=== PATIENT | male | born 1930 ===

== ENCOUNTER 2017-05-18 11:22 | Inpatient (IN) | payer MEDICARE ==
[2017-05-18 11:22] VITALS: PULSE 73
[2017-05-18 11:52] LABS: VENOUS BLOOD GAS BASE EXCESS -10.9 mmol/L (0.0-2.0); VENOUS BLOOD GAS PCO2 31 mmHg (40-60); VENOUS BLOOD PH 7.28 (7.32-7.43)
[2017-05-18 12:00] VITALS: BMI 22.2
[2017-05-18] MEDS ORDERED: Sodium Chloride 0.9% 500 ML IV ONE ×3 (12:05→12:48)
[2017-05-18 12:08] LABS: EOS % 0.5 % (0.0-4.0); LYMPH # 0.8 K/uL (1.0-4.3); NRBC % 0.2 % (0.0-2.0)
[2017-05-18 12:11] LABS: POTASSIUM 4.3 mmol/L (3.6-5.2)
--- NOTE | 2017-05-18 12:11 | C.PDOC ---
History Of Present Illness Patient is a 87 y/o male, whose PMHx includes CHF, that is brought to the ED by EMS for evaluation of shortness of breath. Patient was found to be hypotensive, hypoglycemic, tachypneic, with JVD, and in rapid Afib by EMS. EMS reports giving glucose, IV fluids, and was started on BIPAP. As per , patient felt hot 2 days ago, was not able to sleep, and was noted to be coughing, and short of breath. states patient has been agitated, lethargic, had decreased PO intake, and noticed less activity. denies any fever. Poor mentation noted on arrival. PMD: Alexander Abaid Time Seen by Provider: 05/18/17 11:40 Chief Complaint (Nursing): Shortness Of Breath History Per: EMS, Family History/Exam Limitations: no limitations Onset/Duration Of Symptoms: Days (2) Recent travel outside of the [place]: No Additional History Per: EMS Past Medical History Reviewed: Historical Data, Nursing Documentation, Vital Signs Vital Signs: Last Vital Signs Temp 98.1 F 05/18/17 11:45 Pulse 105 H 05/18/17 12:54 Resp 22 05/18/17 12:54 BP 120/89 05/18/17 12:54 Pulse Ox 28 L 05/18/17 13:26 - Medical History PMH: Atrial Fibrillation, Back Problems, Bronchitis, CHF, HTN, Hypercholesterolemia, Pneumonia, Chronic Kidney Disease Surgical History: Cholecystectomy Family History: States: Unknown Family Hx - Social History Hx Tobacco Use: No Hx Alcohol Use: No Hx Substance Use: No - Immunization History Hx Tetanus Toxoid Vaccination: No Hx Influenza Vaccination: Yes Hx Pneumococcal Vaccination: No Review Of Systems Review Of Systems: ROS cannot be obtained secondary to pt's inabilty to answer questions. Physical Exam - Physical Exam Appears: Confused, Chronically Ill Skin: Normal Color, Warm, Dry Head: Atraumatic, Normacephalic Eye(s): bilateral: Normal Inspection Throat: Normal Neck: Supple, Other (+ JVD) Chest: Symmetrical Cardiovascular: Rhythm Irregular, No Murmur Respiratory: Decreased Breath Sounds (decreased air flow BL) Gastrointestinal/Abdominal: Soft, No Tenderness, Other (surgical scars to abdomen) Extremity: Pedal Edema (+2 pitting edema BL), No Deformity Neurological/Psych: Slow To Respond With Command ED Course And Treatment - Laboratory Results Result Diagrams: 05/18/17 11:54 05/18/17 11:54 ECG: Interpreted By Me, Viewed By Me ECG Rhythm: Atrial Fibrillation ECG Interpretation: No Acute Changes Interpretation Of ECG: Q waves in septal leads. Rate From EC (bpm) O2 Sat by Pulse Oximetry: 28 Medical Decision Making Medical Decision Making: Blood work, urinalysis, EKG, CXR ordered and reviewed. Patient was given IV fluids, and respiratory treatment. Blood work shows elevated lactate. Most likely not due to infection, no white count, or fever. No obvious signs of infection. Case discussed with ICU. Patient was evaluated by ICU, and was downgraded. Started on Vapotherm. Endorsed to hospitalist. Dr. Elsa Norman requesting Head CT Disposition Discussed With Dr.: Gregory Norman Counseled Patient/Family Regarding: Studies Performed - Disposition Disposition: HOSPITALIZED Disposition Time: 13:32 Condition: GUARDED - Clinical Impression Clinical Impression: Afib, CHF (congestive heart failure), Dyspnea, Altered mental status - Scribe Statement The provider has reviewed the documentation as recorded by the Scribe Fausto Norman All medical record entries made by the Scribe were at my direction and personally dictated by me. I have reviewed the chart and agree that the record accurately reflects my personal performance of the history, physical exam, medical decision making, and the department course for this patient. I have also personally directed, reviewed, and agree with the discharge instructions and disposition. Decision To Admit - Pt Status Changed To: Hospital Disposition Of: Inpatient - Admit Certification Admit to Inpatient:: After my assessment, the patient will require hospitalization for at least two midnights. This is because of the severity of symptoms shown, intensity of services needed, and/or the medical risk in this patient being treated as an outpatient. - InPatient: Physician Admission Certification: I certify that this patient requires 2 or more midnights of care for the following reason:: multiple co morbidities. SOB, AMS - . Bed Request Type: Telemetry Admitting Physician: Gregory Norman Patient Diagnosis: Afib, CHF (congestive heart failure), Dyspnea, Altered mental status
[2017-05-18 12:13] LABS: BILIRUBIN,TOTAL 4.7 mg/dL (0.2-1.3); TOTAL PROTEIN 7.4 g/dL (6.3-8.3)
[2017-05-18 12:14] LABS: CALCIUM 9.2 mg/dl (8.6-10.4); MAGNESIUM 2.2 mg/dL (1.6-2.3); PHOSPHOROUS 5.3 mg/dL (2.5-4.5)
[2017-05-18 12:21] LABS: INR 1.9
[2017-05-18 12:23] LABS: ABG ALLEN TEST A; ARTERIAL BLOOD GAS MODE BiPAP; DRAW SITE RRA
[2017-05-18 12:25] LABS: TROPONIN I 0.044 ng/mL (0.00-0.120)
[2017-05-18 12:37] LABS: BASO % 0.7 % (0.0-2.0); HEMATOCRIT 44.6 % (35.0-51.0); LYMPH % 11.4 % (20.0-40.0); MEAN CELL VOLUME 85.1 fL (80.0-94.0); MEAN CORPUSCULAR HEMOGLOBIN 25.9 pg (27.0-31.0); MEAN CORPUSCULAR HGB CONC 30.4 g/dL (33.0-37.0); MEAN PLATELET VOLUME 12.3 fL (7.2-11.7); MONO % 14.7 % (0.0-10.0); RED CELL DISTRIBUTION WIDTH 19.5 % (11.5-14.5); WHITE BLOOD COUNT 6.7 K/uL (4.8-10.8)
[2017-05-18 13:07] LABS: RBC URINE 2 /hpf (0-3); URINE BACTERIA RARE (<OCC); URINE BILIRUBIN NEGATIVE (NEGATIVE); URINE BLOOD 1+ (NEGATIVE); URINE COLOR Amber (YELLOW); URINE GLUCOSE (UA) 1+ mg/dL (Normal); URINE KETONE NEGATIVE (NEGATIVE); URINE LEUKOCYTE ESTERASE NEG Leu/uL (Negative); URINE PROTEIN 2+ mg/dL (NEGATIVE); WBC URINE 7 /hpf (0-5)
--- NOTE | 2017-05-18 13:12 | RAD ---
HISTORY: Sepsis Patient COMPARISON: Comparison is made to 05/04/2015 FINDINGS: LUNGS: No active pulmonary disease. PLEURA: No significant pleural effusion identified, no pneumothorax apparent. CARDIOVASCULAR: Cardiomegaly is again noted. OSSEOUS STRUCTURES: Degenerative changes seen at the shoulders VISUALIZED UPPER ABDOMEN: Normal. OTHER FINDINGS: None. IMPRESSION: Cardiomegaly. No evidence of acute pulmonary disease.
[2017-05-18] MEDS ORDERED: Vancomycin 1 gm/NS 200 ml 1 GM/200 ML BAG IVPB STA (13:51)
[2017-05-18] MEDS ORDERED: Aztreonam 2 GM in Sodium Chloride 0.9% 100 ML IVPB STA (13:51)
--- NOTE | 2017-05-18 14:18 | CP.PCM.HP ---
<Trudi Su - Last Filed: 05/18/17 18:23> History of Present Illness - History of Present Illness History of Present Illness: This patient was seen by the rewriter at approximately 14:00pm on 05/18 in the ED Patient's code status is yet to be determined. Health proxy is patient's Lily Florentino. CC: shortness of breath with altered mental status HPI: 87 year old male with PMHx significant for CHF, HTN, atrial fibrillation, ischemic cardiomyopathy, severe chronic systolic dysfunction and severe mitral regurgitation presents after complaints of shortness of breath and lethargy as explained by son-in-law. Son-in law stated that upon EMS arriving, patient was much more altered however he became more responsive in the ED. At the time of the evaluation, patient was quite somnolent and minimally responsive to questions asked and thus a full review of symptoms was not obtained. Patient is a poor historian and not able to provide most of the history. Sme history was provided by son-in law and ; however a great portion was supplemented by the medical records. PMHx- as noted above PSHx- denies Fam Hx- Dad, brothers and sister all have DM Meds- ASA 81 mg, Carvedilol 12.5 mg PO BID, Benadryl 25 mg PO q4 prn Social- denies tobacco use, alcohol intake or drug use Allergies- tylenol, plavix, oxycodone ( rash) PMD: Dr. Munoz Food Production Worker: Dr. Terry ( [place]) In the ED, vitals were obtained and initially temperature read 98.1 degrees Fahrenheit. Minutes later, vitals were reassessed and temperature dropped to 95.8. Initial Vitals: T 98.1, HR 105, BP 120/99, R 22, O2 100 on Bipap Following Vitals:T 95.8, HR 111, BP 129/91, R 22, O2 98 on Bipap ICU test fixture designer initially deemed the patient appropriate for telemetry monitoring; however following the decrease in temperature, patient upgraded to the ICU. Present on Admission - Present on Admission Any Indicators Present on Admission: No Review of Systems - Review of Systems Systems not reviewed;Unavailable: Respiratory Distress, Altered Mental Status, Language Barrier - Constitutional Constitutional: absent: Fever, Headache - EENT Eyes: absent: Change in Vision - Cardiovascular Cardiovascular: Dyspnea. absent: Chest Pain, Chest Pain at Rest - Respiratory Respiratory: Dyspnea - Gastrointestinal Gastrointestinal: absent: Diarrhea, Nausea, Vomiting Past Patient History - Past Medical History & Family History Past Medical History?: Yes - Past Social History Smoking Status: Never Smoked - CARDIAC Hx Atrial Fibrillation: Yes Hx Congestive Heart Failure: Yes Hx Hypercholesterolemia: Yes Hx Hypertension: Yes - PULMONARY Hx Bronchitis: Yes Hx Pneumonia: Yes - NEUROLOGICAL Hx Neurological Disorder: No - HEENT Other/Comment: blurring ofVISION AND HARD OF HEARING [place] [facility] [place] Hx Chronic Kidney Disease: Yes - ENDOCRINE/METABOLIC Hx Endocrine Disorders: No - HEMATOLOGICAL/ONCOLOGICAL Hx Blood Disorders: No - INTEGUMENTARY Hx Dermatological Problems: No - MUSCULOSKELETAL/RHEUMATOLOGICAL Hx Falls: No - GASTROINTESTINAL Hx Gastrointestinal Disorders: No - GENITOURINARY/GYNECOLOGICAL Hx Genitourinary Disorders: No - PSYCHIATRIC Hx Substance Use: No - SURGICAL HISTORY Hx Cholecystectomy: Yes - ANESTHESIA Hx Anesthesia: Yes Hx Anesthesia Reactions: No Hx Malignant Hyperthermia: No Meds Allergies/Adverse Reactions: Allergies Allergy/AdvReac Type Severity Reaction Status Date / Time acetaminophen [From Percocet] Allergy RASH Verified 05/18/17 11:26 clopidogrel bisulfate Allergy RASH Verified 05/18/17 11:26 [From Plavix] oxycodone HCl [From Percocet] Allergy RASH Verified 05/18/17 11:26 fruit Allergy RASH Uncoded 12/20/15 16:00 Physical Exam - Constitutional Appears: Non-toxic - Head Exam Head Exam: ATRAUMATIC, NORMAL INSPECTION, NORMOCEPHALIC - Eye Exam Eye Exam: EOMI, Normal appearance, PERRL Pupil Exam: NORMAL ACCOMODATION - ENT Exam ENT Exam: Mucous Membranes Moist - Neck Exam Neck exam: Positive for: Full Rom - Respiratory Exam Respiratory Exam: NORMAL BREATHING PATTERN - Cardiovascular Exam Cardiovascular Exam: JVD, +S1, +S2 Additional comments: heart sounds difficult to auscultate - GI/Abdominal Exam GI & Abdominal Exam: Distended, Soft, Tenderness (RUQ) - Extremities Exam Extremities exam: Positive for: full ROM, normal capillary refill, pedal edema ( @+), tenderness, pedal pulses present - Back Exam Back exam: FULL ROM - Neurological Exam Neurological exam: Altered - Psychiatric Exam Psychiatric exam: Flat Affect - Skin Skin Exam: Dry, Intact, Warm Results - Vital Signs Recent Vital Signs: Last Vital Signs Temp 95.8 F L 05/18/17 13:49 Pulse 105 H 05/18/17 12:54 Resp 22 05/18/17 12:54 BP 120/89 05/18/17 12:54 Pulse Ox 28 L 05/18/17 13:33 - Labs Result Diagrams: 05/18/17 11:54 05/18/17 11:54 Assessment & Plan (1) Dyspnea Assessment and Plan: Shortness of breath CXR- no signs of active disease BiPAP settings 10/08, on vapotherm D-Dimer elevated Will check VQ scan at this time in light of elevated creatinine. F/U results F/U serial troponins. Troponin 1 negative Status: Acute (2) SIRS (systemic inflammatory response syndrome) Assessment and Plan: Patient admitted to ICU for continued monitoring Initial Vitals: T 98.1, HR 105, BP 120/99, R 22, O2 100 on Bipap Following Vitals:T 95.8, HR 111, BP 129/91, R 22, O2 98 on Bipap Bear hugger in place Unclear source- Son-in law stated patient had increased urinary frequency without dysuria UA no signs of leukocyte esterase or nitrites. F/U UC CXR- no signs of active disease On Vanc and Zosyn- Renally dosed F/U random vanc level in AM F/U with ID recommendations ( Dr. Hutton) Status: Acute (3) Metabolic acidosis Assessment and Plan: Increased anion gap noted with appropriate respiratory compensation Will treat the SIRS and look for a source May be secondarily due to underlying UTI Status: Acute (4) CHF (congestive heart failure) Assessment and Plan: Last Echo in November 2016 with EF of ~ 10%. At the time, the family was against AICD placement. Will repeat echo. Will reassess F/U with Cardiology recommendations ( Dr. Saha) ProBNP relatively unchanged from level noted back in November Status: Chronic (5) Chronic atrial fibrillation Assessment and Plan: Patient is currently rate controlled however not anticoagulated due to high bleeding risk as per Dr. Saha. [id number] score 4/9 ( CHF, Age, HTN) F/U with cardiology recommendations Status: Chronic (6) Altered mental status Assessment and Plan: Head CT to rule out CVA or bleed- Results- no signs of acute active bleeding. Moderate atrophy and moderate white matter changes likely due to microvascular ischemic disease F/U AM labs Ativan PRN for agitation Status: Acute (7) HTN (hypertension) Assessment and Plan: Coreg 12.5 mg PO BID home med held until it can be determined that patient can safely swallow meds. Patient's BP is borderline low normotensive Status: Chronic (8) Hyperlipidemia Assessment and Plan: Unclear History Will check Lipid Panel in the AM Status: Chronic (9) CKD (chronic kidney disease) stage 3, GFR 30-59 ml/min Assessment and Plan: Monitor ins and outs F/U with Nephrology ( Dr. Ortiz) recommendations Status: Acute (10) Lower extremity edema Assessment and Plan: D-dimer elevated. 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 Possiblity if hepatocellular carcinoma is not totally excluded. Patient may benefit from MRI of abdomen in the future once current clinical presentation resolves. Cont to monitor. Status: Acute (12) Prophylactic measure Assessment and Plan: SCDs contraindicated at this time until Venous dopplers come back Heparin SC held as patient is a high bleeding risk as stated above PPI 40 IV daily Ativan 0.5 mg Q4 PRN for agitation Status: Acute <Gregory Norman - Last Filed: 05/18/17 22:01> Results - Vital Signs Recent Vital Signs: Last Vital Signs Temp 97.4 F L 05/18/17 20:00 Pulse 126 H 05/18/17 19:48 Resp 30 H 05/18/17 19:40 BP 121/85 05/18/17 20:00 Pulse Ox 96 05/18/17 19:48 - Labs Result Diagrams: 05/18/17 11:54 05/18/17 11:54 Labs: Laboratory Results - last 24 hr 05/18/17 05/18/17 05/18/17 14:30 17:47 17:47 pO2 25 L VBG pH 7.25 L VBG pCO2 39 L VBG HCO3 15.8 VBG Total CO2 18.3 L VBG O2 Sat (Calc) 41.5 VBG Base Excess -9.5 L VBG Potassium 3.5 L Sodium 142.0 Chloride 112.0 H Glucose 102 Lactate 3.8 H Lactic Acid 4.8 H* Total Creatine Kinase CK-MB (Mass) Troponin I, Quant Procalcitonin 0.59 H Venous Blood Potassium 3.5 L 05/18/17 17:47 pO2 VBG pH VBG pCO2 VBG HCO3 VBG Total CO2 VBG O2 Sat (Calc) VBG Base Excess VBG Potassium Sodium Chloride Glucose Lactate Lactic Acid Total Creatine Kinase 55 CK-MB (Mass) 2.63 Troponin I, Quant 0.0530 Procalcitonin Venous Blood Potassium Attending/Attestation - Attestation I have personally seen and examined this patient.: Yes I have fully participated in the care of the patient.: Yes I have reviewed all pertinent clinical information: Yes Notes (Text): 05/18/17 22:01 Patient was seen and examined when he was brought to the ICUD Bed #10. History, Physical, Assessment and Plan, orders were thoroughly gone over with the resident. Gregory Norman D.O.
[2017-05-18 14:36] LABS: VENOUS BLOOD GAS BASE EXCESS -9.5 mmol/L (0.0-2.0); VENOUS BLOOD GAS PCO2 39 mmHg (40-60); VENOUS BLOOD PH 7.25 (7.32-7.43)
--- NOTE | 2017-05-18 16:38 | CP.PCM.CON ---
History of Present Illness - History of Present Illness History of Present Illness: 87yo M. PMHx CHF,HTN, atrial fibrillation, ischemic cardiomyopathy, severe chronic systolic dysfunction, severe mitral regurgitation. Presented with change in mental status, and dyspnea. Review of Systems - Review of Systems Systems not reviewed;Unavailable: Altered Mental Status All systems: reviewed and no additional remarkable complaints except - Respiratory Respiratory: Dyspnea Past Patient History - Past Medical History & Family History Past Medical History?: Yes - Past Social History Smoking Status: Never Smoked - CARDIAC Hx Atrial Fibrillation: Yes Hx Congestive Heart Failure: Yes Hx Hypercholesterolemia: Yes Hx Hypertension: Yes - PULMONARY Hx Bronchitis: Yes Hx Pneumonia: Yes - NEUROLOGICAL Hx Neurological Disorder: No - HEENT Other/Comment: blurring ofVISION AND HARD OF HEARING AFTER taking heart medicine from [facility] [place] - RENAL Hx Chronic Kidney Disease: Yes - ENDOCRINE/METABOLIC Hx Endocrine Disorders: No - HEMATOLOGICAL/ONCOLOGICAL Hx Blood Disorders: No - INTEGUMENTARY Hx Dermatological Problems: No - MUSCULOSKELETAL/RHEUMATOLOGICAL Hx Falls: No - GASTROINTESTINAL Hx Gastrointestinal Disorders: No - GENITOURINARY/GYNECOLOGICAL Hx Genitourinary Disorders: No - PSYCHIATRIC Hx Substance Use: No - SURGICAL HISTORY Hx Cholecystectomy: Yes - ANESTHESIA Hx Anesthesia: Yes Hx Anesthesia Reactions: No Hx Malignant Hyperthermia: No Meds Allergies/Adverse Reactions: Allergies Allergy/AdvReac Type Severity Reaction Status Date / Time acetaminophen [From Percocet] Allergy RASH Verified 05/18/17 11:26 clopidogrel bisulfate Allergy RASH Verified 05/18/17 11:26 [From Plavix] oxycodone HCl [From Percocet] Allergy RASH Verified 05/18/17 11:26 fruit Allergy RASH Uncoded 12/20/15 16:00 - Medications Medications: Current Medications Aspirin (Aspirin Chewable) 81 mg PO DAILY [facility] Heparin Sodium (Porcine) (Heparin) 5,000 units SC Q8 [facility] Vancomycin/Sodium Chloride (Vancocin) 1 gm in 200 mls @ 166.6 mls/hr IVPB Q24H [place] Stop: 05/24/17 12:01 Piperacillin Sod/Tazobactam Sod (Zosyn 2.25 Gm Iv Premix) 2.25 gm in 50 mls @ 100 mls/hr IVPB Q6H [facility] Lorazepam (Ativan) 0.5 mg IVP Q4H PRN PRN Reason: Agitation Last Admin: 05/18/17 15:30 Dose: 0.5 mg Pantoprazole Sodium (Protonix Inj) 40 mg IVP DAILY [facility] Physical Exam - Head Exam Head Exam: ATRAUMATIC, NORMAL INSPECTION, NORMOCEPHALIC - Eye Exam Eye Exam: EOMI, Normal appearance, PERRL - ENT Exam ENT Exam: Mucous Membranes Dry - Respiratory Exam Respiratory Exam: Clear to Auscultation Bilateral, NORMAL BREATHING PATTERN - Cardiovascular Exam Cardiovascular Exam: Irregular Rhythm - GI/Abdominal Exam GI & Abdominal Exam: Normal Bowel Sounds, Soft. absent: Tenderness - Neurological Exam Neurological exam: Alert, Altered - Psychiatric Exam Psychiatric exam: Flat Affect Results - Vital Signs Recent Vital Signs: Last Vital Signs Temp 95 F L 05/18/17 16:00 Pulse 124 H 05/18/17 16:20 Resp 18 05/18/17 16:20 BP 102/80 05/18/17 16:16 Pulse Ox 95 05/18/17 16:20 - Labs Result Diagrams: 05/18/17 11:54 05/18/17 11:54 Labs: Laboratory Results - last 24 hr 05/18/17 14:30 pO2 25 L VBG pH 7.25 L VBG pCO2 39 L VBG HCO3 15.8 VBG Total CO2 18.3 L VBG O2 Sat (Calc) 41.5 VBG Base Excess -9.5 L VBG Potassium 3.5 L Sodium 142.0 Chloride 112.0 H Glucose 102 Lactate 3.8 H Venous Blood Potassium 3.5 L Assessment & Plan - Assessment and Plan (Free Text) Assessment: 87yo M. PMHx CHF,HTN, atrial fibrillation, ischemic cardiomyopathy, severe chronic systolic dysfunction, severe mitral regurgitation. Presented with change in mental status, and dyspnea. Neuro: Altered mental status secondary to metabolic encephalopathy. Pulm: Initial hypoxia resolving, patient on high flow oxygen, will titrate nasal cannula oxygen. CV: Blood pressure labile, ranging from normotensive to hypotensive. Hem: No acute issues Renal: Chronic kidney disease, Will monitor urine output. NS@50 Endo: No acute issues GI: Nothing by mouth ID: Possible sepsis from UTI, follow-up urinalysis. Empiric therapy with Zosyn. DVT proph - heparin subcutaneous GI proph - not currently indicated [place] for strict I/O's during acute illness Code status - full code Critical Care Time spent 35 minutes Multi-disciplinary rounds were performed with house staff, nursing, speech therapy, respiratory therapy, pharmacy and nutrition with integrated input from the primary team/attending and other consulting services. The documented time is cumulative and includes review of patient data/exams/labs/chart review and examination of the patient on rounds and throughout the day; time is exclusive of any procedures or teaching time.
--- NOTE | 2017-05-18 16:43 | CT ---
PROCEDURE: CT HEAD WITHOUT CONTRAST. HISTORY: Change in Mental Status COMPARISON: None available. TECHNIQUE: Axial computed tomography images were obtained through the head/brain without intravenous contrast. Radiation dose: Total exam DLP = 1029.73 mGy-cm. This CT exam was performed using one or more of the following dose reduction techniques: Automated exposure control, adjustment of the mA and/or kV according to patient size, and/or use of iterative reconstruction technique. FINDINGS: HEMORRHAGE: No intracranial hemorrhage. BRAIN: No mass effect or edema. Moderate atrophy and moderate white matter changes likely represent chronic microvascular ischemic disease VENTRICLES: Unremarkable. No hydrocephalus. CALVARIUM: Unremarkable. PARANASAL SINUSES: Unremarkable as visualized. No significant inflammatory changes. MASTOID AIR CELLS: Unremarkable as visualized. No inflammatory changes. OTHER FINDINGS: None. IMPRESSION: No evidence of acute intracranial hemorrhage territorial infarct mass effect or midline shift. Moderate atrophy and moderate white matter changes likely due to microvascular ischemic disease.
[2017-05-18] MEDS: Piperacill/Tazo 2.25gm in Dex 2.25 GM/50 ML BAG IVPB SCH ×2 (16:46→21:34)
--- NOTE | 2017-05-18 17:19 | US ---
HISTORY: RUQ Pain on Palpation, Elevated LFTs COMPARISON: None. TECHNIQUE: Sonographic evaluation of the abdomen. FINDINGS: LIVER: Measures 17.4 cm. Mild increased echogenicity of the liver parenchyma. There is hypoechoic a cyst at the right liver lobe measures 3.9 x 2.4 x 3.5 centimeter. . No intrahepatic bile duct dilatation. GALLBLADDER: Status post cholecystectomy. COMMON BILE DUCT: Measures 9.5 mm. No stones. No dilatation. PANCREAS: Unremarkable as visualized. No mass. No ductal dilatation. RIGHT KIDNEY: Measures 9.6 x 3.5 x 4.1cm. Mild increased echogenicity of the right kidney. No evidence of hydronephrosis. Small echogenic lesion seen at the mid to lower pole right kidney measures 1 x 0.8 x 1.2 centimeter. There is a cyst at the right kidney measures 3.8 x 3.4 x 3.3 centimeter. LEFT KIDNEY: Measures 8.4 x 4 x 3.9cm. Normal echogenicity. No calculus, mass, or hydronephrosis. SPLEEN: Normal in size and contour. No mass. AORTA: No aneurysmal dilatation. IVC: Unremarkable. OTHER FINDINGS: None. IMPRESSION: Status post cholecystectomy. Mildly dilated CBD up to 9.5 millimeter which could be due to prior cholecystectomy. 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 The possibility of hepatocellular carcinoma is not totally excluded. No evidence of hydronephrosis.
[2017-05-18] MEDS: Sodium Chloride 0.9% 1,000 ML IV SCH (19:30)
--- NOTE | 2017-05-18 22:38 | CP.PCM.CON ---
History of Present Illness - History of Present Illness History of Present Illness: History taken from house staff/records as patient has AMS, no family at bedside; 87 yo M w/ pmh of htn, CHF w/ severe systolic dysfunction secondary to ischemic cardiomyopathy and severe mitral regurg, Afib not on AC and CKD IIIB, brought to ED today with shortness of breath and increased lethargy; nephrology service being consulted for advanced CKD; Per ED note, noted patient to have cough and increased sob over previous 2 days; he had become agitated, and was having decreased PO intake and decreased activity lately; EMS found patient to be hypotensive, hypoglycemic, tachypneic, having elevated JVD and in rapid Afib; Patient was given glucose, IVF and started on BIPAP; In ED, patient was found to be hypothermic and with elevated lactate level; hence he was admitted to ICU; Review of Systems - Review of Systems Systems not reviewed;Unavailable: Altered Mental Status - Cardiovascular Cardiovascular: As Per HPI - Respiratory Respiratory: As Per HPI Past Patient History - Past Medical History & Family History Past Medical History?: Yes Pertinent Family History: Father and siblings - DM - Past Social History Smoking Status: Never Smoked - CARDIAC Hx Atrial Fibrillation: Yes Hx Congestive Heart Failure: Yes Hx Hypercholesterolemia: Yes Hx Hypertension: Yes - PULMONARY Hx Bronchitis: Yes Hx Pneumonia: Yes - NEUROLOGICAL Hx Neurological Disorder: No - HEENT Other/Comment: blurring ofVISION AND HARD OF HEARING [place] [facility] [place] Hx Chronic Kidney Disease: Yes - ENDOCRINE/METABOLIC Hx Endocrine Disorders: No - HEMATOLOGICAL/ONCOLOGICAL Hx Blood Disorders: No - INTEGUMENTARY Hx Dermatological Problems: No - MUSCULOSKELETAL/RHEUMATOLOGICAL Hx Falls: No - GASTROINTESTINAL Hx Gastrointestinal Disorders: No - GENITOURINARY/GYNECOLOGICAL Hx Genitourinary Disorders: No - PSYCHIATRIC Hx Substance Use: No - SURGICAL HISTORY Hx Cholecystectomy: Yes - ANESTHESIA Hx Anesthesia: Yes Hx Anesthesia Reactions: No Hx Malignant Hyperthermia: No Meds Allergies/Adverse Reactions: Allergies Allergy/AdvReac Type Severity Reaction Status Date / Time clopidogrel bisulfate Allergy RASH Verified 05/18/17 11:26 [From Plavix] oxycodone HCl [From Percocet] Allergy RASH Verified 05/18/17 11:26 - Medications Medications: Current Medications Aspirin (Aspirin Chewable) 81 mg PO DAILY [facility] Vancomycin/Sodium Chloride (Vancocin) 1 gm in 200 mls @ 166.6 mls/hr IVPB Q24H [facility] Stop: 05/24/17 12:01 Piperacillin Sod/Tazobactam Sod (Zosyn 2.25 Gm Iv Premix) 2.25 gm in 50 mls @ 100 mls/hr IVPB Q6H [facility] Last Admin: 05/18/17 21:34 Dose: 100 mls/hr Sodium Chloride (Sodium Chloride 0.9%) 1,000 mls @ 50 mls/hr IV .Q20H [facility] Last Admin: 05/18/17 19:30 Dose: 50 mls/hr Lorazepam (Ativan) 0.5 mg IVP Q4H PRN PRN Reason: Agitation Last Admin: 05/18/17 20:59 Dose: 0.5 mg Pantoprazole Sodium (Protonix Inj) 40 mg IVP DAILY [facility] Physical Exam - Constitutional Appears: In Acute Distress, Agitated - Head Exam Head Exam: ATRAUMATIC, NORMAL INSPECTION, NORMOCEPHALIC - Eye Exam Eye Exam: Normal appearance. absent: Scleral icterus Pupil Exam: PERRL - ENT Exam ENT Exam: Mucous Membranes Moist - Neck Exam Neck exam: Positive for: Normal Inspection. Negative for: Lymphadenopathy, Thyromegaly - Respiratory Exam Respiratory Exam: Clear to Auscultation Bilateral Additional comments: Tachypneic; - Cardiovascular Exam Cardiovascular Exam: REGULAR RHYTHM, +S1, +S2 - GI/Abdominal Exam GI & Abdominal Exam: Distended, Soft Additional comments: Generalized tenderness; - Exam Exam: absent: Bladder Distension - Extremities Exam Extremities exam: Positive for: normal capillary refill Additional comments: Mild/moderate b/l lower leg edema; - Neurological Exam Neurological exam: Altered - Psychiatric Exam Psychiatric exam: Agitated - Skin Skin Exam: Normal Color, Warm Results - Vital Signs Recent Vital Signs: Last Vital Signs Temp 97.4 F L 05/18/17 20:00 Pulse 126 H 05/18/17 19:48 Resp 30 H 05/18/17 19:40 BP 121/85 05/18/17 20:00 Pulse Ox 96 05/18/17 19:48 - Labs Result Diagrams: 05/19/17 06:11 05/19/17 06:11 Labs: Laboratory Results - last 24 hr 05/18/17 05/18/17 05/18/17 14:30 17:47 17:47 pO2 25 L VBG pH 7.25 L VBG pCO2 39 L VBG HCO3 15.8 VBG Total CO2 18.3 L VBG O2 Sat (Calc) 41.5 VBG Base Excess -9.5 L VBG Potassium 3.5 L Sodium 142.0 Chloride 112.0 H Glucose 102 Lactate 3.8 H Lactic Acid 4.8 H* Total Creatine Kinase CK-MB (Mass) Troponin I, Quant Procalcitonin 0.59 H Venous Blood Potassium 3.5 L Ur Random Creatinine U Random Total Protein Urine Microalbumin 05/18/17 05/18/17 05/18/17 17:47 22:00 22:00 pO2 VBG pH VBG pCO2 VBG HCO3 VBG Total CO2 VBG O2 Sat (Calc) VBG Base Excess VBG Potassium Sodium Chloride Glucose Lactate Lactic Acid Total Creatine Kinase 55 CK-MB (Mass) 2.63 Troponin I, Quant 0.0530 Procalcitonin Venous Blood Potassium Ur Random Creatinine 127.6 U Random Total Protein Urine Microalbumin 467.6 H 05/18/17 22:06 pO2 VBG pH VBG pCO2 VBG HCO3 VBG Total CO2 VBG O2 Sat (Calc) VBG Base Excess VBG Potassium Sodium Chloride Glucose Lactate Lactic Acid Total Creatine Kinase CK-MB (Mass) Troponin I, Quant Procalcitonin Venous Blood Potassium Ur Random Creatinine U Random Total Protein 85.0 H Urine Microalbumin - Imaging and Cardiology US - abdomen Status: Image reviewed by me Additional comment: R kidney mildly echogenic; L with normal echogenicity; R kidney echogenic focus; Assessment & Plan (1) CKD (chronic kidney disease) stage 3, GFR 30-59 ml/min Assessment and Plan: Likely due to cardiorenal etiology as patient had no proteinuria by dipstick despite having advanced renal insufficiency in 12/2015; increased dipstick proteinuria currently; otherwise, renal function appears at baseline; R kidney somewhat echogenic and with echogenic focus on US, will benefit from further imaging (non-contrast CT); will continue to monitor; -will check urine sampel for total protein, microalbumin and creatinine for quantified proteinuria estimate; Status: Acute (2) Hypertensive CKD (chronic kidney disease) Assessment and Plan: On coreg at home; currently normotensive but has signs of sepsis; would hold coreg to avoid hypotension, can give metoprolol instead for B-raquel effect; Status: Acute (3) Altered mental status Assessment and Plan: Likely due to SIRS/sepsis, on empiric abx, continue; Status: Acute (4) SIRS (systemic inflammatory response syndrome) Assessment and Plan: Elevated lactate and hypothermia consistent with SIRS/Sepsis; etiology not apparent although patient having abd pain/distention; abd US showing biliary dilatation; further imaging is advisable (discussed with night chemical compounder); Status: Acute (5) CHF (congestive heart failure) Assessment and Plan: With severe systolic dysfunction and mitral regurg; doesn't appear to be in failure currently as CXR appears clear; would avoid diuresis in setting of SIRS/ Sepsis for now; Status: Chronic
[2017-05-18] MEDS ORDERED: Iohexol 240 (50 ml) PO ONE (23:45)
[2017-05-19] MEDS ORDERED: Metoprolol 1 mg/ml Inj IVP ONE (00:01)
[2017-05-19] MEDS ORDERED: Iohexol 240 (50 ml) PO ONE (01:00)
[2017-05-19] MEDS: Piperacill/Tazo 2.25gm in Dex 2.25 GM/50 ML BAG IVPB SCH ×4 (03:38→21:58)
--- NOTE | 2017-05-19 05:56 | CT ---
EXAM: CT Abdomen and Pelvis With Intravenous Contrast CLINICAL HISTORY: 87 years old, male; Signs and symptoms; Abdominal tenderness TECHNIQUE: Axial computed tomography images of the abdomen and pelvis with intravenous contrast. This CT exam was performed using one or more of the following dose reduction techniques: automated exposure control, adjustment of the mA and/or kV according to patient size, and/or use of iterative reconstruction technique. Coronal and sagittal reformatted images were created and reviewed. CONTRAST: 10 mL of omni 240 administered intravenously. EXAM DATE/TIME: 05/18/2017 11:15 PM COMPARISON: CR - ABDOMEN (FLAT PLATE) 1VIEW 05/18/2017 9:24:00 PM FINDINGS: Massive cardiomegaly. Pleural effusion measuring 1.8 cm in maximal width. Small bilateral pleural effusions. Feeding tube with tip in the duodenum. Cholecystectomy clips. Small amount of perihepatic and perisplenic fluid. Right hepatic cyst measuring 2.5 x 3.8 cm. The spleen and pancreas appear grossly normal on this non-contrast study. Exophytic right renal cyst measuring 3.8 cm. There is a non obstructing left renal calculi. There is a Villa catheter.The wall of the urinary bladder appears thickened and indistinct possibly representing cystitis. The prostate is enlarged. Possible hydroceles and varicoceles suboptimally evaluated on this study. Dense contrast in the colon produces artifact. Colonic diverticulosis. Prominent vessels are present along the left pelvic side wall. Combination of patient motion, artifact from bowel, and lack of intravenous contrast is limiting. Degenerative changes in the osseous structures. IMPRESSION: Massive cardiomegaly. Small pericardial effusion and small bilateral pleural effusions. Possible cystitis.Recommend correlation with urinalysis. Enlarged prostate.Recommend correlation with PSA level. Dense colonic contrast produces artifact.
[2017-05-19 06:26] LABS: INR 2.4
[2017-05-19 06:34] LABS: BILIRUBIN,TOTAL 6.2 mg/dL (0.2-1.3); CALCIUM 9.3 mg/dl (8.6-10.4); MAGNESIUM 2.3 mg/dL (1.6-2.3); PHOSPHOROUS 6.6 mg/dL (2.5-4.5); POTASSIUM 4.8 mmol/L (3.6-5.2); TOTAL PROTEIN 7.3 g/dL (6.3-8.3)
[2017-05-19 07:01] LABS: THYROID STIMULATING HORMONE 2.09 mIU/L (0.46-4.68)
--- NOTE | 2017-05-19 07:22 | CP.CCUPN ---
CCU Subjective - Physician Review Subjective (Free Text): 05/19/17 11:44 Patient was seen and examined at bedside. Patient is currently sedated and not able to respond. Per patient's and son in law the patient has altered mental status that started Friday morning. Per patient's family the patient is normally alert and oriented x3. 05/19/17 11:46 CCU Objective - Vital Signs / Intake & Output Vital Signs (Last 4 hours): Vital Signs Temp Pulse Resp BP Pulse Ox 05/19/17 06:07 26 H 05/19/17 06:00 133 H 27 H 99 05/19/17 05:55 130 H 26 H 90/63 L 99 05/19/17 05:35 132 H 27 H 83/57 L 99 05/19/17 05:30 125 H 27 H 98 05/19/17 05:28 123 H 27 H 87/52 L 100 05/19/17 05:00 132 H 29 H 99 05/19/17 04:30 146 H 27 H 98 05/19/17 04:06 129 H 29 H 105/78 99 05/19/17 04:00 97.8 F 145 H 28 H 99 05/19/17 03:30 137 H 20 99 Intake and Output (Last 8hrs): Intake & Output 05/18/17 05/19/17 05/19/17 22:59 06:59 14:59 Intake Total 450 2000 Output Total 105 875 Balance 345 1125 Intake: Intake, IV Amount 450 400 Left Forearm 0 Right Forearm 450 400 Other 1600 Output: Urine 105 75 Urethral (Whitehead) 105 75 Oral Regurgitation 800 Other: # Bowel Movements 1 - Physical Exam Physical Exam Limitations: Positive for: Altered Mental Status Respiratory/Chest: Positive for: Other (patient on high flow oxygen) Abdomen: Positive for: Normal Bowel Sounds. Negative for: Distention Upper Extremity: Positive for: Edema Lower Extremity: Positive for: Edema Psychiatric: Negative for: Alert, Oriented x 3 - Medications Active Medications: Active Medications Generic Name Dose Route Start Last Admin Trade Name Freq PRN Reason Stop Dose Admin Aspirin 81 mg 05/19/17 10:00 Aspirin Chewable PO DAILY [facility] Vancomycin/Sodium Chloride 1 gm in 200 mls @ 166.6 mls/hr 05/19/17 12:00 Vancocin IVPB 05/24/17 12:01 Q24H [facility] Piperacillin Sod/Tazobactam Sod 2.25 gm in 50 mls @ 100 mls/hr 05/18/17 16:00 05/19/17 03:38 Zosyn 2.25 Gm Iv Premix IVPB 100 mls/hr Q6H [facility] Administration Sodium Chloride 1,000 mls @ 50 mls/hr 05/18/17 19:18 05/18/17 19:30 Sodium Chloride 0.9% IV 50 mls/hr .Q20H [facility] Administration Lorazepam 0.5 mg 05/18/17 15:32 05/19/17 01:28 Ativan IVP 0.5 mg Q4H PRN Administration Agitation Pantoprazole Sodium 40 mg 05/19/17 10:00 Protonix Inj IVP DAILY [facility] - Patient Studies Lab Studies: Lab Studies 05/19/17 05/19/17 05/19/17 Range/Units 06:11 06:11 06:11 PT 27.7 H D (9.7-12.2) SECONDS INR 2.4 D APTT 31 D (21-34) SECONDS pO2 (30-55) mm/Hg VBG pH (7.32-7.43) VBG pCO2 (40-60) mmHg VBG HCO3 mmol/L VBG Total CO2 (22-28) mmol/L VBG O2 Sat (Calc) (40-65) % VBG Base Excess (0.0-2.0) mmol/L VBG Potassium (3.6-5.2) mmol/L Sodium (132-148) mmol/l Chloride (98-107) mmol/L Glucose (75-110) mg/dl Lactate (0.7-2.1) mmol/L Potassium (3.6-5.2) mmol/L Carbon Dioxide (22-30) mmol/L Anion Gap (10-20) BUN (9-20) mg/dL Creatinine (0.8-1.5) MG/DL Est GFR ( Amer) Est GFR (Non-Af Amer) Random Glucose (75-110) mg/dL Lactic Acid (0.7-2.1) mmol/L Calcium (8.6-10.4) mg/dl Phosphorus (2.5-4.5) mg/dL Magnesium (1.6-2.3) mg/dL Total Bilirubin (0.2-1.3) mg/dL AST (17-59) U/L ALT (21-72) U/L Alkaline Phosphatase (38-126) U/L Total Creatine Kinase (55-170) U/L CK-MB (Mass) (0.0-3.38) ng/mL Troponin I, Quant (0.00-0.120) ng/mL Total Protein (6.3-8.3) g/dL Albumin (3.5-5.0) g/dL Globulin (2.2-3.9) gm/dL Albumin/Globulin Ratio (1.0-2.1) Triglycerides (0-149) mg/dL Cholesterol (0-199) mg/dL LDL Cholesterol Direct (0-129) mg/dL HDL Cholesterol (30-70) mg/dL Procalcitonin (0.19-0.49) NG/ML Free T4 2.83 H (0.78-2.19) ng/dL TSH 3rd Generation (0.46-4.68) mIU/L Venous Blood Potassium (3.6-5.2) mmol/L Ur Random Creatinine mg/dL U Random Total Protein (0.0-12.0) mg/dL Urine Microalbumin (0.0-16.6) mg/L Random Vancomycin 12.18 ug/mL 05/19/17 05/18/17 05/18/17 Range/Units 06:11 23:56 22:06 PT (9.7-12.2) SECONDS INR APTT (21-34) SECONDS pO2 (30-55) mm/Hg VBG pH (7.32-7.43) VBG pCO2 (40-60) mmHg VBG HCO3 mmol/L VBG Total CO2 (22-28) mmol/L VBG O2 Sat (Calc) (40-65) % VBG Base Excess (0.0-2.0) mmol/L VBG Potassium (3.6-5.2) mmol/L Sodium 134 (132-148) mmol/l Chloride 97 L (98-107) mmol/L Glucose (75-110) mg/dl Lactate (0.7-2.1) mmol/L Potassium 4.8 (3.6-5.2) mmol/L Carbon Dioxide 15 L (22-30) mmol/L Anion Gap 27 H (10-20) BUN 54 H (9-20) mg/dL Creatinine 2.5 H (0.8-1.5) MG/DL Est GFR ( Amer) 30 Est GFR (Non-Af Amer) 25 Random Glucose 71 L (75-110) mg/dL Lactic Acid (0.7-2.1) mmol/L Calcium 9.3 (8.6-10.4) mg/dl Phosphorus 6.6 H (2.5-4.5) mg/dL Magnesium 2.3 (1.6-2.3) mg/dL Total Bilirubin 6.2 H (0.2-1.3) mg/dL AST 101 H D (17-59) U/L ALT 63 (21-72) U/L Alkaline Phosphatase 129 H (38-126) U/L Total Creatine Kinase 62 (55-170) U/L CK-MB (Mass) 2.88 (0.0-3.38) ng/mL Troponin I, Quant 0.0660 (0.00-0.120) ng/mL Total Protein 7.3 (6.3-8.3) g/dL Albumin 3.6 (3.5-5.0) g/dL Globulin 3.7 (2.2-3.9) gm/dL Albumin/Globulin Ratio 1.0 (1.0-2.1) Triglycerides 106 (0-149) mg/dL Cholesterol 101 (0-199) mg/dL LDL Cholesterol Direct 48 (0-129) mg/dL HDL Cholesterol 33 (30-70) mg/dL Procalcitonin (0.19-0.49) NG/ML Free T4 (0.78-2.19) ng/dL TSH 3rd Generation 2.09 (0.46-4.68) mIU/L Venous Blood Potassium (3.6-5.2) mmol/L Ur Random Creatinine mg/dL U Random Total Protein 85.0 H (0.0-12.0) mg/dL Urine Microalbumin (0.0-16.6) mg/L Random Vancomycin ug/mL 05/18/17 05/18/17 05/18/17 Range/Units 22:00 22:00 17:47 PT (9.7-12.2) SECONDS INR APTT (21-34) SECONDS pO2 (30-55) mm/Hg VBG pH (7.32-7.43) VBG pCO2 (40-60) mmHg VBG HCO3 mmol/L VBG Total CO2 (22-28) mmol/L VBG O2 Sat (Calc) (40-65) % VBG Base Excess (0.0-2.0) mmol/L VBG Potassium (3.6-5.2) mmol/L Sodium (132-148) mmol/l Chloride (98-107) mmol/L Glucose (75-110) mg/dl Lactate (0.7-2.1) mmol/L Potassium (3.6-5.2) mmol/L Carbon Dioxide (22-30) mmol/L Anion Gap (10-20) BUN (9-20) mg/dL Creatinine (0.8-1.5) MG/DL Est GFR ( Amer) Est GFR (Non-Af Amer) Random Glucose (75-110) mg/dL Lactic Acid (0.7-2.1) mmol/L Calcium (8.6-10.4) mg/dl Phosphorus (2.5-4.5) mg/dL Magnesium (1.6-2.3) mg/dL Total Bilirubin (0.2-1.3) mg/dL AST (17-59) U/L ALT (21-72) U/L Alkaline Phosphatase (38-126) U/L Total Creatine Kinase 55 (55-170) U/L CK-MB (Mass) 2.63 (0.0-3.38) ng/mL Troponin I, Quant 0.0530 (0.00-0.120) ng/mL Total Protein (6.3-8.3) g/dL Albumin (3.5-5.0) g/dL Globulin (2.2-3.9) gm/dL Albumin/Globulin Ratio (1.0-2.1) Triglycerides (0-149) mg/dL Cholesterol (0-199) mg/dL LDL Cholesterol Direct (0-129) mg/dL HDL Cholesterol (30-70) mg/dL Procalcitonin (0.19-0.49) NG/ML Free T4 (0.78-2.19) ng/dL TSH 3rd Generation (0.46-4.68) mIU/L Venous Blood Potassium (3.6-5.2) mmol/L Ur Random Creatinine 127.6 mg/dL U Random Total Protein (0.0-12.0) mg/dL Urine Microalbumin 467.6 H (0.0-16.6) mg/L Random Vancomycin ug/mL 05/18/17 05/18/17 05/18/17 Range/Units 17:47 17:47 14:30 PT (9.7-12.2) SECONDS INR APTT (21-34) SECONDS pO2 25 L (30-55) mm/Hg VBG pH 7.25 L (7.32-7.43) VBG pCO2 39 L (40-60) mmHg VBG HCO3 15.8 mmol/L VBG Total CO2 18.3 L (22-28) mmol/L VBG O2 Sat (Calc) 41.5 (40-65) % VBG Base Excess -9.5 L (0.0-2.0) mmol/L VBG Potassium 3.5 L (3.6-5.2) mmol/L Sodium 142.0 (132-148) mmol/l Chloride 112.0 H (98-107) mmol/L Glucose 102 (75-110) mg/dl Lactate 3.8 H (0.7-2.1) mmol/L Potassium (3.6-5.2) mmol/L Carbon Dioxide (22-30) mmol/L Anion Gap (10-20) BUN (9-20) mg/dL Creatinine (0.8-1.5) MG/DL Est GFR ( Amer) Est GFR (Non-Af Amer) Random Glucose (75-110) mg/dL Lactic Acid 4.8 H* (0.7-2.1) mmol/L Calcium (8.6-10.4) mg/dl Phosphorus (2.5-4.5) mg/dL Magnesium (1.6-2.3) mg/dL Total Bilirubin (0.2-1.3) mg/dL AST (17-59) U/L ALT (21-72) U/L Alkaline Phosphatase (38-126) U/L Total Creatine Kinase (55-170) U/L CK-MB (Mass) (0.0-3.38) ng/mL Troponin I, Quant (0.00-0.120) ng/mL Total Protein (6.3-8.3) g/dL Albumin (3.5-5.0) g/dL Globulin (2.2-3.9) gm/dL Albumin/Globulin Ratio (1.0-2.1) Triglycerides (0-149) mg/dL Cholesterol (0-199) mg/dL LDL Cholesterol Direct (0-129) mg/dL HDL Cholesterol (30-70) mg/dL Procalcitonin 0.59 H (0.19-0.49) NG/ML Free T4 (0.78-2.19) ng/dL TSH 3rd Generation (0.46-4.68) mIU/L Venous Blood Potassium 3.5 L (3.6-5.2) mmol/L Ur Random Creatinine mg/dL U Random Total Protein (0.0-12.0) mg/dL Urine Microalbumin (0.0-16.6) mg/L Random Vancomycin ug/mL Laboratory Results - last 24 hr 05/18/17 05/18/17 05/18/17 14:30 17:47 17:47 PT INR APTT pO2 25 L VBG pH 7.25 L VBG pCO2 39 L VBG HCO3 15.8 VBG Total CO2 18.3 L VBG O2 Sat (Calc) 41.5 VBG Base Excess -9.5 L VBG Potassium 3.5 L Sodium 142.0 Chloride 112.0 H Glucose 102 Lactate 3.8 H Potassium Carbon Dioxide Anion Gap BUN Creatinine Est GFR ( Amer) Est GFR (Non-Af Amer) Random Glucose Lactic Acid 4.8 H* Calcium Phosphorus Magnesium Total Bilirubin AST ALT Alkaline Phosphatase Total Creatine Kinase CK-MB (Mass) Troponin I, Quant Total Protein Albumin Globulin Albumin/Globulin Ratio Triglycerides Cholesterol LDL Cholesterol Direct HDL Cholesterol Procalcitonin 0.59 H Free T4 TSH 3rd Generation Venous Blood Potassium 3.5 L Ur Random Creatinine U Random Total Protein Urine Microalbumin Random Vancomycin 05/18/17 05/18/17 05/18/17 17:47 22:00 22:00 PT INR APTT pO2 VBG pH VBG pCO2 VBG HCO3 VBG Total CO2 VBG O2 Sat (Calc) VBG Base Excess VBG Potassium Sodium Chloride Glucose Lactate Potassium Carbon Dioxide Anion Gap BUN Creatinine Est GFR ( Amer) Est GFR (Non-Af Amer) Random Glucose Lactic Acid Calcium Phosphorus Magnesium Total Bilirubin AST ALT Alkaline Phosphatase Total Creatine Kinase 55 CK-MB (Mass) 2.63 Troponin I, Quant 0.0530 Total Protein Albumin Globulin Albumin/Globulin Ratio Triglycerides Cholesterol LDL Cholesterol Direct HDL Cholesterol Procalcitonin Free T4 TSH 3rd Generation Venous Blood Potassium Ur Random Creatinine 127.6 U Random Total Protein Urine Microalbumin 467.6 H Random Vancomycin 05/18/17 05/18/17 05/19/17 22:06 23:56 06:11 PT INR APTT pO2 VBG pH VBG pCO2 VBG HCO3 VBG Total CO2 VBG O2 Sat (Calc) VBG Base Excess VBG Potassium Sodium 134 Chloride 97 L Glucose Lactate Potassium 4.8 Carbon Dioxide 15 L Anion Gap 27 H BUN 54 H Creatinine 2.5 H Est GFR ( Amer) 30 Est GFR (Non-Af Amer) 25 Random Glucose 71 L Lactic Acid Calcium 9.3 Phosphorus 6.6 H Magnesium 2.3 Total Bilirubin 6.2 H AST 101 H D ALT 63 Alkaline Phosphatase 129 H Total Creatine Kinase 62 CK-MB (Mass) 2.88 Troponin I, Quant 0.0660 Total Protein 7.3 Albumin 3.6 Globulin 3.7 Albumin/Globulin Ratio 1.0 Triglycerides 106 Cholesterol 101 LDL Cholesterol Direct 48 HDL Cholesterol 33 Procalcitonin Free T4 TSH 3rd Generation 2.09 Venous Blood Potassium Ur Random Creatinine U Random Total Protein 85.0 H Urine Microalbumin Random Vancomycin 05/19/17 05/19/17 05/19/17 06:11 06:11 06:11 PT 27.7 H D INR 2.4 D APTT 31 D pO2 VBG pH VBG pCO2 VBG HCO3 VBG Total CO2 VBG O2 Sat (Calc) VBG Base Excess VBG Potassium Sodium Chloride Glucose Lactate Potassium Carbon Dioxide Anion Gap BUN Creatinine Est GFR ( Amer) Est GFR (Non-Af Amer) Random Glucose Lactic Acid Calcium Phosphorus Magnesium Total Bilirubin AST ALT Alkaline Phosphatase Total Creatine Kinase CK-MB (Mass) Troponin I, Quant Total Protein Albumin Globulin Albumin/Globulin Ratio Triglycerides Cholesterol LDL Cholesterol Direct HDL Cholesterol Procalcitonin Free T4 2.83 H TSH 3rd Generation Venous Blood Potassium Ur Random Creatinine U Random Total Protein Urine Microalbumin Random Vancomycin 12.18 Review of Systems - Review of Systems Systems not reviewed;Unavailable: Altered Mental Status Critical Care Progress Note - Nutrition Nutrition: Nutrition Category Date Time Status NPO Diet [DIET] Diets 05/18/17 Lunch Active Assessment/Plan - Assessment and Plan (Free Text) Assessment: 87yo M. PMHx CHF,HTN, atrial fibrillation, ischemic cardiomyopathy, severe chronic systolic dysfunction, severe mitral regurgitation. Presented with change in mental status, and dyspnea. Plan: Neuro: Altered mental status secondary to metabolic encephalopathy. Pulm: Initial hypoxia resolving, patient on high flow oxygen - f/u lung VQ scan CV: Blood pressure labile, ranging from normotensive to hypotensive. - Atrial fibrillation - Amiodarone - Cardiology Consult: Dr. Saha --> help appreciated - CT of abdmomen & Pelvis (05/18): Massive cardiomegaly, small pericardial effusion and small bilateral pleural effusions. Hem: No acute issues Renal: Chronic kidney disease, Will monitor urine output. - Nephrology Consult: Dr. Ortiz --> help appreciated Endo: No acute issues GI: Nothing by mouth ID: Possible sepsis from UTI, follow-up urinalysis. - Zosyn - Vancomycin DVT proph - Contraindication due to decreased platelet count GI proph - 40mg Protonix daily whitehead for strict I/O's during acute illness Code status - full code Case discussed with Dr. Kelly Graves PGY-1
[2017-05-19 07:29] LABS: BASO % 0.3 % (0.0-2.0); HEMATOCRIT 44.4 % (35.0-51.0); LYMPH # 0.4 K/uL (1.0-4.3); LYMPH % 3.7 % (20.0-40.0); MEAN CELL VOLUME 85.9 fL (80.0-94.0); MEAN CORPUSCULAR HGB CONC 30.2 g/dL (33.0-37.0); MEAN PLATELET VOLUME 11.4 fL (7.2-11.7); MONO # 1.4 K/uL (0.0-0.8); MONO % 12.1 % (0.0-10.0); NRBC % 0.3 % (0.0-2.0); PLATELET COUNT 97 K/uL (130-400); RED CELL DISTRIBUTION WIDTH 19.2 % (11.5-14.5)
--- NOTE | 2017-05-19 07:37 | CP.PCM.CON ---
History of Present Illness - History of Present Illness History of Present Illness: I was asked to see the patient by Hospitalist. Patient is a 87 year old female with a PMH ischemic cardiomyopathy, s/p AICD, HTN, hypercholesterolemia who presents with dyspnea. He has known severe dilated cardiomyopathy and atrial fibrillation. The patient and family have refused AICD in the past. He is not anticoagulated due to refusal by patient and family to take medication and associated risk of bleeding. By the report, the patient developed progressive weakness and was difficult to ambulate. The patient developed dyspnea and was admitted to ICU. The patient is currently intubated Review of Systems - Review of Systems Systems not reviewed;Unavailable: Intubated Past Patient History - Past Medical History & Family History Past Medical History?: Yes - Past Social History Smoking Status: Never Smoked - CARDIAC Hx Atrial Fibrillation: Yes Hx Congestive Heart Failure: Yes Hx Hypercholesterolemia: Yes Hx Hypertension: Yes - PULMONARY Hx Bronchitis: Yes Hx Pneumonia: Yes - NEUROLOGICAL Hx Neurological Disorder: No - HEENT Other/Comment: blurring ofVISION AND HARD OF HEARING AFTER taking heart medicine from [facility] [place] - RENAL Hx Chronic Kidney Disease: Yes - ENDOCRINE/METABOLIC Hx Endocrine Disorders: No - HEMATOLOGICAL/ONCOLOGICAL Hx Blood Disorders: No - INTEGUMENTARY Hx Dermatological Problems: No - MUSCULOSKELETAL/RHEUMATOLOGICAL Hx Falls: No - GASTROINTESTINAL Hx Gastrointestinal Disorders: No - GENITOURINARY/GYNECOLOGICAL Hx Genitourinary Disorders: No - PSYCHIATRIC Hx Substance Use: No - SURGICAL HISTORY Hx Cholecystectomy: Yes - ANESTHESIA Hx Anesthesia: Yes Hx Anesthesia Reactions: No Hx Malignant Hyperthermia: No Meds Allergies/Adverse Reactions: Allergies Allergy/AdvReac Type Severity Reaction Status Date / Time acetaminophen [From Percocet] Allergy RASH Verified 05/18/17 11:26 clopidogrel bisulfate Allergy RASH Verified 05/18/17 11:26 [From Plavix] oxycodone HCl [From Percocet] Allergy RASH Verified 05/18/17 11:26 fruit Allergy RASH Uncoded 12/20/15 16:00 - Medications Medications: Current Medications Aspirin (Aspirin Chewable) 81 mg PO DAILY [facility] Vancomycin/Sodium Chloride (Vancocin) 1 gm in 200 mls @ 166.6 mls/hr IVPB Q24H [facility] Stop: 05/24/17 12:01 Piperacillin Sod/Tazobactam Sod (Zosyn 2.25 Gm Iv Premix) 2.25 gm in 50 mls @ 100 mls/hr IVPB Q6H [facility] Last Admin: 05/19/17 03:38 Dose: 100 mls/hr Sodium Chloride (Sodium Chloride 0.9%) 1,000 mls @ 50 mls/hr IV .Q20H [facility] Last Admin: 05/18/17 19:30 Dose: 50 mls/hr Lorazepam (Ativan) 0.5 mg IVP Q4H PRN PRN Reason: Agitation Last Admin: 05/19/17 01:28 Dose: 0.5 mg Pantoprazole Sodium (Protonix Inj) 40 mg IVP DAILY [facility] Physical Exam - Constitutional Appears: Toxic - Head Exam Head Exam: NORMAL INSPECTION - Eye Exam Eye Exam: Normal appearance - ENT Exam ENT Exam: Mucous Membranes Moist - Neck Exam Neck exam: Positive for: Full Rom - Respiratory Exam Respiratory Exam: Decreased Breath Sounds - Cardiovascular Exam Cardiovascular Exam: Irregular Rhythm - GI/Abdominal Exam GI & Abdominal Exam: Normal Bowel Sounds - Rectal Exam Rectal Exam: Deferred - Extremities Exam Extremities exam: Positive for: pedal edema - Back Exam Back exam: NORMAL INSPECTION - Skin Skin Exam: Normal Color Results - Vital Signs Recent Vital Signs: Last Vital Signs Temp 97.8 F 05/19/17 04:00 Pulse 133 H 05/19/17 06:00 Resp 26 H 05/19/17 06:07 BP 90/63 L 05/19/17 05:55 Pulse Ox 99 05/19/17 06:00 - Labs Result Diagrams: 05/18/17 11:54 05/19/17 06:11 Labs: Laboratory Results - last 24 hr 05/18/17 05/18/17 05/18/17 14:30 17:47 17:47 PT INR APTT pO2 25 L VBG pH 7.25 L VBG pCO2 39 L VBG HCO3 15.8 VBG Total CO2 18.3 L VBG O2 Sat (Calc) 41.5 VBG Base Excess -9.5 L VBG Potassium 3.5 L Sodium 142.0 Chloride 112.0 H Glucose 102 Lactate 3.8 H Potassium Carbon Dioxide Anion Gap BUN Creatinine Est GFR ( Amer) Est GFR (Non-Af Amer) Random Glucose Lactic Acid 4.8 H* Calcium Phosphorus Magnesium Total Bilirubin AST ALT Alkaline Phosphatase Total Creatine Kinase CK-MB (Mass) Troponin I, Quant Total Protein Albumin Globulin Albumin/Globulin Ratio Triglycerides Cholesterol LDL Cholesterol Direct HDL Cholesterol Procalcitonin 0.59 H Free T4 TSH 3rd Generation Venous Blood Potassium 3.5 L Ur Random Creatinine U Random Total Protein Urine Microalbumin Random Vancomycin 05/18/17 05/18/17 05/18/17 17:47 22:00 22:00 PT INR APTT pO2 VBG pH VBG pCO2 VBG HCO3 VBG Total CO2 VBG O2 Sat (Calc) VBG Base Excess VBG Potassium Sodium Chloride Glucose Lactate Potassium Carbon Dioxide Anion Gap BUN Creatinine Est GFR ( Amer) Est GFR (Non-Af Amer) Random Glucose Lactic Acid Calcium Phosphorus Magnesium Total Bilirubin AST ALT Alkaline Phosphatase Total Creatine Kinase 55 CK-MB (Mass) 2.63 Troponin I, Quant 0.0530 Total Protein Albumin Globulin Albumin/Globulin Ratio Triglycerides Cholesterol LDL Cholesterol Direct HDL Cholesterol Procalcitonin Free T4 TSH 3rd Generation Venous Blood Potassium Ur Random Creatinine 127.6 U Random Total Protein Urine Microalbumin 467.6 H Random Vancomycin 05/18/17 05/18/17 05/19/17 22:06 23:56 06:11 PT INR APTT pO2 VBG pH VBG pCO2 VBG HCO3 VBG Total CO2 VBG O2 Sat (Calc) VBG Base Excess VBG Potassium Sodium 134 Chloride 97 L Glucose Lactate Potassium 4.8 Carbon Dioxide 15 L Anion Gap 27 H BUN 54 H Creatinine 2.5 H Est GFR ( Amer) 30 Est GFR (Non-Af Amer) 25 Random Glucose 71 L Lactic Acid Calcium 9.3 Phosphorus 6.6 H Magnesium 2.3 Total Bilirubin 6.2 H AST 101 H D ALT 63 Alkaline Phosphatase 129 H Total Creatine Kinase 62 CK-MB (Mass) 2.88 Troponin I, Quant 0.0660 Total Protein 7.3 Albumin 3.6 Globulin 3.7 Albumin/Globulin Ratio 1.0 Triglycerides 106 Cholesterol 101 LDL Cholesterol Direct 48 HDL Cholesterol 33 Procalcitonin Free T4 TSH 3rd Generation 2.09 Venous Blood Potassium Ur Random Creatinine U Random Total Protein 85.0 H Urine Microalbumin Random Vancomycin 05/19/17 05/19/17 05/19/17 06:11 06:11 06:11 PT 27.7 H D INR 2.4 D APTT 31 D pO2 VBG pH VBG pCO2 VBG HCO3 VBG Total CO2 VBG O2 Sat (Calc) VBG Base Excess VBG Potassium Sodium Chloride Glucose Lactate Potassium Carbon Dioxide Anion Gap BUN Creatinine Est GFR ( Amer) Est GFR (Non-Af Amer) Random Glucose Lactic Acid Calcium Phosphorus Magnesium Total Bilirubin AST ALT Alkaline Phosphatase Total Creatine Kinase CK-MB (Mass) Troponin I, Quant Total Protein Albumin Globulin Albumin/Globulin Ratio Triglycerides Cholesterol LDL Cholesterol Direct HDL Cholesterol Procalcitonin Free T4 2.83 H TSH 3rd Generation Venous Blood Potassium Ur Random Creatinine U Random Total Protein Urine Microalbumin Random Vancomycin 12.18 - EKG Data EKG Interpreted by: Myself Assessment & Plan (1) Dilated cardiomyopathy Assessment and Plan: known systolic dysfunction. patient and family have refused AICD. Status: Acute (2) Chronic atrial fibrillation Assessment and Plan: will attempt to rate control Status: Chronic
[2017-05-19 07:56] LABS: WHITE BLOOD COUNT 11.2 K/uL (4.8-10.8)
[2017-05-19 09:16] LABS: BASOPHIL 1 % (0-2); NEUTROPHIL 80 % (50-75); TOTAL CELLS COUNTED 100
[2017-05-19] MEDS ORDERED: Vancomycin 1 gm/NS 200 ml 1 GM/200 ML BAG IVPB SCH (12:00)
[2017-05-19 12:01] LABS: CREATININE, RANDOM URINE 123.7 mg/dL
--- NOTE | 2017-05-19 12:50 | CARD ---
APPROVED REPORT EKG Measurement Heart [id number] <Conclusion> Atrial fibrillation with rapid ventricular response Right superior axis deviation Septal infarct, age undetermined Abnormal ECG
--- NOTE | 2017-05-19 14:09 | NM ---
VQ scan Technique: 6 mCi technetium 99-m Xe-133 Gas. 5 mCI technetium 99-m MAA administered intravenously. Correlation is made to chest x-ray performed 05/18/17. Findings: Perfusion images do not show a segmental defect. Linear defects on the perfusion study in the distribution of the left major fissure. Activity extends expected margin of the lung periphery. Ventilation images do not show any significant areas of ventilation defects. Mild tracheal activity related to the DTPA incidentally noted. Impression: Low probability for pulmonary embolus. Preliminary impression was provided by virtual radiologic.
--- NOTE | 2017-05-19 14:50 | CP.PCM.PN ---
Subjective - Date & Time of Evaluation Date of Evaluation: 05/19/17 Time of Evaluation: 13:50 - Subjective Subjective: Patient placed on high flow O2; UO dropping per nursing staff; Objective - Vital Signs/Intake and Output Vital Signs (last 24 hours): Temp Pulse Resp BP Pulse Ox 98.1 F 100 H 26 H 103/76 98 05/19/17 12:00 05/19/17 13:46 05/19/17 14:18 05/19/17 13:46 05/19/17 13:46 Intake and Output: 05/19/17 05/19/17 06:59 18:59 Intake Total 2150 733.3 Output Total 910 70 Balance 1240 663.3 - Medications Medications: Current Medications Amiodarone HCl (Cordarone) 200 mg NG DAILY [facility] Last Admin: 05/19/17 14:23 Dose: 200 mg Aspirin (Aspirin Chewable) 81 mg PO DAILY [facility] Last Admin: 05/19/17 11:05 Dose: 81 mg Furosemide (Lasix) 20 mg IVP Q12H [facility] Last Admin: 05/19/17 09:45 Dose: Not Given Vancomycin/Sodium Chloride (Vancocin) 1 gm in 200 mls @ 166.6 mls/hr IVPB Q24H [facility] Stop: 05/24/17 12:01 Last Admin: 05/19/17 11:42 Dose: 166.6 mls/hr Piperacillin Sod/Tazobactam Sod (Zosyn 2.25 Gm Iv Premix) 2.25 gm in 50 mls @ 100 mls/hr IVPB Q6H [facility] Last Admin: 05/19/17 11:05 Dose: 100 mls/hr Sodium Chloride (Sodium Chloride 0.9%) 1,000 mls @ 50 mls/hr IV .Q20H [facility] Last Admin: 05/18/17 19:30 Dose: 50 mls/hr Lorazepam (Ativan) 0.5 mg IVP Q4H PRN PRN Reason: Agitation Last Admin: 05/19/17 01:28 Dose: 0.5 mg Pantoprazole Sodium (Protonix Inj) 40 mg IVP DAILY [facility] Last Admin: 05/19/17 11:05 Dose: 40 mg - Labs Labs: 05/19/17 06:11 05/19/17 06:11 PT 27.7 SECONDS (9.7-12.2) H D 05/19/17 06:11 INR 2.4 D 05/19/17 06:11 APTT 31 SECONDS (21-34) D 05/19/17 06:11 - Constitutional Appears: In Acute Distress, Agitated - Head Exam Head Exam: NORMOCEPHALIC - Eye Exam Eye Exam: Scleral icterus - ENT Exam ENT Exam: Mucous Membranes Moist - Respiratory Exam Respiratory Exam: Clear to Ausculation Bilateral. absent: Rales, Rhonchi, Wheezes - Cardiovascular Exam Cardiovascular Exam: Tachycardia Additional comments: muffled heart sounds - GI/Abdominal Exam GI & Abdominal Exam: Distended, Tenderness - Exam Additional comments: whitehead in place - Extremities Exam Extremities Exam: absent: Normal Capillary Refill Additional comments: Mild b/l lower leg edema; - Neurological Exam Neurological Exam: Altered - Skin Skin Exam: Normal Color. 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 sepsis) or cardiorenal etiology with volume overload and inadequate renal perfusion; clear lungs argue against the latter (although with chronic mitral regurg lymphatic drainage is increased); may benefit from right heart cath to better ascertain volume status; -for now I would increase IVF (NS at 75 cc/hr) -Need to look for source of possible sepsis -avoid nephrotoxic insults Status: Acute (2) CKD (chronic kidney disease) stage 3, GFR 30-59 ml/min Assessment & Plan: CKD IIIB; mostly non-proteinuric kidney disease likely from cardiorenal etiology ; mild increase in proteinuria can be seen with LULA and tubular injury; once clinically stable, should check bladder US with post-void residual volume measurement to look for evidence of reflux nephropathy; Status: Acute (3) Hypertensive CKD (chronic kidney disease) Assessment & Plan: Episodes of hypotension; continue to hold coreg; Status: Chronic (4) Altered mental status Assessment & Plan: In the setting of acute illness; no severe electrolyte abnormalities that can be contributory; continue to monitor; Status: Acute (5) SIRS (systemic inflammatory response syndrome) Assessment & Plan: With persistently elevated high anion gap metabolic acidosis likely from lactic acidosis; on zosyn 2.25 g q6h, may need to re-dose at q8h for renal failure; on vanco 1g q24h, check trough level tomorrow before giving 3rd dose; Status: Acute (6) CHF (congestive heart failure) Assessment & Plan: With severe systolic dysfunction; clear lungs argue against acute exacerbation, however, may be chronically volume overloaded (see above); f/u with cardiology, may benefit from right heart cath; Status: Chronic (7) Hyperbilirubinemia Assessment & Plan: Obstuctive pattern possibly from congestive hepatopathy in the setting of severe chronic CHF; recommend GI consult for further workup; Status: Acute
--- NOTE | 2017-05-19 14:59 | RAD ---
HISTORY: abdominal pain COMPARISON: No prior. FINDINGS: BOWEL: Nonspecific bowel gas pattern. Air is seen within small and large bowel. No suspicious coarse calcifications evident. BONES: Extensive degenerative changes of the spine and pelvis. Osseous demineralization. OTHER FINDINGS: None. IMPRESSION: Nonspecific bowel gas pattern. Preliminary impression was provided by virtual radiologic.
[2017-05-19] MEDS: Sodium Chloride 0.9% 1,000 ML IV SCH (15:00)
--- NOTE | 2017-05-19 15:42 | RAD ---
HISTORY: CHF COMPARISON: 05/18/2017 FINDINGS: LUNGS: No active pulmonary disease. PLEURA: No significant pleural effusion identified, no pneumothorax apparent. CARDIOVASCULAR: Cardiomegaly. Nasogastric tube extends to upper abdomen. OSSEOUS STRUCTURES: No significant abnormalities. VISUALIZED UPPER ABDOMEN: Normal. OTHER FINDINGS: None. IMPRESSION: No infiltrate. Cardiomegaly. Nasogastric tube in appropriate position.
[2017-05-19] MEDS ORDERED: Dextrose 5%/0.9% NS 1,000 ML IV SCH (16:15)
[2017-05-20] MEDS: Piperacill/Tazo 2.25gm in Dex 2.25 GM/50 ML BAG IVPB SCH ×3 (04:00→17:50)
[2017-05-20 06:05] LABS: DRAW SITE L BRACH
[2017-05-20 06:47] LABS: BASO # 0.1 K/uL (0.0-0.2); EOS % 0.3 % (0.0-4.0); HEMATOCRIT 42.3 % (35.0-51.0); LYMPH # 0.7 K/uL (1.0-4.3); LYMPH % 7.4 % (20.0-40.0); MEAN CELL VOLUME 84.3 fL (80.0-94.0); MEAN CORPUSCULAR HEMOGLOBIN 26.4 pg (27.0-31.0); MEAN CORPUSCULAR HGB CONC 31.3 g/dL (33.0-37.0); MEAN PLATELET VOLUME 10.6 fL (7.2-11.7); MONO # 1.2 K/uL (0.0-0.8); MONO % 12.4 % (0.0-10.0); NRBC % 0.3 % (0.0-2.0); PLATELET COUNT 104 K/uL (130-400); RED CELL DISTRIBUTION WIDTH 18.9 % (11.5-14.5); WHITE BLOOD COUNT 9.7 K/uL (4.8-10.8)
[2017-05-20 06:59] LABS: POTASSIUM 4.4 mmol/L (3.6-5.2)
[2017-05-20 07:01] LABS: ALB/GLOB RATIO 0.9 (1.0-2.1); BILIRUBIN,TOTAL 5.2 mg/dL (0.2-1.3); TOTAL PROTEIN 6.4 g/dL (6.3-8.3)
[2017-05-20 07:02] LABS: CALCIUM 8.8 mg/dl (8.6-10.4); MAGNESIUM 2.4 mg/dL (1.6-2.3); PHOSPHOROUS 5.8 mg/dL (2.5-4.5)
[2017-05-20 08:13] LABS: EOSINOPHIL 1 % (0-4); TOTAL CELLS COUNTED 100
[2017-05-20 08:14] LABS: NEUTROPHIL 84 % (50-75)
[2017-05-20 08:15] LABS: LARGE PLATELETS PRESENT
[2017-05-20 09:06] LABS: RBC URINE 22 /hpf (0-3); URINE BACTERIA RARE (<OCC); URINE BILIRUBIN NEGATIVE (NEGATIVE); URINE BLOOD 3+ (NEGATIVE); URINE COLOR Yellow (YELLOW); URINE GLUCOSE (UA) NORMAL (Normal); URINE KETONE NEGATIVE (NEGATIVE); URINE LEUKOCYTE ESTERASE 1+ Leu/uL (Negative); URINE PROTEIN NEGATIVE (NEGATIVE); URINE UROBILINOGEN NORMAL mg/dL (0.2-1.0); WBC URINE 9 /hpf (0-5)
[2017-05-20] MEDS ORDERED: Dextrose 5%/0.9% NS 1,000 ML IV SCH (09:28)
[2017-05-20 10:15] LABS: CREATININE, RANDOM URINE 81.5 mg/dL
--- NOTE | 2017-05-20 10:31 | CP.CCUPN ---
<Mary Graves - Last Filed: 05/20/17 14:55> CCU Subjective - Physician Review Subjective (Free Text): Patient was seen and examined at bedside in the AM. Patient is not alert or oriented. Per nurse the patient was a bit agitated overnight. 05/20/17 14:29 CCU Objective - Vital Signs / Intake & Output Vital Signs (Last 4 hours): Vital Signs Temp Pulse Resp BP Pulse Ox 05/20/17 08:00 97.4 F L 05/20/17 07:54 85 22 107/67 96 05/20/17 06:54 96 H 23 119/84 Intake and Output (Last 8hrs): Intake & Output 05/19/17 05/20/17 05/20/17 22:59 06:59 14:59 Intake Total 425 400 150 Output Total 85 155 Balance 340 245 150 Intake: Intake, IV Amount 425 400 150 Right Forearm 425 400 150 Output: Urine 85 155 Urethral (White[place]) 85 155 Other: # Bowel Movements 1 - Physical Exam Respiratory/Chest: Positive for: Other (patient on high flow oxygen) Abdomen: Positive for: Normal Bowel Sounds. Negative for: Distention Upper Extremity: Positive for: Edema Lower Extremity: Positive for: Edema Psychiatric: Negative for: Alert, Oriented x 3 - Medications Active Medications: Active Medications Generic Name Dose Route Start Last Admin Trade Name Freq PRN Reason Stop Dose Admin Amiodarone HCl 200 mg 05/19/17 14:00 05/20/17 10:09 Cordarone NG 200 mg DAILY HILL Administration Aspirin 81 mg 05/19/17 10:00 05/19/17 11:05 Aspirin Chewable PO 81 mg DAILY HILL Administration Furosemide 20 mg 05/19/17 09:45 05/19/17 09:45 Lasix IVP Not Given Q12H HILL Vancomycin/Sodium Chloride 1 gm in 200 mls @ 166.6 mls/hr 05/19/17 12:00 11:42 Vancocin IVPB 05/24/17 12:01 166.6 mls/hr Q24H HILL Administration Piperacillin Sod/Tazobactam Sod 2.25 gm in 50 mls @ 100 mls/hr 05/18/17 16:00 05/20/17 10:09 Zosyn 2.25 Gm Iv Premix IVPB 100 mls/hr Q6H HILL Administration Dextrose/Sodium Chloride 1,000 mls @ 75 mls/hr 05/20/17 09:28 Dextrose 5%/0.9% Ns 1000 Ml IV [id number] HILL Lorazepam 0.5 mg 05/18/17 15:32 05/19/17 01:28 Ativan IVP 0.5 mg Q4H PRN Administration Agitation Pantoprazole Sodium 40 mg 05/19/17 10:00 05/20/17 10:09 Protonix Inj IVP 40 mg DAILY HILL Administration - Patient Studies Lab Studies: Microbiology Studies 05/18/17 20:00 MRSA Culture (Admit) - Final Naris MRSA NOT DETECTED Lab Studies 05/20/17 05/20/17 05/20/17 Range/Units 08:49 08:49 06:35 WBC (4.8-10.8) K/uL RBC (4.40-5.90) Mil/uL Hgb (12.0-18.0) g/dL Hct (35.0-51.0) % MCV (80.0-94.0) fL MCH (27.0-31.0) pg MCHC (33.0-37.0) g/dL RDW (11.5-14.5) % Plt Count (130-400) K/uL MPV (7.2-11.7) fL Neut % (Auto) (50.0-75.0) % Lymph % (Auto) (20.0-40.0) % [place] % (Auto) (0.0-10.0) % Eos % (Auto) (0.0-4.0) % Baso % (Auto) (0.0-2.0) % Neut # (1.8-7.0) K/uL Lymph # (1.0-4.3) K/uL [place] # (0.0-0.8) K/uL Eos # (0.0-0.7) K/uL Baso # (0.0-0.2) K/uL Neutrophils % (Manual) (50-75) % Lymphocytes % (Manual) (20-40) % Monocytes % (Manual) (0-10) % Eosinophils % (Manual) (0-4) % Platelet Estimate (NORMAL) Large Platelets Hypochromasia (manual) Poikilocytosis (manual Anisocytosis (manual) Macrocytosis (manual) Tear Drop Cells Ovalocytes Puncture Site pCO2 (35-45) mm/Hg pO2 (80-100) mm/Hg HCO3 (21-28) mmol/L ABG pH (7.35-7.45) ABG Total CO2 (22-28) mmol/L ABG O2 Saturation (95-98) % ABG Base Excess (-2.0-3.0) mmol/L Lucho Test ABG Potassium (3.6-5.2) mmol/L A-a O2 Difference mm/Hg Respiratory Index Sodium (132-148) mmol/l Chloride (98-107) mmol/L Glucose (75-110) mg/dl Lactate (0.7-2.1) mmol/L Liter Flow FiO2 % Potassium (3.6-5.2) mmol/L Carbon Dioxide (22-30) mmol/L Anion Gap (10-20) BUN (9-20) mg/dL Creatinine (0.8-1.5) MG/DL Est GFR ( Amer) Est GFR (Non-Af Amer) Random Glucose (75-110) mg/dL Calcium (8.6-10.4) mg/dl Phosphorus (2.5-4.5) mg/dL Magnesium (1.6-2.3) mg/dL Total Bilirubin (0.2-1.3) mg/dL AST (17-59) U/L ALT (21-72) U/L Alkaline Phosphatase (38-126) U/L Total Protein (6.3-8.3) g/dL Albumin (3.5-5.0) g/dL Globulin (2.2-3.9) gm/dL Albumin/Globulin Ratio (1.0-2.1) Arterial Blood Potassium (3.6-5.2) mmol/L Urine Color Yellow (YELLOW) Urine Clarity Clear (Clear) Urine pH 5.0 (5.0-8.0) Ur Specific Soper 1.019 (1.003-1.030) Urine Protein Negative (NEGATIVE) mg/dL Urine Glucose (UA) Normal (Normal) mg/dL Urine Ketones Negative (NEGATIVE) mg/dL Urine Blood 3+ H (NEGATIVE) Urine Nitrate Negative (NEGATIVE) Urine Bilirubin Negative (NEGATIVE) Urine Urobilinogen Normal (0.2-1.0) mg/dL Ur Leukocyte Esterase 1+ H (Negative) [place]/uL Urine WBC (Auto) 9 H (0-5) /hpf Urine RBC (Auto) 22 H (0-3) /hpf Ur Squamous Epith Cells < 1 (0-5) /hpf Urine Bacteria Rare (<OCC) Ur Random Creatinine 81.5 mg/dL Ur Random Sodium 17 mmol/L Ur Random Urea Nitrogn Random Vancomycin 21.75 ug/mL 05/20/17 05/20/17 05/20/17 Range/Units 06:35 06:35 05:19 WBC 9.7 (4.8-10.8) K/uL RBC 5.02 (4.40-5.90) Mil/uL Hgb 13.2 (12.0-18.0) g/dL Hct 42.3 (35.0-51.0) % MCV 84.3 (80.0-94.0) fL MCH 26.4 L (27.0-31.0) pg MCHC 31.3 L (33.0-37.0) g/dL RDW 18.9 H (11.5-14.5) % Plt Count 104 L (130-400) K/uL MPV 10.6 (7.2-11.7) fL Neut % (Auto) 78.9 H (50.0-75.0) % Lymph % (Auto) 7.4 L (20.0-40.0) % [place] % (Auto) 12.4 H (0.0-10.0) % Eos % (Auto) 0.3 (0.0-4.0) % Baso % (Auto) 1.0 (0.0-2.0) % Neut # 7.7 H (1.8-7.0) K/uL Lymph # 0.7 L (1.0-4.3) K/uL [place] # 1.2 H (0.0-0.8) K/uL Eos # 0.0 (0.0-0.7) K/uL Baso # 0.1 (0.0-0.2) K/uL Neutrophils % (Manual) 84 H (50-75) % Lymphocytes % (Manual) 5 L (20-40) % Monocytes % (Manual) 10 (0-10) % Eosinophils % (Manual) 1 (0-4) % Platelet Estimate Normal (NORMAL) Large Platelets Present Hypochromasia (manual) Slight Poikilocytosis (manual Slight Anisocytosis (manual) Slight Macrocytosis (manual) Slight Tear Drop Cells Slight Ovalocytes Slight Puncture Site L brach pCO2 31 L (35-45) mm/Hg pO2 82 (80-100) mm/Hg HCO3 19.2 L (21-28) mmol/L ABG pH 7.35 (7.35-7.45) ABG Total CO2 18.1 L (22-28) mmol/L ABG O2 Saturation 97.7 (95-98) % ABG Base Excess -7.3 L (-2.0-3.0) mmol/L Lucho Test Na ABG Potassium 4.3 (3.6-5.2) mmol/L A-a O2 Difference 29.0 mm/Hg Respiratory Index 0.4 Sodium 132 132.0 (132-148) mmol/l Chloride 99 102.0 (98-107) mmol/L Glucose 165 H (75-110) mg/dl Lactate 2.4 H (0.7-2.1) mmol/L Liter Flow 0 FiO2 21.0 % Potassium 4.4 (3.6-5.2) mmol/L Carbon Dioxide 16 L (22-30) mmol/L Anion Gap 21 H (10-20) BUN 72 H (9-20) mg/dL Creatinine 2.9 H (0.8-1.5) MG/DL Est GFR ( Amer) 25 Est GFR (Non-Af Amer) 21 Random Glucose 152 H (75-110) mg/dL Calcium 8.8 (8.6-10.4) mg/dl Phosphorus 5.8 H (2.5-4.5) mg/dL Magnesium 2.4 H (1.6-2.3) mg/dL Total Bilirubin 5.2 H (0.2-1.3) mg/dL AST 161 H D (17-59) U/L ALT 108 H D (21-72) U/L Alkaline Phosphatase 95 (38-126) U/L Total Protein 6.4 (6.3-8.3) g/dL Albumin 3.0 L (3.5-5.0) g/dL Globulin 3.4 (2.2-3.9) gm/dL Albumin/Globulin Ratio 0.9 L (1.0-2.1) Arterial Blood Potassium 4.3 (3.6-5.2) mmol/L Urine Color (YELLOW) Urine Clarity (Clear) Urine pH (5.0-8.0) Ur Specific Soper (1.003-1.030) Urine Protein (NEGATIVE) mg/dL Urine Glucose (UA) (Normal) mg/dL Urine Ketones (NEGATIVE) mg/dL Urine Blood (NEGATIVE) Urine Nitrate (NEGATIVE) Urine Bilirubin (NEGATIVE) Urine Urobilinogen (0.2-1.0) mg/dL Ur Leukocyte Esterase (Negative) [place]/uL Urine WBC (Auto) (0-5) /hpf Urine RBC (Auto) (0-3) /hpf Ur Squamous Epith Cells (0-5) /hpf Urine Bacteria (<OCC) Ur Random Creatinine mg/dL Ur Random Sodium mmol/L Ur Random Urea Nitrogn Random Vancomycin ug/mL 05/19/17 05/19/17 Range/Units 11:22 11:22 WBC (4.8-10.8) K/uL RBC (4.40-5.90) Mil/uL Hgb (12.0-18.0) g/dL Hct (35.0-51.0) % MCV (80.0-94.0) fL MCH (27.0-31.0) pg MCHC (33.0-37.0) g/dL RDW (11.5-14.5) % Plt Count (130-400) K/uL MPV (7.2-11.7) fL Neut % (Auto) (50.0-75.0) % Lymph % (Auto) (20.0-40.0) % [place] % (Auto) (0.0-10.0) % Eos % (Auto) (0.0-4.0) % Baso % (Auto) (0.0-2.0) % Neut # (1.8-7.0) K/uL Lymph # (1.0-4.3) K/uL [place] # (0.0-0.8) K/uL Eos # (0.0-0.7) K/uL Baso # (0.0-0.2) K/uL Neutrophils % (Manual) (50-75) % Lymphocytes % (Manual) (20-40) % Monocytes % (Manual) (0-10) % Eosinophils % (Manual) (0-4) % Platelet Estimate (NORMAL) Large Platelets Hypochromasia (manual) Poikilocytosis (manual Anisocytosis (manual) Macrocytosis (manual) Tear Drop Cells Ovalocytes Puncture Site pCO2 (35-45) mm/Hg pO2 (80-100) mm/Hg HCO3 (21-28) mmol/L ABG pH (7.35-7.45) ABG Total CO2 (22-28) mmol/L ABG O2 Saturation (95-98) % ABG Base Excess (-2.0-3.0) mmol/L Lucho Test ABG Potassium (3.6-5.2) mmol/L A-a O2 Difference mm/Hg Respiratory Index Sodium (132-148) mmol/l Chloride (98-107) mmol/L Glucose (75-110) mg/dl Lactate (0.7-2.1) mmol/L Liter Flow FiO2 % Potassium (3.6-5.2) mmol/L Carbon Dioxide (22-30) mmol/L Anion Gap (10-20) BUN (9-20) mg/dL Creatinine (0.8-1.5) MG/DL Est GFR ( Amer) Est GFR (Non-Af Amer) Random Glucose (75-110) mg/dL Calcium (8.6-10.4) mg/dl Phosphorus (2.5-4.5) mg/dL Magnesium (1.6-2.3) mg/dL Total Bilirubin (0.2-1.3) mg/dL AST (17-59) U/L ALT (21-72) U/L Alkaline Phosphatase (38-126) U/L Total Protein (6.3-8.3) g/dL Albumin (3.5-5.0) g/dL Globulin (2.2-3.9) gm/dL Albumin/Globulin Ratio (1.0-2.1) Arterial Blood Potassium (3.6-5.2) mmol/L Urine Color (YELLOW) Urine Clarity (Clear) Urine pH (5.0-8.0) Ur Specific Soper (1.003-1.030) Urine Protein (NEGATIVE) mg/dL Urine Glucose (UA) (Normal) mg/dL Urine Ketones (NEGATIVE) mg/dL Urine Blood (NEGATIVE) Urine Nitrate (NEGATIVE) Urine Bilirubin (NEGATIVE) Urine Urobilinogen (0.2-1.0) mg/dL Ur Leukocyte Esterase (Negative) [place]/uL Urine WBC (Auto) (0-5) /hpf Urine RBC (Auto) (0-3) /hpf Ur Squamous Epith Cells (0-5) /hpf Urine Bacteria (<OCC) Ur Random Creatinine 123.7 mg/dL Ur Random Sodium 15 mmol/L Ur Random Urea Nitrogn 356 Cancelled Random Vancomycin ug/mL Laboratory Results - last 24 hr 05/19/17 05/19/17 05/20/17 11:22 11:22 05:19 WBC RBC Hgb Hct MCV MCH MCHC RDW Plt Count MPV Neut % (Auto) Lymph % (Auto) [place] % (Auto) Eos % (Auto) Baso % (Auto) Neut # Lymph # [place] # Eos # Baso # Neutrophils % (Manual) Lymphocytes % (Manual) Monocytes % (Manual) Eosinophils % (Manual) Platelet Estimate Large Platelets Hypochromasia (manual) Poikilocytosis (manual Anisocytosis (manual) Macrocytosis (manual) Tear Drop Cells Ovalocytes Puncture Site L brach pCO2 31 L pO2 82 HCO3 19.2 L ABG pH 7.35 ABG Total CO2 18.1 L ABG O2 Saturation 97.7 ABG Base Excess -7.3 L Lucho Test Na ABG Potassium 4.3 A-a O2 Difference 29.0 Respiratory Index 0.4 Sodium 132.0 Chloride 102.0 Glucose 165 H Lactate 2.4 H Liter Flow 0 FiO2 21.0 Potassium Carbon Dioxide Anion Gap BUN Creatinine Est GFR ( Amer) Est GFR (Non-Af Amer) Random Glucose Calcium Phosphorus Magnesium Total Bilirubin AST ALT Alkaline Phosphatase Total Protein Albumin Globulin Albumin/Globulin Ratio Arterial Blood Potassium 4.3 Urine Color Urine Clarity Urine pH Ur Specific Soper Urine Protein Urine Glucose (UA) Urine Ketones Urine Blood Urine Nitrate Urine Bilirubin Urine Urobilinogen Ur Leukocyte Esterase Urine WBC (Auto) Urine RBC (Auto) Ur Squamous Epith Cells Urine Bacteria Ur Random Creatinine 123.7 Ur Random Sodium 15 Ur Random Urea Nitrogn Cancelled 356 Random Vancomycin 05/20/17 05/20/17 05/20/17 06:35 06:35 06:35 WBC 9.7 RBC 5.02 Hgb 13.2 Hct 42.3 MCV 84.3 MCH 26.4 L MCHC 31.3 L RDW 18.9 H Plt Count 104 L MPV 10.6 Neut % (Auto) 78.9 H Lymph % (Auto) 7.4 L [place] % (Auto) 12.4 H Eos % (Auto) 0.3 Baso % (Auto) 1.0 Neut # 7.7 H Lymph # 0.7 L [place] # 1.2 H Eos # 0.0 Baso # 0.1 Neutrophils % (Manual) 84 H Lymphocytes % (Manual) 5 L Monocytes % (Manual) 10 Eosinophils % (Manual) 1 Platelet Estimate Normal Large Platelets Present Hypochromasia (manual) Slight Poikilocytosis (manual Slight Anisocytosis (manual) Slight Macrocytosis (manual) Slight Tear Drop Cells Slight Ovalocytes Slight Puncture Site pCO2 pO2 HCO3 ABG pH ABG Total CO2 ABG O2 Saturation ABG Base Excess Lucho Test ABG Potassium A-a O2 Difference Respiratory Index Sodium 132 Chloride 99 Glucose Lactate Liter Flow FiO2 Potassium 4.4 Carbon Dioxide 16 L Anion Gap 21 H BUN 72 H Creatinine 2.9 H Est GFR ( Amer) 25 Est GFR (Non-Af Amer) 21 Random Glucose 152 H Calcium 8.8 Phosphorus 5.8 H Magnesium 2.4 H Total Bilirubin 5.2 H AST 161 H D ALT 108 H D Alkaline Phosphatase 95 Total Protein 6.4 Albumin 3.0 L Globulin 3.4 Albumin/Globulin Ratio 0.9 L Arterial Blood Potassium Urine Color Urine Clarity Urine pH Ur Specific Soper Urine Protein Urine Glucose (UA) Urine Ketones Urine Blood Urine Nitrate Urine Bilirubin Urine Urobilinogen Ur Leukocyte Esterase Urine WBC (Auto) Urine RBC (Auto) Ur Squamous Epith Cells Urine Bacteria Ur Random Creatinine Ur Random Sodium Ur Random Urea Nitrogn Random Vancomycin 21.75 05/20/17 05/20/17 08:49 08:49 WBC RBC Hgb Hct MCV MCH MCHC RDW Plt Count MPV Neut % (Auto) Lymph % (Auto) [place] % (Auto) Eos % (Auto) Baso % (Auto) Neut # Lymph # [place] # Eos # Baso # Neutrophils % (Manual) Lymphocytes % (Manual) Monocytes % (Manual) Eosinophils % (Manual) Platelet Estimate Large Platelets Hypochromasia (manual) Poikilocytosis (manual Anisocytosis (manual) Macrocytosis (manual) Tear Drop Cells Ovalocytes Puncture Site pCO2 pO2 HCO3 ABG pH ABG Total CO2 ABG O2 Saturation ABG Base Excess Lucho Test ABG Potassium A-a O2 Difference Respiratory Index Sodium Chloride Glucose Lactate Liter Flow FiO2 Potassium Carbon Dioxide Anion Gap BUN Creatinine Est GFR ( Amer) Est GFR (Non-Af Amer) Random Glucose Calcium Phosphorus Magnesium Total Bilirubin AST ALT Alkaline Phosphatase Total Protein Albumin Globulin Albumin/Globulin Ratio Arterial Blood Potassium Urine Color Yellow Urine Clarity Clear Urine pH 5.0 Ur Specific Soper 1.019 Urine Protein Negative Urine Glucose (UA) Normal Urine Ketones Negative Urine Blood 3+ H Urine Nitrate Negative Urine Bilirubin Negative Urine Urobilinogen Normal Ur Leukocyte Esterase 1+ H Urine WBC (Auto) 9 H Urine RBC (Auto) 22 H Ur Squamous Epith Cells < 1 Urine Bacteria Rare Ur Random Creatinine 81.5 Ur Random Sodium 17 Ur Random Urea Nitrogn Random Vancomycin Critical Care Progress Note - Nutrition Nutrition: Nutrition Category Date Time Status NPO Diet [DIET] Diets 05/18/17 Lunch Active Assessment/Plan - Assessment and Plan (Free Text) Assessment: 87yo M. PMHx CHF,HTN, atrial fibrillation, ischemic cardiomyopathy, severe chronic systolic dysfunction, severe mitral regurgitation. Presented with change in mental status, and dyspnea. Plan: Neuro: Altered mental status secondary to metabolic encephalopathy. - Head CT (05/18): No evidence of acute intracranial hemorrhage territorial infarct mass effect or midline shift. Moderate atrophy and moderate white matter changes likely due to microvascular ischemic disease. Pulm: Initial hypoxia resolving, patient on high flow oxygen - Lung VQ scan: low probability of PE - Chest X-ray (05/19): No infiltrate. Cardiomegaly. Nasogastric tube in appropriate. CV: Blood pressure labile, ranging from normotensive to hypotensive. - Atrial fibrillation - Amiodarone - Cardiology Consult: Dr. Saha --> help appreciated - CT of abdmomen & Pelvis (05/18): Massive cardiomegaly, small pericardial effusion and small bilateral pleural effusions. Hem: No acute issues Renal: Chronic kidney disease, Will monitor urine output. - Nephrology Consult: Dr. Ortiz --> help appreciated - Continue D5NS at 75cc/hr Endo: No acute issues GI: - NG Tube - Tube feeding ID: Possible sepsis from UTI: - Zosyn started on 05/18 - Vancomycin - on hold - Troph 21.75 - f/u blood culture, f/u urine culture DVT proph - Contraindication due to decreased platelet count GI proph - 40mg Protonix daily whitehead for strict I/O's during acute illness Code status - DNR/DNI Case discussed with Dr. Mekhi Graves PGY-1 <Moe Gaming - Last Filed: 05/20/17 17:44> CCU Objective - Vital Signs / Intake & Output Vital Signs (Last 4 hours): Vital Signs Temp Pulse Resp BP Pulse Ox 05/20/17 16:00 97.7 F 05/20/17 15:55 111 H 30 H 111/82 97 05/20/17 15:35 24 05/20/17 14:54 101 H 19 104/65 97 05/20/17 13:55 106 H 26 H 108/70 99 Intake and Output (Last 8hrs): Intake & Output 05/20/17 05/20/17 05/20/17 06:59 14:59 22:59 Intake Total 400 677.5 252.5 Output Total 155 370 80 Balance 245 307.5 172.5 Intake: Intake, IV Amount 400 587.5 212.5 Right Forearm 400 587.5 212.5 Tube Feeding 40 40 Other 50 Output: Urine 155 370 80 Urethral ([place]) 155 370 80 Other: # Bowel Movements 1 - Medications Active Medications: Active Medications Generic Name Dose Route Start Last Admin Trade Name Freq PRN Reason Stop Dose Admin Amiodarone HCl 200 mg 05/19/17 14:00 05/20/17 10:09 Cordarone NG 200 mg DAILY HILL Administration Aspirin 81 mg 05/19/17 10:00 05/19/17 11:05 Aspirin Chewable PO 81 mg DAILY HILL Administration Furosemide 20 mg 05/19/17 09:45 05/19/17 09:45 Lasix IVP Not Given Q12H HILL Dextrose/Sodium Chloride 1,000 mls @ 75 mls/hr 05/20/17 09:28 05/20/17 16:03 Dextrose 5%/0.9% Ns 1000 Ml IV 75 mls/hr .[id number] HILL Administration Aztreonam 1 gm/ Sodium 100 mls @ 200 mls/hr 05/20/17 16:00 05/20/17 16:01 Chloride IVPB 200 mls/hr Q12H HILL Administration Piperacillin Sod/Tazobactam Sod 2.25 gm in 50 mls @ 100 mls/hr 05/20/17 18:00 Zosyn 2.25 Gm Iv Premix IVPB Q8H HILL Lorazepam 0.5 mg 05/18/17 15:32 05/19/17 01:28 Ativan IVP 0.5 mg Q4H PRN Administration Agitation Pantoprazole Sodium 40 mg 05/19/17 10:00 05/20/17 10:09 Protonix Inj IVP 40 mg DAILY HILL Administration - Patient Studies Lab Studies: Microbiology Studies 05/18/17 20:00 MRSA Culture (Admit) - Final Naris MRSA NOT DETECTED Lab Studies 05/20/17 05/20/17 05/20/17 Range/Units 08:49 08:49 08:49 WBC (4.8-10.8) K/uL RBC (4.40-5.90) Mil/uL Hgb (12.0-18.0) g/dL Hct (35.0-51.0) % MCV (80.0-94.0) fL MCH (27.0-31.0) pg MCHC (33.0-37.0) g/dL RDW (11.5-14.5) % Plt Count (130-400) K/uL MPV (7.2-11.7) fL Neut % (Auto) (50.0-75.0) % Lymph % (Auto) (20.0-40.0) % [place] % (Auto) (0.0-10.0) % Eos % (Auto) (0.0-4.0) % Baso % (Auto) (0.0-2.0) % Neut # (1.8-7.0) K/uL Lymph # (1.0-4.3) K/uL [place] # (0.0-0.8) K/uL Eos # (0.0-0.7) K/uL Baso # (0.0-0.2) K/uL Neutrophils % (Manual) (50-75) % Lymphocytes % (Manual) (20-40) % Monocytes % (Manual) (0-10) % Eosinophils % (Manual) (0-4) % Platelet Estimate (NORMAL) Large Platelets Hypochromasia (manual) Poikilocytosis (manual Anisocytosis (manual) Macrocytosis (manual) Tear Drop Cells Ovalocytes Puncture Site pCO2 (35-45) mm/Hg pO2 (80-100) mm/Hg HCO3 (21-28) mmol/L ABG pH (7.35-7.45) ABG Total CO2 (22-28) mmol/L ABG O2 Saturation (95-98) % ABG Base Excess (-2.0-3.0) mmol/L Lucho Test ABG Potassium (3.6-5.2) mmol/L A-a O2 Difference mm/Hg Respiratory Index Sodium (132-148) mmol/l Chloride (98-107) mmol/L Glucose (75-110) mg/dl Lactate (0.7-2.1) mmol/L Liter Flow FiO2 % Potassium (3.6-5.2) mmol/L Carbon Dioxide (22-30) mmol/L Anion Gap (10-20) BUN (9-20) mg/dL Creatinine (0.8-1.5) MG/DL Est GFR ( Amer) Est GFR (Non-Af Amer) Random Glucose (75-110) mg/dL Calcium (8.6-10.4) mg/dl Phosphorus (2.5-4.5) mg/dL Magnesium (1.6-2.3) mg/dL Total Bilirubin (0.2-1.3) mg/dL AST (17-59) U/L ALT (21-72) U/L Alkaline Phosphatase (38-126) U/L Total Protein (6.3-8.3) g/dL Albumin (3.5-5.0) g/dL Globulin (2.2-3.9) gm/dL Albumin/Globulin Ratio (1.0-2.1) Arterial Blood Potassium (3.6-5.2) mmol/L Urine Color Yellow (YELLOW) Urine Clarity Clear (Clear) Urine pH 5.0 (5.0-8.0) Ur Specific Soper 1.019 (1.003-1.030) Urine Protein Negative (NEGATIVE) mg/dL Urine Glucose (UA) Normal (Normal) mg/dL Urine Ketones Negative (NEGATIVE) mg/dL Urine Blood 3+ H (NEGATIVE) Urine Nitrate Negative (NEGATIVE) Urine Bilirubin Negative (NEGATIVE) Urine Urobilinogen Normal (0.2-1.0) mg/dL Ur Leukocyte Esterase 1+ H (Negative) [place]/uL Urine WBC (Auto) 9 H (0-5) /hpf Urine RBC (Auto) 22 H (0-3) /hpf Ur Squamous Epith Cells < 1 (0-5) /hpf Urine Bacteria Rare (<OCC) Ur Random Creatinine 81.5 mg/dL Ur Random Sodium 17 mmol/L Ur Random Urea Nitrogn 861 Cancelled Random Vancomycin ug/mL 05/20/17 05/20/17 05/20/17 Range/Units 06:35 06:35 06:35 WBC 9.7 (4.8-10.8) K/uL RBC 5.02 (4.40-5.90) Mil/uL Hgb 13.2 (12.0-18.0) g/dL Hct 42.3 (35.0-51.0) % MCV 84.3 (80.0-94.0) fL MCH 26.4 L (27.0-31.0) pg MCHC 31.3 L (33.0-37.0) g/dL RDW 18.9 H (11.5-14.5) % Plt Count 104 L (130-400) K/uL MPV 10.6 (7.2-11.7) fL Neut % (Auto) 78.9 H (50.0-75.0) % Lymph % (Auto) 7.4 L (20.0-40.0) % [place] % (Auto) 12.4 H (0.0-10.0) % Eos % (Auto) 0.3 (0.0-4.0) % Baso % (Auto) 1.0 (0.0-2.0) % Neut # 7.7 H (1.8-7.0) K/uL Lymph # 0.7 L (1.0-4.3) K/uL [place] # 1.2 H (0.0-0.8) K/uL Eos # 0.0 (0.0-0.7) K/uL Baso # 0.1 (0.0-0.2) K/uL Neutrophils % (Manual) 84 H (50-75) % Lymphocytes % (Manual) 5 L (20-40) % Monocytes % (Manual) 10 (0-10) % Eosinophils % (Manual) 1 (0-4) % Platelet Estimate Normal (NORMAL) Large Platelets Present Hypochromasia (manual) Slight Poikilocytosis (manual Slight Anisocytosis (manual) Slight Macrocytosis (manual) Slight Tear Drop Cells Slight Ovalocytes Slight Puncture Site pCO2 (35-45) mm/Hg pO2 (80-100) mm/Hg HCO3 (21-28) mmol/L ABG pH (7.35-7.45) ABG Total CO2 (22-28) mmol/L ABG O2 Saturation (95-98) % ABG Base Excess (-2.0-3.0) mmol/L Lucho Test ABG Potassium (3.6-5.2) mmol/L A-a O2 Difference mm/Hg Respiratory Index Sodium 132 (132-148) mmol/l Chloride 99 (98-107) mmol/L Glucose (75-110) mg/dl Lactate (0.7-2.1) mmol/L Liter Flow FiO2 % Potassium 4.4 (3.6-5.2) mmol/L Carbon Dioxide 16 L (22-30) mmol/L Anion Gap 21 H (10-20) BUN 72 H (9-20) mg/dL Creatinine 2.9 H (0.8-1.5) MG/DL Est GFR ( Amer) 25 Est GFR (Non-Af Amer) 21 Random Glucose 152 H (75-110) mg/dL Calcium 8.8 (8.6-10.4) mg/dl Phosphorus 5.8 H (2.5-4.5) mg/dL Magnesium 2.4 H (1.6-2.3) mg/dL Total Bilirubin 5.2 H (0.2-1.3) mg/dL AST 161 H D (17-59) U/L ALT 108 H D (21-72) U/L Alkaline Phosphatase 95 (38-126) U/L Total Protein 6.4 (6.3-8.3) g/dL Albumin 3.0 L (3.5-5.0) g/dL Globulin 3.4 (2.2-3.9) gm/dL Albumin/Globulin Ratio 0.9 L (1.0-2.1) Arterial Blood Potassium (3.6-5.2) mmol/L Urine Color (YELLOW) Urine Clarity (Clear) Urine pH (5.0-8.0) Ur Specific Soper (1.003-1.030) Urine Protein (NEGATIVE) mg/dL Urine Glucose (UA) (Normal) mg/dL Urine Ketones (NEGATIVE) mg/dL Urine Blood (NEGATIVE) Urine Nitrate (NEGATIVE) Urine Bilirubin (NEGATIVE) Urine Urobilinogen (0.2-1.0) mg/dL Ur Leukocyte Esterase (Negative) [place]/uL Urine WBC (Auto) (0-5) /hpf Urine RBC (Auto) (0-3) /hpf Ur Squamous Epith Cells (0-5) /hpf Urine Bacteria (<OCC) Ur Random Creatinine mg/dL Ur Random Sodium mmol/L Ur Random Urea Nitrogn Random Vancomycin 21.75 ug/mL 05/20/17 Range/Units 05:19 WBC (4.8-10.8) K/uL RBC (4.40-5.90) Mil/uL Hgb (12.0-18.0) g/dL Hct (35.0-51.0) % MCV (80.0-94.0) fL MCH (27.0-31.0) pg MCHC (33.0-37.0) g/dL RDW (11.5-14.5) % Plt Count (130-400) K/uL MPV (7.2-11.7) fL Neut % (Auto) (50.0-75.0) % Lymph % (Auto) (20.0-40.0) % [place] % (Auto) (0.0-10.0) % Eos % (Auto) (0.0-4.0) % Baso % (Auto) (0.0-2.0) % Neut # (1.8-7.0) K/uL Lymph # (1.0-4.3) K/uL [place] # (0.0-0.8) K/uL Eos # (0.0-0.7) K/uL Baso # (0.0-0.2) K/uL Neutrophils % (Manual) (50-75) % Lymphocytes % (Manual) (20-40) % Monocytes % (Manual) (0-10) % Eosinophils % (Manual) (0-4) % Platelet Estimate (NORMAL) Large Platelets Hypochromasia (manual) Poikilocytosis (manual Anisocytosis (manual) Macrocytosis (manual) Tear Drop Cells Ovalocytes Puncture Site L brach pCO2 31 L (35-45) mm/Hg pO2 82 (80-100) mm/Hg HCO3 19.2 L (21-28) mmol/L ABG pH 7.35 (7.35-7.45) ABG Total CO2 18.1 L (22-28) mmol/L ABG O2 Saturation 97.7 (95-98) % ABG Base Excess -7.3 L (-2.0-3.0) mmol/L Lucho Test Na ABG Potassium 4.3 (3.6-5.2) mmol/L A-a O2 Difference 29.0 mm/Hg Respiratory Index 0.4 Sodium 132.0 (132-148) mmol/l Chloride 102.0 (98-107) mmol/L Glucose 165 H (75-110) mg/dl Lactate 2.4 H (0.7-2.1) mmol/L Liter Flow 0 FiO2 21.0 % Potassium (3.6-5.2) mmol/L Carbon Dioxide (22-30) mmol/L Anion Gap (10-20) BUN (9-20) mg/dL Creatinine (0.8-1.5) MG/DL Est GFR ( Amer) Est GFR (Non-Af Amer) Random Glucose (75-110) mg/dL Calcium (8.6-10.4) mg/dl Phosphorus (2.5-4.5) mg/dL Magnesium (1.6-2.3) mg/dL Total Bilirubin (0.2-1.3) mg/dL AST (17-59) U/L ALT (21-72) U/L Alkaline Phosphatase (38-126) U/L Total Protein (6.3-8.3) g/dL Albumin (3.5-5.0) g/dL Globulin (2.2-3.9) gm/dL Albumin/Globulin Ratio (1.0-2.1) Arterial Blood Potassium 4.3 (3.6-5.2) mmol/L Urine Color (YELLOW) Urine Clarity (Clear) Urine pH (5.0-8.0) Ur Specific Soper (1.003-1.030) Urine Protein (NEGATIVE) mg/dL Urine Glucose (UA) (Normal) mg/dL Urine Ketones (NEGATIVE) mg/dL Urine Blood (NEGATIVE) Urine Nitrate (NEGATIVE) Urine Bilirubin (NEGATIVE) Urine Urobilinogen (0.2-1.0) mg/dL Ur Leukocyte Esterase (Negative) [place]/uL Urine WBC (Auto) (0-5) /hpf Urine RBC (Auto) (0-3) /hpf Ur Squamous Epith Cells (0-5) /hpf Urine Bacteria (<OCC) Ur Random Creatinine mg/dL Ur Random Sodium mmol/L Ur Random Urea Nitrogn Random Vancomycin ug/mL Laboratory Results - last 24 hr 05/20/17 05/20/17 05/20/17 05:19 06:35 06:35 WBC 9.7 RBC 5.02 Hgb 13.2 Hct 42.3 MCV 84.3 MCH 26.4 L MCHC 31.3 L RDW 18.9 H Plt Count 104 L MPV 10.6 Neut % (Auto) 78.9 H Lymph % (Auto) 7.4 L [place] % (Auto) 12.4 H Eos % (Auto) 0.3 Baso % (Auto) 1.0 Neut # 7.7 H Lymph # 0.7 L [place] # 1.2 H Eos # 0.0 Baso # 0.1 Neutrophils % (Manual) 84 H Lymphocytes % (Manual) 5 L Monocytes % (Manual) 10 Eosinophils % (Manual) 1 Platelet Estimate Normal Large Platelets Present Hypochromasia (manual) Slight Poikilocytosis (manual Slight Anisocytosis (manual) Slight Macrocytosis (manual) Slight Tear Drop Cells Slight Ovalocytes Slight Puncture Site L brach pCO2 31 L pO2 82 HCO3 19.2 L ABG pH 7.35 ABG Total CO2 18.1 L ABG O2 Saturation 97.7 ABG Base Excess -7.3 L [place] Test Na ABG Potassium 4.3 A-a O2 Difference 29.0 Respiratory Index 0.4 Sodium 132.0 132 Chloride 102.0 99 Glucose 165 H Lactate 2.4 H Liter Flow 0 FiO2 21.0 Potassium 4.4 Carbon Dioxide 16 L Anion Gap 21 H BUN 72 H Creatinine 2.9 H Est GFR ( Amer) 25 Est GFR (Non-Af Amer) 21 Random Glucose 152 H Calcium 8.8 Phosphorus 5.8 H Magnesium 2.4 H Total Bilirubin 5.2 H AST 161 H D ALT 108 H D Alkaline Phosphatase 95 Total Protein 6.4 Albumin 3.0 L Globulin 3.4 Albumin/Globulin Ratio 0.9 L Arterial Blood Potassium 4.3 Urine Color Urine Clarity Urine pH Ur Specific [place] Urine Protein Urine Glucose (UA) Urine Ketones Urine Blood Urine Nitrate Urine Bilirubin Urine Urobilinogen Ur Leukocyte Esterase Urine WBC (Auto) Urine RBC (Auto) Ur Squamous Epith Cells Urine Bacteria Ur Random Creatinine Ur Random Sodium Ur Random Urea Nitrogn Random Vancomycin 05/20/17 05/20/17 05/20/17 06:35 08:49 08:49 WBC RBC Hgb Hct MCV MCH MCHC RDW Plt Count MPV Neut % (Auto) Lymph % (Auto) [place] % (Auto) Eos % (Auto) Baso % (Auto) Neut # Lymph # [place] # Eos # Baso # Neutrophils % (Manual) Lymphocytes % (Manual) Monocytes % (Manual) Eosinophils % (Manual) Platelet Estimate Large Platelets Hypochromasia (manual) Poikilocytosis (manual Anisocytosis (manual) Macrocytosis (manual) Tear Drop Cells Ovalocytes Puncture Site pCO2 pO2 HCO3 ABG pH ABG Total CO2 ABG O2 Saturation ABG Base Excess [place] Test ABG Potassium A-a O2 Difference Respiratory Index Sodium Chloride Glucose Lactate Liter Flow FiO2 Potassium Carbon Dioxide Anion Gap BUN Creatinine Est GFR ( Amer) Est GFR (Non-Af Amer) Random Glucose Calcium Phosphorus Magnesium Total Bilirubin AST ALT Alkaline Phosphatase Total Protein Albumin Globulin Albumin/Globulin Ratio Arterial Blood Potassium Urine Color Yellow Urine Clarity Clear Urine pH 5.0 Ur Specific [place] 1.019 Urine Protein Negative Urine Glucose (UA) Normal Urine Ketones Negative Urine Blood 3+ H Urine Nitrate Negative Urine Bilirubin Negative Urine Urobilinogen Normal Ur Leukocyte Esterase 1+ H Urine WBC (Auto) 9 H Urine RBC (Auto) 22 H Ur Squamous Epith Cells < 1 Urine Bacteria Rare Ur Random Creatinine 81.5 Ur Random Sodium 17 Ur Random Urea Nitrogn Cancelled Random Vancomycin 21.75 05/20/17 08:49 WBC RBC Hgb Hct MCV MCH MCHC RDW Plt Count MPV Neut % (Auto) Lymph % (Auto) [place] % (Auto) Eos % (Auto) Baso % (Auto) Neut # Lymph # [place] # Eos # Baso # Neutrophils % (Manual) Lymphocytes % (Manual) Monocytes % (Manual) Eosinophils % (Manual) Platelet Estimate Large Platelets Hypochromasia (manual) Poikilocytosis (manual Anisocytosis (manual) Macrocytosis (manual) Tear Drop Cells Ovalocytes Puncture Site pCO2 pO2 HCO3 ABG pH ABG Total CO2 ABG O2 Saturation ABG Base Excess [place] Test ABG Potassium A-a O2 Difference Respiratory Index Sodium Chloride Glucose Lactate Liter Flow FiO2 Potassium Carbon Dioxide Anion Gap BUN Creatinine Est GFR ( Amer) Est GFR (Non-Af Amer) Random Glucose Calcium Phosphorus Magnesium Total Bilirubin AST ALT Alkaline Phosphatase Total Protein Albumin Globulin Albumin/Globulin Ratio Arterial Blood Potassium Urine Color Urine Clarity Urine pH Ur Specific [place] Urine Protein Urine Glucose (UA) Urine Ketones Urine Blood Urine Nitrate Urine Bilirubin Urine Urobilinogen Ur Leukocyte Esterase Urine WBC (Auto) Urine RBC (Auto) Ur Squamous Epith Cells Urine Bacteria Ur Random Creatinine Ur Random Sodium Ur Random Urea Nitrogn 861 Random Vancomycin Attending/Attestation - Attestation I have personally seen and examined this patient.: Yes I have fully participated in the care of the patient.: Yes I have reviewed all pertinent clinical information: Yes Notes (Text): 05/20/17 17:40 Patient seen and examined in the intensive care unit. Case discussed with house staff in the morning rounds. IV fluids increased to 75 mL an hour for prerenal azotemia which could be secondary to dehydration versus low ejection fraction of 10% Patient and family refused AICD in the past Monitor intake and output Consider Dobutrex Patient DNR/DNI
--- NOTE | 2017-05-20 12:35 | CARD ---
APPROVED REPORT EXAM: Two-dimensional and M-mode echocardiogram with Doppler and color Doppler. Other Information Quality : GoodRhythm : NSR INDICATION Dyspnea Peripheral Edema Atrial Fibrillation Chest Pain Congestive Heart Failure DIALATED CARDIOMYOPATHY RISK FACTORS Hypertension 2D DIMENSIONS LVOT Diameter2.0 (1.8-2.4cm) M-Mode DIMENSIONS RVDd3.59 (2.1-3.2cm)Left Atrium (MM)4.61 (2.5-4.0cm) IVSd0.66 (0.7-1.1cm)Aortic Root3.20 (2.2-3.7cm) LVDd6.33 (4.0-5.6cm)Aortic Cusp Exc.1.09 (1.5-2.0cm) PWd0.74 (0.7-1.1cm)FS (%) 9 % LVDs5.74 (2.0-3.8cm)LVEF (%)20 (>50%) Aortic Valve AoV Peak Ixvripjx835.6cm/Henri Peak GR.6mmHg Mitral Valve MV E Ruumrerl488.6cm/sE/A ratio0.0 TDI E/Lateral E'0.0E/Medial E'0.0 Tricuspid Valve TR Peak [id number]/sTR Peak [id number] LEFT VENTRICLE The Left Ventricle is mildly dilated. There is normal left ventricular wall thickness. The systolic function is severely impaired. The Ejection Fraction is 20% There is global hypokinesis of the left ventricle. Tissue Doppler imaging reveals severe left ventricular diastolic dysfunction. No left ventricle thrombus noted on this study. There is no ventricular septal defect visualized. There is no left ventricular aneurysm. There is no mass noted in the left ventricle. RIGHT VENTRICLE The right ventricle is normal size. There is normal right ventricular wall thickness. ATRIA The left atrium is moderately dilated. The right atrium is moderately dilated. The interatrial septum is intact with no evidence for an atrial septal defect. AORTIC VALVE The aortic valve is mildly to moderately calcified. WITH REDUCED OPENING. aortic stenosis present. No aortic regurgitation is present. There is no aortic valvular vegetation. MITRAL VALVE The mitral valve is normal in structure. There is no mitral valve stenosis. Mitral regurgitation is moderate. TRICUSPID VALVE The tricuspid valve is normal in structure. There is moderate tricuspid regurgitation. PULMONIC VALVE The pulmonary valve is normal in structure. There is mild pulmonic valvular regurgitation. GREAT VESSELS The aortic root is normal in size. The ascending aorta is normal in size. The pulmonary artery is normal. The IVC is normal in size and collapses >50% with inspiration. PERICARDIAL EFFUSION There is no pericardial effusion. <Conclusion> The Left Ventricle is mildly dilated. The systolic function is severely impaired. The Ejection Fraction is 20% There is global hypokinesis of the left ventricle. Tissue Doppler imaging reveals severe left ventricular diastolic dysfunction. The left atrium is moderately dilated. The right atrium is moderately dilated. The aortic valve is mildly to moderately calcified. WITH REDUCED OPENING. aortic stenosis present. Mitral regurgitation is moderate. There is moderate tricuspid regurgitation. There is mild pulmonic valvular regurgitation. abnormal septal motion present. DILATED CARDIOMYOPATHY/ R/O ISCHEMIC CARDIOMYOPATHY.
--- NOTE | 2017-05-20 13:38 | VASCLAB ---
PROCEDURE: Lower Extremity Venous Duplex Exam. HISTORY: LE bilateral swelling PRIORS: None. TECHNIQUE: Bilateral common femoral, femoral, popliteal and posterior tibial, peroneal and great saphenous veins were evaluated. Flow was assessed with color Doppler, compressibility, assessment of phasic flow and augmentation response. Report prepared by Gilles Boles, RENATO, RVT FINDINGS: RIGHT: 1. Common Femoral Vein: 1.1. Compressibility - Fully compressible: Thrombus - None : Flow - Phasic: Augmentation -Normal: Reflux - None. 2. Femoral Vein: 2.1. Compressibility - Fully compressible: Thrombus - None : Flow - Phasic: Augmentation -Normal: Reflux - None. 3. Popliteal Vein: 3.1. Compressibility - Fully compressible: Thrombus - None : Flow - Phasic: Augmentation -Normal: Reflux - None. 4. Posterior Tibial Vein: 4.1. Compressibility - : Thrombus - : Flow - : Augmentation -: Reflux - . 5. Peroneal Vein: 5.1. Compressibility - : Thrombus - : Flow - : Augmentation -: Reflux - . 6. Great Saphenous Vein: 6.1. Compressibility - : Thrombus - : Flow - : Augmentation - : Reflux - . LEFT: 1. Common Femoral Vein: 1.1. Compressibility - Fully compressible: Thrombus - None: Flow - Phasic: Augmentation -Normal: Reflux - None. 2. Femoral Vein: 2.1. Compressibility - Fully compressible: Thrombus - None: Flow - Phasic: Augmentation -Normal: Reflux - None. 3. Popliteal Vein: 3.1. Compressibility - Fully compressible: Thrombus - None : Flow - Phasic: Augmentation -Normal: Reflux - None. 4. Posterior Tibial Vein: 4.1. Compressibility - Fully compressible: Thrombus - None: Flow - Phasic: Augmentation -Normal: Reflux - None. 5. Peroneal Vein: 5.1. Compressibility - Fully compressible: Thrombus - None: Flow - Phasic: Augmentation -Normal: Reflux - None. 6. Great Saphenous Vein: 6.1. Compressibility - Fully compressible: Thrombus - None: Flow - Phasic: Augmentation - Normal: Reflux - None. OTHER FINDINGS: Right: Unable to image the right posterior tibial and peroneal veins. Left: None significant. IMPRESSION: Right: No evidence of deep or superficial vein thrombosis of the right lower extremity. Normal valve function noted of the right side. Left: No evidence of deep or superficial vein thrombosis of the left lower extremity. Normal valve function noted of the left side.
--- NOTE | 2017-05-20 14:05 | CP.PCM.PN ---
Subjective - Date & Time of Evaluation Date of Evaluation: 05/20/17 Time of Evaluation: 12:00 - Subjective Subjective: reporting patient complaining of hunger; Objective - Vital Signs/Intake and Output Vital Signs (last 24 hours): Temp Pulse Resp BP Pulse Ox 97.3 F L 96 H 27 H 108/76 98 05/20/17 12:00 05/20/17 12:54 05/20/17 12:54 05/20/17 12:54 05/20/17 12:54 Intake and Output: 05/20/17 05/20/17 06:59 18:59 Intake Total 600 582.5 Output Total 200 250 Balance 400 332.5 - Medications Medications: Current Medications Amiodarone HCl (Cordarone) 200 mg NG DAILY [facility] Last Admin: 05/20/17 10:09 Dose: 200 mg Aspirin (Aspirin Chewable) 81 mg PO DAILY [facility] Last Admin: 05/19/17 11:05 Dose: 81 mg Furosemide (Lasix) 20 mg IVP Q12H [facility] Last Admin: 05/19/17 09:45 Dose: Not Given Vancomycin/Sodium Chloride (Vancocin) 1 gm in 200 mls @ 166.6 mls/hr IVPB Q24H [facility] Stop: 05/24/17 12:01 Last Admin: 05/19/17 11:42 Dose: 166.6 mls/hr Piperacillin Sod/Tazobactam Sod (Zosyn 2.25 Gm Iv Premix) 2.25 gm in 50 mls @ 100 mls/hr IVPB Q6H [facility] Last Admin: 05/20/17 10:09 Dose: 100 mls/hr Dextrose/Sodium Chloride (Dextrose 5%/0.9% Ns 1000 Ml) 1,000 mls @ 75 mls/hr IV .[id number] [facility] Lorazepam (Ativan) 0.5 mg IVP Q4H PRN PRN Reason: Agitation Last Admin: 05/19/17 01:28 Dose: 0.5 mg Pantoprazole Sodium (Protonix Inj) 40 mg IVP DAILY [facility] Last Admin: 05/20/17 10:09 Dose: 40 mg - Labs Labs: 05/20/17 06:35 05/20/17 06:35 PT 27.7 SECONDS (9.7-12.2) H D 05/19/17 06:11 INR 2.4 D 05/19/17 06:11 APTT 31 SECONDS (21-34) D 05/19/17 06:11 - Constitutional Appears: Non-toxic, Agitated - Head Exam Head Exam: NORMAL INSPECTION - Eye Exam Eye Exam: Scleral icterus - ENT Exam ENT Exam: Mucous Membranes Moist - Respiratory Exam Respiratory Exam: Clear to Ausculation Bilateral, NORMAL BREATHING PATTERN. absent: Rhonchi, Wheezes, Respiratory Distress - Cardiovascular Exam Cardiovascular Exam: Irregular Rhythm Additional comments: loud systolic murmur at apex; - GI/Abdominal Exam GI & Abdominal Exam: Distended, Soft, Tenderness - Exam Additional comments: whitehead in place; - Extremities Exam Additional comments: Mild lower leg edema, more prominent edema in proximal legs; - Neurological Exam Neurological Exam: Alert Additional comments: following some commands; - Psychiatric Exam Psychiatric exam: Agitated - Skin Skin Exam: Normal Color, Warm. absent: Cyanosis Assessment and Plan (1) CHF (congestive heart failure) Assessment & Plan: With severe systolic dysfunction; as mentioned above, volume status unclear; despite clear lungs, can still be volume overloaded in setting of chronic mitral regurg; currently giving IVF due to pre-renal state; however, may benefit from right heart cath to see if patient will benefit from diuresis instead; f/u with cardiology; Status: Chronic (2) CKD (chronic kidney disease) stage 3, GFR 30-59 ml/min Assessment & Plan: Mostly non-proteinuric kidney disease likely due to cardiorenal etiology; -avoid nephrotoxic insults Status: Acute (3) Acute renal failure (ARF) Assessment & Plan: LULA on CKD IIIB; renal function worsening although UO appears to have increased today (~250 cc over 5 hours); repeat urine lytes still showing pre-renal etiology with direct visualization of urine micro not showing any indication of tubular injury; However, intravascular volume status is still unclear especially in setting of chronic mitral regurg; -continue D5NS@75 cc/hr Status: Acute (4) Hypertensive CKD (chronic kidney disease) Assessment & Plan: Currently normotensive off BP meds; continue to hold to avoid hypotension and decreased renal perfusion; Status: Chronic (5) Altered mental status Assessment & Plan: In the setting of acute illness but improved today as patient following some commands; doubt any component of uremia but this will change if renal function continues to worsen; Status: Acute (6) SIRS (systemic inflammatory response syndrome) Assessment & Plan: Sepsis parameters including lactic acidosis improving; on zosyn and vanco; vanco level elevated, repeat level tomorrow before re-dosing; Status: Acute (7) Hyperbilirubinemia Assessment & Plan: Unclear etiology but slightly improved since yesterday; monitor; would have expected worsening if this was due to congestive hepatopathy as patient getting IVF; consider GI consult if worsens/persists; Status: Acute
--- NOTE | 2017-05-20 14:58 | CP.PCM.CON ---
History of Present Illness - History of Present Illness History of Present Illness: dictated Past Patient History - Past Medical History & Family History Past Medical History?: Yes - Past Social History Smoking Status: Never Smoked - CARDIAC Hx Atrial Fibrillation: Yes Hx Congestive Heart Failure: Yes Hx Hypercholesterolemia: Yes Hx Hypertension: Yes - PULMONARY Hx Bronchitis: Yes Hx Pneumonia: Yes - NEUROLOGICAL Hx Neurological Disorder: No - HEENT Other/Comment: blurring ofVISION AND HARD OF HEARING AFTER taking heart medicine from [facility] - RENAL Hx Chronic Kidney Disease: Yes - ENDOCRINE/METABOLIC Hx Endocrine Disorders: No - HEMATOLOGICAL/ONCOLOGICAL Hx Blood Disorders: No - INTEGUMENTARY Hx Dermatological Problems: No - MUSCULOSKELETAL/RHEUMATOLOGICAL Hx Falls: No - GASTROINTESTINAL Hx Gastrointestinal Disorders: No - GENITOURINARY/GYNECOLOGICAL Hx Genitourinary Disorders: No - PSYCHIATRIC Hx Substance Use: No - SURGICAL HISTORY Hx Cholecystectomy: Yes - ANESTHESIA Hx Anesthesia: Yes Hx Anesthesia Reactions: No Hx Malignant Hyperthermia: No Meds Allergies/Adverse Reactions: Allergies Allergy/AdvReac Type Severity Reaction Status Date / Time clopidogrel bisulfate Allergy RASH Verified 05/18/17 11:26 [From Plavix] oxycodone HCl [From Percocet] Allergy RASH Verified 05/18/17 11:26 kiwi, peaches Allergy RASH Uncoded 05/19/17 14:18 - Medications Medications: Current Medications Amiodarone HCl (Cordarone) 200 mg NG DAILY [facility] Last Admin: 05/20/17 10:09 Dose: 200 mg Aspirin (Aspirin Chewable) 81 mg PO DAILY [facility] Last Admin: 05/19/17 11:05 Dose: 81 mg Furosemide (Lasix) 20 mg IVP Q12H [facility] Last Admin: 05/19/17 09:45 Dose: Not Given Vancomycin/Sodium Chloride (Vancocin) 1 gm in 200 mls @ 166.6 mls/hr IVPB Q24H [facility] Stop: 05/24/17 12:01 Last Admin: 05/19/17 11:42 Dose: 166.6 mls/hr Piperacillin Sod/Tazobactam Sod (Zosyn 2.25 Gm Iv Premix) 2.25 gm in 50 mls @ 100 mls/hr IVPB Q6H [facility] Last Admin: 05/20/17 10:09 Dose: 100 mls/hr Dextrose/Sodium Chloride (Dextrose 5%/0.9% Ns 1000 Ml) 1,000 mls @ 75 mls/hr IV .[id number] [facility] Lorazepam (Ativan) 0.5 mg IVP Q4H PRN PRN Reason: Agitation Last Admin: 05/19/17 01:28 Dose: 0.5 mg Pantoprazole Sodium (Protonix Inj) 40 mg IVP DAILY [facility] Last Admin: 05/20/17 10:09 Dose: 40 mg Results - Vital Signs Recent Vital Signs: Last Vital Signs Temp 97.3 F L 05/20/17 12:00 Pulse 106 H 05/20/17 13:55 Resp 26 H 05/20/17 13:55 BP 108/70 05/20/17 13:55 Pulse Ox 99 05/20/17 13:55 - Labs Result Diagrams: 05/20/17 06:35 05/20/17 06:35 Labs: Laboratory Results - last 24 hr 05/20/17 05/20/17 05/20/17 05:19 06:35 06:35 WBC 9.7 RBC 5.02 Hgb 13.2 Hct 42.3 MCV 84.3 MCH 26.4 L MCHC 31.3 L RDW 18.9 H Plt Count 104 L MPV 10.6 Neut % (Auto) 78.9 H Lymph % (Auto) 7.4 L [place] % (Auto) 12.4 H Eos % (Auto) 0.3 Baso % (Auto) 1.0 Neut # 7.7 H Lymph # 0.7 L [place] # 1.2 H Eos # 0.0 Baso # 0.1 Neutrophils % (Manual) 84 H Lymphocytes % (Manual) 5 L Monocytes % (Manual) 10 Eosinophils % (Manual) 1 Platelet Estimate Normal Large Platelets Present Hypochromasia (manual) Slight Poikilocytosis (manual Slight Anisocytosis (manual) Slight Macrocytosis (manual) Slight Tear Drop Cells Slight Ovalocytes Slight Puncture Site L brach pCO2 31 L pO2 82 HCO3 19.2 L ABG pH 7.35 ABG Total CO2 18.1 L ABG O2 Saturation 97.7 ABG Base Excess -7.3 L [place]uch[place] Test Na ABG Potassium 4.3 A-a O2 Difference 29.0 Respiratory Index 0.4 Sodium 132.0 132 Chloride 102.0 99 Glucose 165 H Lactate 2.4 H Liter Flow 0 FiO2 21.0 Potassium 4.4 Carbon Dioxide 16 L Anion Gap 21 H BUN 72 H Creatinine 2.9 H Est GFR ( Amer) 25 Est GFR (Non-Af Amer) 21 Random Glucose 152 H Calcium 8.8 Phosphorus 5.8 H Magnesium 2.4 H Total Bilirubin 5.2 H AST 161 H D ALT 108 H D Alkaline Phosphatase 95 Total Protein 6.4 Albumin 3.0 L Globulin 3.4 Albumin/Globulin Ratio 0.9 L Arterial Blood Potassium 4.3 Urine Color Urine Clarity Urine pH Ur Specific [place] Urine Protein Urine Glucose (UA) Urine Ketones Urine Blood Urine Nitrate Urine Bilirubin Urine Urobilinogen Ur Leukocyte Esterase Urine WBC (Auto) Urine RBC (Auto) Ur Squamous Epith Cells Urine Bacteria Ur Random Creatinine Ur Random Sodium Ur Random Urea Nitrogn Random Vancomycin 05/20/17 05/20/17 05/20/17 06:35 08:49 08:49 WBC RBC Hgb Hct MCV MCH MCHC RDW Plt Count MPV Neut % (Auto) Lymph % (Auto) [place] % (Auto) Eos % (Auto) Baso % (Auto) Neut # Lymph # [place] # Eos # Baso # Neutrophils % (Manual) Lymphocytes % (Manual) Monocytes % (Manual) Eosinophils % (Manual) Platelet Estimate Large Platelets Hypochromasia (manual) Poikilocytosis (manual Anisocytosis (manual) Macrocytosis (manual) Tear Drop Cells Ovalocytes Puncture Site pCO2 pO2 HCO3 ABG pH ABG Total CO2 ABG O2 Saturation ABG Base Excess [place] Test ABG Potassium A-a O2 Difference Respiratory Index Sodium Chloride Glucose Lactate Liter Flow FiO2 Potassium Carbon Dioxide Anion Gap BUN Creatinine Est GFR ( Amer) Est GFR (Non-Af Amer) Random Glucose Calcium Phosphorus Magnesium Total Bilirubin AST ALT Alkaline Phosphatase Total Protein Albumin Globulin Albumin/Globulin Ratio Arterial Blood Potassium Urine Color Yellow Urine Clarity Clear Urine pH 5.0 Ur Specific [place] 1.019 Urine Protein Negative Urine Glucose (UA) Normal Urine Ketones Negative Urine Blood 3+ H Urine Nitrate Negative Urine Bilirubin Negative Urine Urobilinogen Normal Ur Leukocyte Esterase 1+ H Urine WBC (Auto) 9 H Urine RBC (Auto) 22 H Ur Squamous Epith Cells < 1 Urine Bacteria Rare Ur Random Creatinine 81.5 Ur Random Sodium 17 Ur Random Urea Nitrogn Cancelled Random Vancomycin 21.75 05/20/17 08:49 WBC RBC Hgb Hct MCV MCH MCHC RDW Plt Count MPV Neut % (Auto) Lymph % (Auto) [place] % (Auto) Eos % (Auto) Baso % (Auto) Neut # Lymph # [place] # Eos # Baso # Neutrophils % (Manual) Lymphocytes % (Manual) Monocytes % (Manual) Eosinophils % (Manual) Platelet Estimate Large Platelets Hypochromasia (manual) Poikilocytosis (manual Anisocytosis (manual) Macrocytosis (manual) Tear Drop Cells Ovalocytes Puncture Site pCO2 pO2 HCO3 ABG pH ABG Total CO2 ABG O2 Saturation ABG Base Excess [place] Test ABG Potassium A-a O2 Difference Respiratory Index Sodium Chloride Glucose Lactate Liter Flow FiO2 Potassium Carbon Dioxide Anion Gap BUN Creatinine Est GFR ( Amer) Est GFR (Non-Af Amer) Random Glucose Calcium Phosphorus Magnesium Total Bilirubin AST ALT Alkaline Phosphatase Total Protein Albumin Globulin Albumin/Globulin Ratio Arterial Blood Potassium Urine Color Urine Clarity Urine pH Ur Specific [place] Urine Protein Urine Glucose (UA) Urine Ketones Urine Blood Urine Nitrate Urine Bilirubin Urine Urobilinogen Ur Leukocyte Esterase Urine WBC (Auto) Urine RBC (Auto) Ur Squamous Epith Cells Urine Bacteria Ur Random Creatinine Ur Random Sodium Ur Random Urea Nitrogn 861 Random Vancomycin
[2017-05-20] MEDS: Aztreonam 1 GM in Sodium Chloride 0.9% 100 ML IVPB SCH (16:01)
--- NOTE | 2017-05-20 16:21 | CP.PCM.PN ---
Subjective - Date & Time of Evaluation Date of Evaluation: 05/20/17 Time of Evaluation: 13:00 - Subjective Subjective: Patient was seen and examined at bedside in ICU Patient is nonverbal. Objective - Vital Signs/Intake and Output Vital Signs (last 24 hours): Temp Pulse Resp BP Pulse Ox 97.7 F 111 H 30 H 111/82 97 05/20/17 16:00 05/20/17 15:55 05/20/17 15:55 05/20/17 15:55 05/20/17 15:55 Intake and Output: 05/20/17 05/20/17 06:59 18:59 Intake Total 600 677.5 Output Total 200 250 Balance 400 427.5 - Medications Medications: Current Medications Amiodarone HCl (Cordarone) 200 mg NG DAILY [facility] Last Admin: 05/20/17 10:09 Dose: 200 mg Aspirin (Aspirin Chewable) 81 mg PO DAILY [facility] Last Admin: 05/19/17 11:05 Dose: 81 mg Furosemide (Lasix) 20 mg IVP Q12H [facility] Last Admin: 05/19/17 09:45 Dose: Not Given Dextrose/Sodium Chloride (Dextrose 5%/0.9% Ns 1000 Ml) 1,000 mls @ 75 mls/hr IV .[id number] [facility] Last Admin: 05/20/17 16:03 Dose: 75 mls/hr Aztreonam 1 gm/ Sodium (Chloride) 100 mls @ 200 mls/hr IVPB Q12H [facility] Last Admin: 05/20/17 16:01 Dose: 200 mls/hr Piperacillin Sod/Tazobactam Sod (Zosyn 2.25 Gm Iv Premix) 2.25 gm in 50 mls @ 100 mls/hr IVPB Q8H [facility] Lorazepam (Ativan) 0.5 mg IVP Q4H PRN PRN Reason: Agitation Last Admin: 05/19/17 01:28 Dose: 0.5 mg Pantoprazole Sodium (Protonix Inj) 40 mg IVP DAILY [facility] Last Admin: 05/20/17 10:09 Dose: 40 mg - Labs Labs: 05/20/17 06:35 05/20/17 06:35 PT 27.7 SECONDS (9.7-12.2) H D 05/19/17 06:11 INR 2.4 D 05/19/17 06:11 APTT 31 SECONDS (21-34) D 05/19/17 06:11 - Head Exam Head Exam: ATRAUMATIC, NORMOCEPHALIC - Eye Exam Eye Exam: PERRL - ENT Exam ENT Exam: Mucous Membranes Moist - Respiratory Exam Respiratory Exam: Wheezes - GI/Abdominal Exam GI & Abdominal Exam: Soft. absent: Tenderness - Extremities Exam Extremities Exam: Pedal Edema Assessment and Plan (1) Sepsis Assessment & Plan: Patient is on antibiotics as per recommendations of ID. Status: Acute (2) Acute renal failure (ARF) Assessment & Plan: Patient has chronic kidney disease. Patient has developed acute kidney injury. Management as per nephrology. Continue IV fluids. Status: Acute (3) Dilated cardiomyopathy Assessment & Plan: Management as per cardiology. Status: Acute (4) CHF (congestive heart failure) Assessment & Plan: Patient has low ejection fraction. Continue management as per cardiology. Status: Chronic
[2017-05-21] MEDS: Piperacill/Tazo 2.25gm in Dex 2.25 GM/50 ML BAG IVPB SCH ×3 (02:00→17:06)
[2017-05-21] MEDS: Dextrose 5%/0.9% NS 1,000 ML IV SCH ×2 (02:00→22:00)
[2017-05-21] MEDS ORDERED: Albuterol 0.083% Inhal Sol (2.5 mg/3 mL) UD INH STA (02:07)
[2017-05-21] MEDS: Aztreonam 1 GM in Sodium Chloride 0.9% 100 ML IVPB SCH (03:38)
[2017-05-21 06:49] LABS: BASO # 0.1 K/uL (0.0-0.2); BASO % 1.3 % (0.0-2.0); EOS # 0.1 K/uL (0.0-0.7); EOS % 1.1 % (0.0-4.0); HEMATOCRIT 43.2 % (35.0-51.0); LYMPH # 0.6 K/uL (1.0-4.3); LYMPH % 7.7 % (20.0-40.0); MEAN CELL VOLUME 84.8 fL (80.0-94.0); MEAN CORPUSCULAR HEMOGLOBIN 25.3 pg (27.0-31.0); MEAN CORPUSCULAR HGB CONC 29.9 g/dL (33.0-37.0); MEAN PLATELET VOLUME 10.6 fL (7.2-11.7); MONO # 1.2 K/uL (0.0-0.8); MONO % 14.6 % (0.0-10.0); NRBC % 1.6 % (0.0-2.0); PLATELET COUNT 101 K/uL (130-400); RED CELL DISTRIBUTION WIDTH 19.6 % (11.5-14.5); WHITE BLOOD COUNT 8.2 K/uL (4.8-10.8)
[2017-05-21 07:01] LABS: ALB/GLOB RATIO 0.9 (1.0-2.1); BILIRUBIN,TOTAL 3.7 mg/dL (0.2-1.3); CALCIUM 8.8 mg/dl (8.6-10.4); MAGNESIUM 2.5 mg/dL (1.6-2.3); PHOSPHOROUS 3.3 mg/dL (2.5-4.5); POTASSIUM 3.3 mmol/L (3.6-5.2); TOTAL PROTEIN 6.5 g/dL (6.3-8.3)
[2017-05-21 07:29] LABS: PROSTATE SPECIFIC ANTIGEN 2.03 ng/mL (0.00-4.0)
--- NOTE | 2017-05-21 07:29 | CP.CCUPN ---
<Mary Graves - Last Filed: 05/21/17 10:55> CCU Subjective - Physician Review Subjective (Free Text): Patient was seen and examined at bedside in the AM. Patient is alert but he is not oriented. Patient just continues to grunt and does not respond to commands. 05/21/17 10:55 CCU Objective - Vital Signs / Intake & Output Vital Signs (Last 4 hours): Vital Signs Temp Pulse Resp BP Pulse Ox 05/21/17 07:00 94 H 22 97 05/21/17 06:54 128/90 05/21/17 06:00 108 H 32 H 98 05/21/17 05:55 119/96 H 05/21/17 05:00 93 H 34 H 96 05/21/17 04:56 111/38 L 05/21/17 04:00 98.1 F 91 H 27 H 97 05/21/17 03:55 122/77 Intake and Output (Last 8hrs): Intake & Output 05/20/17 05/21/17 05/21/17 22:59 06:59 14:59 Intake Total 985.0 815 80 Output Total 310 355 40 Balance 675.0 460 40 Intake: Intake, IV Amount 675.0 575 50 Right Forearm 675.0 575 50 Tube Feeding 210 240 30 Other 100 Output: Urine 310 355 40 Urethral ([place]) 310 355 40 Other: # Bowel Movements 1 1 - Physical Exam Physical Exam Limitations: Positive for: Altered Mental Status Head: Positive for: Atraumatic, Normocephalic Mouth: Positive for: Moist Mucous Membranes Nose (Internal): Positive for: Other (NG tube in place) Respiratory/Chest: Positive for: Wheezes, Other (patient on high flow oxygen) Abdomen: Positive for: Normal Bowel Sounds. Negative for: Distention Upper Extremity: Negative for: Edema Lower Extremity: Negative for: Edema Neurological: Negative for: GCS=15, Speech Normal Psychiatric: Positive for: Alert. Negative for: Oriented x 3 - Medications Active Medications: Active Medications Generic Name Dose Route Start Last Admin Trade Name Freq PRN Reason Stop Dose Admin Amiodarone HCl 200 mg 05/19/17 14:00 05/20/17 10:09 Cordarone NG 200 mg DAILY [facility] Administration Aspirin 81 mg 05/19/17 10:00 05/19/17 11:05 Aspirin Chewable PO 81 mg DAILY [facility] Administration Furosemide 20 mg 05/19/17 09:45 05/19/17 09:45 Lasix IVP Not Given Q12H [facility] Aztreonam 1 gm/ Sodium 100 mls @ 200 mls/hr 05/20/17 16:00 05/21/17 03:38 Chloride IVPB 200 mls/hr Q12H [facility] Administration Piperacillin Sod/Tazobactam Sod 2.25 gm in 50 mls @ 100 mls/hr 05/20/17 18:00 05/21/17 02:00 Zosyn 2.25 Gm Iv Premix IVPB 100 mls/hr Q8H [facility] Administration Dextrose/Sodium Chloride 1,000 mls @ 50 mls/hr 05/21/17 02:07 05/21/17 02:00 Dextrose 5%/0.9% Ns 1000 Ml IV 50 mls/hr .Q20H [facility] Administration Lorazepam 0.5 mg 05/18/17 15:32 05/19/17 01:28 Ativan IVP 0.5 mg Q4H PRN Administration Agitation Pantoprazole Sodium 40 mg 05/19/17 10:00 05/20/17 10:09 Protonix Inj IVP 40 mg DAILY [facility] Administration - Patient Studies Lab Studies: Lab Studies 05/21/17 05/21/17 05/20/17 Range/Units 06:39 06:39 08:49 WBC 8.2 (4.8-10.8) K/uL RBC 5.10 (4.40-5.90) Mil/uL Hgb 12.9 (12.0-18.0) g/dL Hct 43.2 (35.0-51.0) % MCV 84.8 (80.0-94.0) fL MCH 25.3 L (27.0-31.0) pg MCHC 29.9 L (33.0-37.0) g/dL RDW 19.6 H (11.5-14.5) % Plt Count 101 L (130-400) K/uL MPV 10.6 (7.2-11.7) fL Neut % (Auto) 75.3 H (50.0-75.0) % Lymph % (Auto) 7.7 L (20.0-40.0) % [place] % (Auto) 14.6 H (0.0-10.0) % Eos % (Auto) 1.1 (0.0-4.0) % Baso % (Auto) 1.3 (0.0-2.0) % Neut # 6.2 (1.8-7.0) K/uL Lymph # 0.6 L (1.0-4.3) K/uL [place] # 1.2 H (0.0-0.8) K/uL Eos # 0.1 (0.0-0.7) K/uL Baso # 0.1 (0.0-0.2) K/uL Neutrophils % (Manual) (50-75) % Lymphocytes % (Manual) (20-40) % Monocytes % (Manual) (0-10) % Eosinophils % (Manual) (0-4) % Platelet Estimate (NORMAL) Large Platelets Hypochromasia (manual) Poikilocytosis (manual Anisocytosis (manual) Macrocytosis (manual) Tear Drop Cells Ovalocytes Sodium 136 (132-148) mmol/L Potassium 3.3 L (3.6-5.2) mmol/L Chloride 103 (98-107) mmol/L Carbon Dioxide 18 L (22-30) mmol/L Anion Gap 18 (10-20) BUN 65 H (9-20) mg/dL Creatinine 2.3 H (0.8-1.5) MG/DL Est GFR ( Amer) 33 Est GFR (Non-Af Amer) 27 Random Glucose 204 H (75-110) mg/dL Calcium 8.8 (8.6-10.4) mg/dl Phosphorus 3.3 (2.5-4.5) mg/dL Magnesium 2.5 H (1.6-2.3) mg/dL Total Bilirubin 3.7 H (0.2-1.3) mg/dL AST 205 H D (17-59) U/L ALT 150 H D (21-72) U/L Alkaline Phosphatase 150 H D (38-126) U/L Total Protein 6.5 (6.3-8.3) g/dL Albumin 3.0 L (3.5-5.0) g/dL Globulin 3.4 (2.2-3.9) gm/dL Albumin/Globulin Ratio 0.9 L (1.0-2.1) Prostate Specific Ag 2.03 (0.00-4.0) ng/mL Urine Color (YELLOW) Urine Clarity (Clear) Urine pH (5.0-8.0) Ur Specific [place] (1.003-1.030) Urine Protein (NEGATIVE) mg/dL Urine Glucose (UA) (Normal) mg/dL Urine Ketones (NEGATIVE) mg/dL Urine Blood (NEGATIVE) Urine Nitrate (NEGATIVE) Urine Bilirubin (NEGATIVE) Urine Urobilinogen (0.2-1.0) mg/dL Ur Leukocyte Esterase (Negative) [place]/uL Urine WBC (Auto) (0-5) /hpf Urine RBC (Auto) (0-3) /hpf Ur Squamous Epith Cells (0-5) /hpf Urine Bacteria (<OCC) Ur Random Creatinine mg/dL Ur Random Sodium mmol/L Ur Random Urea Nitrogn 861 05/20/17 05/20/17 05/20/17 Range/Units 08:49 08:49 06:35 WBC (4.8-10.8) K/uL RBC (4.40-5.90) Mil/uL Hgb (12.0-18.0) g/dL Hct (35.0-51.0) % MCV (80.0-94.0) fL MCH (27.0-31.0) pg MCHC (33.0-37.0) g/dL RDW (11.5-14.5) % Plt Count (130-400) K/uL MPV (7.2-11.7) fL Neut % (Auto) (50.0-75.0) % Lymph % (Auto) (20.0-40.0) % [place] % (Auto) (0.0-10.0) % Eos % (Auto) (0.0-4.0) % Baso % (Auto) (0.0-2.0) % Neut # (1.8-7.0) K/uL Lymph # (1.0-4.3) K/uL [place] # (0.0-0.8) K/uL Eos # (0.0-0.7) K/uL Baso # (0.0-0.2) K/uL Neutrophils % (Manual) 84 H (50-75) % Lymphocytes % (Manual) 5 L (20-40) % Monocytes % (Manual) 10 (0-10) % Eosinophils % (Manual) 1 (0-4) % Platelet Estimate Normal (NORMAL) Large Platelets Present Hypochromasia (manual) Slight Poikilocytosis (manual Slight Anisocytosis (manual) Slight Macrocytosis (manual) Slight Tear Drop Cells Slight Ovalocytes Slight Sodium (132-148) mmol/L Potassium (3.6-5.2) mmol/L Chloride (98-107) mmol/L Carbon Dioxide (22-30) mmol/L Anion Gap (10-20) BUN (9-20) mg/dL Creatinine (0.8-1.5) MG/DL Est GFR ( Amer) Est GFR (Non-Af Amer) Random Glucose (75-110) mg/dL Calcium (8.6-10.4) mg/dl Phosphorus (2.5-4.5) mg/dL Magnesium (1.6-2.3) mg/dL Total Bilirubin (0.2-1.3) mg/dL AST (17-59) U/L ALT (21-72) U/L Alkaline Phosphatase (38-126) U/L Total Protein (6.3-8.3) g/dL Albumin (3.5-5.0) g/dL Globulin (2.2-3.9) gm/dL Albumin/Globulin Ratio (1.0-2.1) Prostate Specific Ag (0.00-4.0) ng/mL Urine Color Yellow (YELLOW) Urine Clarity Clear (Clear) Urine pH 5.0 (5.0-8.0) Ur Specific [place] 1.019 (1.003-1.030) Urine Protein Negative (NEGATIVE) mg/dL Urine Glucose (UA) Normal (Normal) mg/dL Urine Ketones Negative (NEGATIVE) mg/dL Urine Blood 3+ H (NEGATIVE) Urine Nitrate Negative (NEGATIVE) Urine Bilirubin Negative (NEGATIVE) Urine Urobilinogen Normal (0.2-1.0) mg/dL Ur Leukocyte Esterase 1+ H (Negative) [place]/uL Urine WBC (Auto) 9 H (0-5) /hpf Urine RBC (Auto) 22 H (0-3) /hpf Ur Squamous Epith Cells < 1 (0-5) /hpf Urine Bacteria Rare (<OCC) Ur Random Creatinine 81.5 mg/dL Ur Random Sodium 17 mmol/L Ur Random Urea Nitrogn Cancelled Laboratory Results - last 24 hr 05/20/17 05/20/17 05/20/17 06:35 08:49 08:49 WBC RBC Hgb Hct MCV MCH MCHC RDW Plt Count MPV Neut % (Auto) Lymph % (Auto) [place] % (Auto) Eos % (Auto) Baso % (Auto) Neut # Lymph # [place] # Eos # Baso # Neutrophils % (Manual) 84 H Lymphocytes % (Manual) 5 L Monocytes % (Manual) 10 Eosinophils % (Manual) 1 Platelet Estimate Normal Large Platelets Present Hypochromasia (manual) Slight Poikilocytosis (manual Slight Anisocytosis (manual) Slight Macrocytosis (manual) Slight Tear Drop Cells Slight Ovalocytes Slight Sodium Potassium Chloride Carbon Dioxide Anion Gap BUN Creatinine Est GFR ( Amer) Est GFR (Non-Af Amer) Random Glucose Calcium Phosphorus Magnesium Total Bilirubin AST ALT Alkaline Phosphatase Total Protein Albumin Globulin Albumin/Globulin Ratio Prostate Specific Ag Urine Color Yellow Urine Clarity Clear Urine pH 5.0 Ur Specific [place] 1.019 Urine Protein Negative Urine Glucose (UA) Normal Urine Ketones Negative Urine Blood 3+ H Urine Nitrate Negative Urine Bilirubin Negative Urine Urobilinogen Normal Ur Leukocyte Esterase 1+ H Urine WBC (Auto) 9 H Urine RBC (Auto) 22 H Ur Squamous Epith Cells < 1 Urine Bacteria Rare Ur Random Creatinine 81.5 Ur Random Sodium 17 Ur Random Urea Nitrogn Cancelled 05/20/17 05/21/17 05/21/17 08:49 06:39 06:39 WBC 8.2 RBC 5.10 Hgb 12.9 Hct 43.2 MCV 84.8 MCH 25.3 L MCHC 29.9 L RDW 19.6 H Plt Count 101 L MPV 10.6 Neut % (Auto) 75.3 H Lymph % (Auto) 7.7 L [place] % (Auto) 14.6 H Eos % (Auto) 1.1 Baso % (Auto) 1.3 Neut # 6.2 Lymph # 0.6 L [place] # 1.2 H Eos # 0.1 Baso # 0.1 Neutrophils % (Manual) Lymphocytes % (Manual) Monocytes % (Manual) Eosinophils % (Manual) Platelet Estimate Large Platelets Hypochromasia (manual) Poikilocytosis (manual Anisocytosis (manual) Macrocytosis (manual) Tear Drop Cells Ovalocytes Sodium 136 Potassium 3.3 L Chloride 103 Carbon Dioxide 18 L Anion Gap 18 BUN 65 H Creatinine 2.3 H Est GFR ( Amer) 33 Est GFR (Non-Af Amer) 27 Random Glucose 204 H Calcium 8.8 Phosphorus 3.3 Magnesium 2.5 H Total Bilirubin 3.7 H AST 205 H D ALT 150 H D Alkaline Phosphatase 150 H D Total Protein 6.5 Albumin 3.0 L Globulin 3.4 Albumin/Globulin Ratio 0.9 L Prostate Specific Ag 2.03 Urine Color Urine Clarity Urine pH Ur Specific [place] Urine Protein Urine Glucose (UA) Urine Ketones Urine Blood Urine Nitrate Urine Bilirubin Urine Urobilinogen Ur Leukocyte Esterase Urine WBC (Auto) Urine RBC (Auto) Ur Squamous Epith Cells Urine Bacteria Ur Random Creatinine Ur Random Sodium Ur Random Urea Nitrogn 861 Review of Systems - Review of Systems Systems not reviewed;Unavailable: Altered Mental Status Assessment/Plan - Assessment and Plan (Free Text) Assessment: 87yo M. PMHx CHF,HTN, atrial fibrillation, ischemic cardiomyopathy, severe chronic systolic dysfunction, severe mitral regurgitation. Presented with change in mental status, and dyspnea. Plan: Neuro: Altered mental status secondary to metabolic encephalopathy. - Head CT (05/18): No evidence of acute intracranial hemorrhage territorial infarct mass effect or midline shift. Moderate atrophy and moderate white matter changes likely due to microvascular ischemic disease. Pulm: Initial hypoxia resolving, patient on high flow oxygen - Lung VQ scan: low probability of PE - Chest X-ray (05/19): No infiltrate. Cardiomegaly. Nasogastric tube in appropriate. - Chest X-ray (05/21): No significant interval change - Wheezing - Solu-Medrol given once - Albuterol RQ6 PRN CV: Blood pressure labile, ranging from normotensive to hypotensive. - Atrial fibrillation - Amiodarone - Cardiology Consult: Dr. Saha --> help appreciated - CT of abdmomen & Pelvis (05/18): Massive cardiomegaly, small pericardial effusion and small bilateral pleural effusions. Hem: No acute issues Renal: Chronic kidney disease, Will monitor urine output. - Nephrology Consult: Dr. Ortiz --> help appreciated - Continue D5NS at 50cc/hr Endo: No acute issues GI: - NG Tube - Tube feeding - AST/ALT (05/21): 205/150 - Monitor ID: Possible sepsis from UTI: - Zosyn started on 05/18 - Vancomycin - on hold - Troph 21.75 - f/u blood culture, f/u urine culture DVT proph - Contraindication due to decreased platelet count GI proph - 40mg Protonix daily [place] for strict I/O's during acute illness Code status - DNR/DNI Case discussed with Dr. Mekhi Graves PGY-1 <Moe Gaming - Last Filed: 05/21/17 17:46> CCU Objective - Vital Signs / Intake & Output Intake and Output (Last 8hrs): Intake & Output 05/21/17 05/21/17 05/21/17 06:59 14:59 22:59 Intake Total 815 990 290 Output Total 355 425 115 Balance 460 565 175 Intake: Intake, IV Amount 575 550 150 Right Forearm 575 550 150 Tube Feeding 240 240 90 Other 200 50 Output: Urine 355 425 115 Urethral ([place]) 355 425 115 Stool 0 Other: # Bowel Movements 1 1 1 - Medications Active Medications: Active Medications Generic Name Dose Route Start Last Admin Trade Name Freq PRN Reason Stop Dose Admin Albuterol Sulfate 2.5 mg 05/21/17 07:51 05/21/17 13:14 Albuterol 0.083% Inhal [place] (2.5 Mg/3 Ml) Ud INH 2.5 mg RQ6 PRN Administration Wheezing Amiodarone HCl 200 mg 05/19/17 14:00 05/21/17 09:54 Cordarone NG 200 mg DAILY [facility] Administration Aspirin 81 mg 05/19/17 10:00 05/19/17 11:05 Aspirin Chewable PO 81 mg DAILY [facility] Administration Furosemide 20 mg 05/19/17 09:45 05/19/17 09:45 Lasix IVP Not Given Q12H [facility] Piperacillin Sod/Tazobactam Sod 2.25 gm in 50 mls @ 100 mls/hr 05/20/17 18:00 05/21/17 17:06 Zosyn 2.25 Gm Iv Premix IVPB 100 mls/hr Q8H [facility] Administration Dextrose/Sodium Chloride 1,000 mls @ 50 mls/hr 05/21/17 02:07 05/21/17 02:00 Dextrose 5%/0.9% Ns 1000 Ml IV 50 mls/hr .Q20H [facility] Administration Lorazepam 0.5 mg 05/18/17 15:32 05/19/17 01:28 Ativan IVP 0.5 mg Q4H PRN Administration Agitation Pantoprazole Sodium 40 mg 05/19/17 10:00 05/21/17 09:54 Protonix Inj IVP 40 mg DAILY [facility] Administration - Patient Studies Lab Studies: Lab Studies 05/21/17 05/21/17 05/21/17 Range/Units 08:58 06:39 06:39 WBC 8.2 (4.8-10.8) K/uL RBC 5.10 (4.40-5.90) Mil/uL Hgb 12.9 (12.0-18.0) g/dL Hct 43.2 (35.0-51.0) % MCV 84.8 (80.0-94.0) fL MCH 25.3 L (27.0-31.0) pg MCHC 29.9 L (33.0-37.0) g/dL RDW 19.6 H (11.5-14.5) % Plt Count 101 L (130-400) K/uL MPV 10.6 (7.2-11.7) fL Neut % (Auto) 75.3 H (50.0-75.0) % Lymph % (Auto) 7.7 L (20.0-40.0) % [place] % (Auto) 14.6 H (0.0-10.0) % Eos % (Auto) 1.1 (0.0-4.0) % Baso % (Auto) 1.3 (0.0-2.0) % Neut # 6.2 (1.8-7.0) K/uL Lymph # 0.6 L (1.0-4.3) K/uL [place] # 1.2 H (0.0-0.8) K/uL Eos # 0.1 (0.0-0.7) K/uL Baso # 0.1 (0.0-0.2) K/uL Neutrophils % (Manual) 75 (50-75) % Lymphocytes % (Manual) 6 L (20-40) % Monocytes % (Manual) 19 H (0-10) % Platelet Estimate Slightly decreased L (NORMAL) Large Platelets Present Anisocytosis (manual) Moderate Ovalocytes Slight Puncture Site Rra pCO2 35 (35-45) mm/Hg pO2 97 (80-100) mm/Hg HCO3 19.3 L (21-28) mmol/L ABG pH 7.32 L (7.35-7.45) ABG Total CO2 19.1 L (22-28) mmol/L ABG O2 Saturation 98.4 H (95-98) % ABG Base Excess -7.2 L (-2.0-3.0) mmol/L ABG Hemoglobin 14.2 (11.7-17.4) g/dL ABG Carboxyhemoglobin 1.6 H (0.5-1.5) % POC ABG HHb (Measured) 1.6 (0.0-5.0) % ABG Methemoglobin 0.8 (0.0-3.0) % [place]ucho Test Po A-a O2 Difference 59.0 mm/Hg Respiratory Index 0.6 Hgb O2 Saturation 95.9 (95.0-98.0) % Liter Flow 2.0 FiO2 28.0 % Sodium 136 (132-148) mmol/L Potassium 3.3 L (3.6-5.2) mmol/L Chloride 103 (98-107) mmol/L Carbon Dioxide 18 L (22-30) mmol/L Anion Gap 18 (10-20) BUN 65 H (9-20) mg/dL Creatinine 2.3 H (0.8-1.5) MG/DL Est GFR ( Amer) 33 Est GFR (Non-Af Amer) 27 Random Glucose 204 H (75-110) mg/dL Calcium 8.8 (8.6-10.4) mg/dl Phosphorus 3.3 (2.5-4.5) mg/dL Magnesium 2.5 H (1.6-2.3) mg/dL Total Bilirubin 3.7 H (0.2-1.3) mg/dL AST 205 H D (17-59) U/L ALT 150 H D (21-72) U/L Alkaline Phosphatase 150 H D (38-126) U/L Total Protein 6.5 (6.3-8.3) g/dL Albumin 3.0 L (3.5-5.0) g/dL Globulin 3.4 (2.2-3.9) gm/dL Albumin/Globulin Ratio 0.9 L (1.0-2.1) Prostate Specific Ag 2.03 (0.00-4.0) ng/mL Laboratory Results - last 24 hr 05/21/17 05/21/17 05/21/17 06:39 06:39 08:58 WBC 8.2 RBC 5.10 Hgb 12.9 Hct 43.2 MCV 84.8 MCH 25.3 L MCHC 29.9 L RDW 19.6 H Plt Count 101 L MPV 10.6 Neut % (Auto) 75.3 H Lymph % (Auto) 7.7 L [place] % (Auto) 14.6 H Eos % (Auto) 1.1 Baso % (Auto) 1.3 Neut # 6.2 Lymph # 0.6 L [place] # 1.2 H Eos # 0.1 Baso # 0.1 Neutrophils % (Manual) 75 Lymphocytes % (Manual) 6 L Monocytes % (Manual) 19 H Platelet Estimate Slightly decreased L Large Platelets Present Anisocytosis (manual) Moderate Ovalocytes Slight Puncture Site Rra pCO2 35 pO2 97 HCO3 19.3 L ABG pH 7.32 L ABG Total CO2 19.1 L ABG O2 Saturation 98.4 H ABG Base Excess -7.2 L ABG Hemoglobin 14.2 ABG Carboxyhemoglobin 1.6 H POC ABG HHb (Measured) 1.6 ABG Methemoglobin 0.8 [place] Test Po A-a O2 Difference 59.0 Respiratory Index 0.6 Hgb O2 Saturation 95.9 Liter Flow 2.0 FiO2 28.0 Sodium 136 Potassium 3.3 L Chloride 103 Carbon Dioxide 18 L Anion Gap 18 BUN 65 H Creatinine 2.3 H Est GFR ( Amer) 33 Est GFR (Non-Af Amer) 27 Random Glucose 204 H Calcium 8.8 Phosphorus 3.3 Magnesium 2.5 H Total Bilirubin 3.7 H AST 205 H D ALT 150 H D Alkaline Phosphatase 150 H D Total Protein 6.5 Albumin 3.0 L Globulin 3.4 Albumin/Globulin Ratio 0.9 L Prostate Specific Ag 2.03 Attending/Attestation - Attestation I have personally seen and examined this patient.: Yes I have fully participated in the care of the patient.: Yes I have reviewed all pertinent clinical information: Yes Notes (Text): 05/21/17 17:43 patient seen and examined. Improving renal function noted Started on nebulizer treatment for wheezing Continue antibiotics Monitor LFTs Cardiology follow-up
[2017-05-21 08:26] LABS: NEUTROPHIL 75 % (50-75); TOTAL CELLS COUNTED 100
[2017-05-21 08:31] LABS: LARGE PLATELETS PRESENT
--- NOTE | 2017-05-21 08:32 | RAD ---
Chest x-ray single frontal view History: Congestive heart failure. Comparison: 05/19/2017 Findings: NG tube extending into the stomach. Moderate venous congestion. Biapical pleural thickening with upper lobe granulomatous changes. Cardiomegaly. Degenerative changes in the spine and shoulders. Surgical clips in the right upper abdomen. Question trace left pleural effusion. Impression: No significant interval change.
[2017-05-21] MEDS: Albuterol 0.083% Inhal Sol (2.5 mg/3 mL) UD INH PRN ×3 (08:39→19:32)
[2017-05-21 09:01] LABS: ABG ALLEN TEST PO; ARTERIAL BLOOD HGB O2 SAT 95.9 % (95.0-98.0); CARBOXYHEMOGLOBIN 1.6 % (0.5-1.5); DRAW SITE RRA; HHB 1.6 % (0.0-5.0); METHEMOGLOBIN 0.8 % (0.0-3.0)
--- NOTE | 2017-05-21 12:40 | CON ---
INFECTIOUS DISEASE CONSULT REQUESTED BY: Dr. Gregory Norman. HISTORY OF PRESENT ILLNESS: This patient is an 87-year-old male who was admitted over the weekend with history of CHF, hypertension, atrial fibrillation, and ischemic cardiomyopathy. He has chronic systolic dysfunction who was brought in with altered mental status and shortness of breath and he was with altered mental status. He was brought here right now. The nurse tells me he is sedated and today is 05/20/2017, and he came in a day before and his is at the bedside, says that he does get ankle edema in the past and leg swelling and was short of breath when he was brought here. He is also told that his sugars are low; however, he is not diabetic and he is on D5W at this time and he has an NG tube. He is lethargic and does not open his eyes. He has been on antibiotic and I am asked to evaluate him. He came in with a temperature of 98.1, heart rate of 105, blood pressure 120/99, and respirations were 22. He was placed on BiPAP initially. He is not on any respirator. He has NG tube at this time and he is breathing on his own. PAST MEDICAL HISTORY: Significant for CHF, hypertension, atrial fibrillation, ischemic cardiomyopathy. and chronic systolic dysfunction. He follows with the network control operator in [place]. SOCIAL HISTORY: Negative for smoking or drinking. MEDICATIONS: He was on; 1. Aspirin. 2. Coreg. 3. Benadryl. So, It is seems that his atrial fibrillation is new and came in with respiratory distress, altered mental status, and keeps his eyes closed. No history of nausea, vomiting, or diarrhea and has history of pneumonia and bronchitis in the past, has chronic kidney problems and he is in renal failure. He does have a Villa catheter at this time and he is allergic to PERCOCET, PLAVIX, OXYCODONE, AND TO SOME FRUITS. We do not know his medications at the present time. He was on vancomycin, which I discontinued because of his renal failure and he is on Zosyn and we added Azactam for now as one of the CAT scans revealed cystitis. He is on D5 half, on Lasix, Ativan, Protonix, and Zosyn, that is the only he is getting at this time. PHYSICAL EXAMINATION: VITAL SIGNS: I find his temperature is 97.1, heart rate is 95, respiratory effort; he gets into failure, probably his heart rate was 23 when I saw him, but right now when I am dictating, they are saying is 35, he is in ICU, being monitored. HEENT: Eyes were closed, had an NG tube. NECK: Supple. JVP was flat. HEART: S1 and S2 was irregularly regular. LUNGS: Clear. No crackles or rales present. ABDOMEN: Soft and nontender. No guarding. No rigidity present. EXTREMITIES: No edema, clubbing, or cyanosis as he has been in bed few days and extremities with no edema. LABORATORY DATA: White count is 9.7 today, hemoglobin 13.2, and hematocrit 42.3. He came in with white count of 6.7, it went to 11.7, and platelets are 104. His platelets are 84 when he came in and neutrophils were 84, bands were 1. Sodium is 132, potassium 4.4, chloride is 99, BUN is 16, anion gap is 21, and creatinine is 2.9; is elevated now, and his total bilirubin is 5.2. AST is 161 and ALT is 108, so these liver enzymes are elevated and he is jaundiced. His free T4 is elevated and TSH is normal that needs to be worked up. Blood cultures are negative 24 hours. MRSA is not detected. Urine was sent again as no sample was found and had a chest x-ray done yesterday showed no pulmonary disease. He also had CAT scan of the abdomen and pelvis, which showed possible cystitis. At this time, patient is on Zosyn and Azactam. He was on vancomycin, but he has renal insufficiency or renal failure. He has, on the CAT scan, massive cardiomegaly, small pericardial effusion, possible cystitis, and has small bilateral pleural effusions and large prostate and they recommend to check PSA level, so PSA level was ordered and patient will be monitored. The patient is on Zosyn, reduced dose, and on Azactam and if creatinine remains high, we will have to decrease the Azactam to once a day also. The patient probably has severe cardiac problem, which led to shortness of breath and atrial fibrillation, cardiomyopathy, and altered mental status, may be related to his cardiac issues. We will continue antibiotics at this time and we will follow. He does have high phosphorus and bilirubin is high. He is jaundiced also along with renal failure, multiorgan failure, but he has had cholecystectomy in the past. We will check the abdominal sonogram. 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 The possibility of hepatocellular carcinoma is not totally excluded. No evidence of hydronephrosis. So, they are talking of hepatocarcinoma, mild increase echogenicity of the liver with the cyst in the liver, so he is jaundiced. He has adrenal failure. He also has respiratory issues, severe cardiomyopathy, altered mental status, rule out sepsis due to cystitis. Urine culture has been repeated, original one was never sent or never revealed. We will follow. Prognosis remains guarded. David Hutton MD
--- NOTE | 2017-05-21 18:00 | CP.PCM.PN ---
Subjective - Date & Time of Evaluation Date of Evaluation: 05/21/17 Time of Evaluation: 14:00 - Subjective Subjective: Patient was seen and examined in ICU. Slight improvement in the respiratory status noted. Objective - Vital Signs/Intake and Output Vital Signs (last 24 hours): Temp Pulse Resp BP Pulse Ox 97.5 F L 108 H 18 117/93 H 98 05/21/17 12:00 05/21/17 12:00 05/21/17 12:00 05/21/17 11:55 05/21/17 12:00 Intake and Output: 05/21/17 05/21/17 06:59 18:59 Intake Total 1235 1280 Output Total 525 540 Balance 710 740 - Medications Medications: Current Medications Albuterol Sulfate (Albuterol 0.083% Inhal Judy (2.5 Mg/3 Ml) Ud) 2.5 mg INH RQ6 PRN PRN Reason: Wheezing Last Admin: 05/21/17 13:14 Dose: 2.5 mg Amiodarone HCl (Cordarone) 200 mg NG DAILY [facility] Last Admin: 05/21/17 09:54 Dose: 200 mg Aspirin (Aspirin Chewable) 81 mg PO DAILY [facility] Last Admin: 05/19/17 11:05 Dose: 81 mg Furosemide (Lasix) 20 mg IVP Q12H [facility] Last Admin: 05/19/17 09:45 Dose: Not Given Piperacillin Sod/Tazobactam Sod (Zosyn 2.25 Gm Iv Premix) 2.25 gm in 50 mls @ 100 mls/hr IVPB Q8H [facility] Last Admin: 05/21/17 17:06 Dose: 100 mls/hr Dextrose/Sodium Chloride (Dextrose 5%/0.9% Ns 1000 Ml) 1,000 mls @ 50 mls/hr IV .Q20H [facility] Last Admin: 05/21/17 02:00 Dose: 50 mls/hr Lorazepam (Ativan) 0.5 mg IVP Q4H PRN PRN Reason: Agitation Last Admin: 05/19/17 01:28 Dose: 0.5 mg Pantoprazole Sodium (Protonix Inj) 40 mg IVP DAILY [facility] Last Admin: 05/21/17 09:54 Dose: 40 mg - Labs Labs: 05/21/17 06:39 05/21/17 06:39 PT 27.7 SECONDS (9.7-12.2) H D 05/19/17 06:11 INR 2.4 D 05/19/17 06:11 APTT 31 SECONDS (21-34) D 05/19/17 06:11 - Head Exam Head Exam: ATRAUMATIC, NORMOCEPHALIC - Eye Exam Eye Exam: PERRL - ENT Exam ENT Exam: Mucous Membranes Moist - Respiratory Exam Respiratory Exam: Wheezes - Cardiovascular Exam Cardiovascular Exam: Irregular Rhythm, +S1, +S2 - GI/Abdominal Exam GI & Abdominal Exam: Soft. 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 Patient is active and meropenem. Patient is off the high flow oxygen now. Continue management as per cardiology, nephrology, critical care.
--- NOTE | 2017-05-21 18:27 | CP.PCM.PN ---
Subjective - Date & Time of Evaluation Date of Evaluation: 05/21/17 Time of Evaluation: 18:00 - Subjective Subjective: patient is extubated Objective - Vital Signs/Intake and Output Vital Signs (last 24 hours): Temp Pulse Resp BP Pulse Ox 97.5 F L 108 H 18 117/93 H 98 05/21/17 12:00 05/21/17 12:00 05/21/17 12:00 05/21/17 11:55 05/21/17 12:00 Intake and Output: 05/21/17 05/21/17 06:59 18:59 Intake Total 1235 1280 Output Total 525 540 Balance 710 740 - Medications Medications: Current Medications Albuterol Sulfate (Albuterol 0.083% Inhal Judy (2.5 Mg/3 Ml) Ud) 2.5 mg INH RQ6 PRN PRN Reason: Wheezing Last Admin: 05/21/17 13:14 Dose: 2.5 mg Amiodarone HCl (Cordarone) 200 mg NG DAILY [facility] Last Admin: 05/21/17 09:54 Dose: 200 mg Aspirin (Aspirin Chewable) 81 mg PO DAILY [facility] Last Admin: 05/19/17 11:05 Dose: 81 mg Furosemide (Lasix) 20 mg IVP Q12H [facility] Last Admin: 05/19/17 09:45 Dose: Not Given Piperacillin Sod/Tazobactam Sod (Zosyn 2.25 Gm Iv Premix) 2.25 gm in 50 mls @ 100 mls/hr IVPB Q8H [facility] Last Admin: 05/21/17 17:06 Dose: 100 mls/hr Dextrose/Sodium Chloride (Dextrose 5%/0.9% Ns 1000 Ml) 1,000 mls @ 50 mls/hr IV .Q20H [facility] Last Admin: 05/21/17 02:00 Dose: 50 mls/hr Lorazepam (Ativan) 0.5 mg IVP Q4H PRN PRN Reason: Agitation Last Admin: 05/19/17 01:28 Dose: 0.5 mg Pantoprazole Sodium (Protonix Inj) 40 mg IVP DAILY [facility] Last Admin: 05/21/17 09:54 Dose: 40 mg - Labs Labs: 05/21/17 06:39 05/21/17 06:39 PT 27.7 SECONDS (9.7-12.2) H D 05/19/17 06:11 INR 2.4 D 05/19/17 06:11 APTT 31 SECONDS (21-34) D 05/19/17 06:11 - Constitutional Appears: Non-toxic - Head Exam Head Exam: NORMAL INSPECTION - Eye Exam Eye Exam: Normal appearance - ENT Exam ENT Exam: Mucous Membranes Moist - Neck Exam Neck Exam: Full ROM - Respiratory Exam Respiratory Exam: Decreased Breath Sounds - Cardiovascular Exam Cardiovascular Exam: Irregular Rhythm - GI/Abdominal Exam GI & Abdominal Exam: Normal Bowel Sounds - Rectal Exam Rectal Exam: Deferred - Extremities Exam Extremities Exam: absent: Pedal Edema - Back Exam Back Exam: NORMAL INSPECTION - Neurological Exam Neurological Exam: Alert - Psychiatric Exam Psychiatric exam: Normal Affect - Skin Skin Exam: Normal Color Assessment and Plan (1) Dilated cardiomyopathy Assessment & Plan: will attempt medical optimization Status: Acute (2) Chronic atrial fibrillation Assessment & Plan: will need rate control with cardzem Status: Chronic
--- NOTE | 2017-05-21 21:05 | CP.PCM.PN ---
Objective - Vital Signs/Intake and Output Vital Signs (last 24 hours): Temp Pulse Resp BP Pulse Ox 97.5 F L 108 H 18 117/93 H 98 05/21/17 12:00 05/21/17 12:00 05/21/17 12:00 05/21/17 11:55 05/21/17 12:00 Intake and Output: 05/21/17 05/22/17 18:59 06:59 Intake Total 1360 80 Output Total 575 40 Balance 785 40 - Medications Medications: Current Medications Albuterol Sulfate (Albuterol 0.083% Inhal Judy (2.5 Mg/3 Ml) Ud) 2.5 mg INH RQ6 PRN PRN Reason: Wheezing Last Admin: 05/21/17 19:32 Dose: 2.5 mg Amiodarone HCl (Cordarone) 200 mg NG DAILY [facility] Last Admin: 05/21/17 09:54 Dose: 200 mg Aspirin (Aspirin Chewable) 81 mg PO DAILY [facility] Last Admin: 05/19/17 11:05 Dose: 81 mg Furosemide (Lasix) 20 mg IVP Q12H [facility] Last Admin: 05/19/17 09:45 Dose: Not Given Piperacillin Sod/Tazobactam Sod (Zosyn 2.25 Gm Iv Premix) 2.25 gm in 50 mls @ 100 mls/hr IVPB Q8H [facility] Last Admin: 05/21/17 17:06 Dose: 100 mls/hr Dextrose/Sodium Chloride (Dextrose 5%/0.9% Ns 1000 Ml) 1,000 mls @ 50 mls/hr IV .Q20H [facility] Last Admin: 05/21/17 02:00 Dose: 50 mls/hr Lorazepam (Ativan) 0.5 mg IVP Q4H PRN PRN Reason: Agitation Last Admin: 05/19/17 01:28 Dose: 0.5 mg Pantoprazole Sodium (Protonix Inj) 40 mg IVP DAILY [facility] Last Admin: 05/21/17 09:54 Dose: 40 mg - Labs Labs: 05/21/17 06:39 05/21/17 06:39 PT 27.7 SECONDS (9.7-12.2) H D 05/19/17 06:11 INR 2.4 D 05/19/17 06:11 APTT 31 SECONDS (21-34) D 05/19/17 06:11 Assessment and Plan (1) CHF (congestive heart failure) Status: Chronic (2) CKD (chronic kidney disease) stage 3, GFR 30-59 ml/min Status: Acute (3) Acute renal failure (ARF) Status: Acute (4) Hypertensive CKD (chronic kidney disease) Status: Chronic (5) Altered mental status Status: Acute (6) SIRS (systemic inflammatory response syndrome) Status: Acute (7) Hyperbilirubinemia Status: Acute
--- NOTE | 2017-05-21 21:47 | CP.PCM.PN ---
Subjective - Date & Time of Evaluation Date of Evaluation: 05/21/17 Time of Evaluation: 06:00 - Subjective Subjective: Patient is seen with altered mental status,patient keeps his eye closed but answering to questions,he complained of pain in back to nurse,to mre he is not complaining Objective - Vital Signs/Intake and Output Vital Signs (last 24 hours): Temp Pulse Resp BP Pulse Ox 96.9 F L 103 H 23 125/96 H 97 05/21/17 20:00 05/21/17 20:54 05/21/17 20:54 05/21/17 20:54 05/21/17 20:54 Intake and Output: 05/21/17 05/22/17 18:59 06:59 Intake Total 1360 80 Output Total 575 40 Balance 785 40 - Medications Medications: Current Medications Albuterol Sulfate (Albuterol 0.083% Inhal Judy (2.5 Mg/3 Ml) Ud) 2.5 mg INH RQ6 PRN PRN Reason: Wheezing Last Admin: 05/21/17 19:32 Dose: 2.5 mg Amiodarone HCl (Cordarone) 200 mg NG DAILY [facility] Last Admin: 05/21/17 09:54 Dose: 200 mg Aspirin (Aspirin Chewable) 81 mg PO DAILY [facility] Last Admin: 05/19/17 11:05 Dose: 81 mg Furosemide (Lasix) 20 mg IVP Q12H [facility] Last Admin: 05/19/17 09:45 Dose: Not Given Piperacillin Sod/Tazobactam Sod (Zosyn 2.25 Gm Iv Premix) 2.25 gm in 50 mls @ 100 mls/hr IVPB Q8H [facility] Last Admin: 05/21/17 17:06 Dose: 100 mls/hr Dextrose/Sodium Chloride (Dextrose 5%/0.9% Ns 1000 Ml) 1,000 mls @ 50 mls/hr IV .Q20H [facility] Last Admin: 05/21/17 02:00 Dose: 50 mls/hr Lorazepam (Ativan) 0.5 mg IVP Q4H PRN PRN Reason: Agitation Last Admin: 05/19/17 01:28 Dose: 0.5 mg Pantoprazole Sodium (Protonix Inj) 40 mg IVP DAILY [facility] Last Admin: 05/21/17 09:54 Dose: 40 mg - Labs Labs: 05/21/17 06:39 05/21/17 06:39 PT 27.7 SECONDS (9.7-12.2) H D 05/19/17 06:11 INR 2.4 D 05/19/17 06:11 APTT 31 SECONDS (21-34) D 05/19/17 06:11 - Constitutional Appears: No Acute Distress - Head Exam Head Exam: ATRAUMATIC, NORMOCEPHALIC - Eye Exam Additional comments: keeps eyes closed partially - ENT Exam ENT Exam: Mucous Membranes Dry - Neck Exam Neck Exam: Normal Inspection - Respiratory Exam Respiratory Exam: Clear to Ausculation Bilateral, NORMAL BREATHING PATTERN - Cardiovascular Exam Cardiovascular Exam: Irregular Rhythm - GI/Abdominal Exam GI & Abdominal Exam: Soft, Normal Bowel Sounds - Extremities Exam Extremities Exam: Normal Inspection Assessment and Plan (1) Altered mental status Status: Acute (2) CKD (chronic kidney disease) stage 3, GFR 30-59 ml/min Status: Acute (3) Dyspnea Status: Acute (4) Elevated LFTs Status: Acute (5) Jaundice Status: Acute (6) Cystitis Assessment & Plan: awaiting urine culture ,pt on antibiotics Status: Acute
[2017-05-22] MEDS: Piperacill/Tazo 2.25gm in Dex 2.25 GM/50 ML BAG IVPB SCH ×2 (01:44→09:17)
[2017-05-22 06:40] LABS: BASO % 0.2 % (0.0-2.0); MEAN PLATELET VOLUME 10.5 fL (7.2-11.7); MONO # 0.3 K/uL (0.0-0.8)
[2017-05-22 06:59] LABS: ALB/GLOB RATIO 0.9 (1.0-2.1); BILIRUBIN,TOTAL 3.9 mg/dL (0.2-1.3); CALCIUM 9.5 mg/dl (8.6-10.4); MAGNESIUM 2.8 mg/dL (1.6-2.3); PHOSPHOROUS 3.9 mg/dL (2.5-4.5); POTASSIUM 4.4 mmol/L (3.6-5.2); TOTAL PROTEIN 7.4 g/dL (6.3-8.3)
[2017-05-22 07:14] LABS: HEMATOCRIT 48.3 % (35.0-51.0); LYMPH # 0.3 K/uL (1.0-4.3); LYMPH % 4.9 % (20.0-40.0); MEAN CORPUSCULAR HEMOGLOBIN 26.7 pg (27.0-31.0); MEAN CORPUSCULAR HGB CONC 30.7 g/dL (33.0-37.0); MONO % 4.8 % (0.0-10.0); NRBC % 5.1 % (0.0-2.0); PLATELET COUNT 131 K/uL (130-400); RED CELL DISTRIBUTION WIDTH 19.9 % (11.5-14.5); WHITE BLOOD COUNT 6.8 K/uL (4.8-10.8)
[2017-05-22 07:15] LABS: MEAN CELL VOLUME 86.8 fL (80.0-94.0)
[2017-05-22 08:22] LABS: NEUTROPHIL 86 % (50-75); NUCLEATED RED BLOOD CELL 7 % (0-0); TOTAL CELLS COUNTED 100
--- NOTE | 2017-05-22 08:55 | RAD ---
HISTORY: CHF COMPARISON: 05/21/2017 FINDINGS: LUNGS: No consolidation. PLEURA: No significant pleural effusion identified, no pneumothorax apparent. CARDIOVASCULAR: Severe cardiomegaly. Probable mild central pulmonary venous congestion -less conspicuous OSSEOUS STRUCTURES: Bilateral shoulder arthrosis VISUALIZED UPPER ABDOMEN: The NG tube tip is probably very faintly projecting to the gastric fundus/GE junction -here limited visualization OTHER FINDINGS: Right upper quadrant post cholecystectomy clips IMPRESSION: Severe cardiomegaly -unchanged. Probable mild pulmonary venous congestion -less conspicuous. No interval pleural effusions.
[2017-05-22] MEDS: Dextrose 5%/0.9% NS 1,000 ML IV SCH ×2 (09:19→15:19)
[2017-05-22] MEDS ORDERED: (Novolog) Insulin Aspart, Recombinant 100 u/ml 10 ml vial SC SCH ×2 (10:30→11:30)
[2017-05-22 10:53] LABS: ABG ALLEN TEST POS; DRAW SITE LRA
--- NOTE | 2017-05-22 12:07 | CP.PCM.PN ---
Subjective - Date & Time of Evaluation Date of Evaluation: 05/22/17 Time of Evaluation: 12:02 - Subjective Subjective: Patient reportedly less responsive today; became tachycardic and put on diltiazem drip earlier today; Objective - Vital Signs/Intake and Output Vital Signs (last 24 hours): Temp Pulse Resp BP Pulse Ox 97.4 F L 101 H 39 H 118/92 H 93 L 05/22/17 04:00 05/22/17 11:11 05/22/17 11:11 05/22/17 11:11 05/22/17 11:11 Intake and Output: 05/22/17 05/22/17 06:59 18:59 Intake Total 985 160 Output Total 415 55 Balance 570 105 - Medications Medications: Current Medications Albuterol Sulfate (Albuterol 0.083% Inhal Judy (2.5 Mg/3 Ml) Ud) 2.5 mg INH RQ6 PRN PRN Reason: Wheezing Last Admin: 05/21/17 19:32 Dose: 2.5 mg Amiodarone HCl (Cordarone) 200 mg NG DAILY [facility] Last Admin: 05/22/17 09:18 Dose: 200 mg Aspirin (Aspirin Chewable) 81 mg PO DAILY [facility] Last Admin: 05/19/17 11:05 Dose: 81 mg Furosemide (Lasix) 20 mg IVP Q12H [facility] Last Admin: 05/19/17 09:45 Dose: Not Given Piperacillin Sod/Tazobactam Sod (Zosyn 2.25 Gm Iv Premix) 2.25 gm in 50 mls @ 100 mls/hr IVPB Q8H [facility] Last Admin: 05/22/17 09:17 Dose: 100 mls/hr Dextrose/Sodium Chloride (Dextrose 5%/0.9% Ns 1000 Ml) 1,000 mls @ 50 mls/hr IV .Q20H [facility] Last Admin: 05/22/17 09:19 Dose: 50 mls/hr Diltiazem HCl 125 mg/ Sodium (Chloride) 125 mls @ 10 mls/hr IV .[id number] [facility]; 10 MG/HR PRN Reason: Protocol Last Admin: 05/22/17 10:25 Dose: 10 mg/hr, 10 mls/hr Insulin Aspart (Novolog) 0 unit SC Q6H [facility] PRN Reason: Protocol Last Admin: 05/22/17 11:22 Dose: 3 unit Lorazepam (Ativan) 0.5 mg IVP Q4H PRN PRN Reason: Agitation Last Admin: 05/22/17 03:06 Dose: 0.5 mg Pantoprazole Sodium (Protonix Inj) 40 mg IVP DAILY [facility] Last Admin: 05/22/17 09:18 Dose: 40 mg - Labs Labs: 05/22/17 06:31 05/22/17 06:31 PT 27.7 SECONDS (9.7-12.2) H D 05/19/17 06:11 INR 2.4 D 05/19/17 06:11 APTT 31 SECONDS (21-34) D 05/19/17 06:11 - Constitutional Appears: Agitated - Head Exam Head Exam: NORMOCEPHALIC - Eye Exam Eye Exam: Scleral icterus - ENT Exam ENT Exam: Mucous Membranes Moist - Respiratory Exam Respiratory Exam: Clear to Ausculation Bilateral. absent: Rhonchi, Wheezes, Respiratory Distress - Cardiovascular Exam Additional comments: sytolic murmur present; - GI/Abdominal Exam GI & Abdominal Exam: Distended, Soft, Tenderness - Exam Exam: absent: Bladder Distension Additional comments: whitehead in place; - Extremities Exam Extremities Exam: Normal Capillary Refill Additional comments: Mild lower leg edema; - Neurological Exam Additional comments: not responding to verbal stimuli, only tactile stimuli; - Skin Skin Exam: Normal Color, Warm. absent: Cyanosis Assessment and Plan (1) CHF (congestive heart failure) Assessment & Plan: With severe systolic dysfunction and mod/severe MR; CXR report mentioning possible increase vascular congestion, otherwise volume status appears relatively stable on relatively low FIO2 requirement; recommend to continue gentle IVF in the setting of pre-renal LULA; Status: Chronic (2) Acute renal failure (ARF) Assessment & Plan: LULA on CKD IIIB; pre-renal etiology, had responded to volume replenishment but renal function again worsening in the setting of clinical deterioration; UO also dropping; -increase IVF to D5NS@75 cc/hr Status: Acute (3) Hypertensive CKD (chronic kidney disease) Assessment & Plan: BP relatively stable; started on diltiazem drip due to RVR; continue per cardio recs; Status: Chronic (4) Altered mental status Assessment & Plan: Etiology unclear but after improving is again worsened with signs of clinical deterioration; critical care team getting MRI; Status: Acute (5) SIRS (systemic inflammatory response syndrome) Assessment & Plan: Negative blood and urine cultures but clinically had improved with antibiotics; lactate again increased; agree with restarting vanco, need to check random level tomorrow as renal function fluctuating; Status: Acute (6) Hyperbilirubinemia Assessment & Plan: Etiology unclear; congestive hepatopathy possible but would not have improved with IVF; agree with repeat abd US; Status: Acute
--- NOTE | 2017-05-22 13:29 | CP.CCUPN ---
<Mary Graves - Last Filed: 05/22/17 16:10> CCU Subjective - Physician Review Subjective (Free Text): Patient was seen and examined at bedside in the AM. Patient is alert but he is not oriented. Patient just continues to grunt and does not respond to commands. 05/22/17 13:26 CCU Objective - Vital Signs / Intake & Output Vital Signs (Last 4 hours): Vital Signs Temp Pulse Resp BP Pulse Ox 05/22/17 12:11 100 H 31 H 111/88 95 05/22/17 12:00 97.6 F 05/22/17 11:11 101 H 39 H 118/92 H 93 L 05/22/17 10:32 127 H 25 H 128/99 H 96 05/22/17 09:31 122 H 40 H 117/88 95 Intake and Output (Last 8hrs): Intake & Output 05/21/17 05/22/17 05/22/17 22:59 06:59 14:59 Intake Total 690 665 595 Output Total 290 275 175 Balance 400 390 420 Intake: Intake, IV Amount 400 425 385 Left Wrist 300 Right Forearm 400 425 85 Tube Feeding 240 240 210 Other 50 Output: Urine 290 275 175 Urethral (Whitehead) 290 275 175 Stool 0 Other: # Bowel Movements 0 0 0 - Physical Exam Physical Exam Limitations: Positive for: Altered Mental Status Head: Positive for: Atraumatic, Normocephalic Mouth: Positive for: Moist Mucous Membranes Nose (Internal): Negative for: No Active Bleeding (Patient is bleeding slighly from left nostril with NG tube ) Respiratory/Chest: Positive for: Other (patient on high flow oxygen). Negative for: Respiratory Distress, Accessory Muscle Use Abdomen: Positive for: Normal Bowel Sounds. Negative for: Distention Upper Extremity: Negative for: Edema Lower Extremity: Negative for: Edema Neurological: Negative for: GCS=15, Speech Normal Psychiatric: Positive for: Alert. Negative for: Oriented x 3 - Medications Active Medications: Active Medications Generic Name Dose Route Start Last Admin Trade Name Freq PRN Reason Stop Dose Admin Albuterol Sulfate 2.5 mg 05/21/17 07:51 05/21/17 19:32 Albuterol 0.083% Inhal Judy (2.5 Mg/3 Ml) Ud INH 2.5 mg RQ6 PRN Administration Wheezing Amiodarone HCl 200 mg 05/19/17 14:00 05/22/17 09:18 Cordarone NG 200 mg DAILY HILL Administration Aspirin 81 mg 05/19/17 10:00 05/19/17 11:05 Aspirin Chewable PO 81 mg DAILY HILL Administration Piperacillin Sod/Tazobactam Sod 2.25 gm in 50 mls @ 100 mls/hr 05/20/17 18:00 05/22/17 09:17 Zosyn 2.25 Gm Iv Premix IVPB 100 mls/hr Q8H HILL Administration Diltiazem HCl 125 mg/ Sodium 125 mls @ 10 mls/hr 05/22/17 10:00 05/22/17 10: 25 Chloride IV 10 mg/hr .[id number] HILL 10 mls/hr Protocol Administration 10 MG/HR Vancomycin/Sodium Chloride 1 gm in 200 mls @ 166.7 mls/hr 05/22/17 13:00 Vancocin IVPB 05/22/17 14:11 ONCE ONE Dextrose/Sodium Chloride 1,000 mls @ 75 mls/hr 05/22/17 12:24 Dextrose 5%/0.9% Ns 1000 Ml IV .[id number] HILL Insulin Aspart 0 unit 05/22/17 10:30 05/22/17 11:22 Novolog SC 3 unit Q6H HILL Administration Protocol Lorazepam 0.5 mg 05/18/17 15:32 05/22/17 03:06 Ativan IVP 0.5 mg Q4H PRN Administration Agitation Pantoprazole Sodium 40 mg 05/19/17 10:00 05/22/17 09:18 Protonix Inj IVP 40 mg DAILY HILL Administration - Patient Studies Lab Studies: Microbiology Studies 05/20/17 11:40 Urine Culture - Final Urine,Whitehead No Growth (<1,000 CFU/ML) Lab Studies 05/22/17 05/22/17 05/22/17 Range/Units 11:06 10:47 08:56 WBC (4.8-10.8) K/uL RBC (4.40-5.90) Mil/uL Hgb (12.0-18.0) g/dL Hct (35.0-51.0) % MCV (80.0-94.0) fL MCH (27.0-31.0) pg MCHC (33.0-37.0) g/dL RDW (11.5-14.5) % Plt Count (130-400) K/uL MPV (7.2-11.7) fL Neut % (Auto) (50.0-75.0) % Lymph % (Auto) (20.0-40.0) % [place] % (Auto) (0.0-10.0) % Eos % (Auto) (0.0-4.0) % Baso % (Auto) (0.0-2.0) % Neut # (1.8-7.0) K/uL Lymph # (1.0-4.3) K/uL [place] # (0.0-0.8) K/uL Eos # (0.0-0.7) K/uL Baso # (0.0-0.2) K/uL Neutrophils % (Manual) (50-75) % Lymphocytes % (Manual) (20-40) % Monocytes % (Manual) (0-10) % Nucleated RBC % (0-0) % Platelet Estimate (NORMAL) Hypochromasia (manual) Poikilocytosis (manual Anisocytosis (manual) Microcytosis (manual) Macrocytosis (manual) Tear Drop Cells Ovalocytes Rodrigue Cells Puncture Site Lra pCO2 26 L (35-45) mm/Hg pO2 127 H (80-100) mm/Hg HCO3 15.7 L (21-28) mmol/L ABG pH 7.30 L (7.35-7.45) ABG Total CO2 13.6 L (22-28) mmol/L ABG O2 Saturation 99.5 H (95-98) % ABG Base Excess -11.9 L (-2.0-3.0) mmol/L Lucho Test Pos ABG Potassium 3.6 (3.6-5.2) mmol/L A-a O2 Difference 69.0 mm/Hg Respiratory Index 0.5 Glucose 222 H (75-110) mg/dl Lactate 5.1 H* (0.7-2.1) mmol/L Liter Flow 3.0 FiO2 32.0 % Crit Value Called To Dr vásquez Crit Value Called By Jeffrey rausch assembler wet wash Crit Value Read Back Y Blood Gas Notified Time 1054 Sodium 142.0 (132-148) mmol/L Potassium (3.6-5.2) mmol/L Chloride 113.0 H (98-107) mmol/L Carbon Dioxide (22-30) mmol/L Anion Gap (10-20) BUN (9-20) mg/dL Creatinine (0.8-1.5) MG/DL Est GFR ( Amer) Est GFR (Non-Af Amer) POC Glucose (mg/dL) 253 H (65-110) mg/dL Random Glucose (75-110) mg/dL Lactic Acid 5.7 H* (0.7-2.1) mmol/L Calcium (8.6-10.4) mg/dl Phosphorus (2.5-4.5) mg/dL Magnesium (1.6-2.3) mg/dL Total Bilirubin (0.2-1.3) mg/dL AST (17-59) U/L ALT (21-72) U/L Alkaline Phosphatase (38-126) U/L Total Protein (6.3-8.3) g/dL Albumin (3.5-5.0) g/dL Globulin (2.2-3.9) gm/dL Albumin/Globulin Ratio (1.0-2.1) Arterial Blood Potassium 3.6 (3.6-5.2) mmol/L 05/22/17 05/22/17 Range/Units 06:31 06:31 WBC 6.8 (4.8-10.8) K/uL RBC 5.57 (4.40-5.90) Mil/uL Hgb 14.8 (12.0-18.0) g/dL Hct 48.3 (35.0-51.0) % MCV 86.8 D (80.0-94.0) fL MCH 26.7 L (27.0-31.0) pg MCHC 30.7 L (33.0-37.0) g/dL RDW 19.9 H (11.5-14.5) % Plt Count 131 (130-400) K/uL MPV 10.5 (7.2-11.7) fL Neut % (Auto) 90.1 H (50.0-75.0) % Lymph % (Auto) 4.9 L (20.0-40.0) % [place] % (Auto) 4.8 (0.0-10.0) % Eos % (Auto) 0.0 (0.0-4.0) % Baso % (Auto) 0.2 (0.0-2.0) % Neut # 6.2 (1.8-7.0) K/uL Lymph # 0.3 L (1.0-4.3) K/uL [place] # 0.3 (0.0-0.8) K/uL Eos # 0.0 (0.0-0.7) K/uL Baso # 0.0 (0.0-0.2) K/uL Neutrophils % (Manual) 86 H (50-75) % Lymphocytes % (Manual) 5 L (20-40) % Monocytes % (Manual) 9 (0-10) % Nucleated RBC % 7 H (0-0) % Platelet Estimate Normal (NORMAL) Hypochromasia (manual) Slight Poikilocytosis (manual Slight Anisocytosis (manual) Slight Microcytosis (manual) Slight Macrocytosis (manual) Slight Tear Drop Cells Slight Ovalocytes Slight Rodrigue Cells Slight Puncture Site pCO2 (35-45) mm/Hg pO2 (80-100) mm/Hg HCO3 (21-28) mmol/L ABG pH (7.35-7.45) ABG Total CO2 (22-28) mmol/L ABG O2 Saturation (95-98) % ABG Base Excess (-2.0-3.0) mmol/L Lucho Test ABG Potassium (3.6-5.2) mmol/L A-a O2 Difference mm/Hg Respiratory Index Glucose (75-110) mg/dl Lactate (0.7-2.1) mmol/L Liter Flow FiO2 % Crit Value Called To Crit Value Called By Crit Value Read Back Blood Gas Notified Time Sodium 140 (132-148) mmol/L Potassium 4.4 (3.6-5.2) mmol/L Chloride 107 (98-107) mmol/L Carbon Dioxide 14 L (22-30) mmol/L Anion Gap 23 H (10-20) BUN 64 H (9-20) mg/dL Creatinine 2.5 H (0.8-1.5) MG/DL Est GFR ( Amer) 30 Est GFR (Non-Af Amer) 25 POC Glucose (mg/dL) (65-110) mg/dL Random Glucose 246 H (75-110) mg/dL Lactic Acid (0.7-2.1) mmol/L Calcium 9.5 (8.6-10.4) mg/dl Phosphorus 3.9 (2.5-4.5) mg/dL Magnesium 2.8 H (1.6-2.3) mg/dL Total Bilirubin 3.9 H (0.2-1.3) mg/dL AST 250 H D (17-59) U/L ALT 206 H D (21-72) U/L Alkaline Phosphatase 190 H D (38-126) U/L Total Protein 7.4 (6.3-8.3) g/dL Albumin 3.6 (3.5-5.0) g/dL Globulin 3.8 (2.2-3.9) gm/dL Albumin/Globulin Ratio 0.9 L (1.0-2.1) Arterial Blood Potassium (3.6-5.2) mmol/L Laboratory Results - last 24 hr 05/22/17 05/22/17 05/22/17 06:31 06:31 08:56 WBC 6.8 RBC 5.57 Hgb 14.8 Hct 48.3 MCV 86.8 D MCH 26.7 L MCHC 30.7 L RDW 19.9 H Plt Count 131 MPV 10.5 Neut % (Auto) 90.1 H Lymph % (Auto) 4.9 L [place] % (Auto) 4.8 Eos % (Auto) 0.0 Baso % (Auto) 0.2 Neut # 6.2 Lymph # 0.3 L [place] # 0.3 Eos # 0.0 Baso # 0.0 Neutrophils % (Manual) 86 H Lymphocytes % (Manual) 5 L Monocytes % (Manual) 9 Nucleated RBC % 7 H Platelet Estimate Normal Hypochromasia (manual) Slight Poikilocytosis (manual Slight Anisocytosis (manual) Slight Microcytosis (manual) Slight Macrocytosis (manual) Slight Tear Drop Cells Slight Ovalocytes Slight [place] Cells Slight Puncture Site pCO2 pO2 HCO3 ABG pH ABG Total CO2 ABG O2 Saturation ABG Base Excess Lucho Test ABG Potassium A-a O2 Difference Respiratory Index Glucose Lactate Liter Flow FiO2 Crit Value Called To Crit Value Called By Crit Value Read Back Blood Gas Notified Time Sodium 140 Potassium 4.4 Chloride 107 Carbon Dioxide 14 L Anion Gap 23 H BUN 64 H Creatinine 2.5 H Est GFR ( Amer) 30 Est GFR (Non-Af Amer) 25 POC Glucose (mg/dL) Random Glucose 246 H Lactic Acid 5.7 H* Calcium 9.5 Phosphorus 3.9 Magnesium 2.8 H Total Bilirubin 3.9 H AST 250 H D ALT 206 H D Alkaline Phosphatase 190 H D Total Protein 7.4 Albumin 3.6 Globulin 3.8 Albumin/Globulin Ratio 0.9 L Arterial Blood Potassium 05/22/17 05/22/17 10:47 11:06 WBC RBC Hgb Hct MCV MCH MCHC RDW Plt Count MPV Neut % (Auto) Lymph % (Auto) [place] % (Auto) Eos % (Auto) Baso % (Auto) Neut # Lymph # [place] # Eos # Baso # Neutrophils % (Manual) Lymphocytes % (Manual) Monocytes % (Manual) Nucleated RBC % Platelet Estimate Hypochromasia (manual) Poikilocytosis (manual Anisocytosis (manual) Microcytosis (manual) Macrocytosis (manual) Tear Drop Cells Ovalocytes [place] Cells Puncture Site Lra pCO2 26 L pO2 127 H HCO3 15.7 L ABG pH 7.30 L ABG Total CO2 13.6 L ABG O2 Saturation 99.5 H ABG Base Excess -11.9 L Lucho Test Pos ABG Potassium 3.6 A-a O2 Difference 69.0 Respiratory Index 0.5 Glucose 222 H Lactate 5.1 H* Liter Flow 3.0 FiO2 32.0 Crit Value Called To Dr vásquez Crit Value Called By Jeffrey rausch assembler wet wash Crit Value Read Back Y Blood Gas Notified Time 1054 Sodium 142.0 Potassium Chloride 113.0 H Carbon Dioxide Anion Gap BUN Creatinine Est GFR ( Amer) Est GFR (Non-Af Amer) POC Glucose (mg/dL) 253 H Random Glucose Lactic Acid Calcium Phosphorus Magnesium Total Bilirubin AST ALT Alkaline Phosphatase Total Protein Albumin Globulin Albumin/Globulin Ratio Arterial Blood Potassium 3.6 Fingerstick Blood Sugar Results: 253 Review of Systems - Review of Systems Systems not reviewed;Unavailable: Altered Mental Status Assessment/Plan - Assessment and Plan (Free Text) Assessment: 87yo M. PMHx CHF,HTN, atrial fibrillation, ischemic cardiomyopathy, severe chronic systolic dysfunction, severe mitral regurgitation. Presented with change in mental status, and dyspnea. Plan: Neuro: Altered mental status secondary to metabolic encephalopathy. - Head CT (05/18): No evidence of acute intracranial hemorrhage territorial infarct mass effect or midline shift. Moderate atrophy and moderate white matter changes likely due to microvascular ischemic disease. - f/u repeat Heat CT - Neuro Consult: Dr. Jimenez --> help appreciated Pulm: Initial hypoxia resolving, patient on high flow oxygen - Lung VQ scan: low probability of PE - Chest X-ray (05/19): No infiltrate. Cardiomegaly. Nasogastric tube in appropriate. - Chest X-ray (05/21): No significant interval change - Wheezing - Solu-Medrol given once - Albuterol RQ6 PRN CV: Blood pressure labile, ranging from normotensive to hypotensive. - Atrial fibrillation - Amiodarone started 05/19 - Cardizem started 05/22 - Cardiology Consult: Dr. Saha --> help appreciated - CT of abdmomen & Pelvis (05/18): Massive cardiomegaly, small pericardial effusion and small bilateral pleural effusions. Hem: No acute issues Renal: Chronic kidney disease, Will monitor urine output. - Nephrology Consult: Dr. Ortiz --> help appreciated - Continue D5NS at 75cc/hr Endo: No acute issues GI: - NG Tube - Changed will be changed (05/22) from the left nostril to the right nostril - Tube feeding - AST/ALT (05/22): 250/206; AST/ALT (05/21): 205/150 - Monitor ID: Possible sepsis from UTI: - Zosyn started on 05/18 - Vancomycin - Active 05/22 - Troph 21.75 - Vanco Random x3 - blood culture: no growth - urine culture: no growth DVT proph - Contraindication due to decreased platelet count GI proph - 40mg Protonix daily whitehead for strict I/O's during acute illness Disposition: Transferred to Medical Floor Code status - DNR/DNI Case discussed with Dr. Erasmo Graves PGY-1 <Milan Zimmerman - Last Filed: 05/22/17 17:43> CCU Objective - Vital Signs / Intake & Output Vital Signs (Last 4 hours): Vital Signs Temp Pulse Resp BP Pulse Ox 05/22/17 17:00 78 26 H 97 05/22/17 16:50 75 27 H 106/71 97 05/22/17 16:20 115/81 05/22/17 16:00 98.2 F 73 24 96 05/22/17 15:20 82 32 H 110/69 97 05/22/17 14:20 86 20 111/80 98 Intake and Output (Last 8hrs): Intake & Output 05/22/17 05/22/17 05/22/17 06:59 14:59 22:59 Intake Total 665 680 675 Output Total 275 200 70 Balance 390 480 605 Intake: Intake, IV Amount 425 440 675 Left Wrist 350 670 Right Forearm 425 90 5 Tube Feeding 240 240 Output: Urine 275 200 70 Urethral (White[place]) 275 200 70 Other: # Bowel Movements 0 1 1 - Medications Active Medications: Active Medications Generic Name Dose Route Start Last Admin Trade Name Freq PRN Reason Stop Dose Admin Albuterol Sulfate 2.5 mg 05/21/17 07:51 05/21/17 19:32 Albuterol 0.083% Inhal Judy (2.5 Mg/3 Ml) Ud INH 2.5 mg RQ6 PRN Administration Wheezing Amiodarone HCl 200 mg 05/19/17 14:00 05/22/17 09:18 Cordarone NG 200 mg DAILY HILL Administration Aspirin 81 mg 05/19/17 10:00 05/19/17 11:05 Aspirin Chewable PO 81 mg DAILY HILL Administration Diltiazem HCl 60 mg 05/22/17 15:00 05/22/17 14:46 Cardizem PO 60 mg Q8H HILL Administration Dextrose/Sodium Chloride 1,000 mls @ 75 mls/hr 05/22/17 12:24 05/22/17 15:19 Dextrose 5%/0.9% Ns 1000 Ml IV 75 mls/hr .[id number] H[facility] Administration Aztreonam 1 gm/ Sodium 100 mls @ 200 mls/hr 05/22/17 17:00 05/22/17 17:20 Chloride IVPB 200 mls/hr Q24H HILL Administration Meropenem 500 mg/ Sodium 100 mls @ 100 mls/hr 05/22/17 18:00 05/22/17 17:24 Chloride IVPB 100 mls/hr Q12H HILL Administration Insulin Aspart 0 unit 07/20/17 18:00 Novolog SC Q6H HILL Protocol Lorazepam 0.5 mg 05/18/17 15:32 05/22/17 03:06 Ativan IVP 0.5 mg Q4H PRN Administration Agitation Pantoprazole Sodium 40 mg 05/19/17 10:00 05/22/17 09:18 Protonix Inj IVP 40 mg DAILY HILL Administration - Patient Studies Lab Studies: Microbiology Studies 05/20/17 11:40 Urine Culture - Final Urine,White[place] No Growth (<1,000 CFU/ML) Lab Studies 05/22/17 05/22/17 05/22/17 Range/Units 11:06 10:50 10:47 WBC (4.8-10.8) K/uL RBC (4.40-5.90) Mil/uL Hgb (12.0-18.0) g/dL Hct (35.0-51.0) % MCV (80.0-94.0) fL MCH (27.0-31.0) pg MCHC (33.0-37.0) g/dL RDW (11.5-14.5) % Plt Count (130-400) K/uL MPV (7.2-11.7) fL Neut % (Auto) (50.0-75.0) % Lymph % (Auto) (20.0-40.0) % [place] % (Auto) (0.0-10.0) % Eos % (Auto) (0.0-4.0) % Baso % (Auto) (0.0-2.0) % Neut # (1.8-7.0) K/uL Lymph # (1.0-4.3) K/uL [place] # (0.0-0.8) K/uL Eos # (0.0-0.7) K/uL Baso # (0.0-0.2) K/uL Neutrophils % (Manual) (50-75) % Lymphocytes % (Manual) (20-40) % Monocytes % (Manual) (0-10) % Nucleated RBC % (0-0) % Platelet Estimate (NORMAL) Hypochromasia (manual) Poikilocytosis (manual Anisocytosis (manual) Microcytosis (manual) Macrocytosis (manual) Tear Drop Cells Ovalocytes [place] Cells Puncture Site Lra pCO2 26 L (35-45) mm/Hg pO2 127 H (80-100) mm/Hg HCO3 15.7 L (21-28) mmol/L ABG pH 7.30 L (7.35-7.45) ABG Total CO2 13.6 L (22-28) mmol/L ABG O2 Saturation 99.5 H (95-98) % ABG Base Excess -11.9 L (-2.0-3.0) mmol/L Lucho Test Pos ABG Potassium 3.6 (3.6-5.2) mmol/L A-a O2 Difference 69.0 mm/Hg Respiratory Index 0.5 Glucose 222 H (75-110) mg/dl Lactate 5.1 H* (0.7-2.1) mmol/L Liter Flow 3.0 FiO2 32.0 % Crit Value Called To Dr vásquez Crit Value Called By Jeffrey rausch assembler wet wash Crit Value Read Back Y Blood Gas Notified Time 1054 Sodium 142.0 (132-148) mmol/L Potassium (3.6-5.2) mmol/L Chloride 113.0 H (98-107) mmol/L Carbon Dioxide (22-30) mmol/L Anion Gap (10-20) BUN (9-20) mg/dL Creatinine (0.8-1.5) MG/DL Est GFR ( Amer) Est GFR (Non-Af Amer) POC Glucose (mg/dL) 253 H (65-110) mg/dL Random Glucose (75-110) mg/dL Lactic Acid (0.7-2.1) mmol/L Calcium (8.6-10.4) mg/dl Phosphorus (2.5-4.5) mg/dL Magnesium (1.6-2.3) mg/dL Total Bilirubin (0.2-1.3) mg/dL AST (17-59) U/L ALT (21-72) U/L Alkaline Phosphatase (38-126) U/L Total Protein (6.3-8.3) g/dL Albumin (3.5-5.0) g/dL Globulin (2.2-3.9) gm/dL Albumin/Globulin Ratio (1.0-2.1) Procalcitonin 0.55 H (0.19-0.49) NG/ML Arterial Blood Potassium 3.6 (3.6-5.2) mmol/L 05/22/17 05/22/17 05/22/17 Range/Units 08:56 06:31 06:31 WBC 6.8 (4.8-10.8) K/uL RBC 5.57 (4.40-5.90) Mil/uL Hgb 14.8 (12.0-18.0) g/dL Hct 48.3 (35.0-51.0) % MCV 86.8 D (80.0-94.0) fL MCH 26.7 L (27.0-31.0) pg MCHC 30.7 L (33.0-37.0) g/dL RDW 19.9 H (11.5-14.5) % Plt Count 131 (130-400) K/uL MPV 10.5 (7.2-11.7) fL Neut % (Auto) 90.1 H (50.0-75.0) % Lymph % (Auto) 4.9 L (20.0-40.0) % [place] % (Auto) 4.8 (0.0-10.0) % Eos % (Auto) 0.0 (0.0-4.0) % Baso % (Auto) 0.2 (0.0-2.0) % Neut # 6.2 (1.8-7.0) K/uL Lymph # 0.3 L (1.0-4.3) K/uL [place] # 0.3 (0.0-0.8) K/uL Eos # 0.0 (0.0-0.7) K/uL Baso # 0.0 (0.0-0.2) K/uL Neutrophils % (Manual) 86 H (50-75) % Lymphocytes % (Manual) 5 L (20-40) % Monocytes % (Manual) 9 (0-10) % Nucleated RBC % 7 H (0-0) % Platelet Estimate Normal (NORMAL) Hypochromasia (manual) Slight Poikilocytosis (manual Slight Anisocytosis (manual) Slight Microcytosis (manual) Slight Macrocytosis (manual) Slight Tear Drop Cells Slight Ovalocytes Slight Rodrigue Cells Slight Puncture Site pCO2 (35-45) mm/Hg pO2 (80-100) mm/Hg HCO3 (21-28) mmol/L ABG pH (7.35-7.45) ABG Total CO2 (22-28) mmol/L ABG O2 Saturation (95-98) % ABG Base Excess (-2.0-3.0) mmol/L Lucho Test ABG Potassium (3.6-5.2) mmol/L A-a O2 Difference mm/Hg Respiratory Index Glucose (75-110) mg/dl Lactate (0.7-2.1) mmol/L Liter Flow FiO2 % Crit Value Called To Crit Value Called By Crit Value Read Back Blood Gas Notified Time Sodium 140 (132-148) mmol/L Potassium 4.4 (3.6-5.2) mmol/L Chloride 107 (98-107) mmol/L Carbon Dioxide 14 L (22-30) mmol/L Anion Gap 23 H (10-20) BUN 64 H (9-20) mg/dL Creatinine 2.5 H (0.8-1.5) MG/DL Est GFR ( Amer) 30 Est GFR (Non-Af Amer) 25 POC Glucose (mg/dL) (65-110) mg/dL Random Glucose 246 H (75-110) mg/dL Lactic Acid 5.7 H* (0.7-2.1) mmol/L Calcium 9.5 (8.6-10.4) mg/dl Phosphorus 3.9 (2.5-4.5) mg/dL Magnesium 2.8 H (1.6-2.3) mg/dL Total Bilirubin 3.9 H (0.2-1.3) mg/dL AST 250 H D (17-59) U/L ALT 206 H D (21-72) U/L Alkaline Phosphatase 190 H D (38-126) U/L Total Protein 7.4 (6.3-8.3) g/dL Albumin 3.6 (3.5-5.0) g/dL Globulin 3.8 (2.2-3.9) gm/dL Albumin/Globulin Ratio 0.9 L (1.0-2.1) Procalcitonin (0.19-0.49) NG/ML Arterial Blood Potassium (3.6-5.2) mmol/L Laboratory Results - last 24 hr 05/22/17 05/22/17 05/22/17 06:31 06:31 08:56 WBC 6.8 RBC 5.57 Hgb 14.8 Hct 48.3 MCV 86.8 D MCH 26.7 L MCHC 30.7 L RDW 19.9 H Plt Count 131 MPV 10.5 Neut % (Auto) 90.1 H Lymph % (Auto) 4.9 L [place] % (Auto) 4.8 Eos % (Auto) 0.0 Baso % (Auto) 0.2 Neut # 6.2 Lymph # 0.3 L [place] # 0.3 Eos # 0.0 Baso # 0.0 Neutrophils % (Manual) 86 H Lymphocytes % (Manual) 5 L Monocytes % (Manual) 9 Nucleated RBC % 7 H Platelet Estimate Normal Hypochromasia (manual) Slight Poikilocytosis (manual Slight Anisocytosis (manual) Slight Microcytosis (manual) Slight Macrocytosis (manual) Slight Tear Drop Cells Slight Ovalocytes Slight [place] Cells Slight Puncture Site pCO2 pO2 HCO3 ABG pH ABG Total CO2 ABG O2 Saturation ABG Base Excess Lucho Test ABG Potassium A-a O2 Difference Respiratory Index Glucose Lactate Liter Flow FiO2 Crit Value Called To Crit Value Called By Crit Value Read Back Blood Gas Notified Time Sodium 140 Potassium 4.4 Chloride 107 Carbon Dioxide 14 L Anion Gap 23 H BUN 64 H Creatinine 2.5 H Est GFR ( Amer) 30 Est GFR (Non-Af Amer) 25 POC Glucose (mg/dL) Random Glucose 246 H Lactic Acid 5.7 H* Calcium 9.5 Phosphorus 3.9 Magnesium 2.8 H Total Bilirubin 3.9 H AST 250 H D ALT 206 H D Alkaline Phosphatase 190 H D Total Protein 7.4 Albumin 3.6 Globulin 3.8 Albumin/Globulin Ratio 0.9 L Procalcitonin Arterial Blood Potassium 05/22/17 05/22/17 05/22/17 10:47 10:50 11:06 WBC RBC Hgb Hct MCV MCH MCHC RDW Plt Count MPV Neut % (Auto) Lymph % (Auto) [place] % (Auto) Eos % (Auto) Baso % (Auto) Neut # Lymph # [place] # Eos # Baso # Neutrophils % (Manual) Lymphocytes % (Manual) Monocytes % (Manual) Nucleated RBC % Platelet Estimate Hypochromasia (manual) Poikilocytosis (manual Anisocytosis (manual) Microcytosis (manual) Macrocytosis (manual) Tear Drop Cells Ovalocytes [place] Cells Puncture Site Lra pCO2 26 L pO2 127 H HCO3 15.7 L ABG pH 7.30 L ABG Total CO2 13.6 L ABG O2 Saturation 99.5 H ABG Base Excess -11.9 L Lucho Test Pos ABG Potassium 3.6 A-a O2 Difference 69.0 Respiratory Index 0.5 Glucose 222 H Lactate 5.1 H* Liter Flow 3.0 FiO2 32.0 Crit Value Called To Dr vásquez Crit Value Called By Jeffrey rausch assembler wet wash Crit Value Read Back Y Blood Gas Notified Time 1054 Sodium 142.0 Potassium Chloride 113.0 H Carbon Dioxide Anion Gap BUN Creatinine Est GFR ( Amer) Est GFR (Non-Af Amer) POC Glucose (mg/dL) 253 H Random Glucose Lactic Acid Calcium Phosphorus Magnesium Total Bilirubin AST ALT Alkaline Phosphatase Total Protein Albumin Globulin Albumin/Globulin Ratio Procalcitonin 0.55 H Arterial Blood Potassium 3.6 Attending/Attestation - Attestation I have personally seen and examined this patient.: Yes I have fully participated in the care of the patient.: Yes I have reviewed all pertinent clinical information: Yes Notes (Text): 05/22/17 17:30 I have seen and examined the patient. Medical records, lab studies, and imaging were reviewed by me and a management plan was formulated on multidisciplinary rounds with resident Dr. Graves. I agree with their above documented assessment and plan. Patient to get repeat Head CT, cannot get MRI with AICD. 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 Son does not want anymore major testing. Patient is DNR/DNI. Will downgrade to floors. Critical Care Time 35 minutes. Multi-disciplinary rounds were performed with house staff, nursing, speech therapy, respiratory therapy, pharmacy and nutrition with integrated input from the primary team/attending and other consulting services. The documented time is cumulative and includes review of patient data/exams/labs/chart review and examination of the patient on rounds and throughout the day; time is exclusive of any procedures or teaching time.
[2017-05-22] MEDS ORDERED: diltiaZEM 180 mg/24 Hours CD Cap PO SCH (14:45)
--- NOTE | 2017-05-22 15:07 | CP.PCM.PN ---
Subjective - Date & Time of Evaluation Date of Evaluation: 05/22/17 Time of Evaluation: 10:00 - Subjective Subjective: patient has no current chest pain. Objective - Vital Signs/Intake and Output Vital Signs (last 24 hours): Temp Pulse Resp BP Pulse Ox 97.6 F 100 H 31 H 111/88 95 05/22/17 12:00 05/22/17 12:11 05/22/17 12:11 05/22/17 12:11 05/22/17 12:11 Intake and Output: 05/22/17 05/22/17 06:59 18:59 Intake Total 985 595 Output Total 415 175 Balance 570 420 - Medications Medications: Current Medications Albuterol Sulfate (Albuterol 0.083% Inhal Judy (2.5 Mg/3 Ml) Ud) 2.5 mg INH RQ6 PRN PRN Reason: Wheezing Last Admin: 05/21/17 19:32 Dose: 2.5 mg Amiodarone HCl (Cordarone) 200 mg NG DAILY [facility] Last Admin: 05/22/17 09:18 Dose: 200 mg Aspirin (Aspirin Chewable) 81 mg PO DAILY [facility] Last Admin: 05/19/17 11:05 Dose: 81 mg Diltiazem HCl (Cardizem) 60 mg PO Q8H [facility] Last Admin: 05/22/17 14:46 Dose: 60 mg Piperacillin Sod/Tazobactam Sod (Zosyn 2.25 Gm Iv Premix) 2.25 gm in 50 mls @ 100 mls/hr IVPB Q8H [facility] Last Admin: 05/22/17 09:17 Dose: 100 mls/hr Diltiazem HCl 125 mg/ Sodium (Chloride) 125 mls @ 10 mls/hr IV .[id number] [facility]; 10 MG/HR PRN Reason: Protocol Last Admin: 05/22/17 10:25 Dose: 10 mg/hr, 10 mls/hr Dextrose/Sodium Chloride (Dextrose 5%/0.9% Ns 1000 Ml) 1,000 mls @ 75 mls/hr IV .[id number] [facility] Insulin Aspart (Novolog) 0 unit SC Q6H [facility] PRN Reason: Protocol Lorazepam (Ativan) 0.5 mg IVP Q4H PRN PRN Reason: Agitation Last Admin: 05/22/17 03:06 Dose: 0.5 mg Pantoprazole Sodium (Protonix Inj) 40 mg IVP DAILY [facility] Last Admin: 05/22/17 09:18 Dose: 40 mg - Labs Labs: 05/22/17 06:31 05/22/17 06:31 PT 27.7 SECONDS (9.7-12.2) H D 05/19/17 06:11 INR 2.4 D 05/19/17 06:11 APTT 31 SECONDS (21-34) D 05/19/17 06:11 - Constitutional Appears: Chronically Ill - Head Exam Head Exam: NORMAL INSPECTION - ENT Exam ENT Exam: Mucous Membranes Moist - Neck Exam Neck Exam: Full ROM - Respiratory Exam Respiratory Exam: Decreased Breath Sounds - Cardiovascular Exam Cardiovascular Exam: Tachycardia, Irregular Rhythm - GI/Abdominal Exam GI & Abdominal Exam: Normal Bowel Sounds - Rectal Exam Rectal Exam: Deferred - Extremities Exam Extremities Exam: Pedal Edema - Back Exam Back Exam: NORMAL INSPECTION - Neurological Exam Neurological Exam: Alert - Psychiatric Exam Psychiatric exam: Normal Affect - Skin Skin Exam: Normal Color Assessment and Plan (1) Dilated cardiomyopathy Assessment & Plan: will continue current medical therapy. patient appears mildly hypervolemic. diuresis. Status: Acute (2) Chronic atrial fibrillation Assessment & Plan: patient is tachycardic. recommend cardizem drip. Status: Chronic
[2017-05-22] MEDS: Vancomycin 1 gm/NS 200 ml 1 GM/200 ML BAG IVPB ONE ×2 (15:24→15:40)
--- NOTE | 2017-05-22 15:27 | CP.PCM.CON ---
History of Present Illness - History of Present Illness History of Present Illness: Mr. Florentino is an 87-year-old man with a past medical history of ischemic cardiomyopathy, dialated cardiomyopathy s/p AICD, atrial fibrillation, HTN, hypercholesterolemia who presented to the ED with complaints of chest pain, abdominal pain, and shortness of breath. He gradually became confused and stopped following commands. He now does not open his eyes, but seems to move distal portions of his limbs spontaneously. His is the only one that seems to be able to communicate with him and says that he is answering her appropriately. However, this was not clear to his son or other members of the care team. According to the patient's , the reason he is not opening his eyes is because he told her they feel heavy. Review of Systems - Review of Systems Systems not reviewed;Unavailable: Altered Mental Status, Uncooperative Past Patient History - Past Medical History & Family History Past Medical History?: Yes - Past Social History Smoking Status: Never Smoked - CARDIAC Hx Congestive Heart Failure: Yes Hx Hypercholesterolemia: Yes Hx Hypertension: Yes - PULMONARY Hx Bronchitis: Yes Hx Pneumonia: Yes - NEUROLOGICAL Hx Neurological Disorder: No - HEENT Other/Comment: blurring ofVISION AND HARD OF HEARING AFTER taking heart medicine from [facility] [place] - RENAL Hx Chronic Kidney Disease: Yes - ENDOCRINE/METABOLIC Hx Endocrine Disorders: No - HEMATOLOGICAL/ONCOLOGICAL Hx Blood Disorders: No - INTEGUMENTARY Hx Dermatological Problems: No - MUSCULOSKELETAL/RHEUMATOLOGICAL Hx Falls: No - GASTROINTESTINAL Hx Gastrointestinal Disorders: No - GENITOURINARY/GYNECOLOGICAL Hx Genitourinary Disorders: No - PSYCHIATRIC Hx Substance Use: No - SURGICAL HISTORY Hx Cholecystectomy: Yes - ANESTHESIA Hx Anesthesia: Yes Hx Anesthesia Reactions: No Hx Malignant Hyperthermia: No Meds Allergies/Adverse Reactions: Allergies Allergy/AdvReac Type Severity Reaction Status Date / Time clopidogrel bisulfate Allergy RASH Verified 05/18/17 11:26 [From Plavix] nut - unspecified Allergy SHORTNESS Verified 05/21/17 14:57 OF BREATH oxycodone HCl [From Percocet] Allergy RASH Verified 05/18/17 11:26 kiwi, peaches Allergy RASH Uncoded 05/19/17 14:18 - Medications Medications: Current Medications Albuterol Sulfate (Albuterol 0.083% Inhal Judy (2.5 Mg/3 Ml) Ud) 2.5 mg INH RQ6 PRN PRN Reason: Wheezing Last Admin: 05/21/17 19:32 Dose: 2.5 mg Amiodarone HCl (Cordarone) 200 mg NG DAILY [facility] Last Admin: 05/22/17 09:18 Dose: 200 mg Aspirin (Aspirin Chewable) 81 mg PO DAILY [facility] Last Admin: 05/19/17 11:05 Dose: 81 mg Diltiazem HCl (Cardizem) 60 mg PO Q8H [facility] Last Admin: 05/22/17 14:46 Dose: 60 mg Piperacillin Sod/Tazobactam Sod (Zosyn 2.25 Gm Iv Premix) 2.25 gm in 50 mls @ 100 mls/hr IVPB Q8H [facility] Last Admin: 05/22/17 09:17 Dose: 100 mls/hr Diltiazem HCl 125 mg/ Sodium (Chloride) 125 mls @ 10 mls/hr IV .[id number] [facility]; 10 MG/HR PRN Reason: Protocol Last Admin: 05/22/17 10:25 Dose: 10 mg/hr, 10 mls/hr Dextrose/Sodium Chloride (Dextrose 5%/0.9% Ns 1000 Ml) 1,000 mls @ 75 mls/hr IV .[id number] [facility] Insulin Aspart (Novolog) 0 unit SC Q6H [facility] PRN Reason: Protocol Lorazepam (Ativan) 0.5 mg IVP Q4H PRN PRN Reason: Agitation Last Admin: 05/22/17 03:06 Dose: 0.5 mg Pantoprazole Sodium (Protonix Inj) 40 mg IVP DAILY [facility] Last Admin: 05/22/17 09:18 Dose: 40 mg Physical Exam - Constitutional Appears: Well - Head Exam Additional comments: NGT in place with evidence of epistaxis - Eye Exam Eye Exam: EOMI, Normal appearance, PERRL - ENT Exam ENT Exam: Mucous Membranes Moist, Normal Exam - Neck Exam Neck exam: Positive for: Normal Inspection - Respiratory Exam Respiratory Exam: Wheezes, Stridor - Cardiovascular Exam Cardiovascular Exam: Irregular Rhythm - GI/Abdominal Exam GI & Abdominal Exam: Distended - Rectal Exam Rectal Exam: Deferred - Extremities Exam Extremities exam: Positive for: pedal edema - Back Exam Back exam: NORMAL INSPECTION - Neurological Exam Neurological exam: Altered Additional comments: Eyelid apraxia, difficulty with moving proximal muscles of arms and legs, reflexes are preserved, plantar response is equivocal. When eyes are forced open, he has roving eye movements. - Psychiatric Exam Psychiatric exam: Agitated - Skin Skin Exam: Petechiae Results - Vital Signs Recent Vital Signs: Last Vital Signs Temp 97.6 F 05/22/17 12:00 Pulse 100 H 05/22/17 12:11 Resp 31 H 05/22/17 12:11 BP 111/88 05/22/17 12:11 Pulse Ox 95 05/22/17 12:11 - Labs Result Diagrams: 05/22/17 06:31 05/22/17 06:31 Labs: Laboratory Results - last 24 hr 05/22/17 05/22/17 05/22/17 06:31 06:31 08:56 WBC 6.8 RBC 5.57 Hgb 14.8 Hct 48.3 MCV 86.8 D MCH 26.7 L MCHC 30.7 L RDW 19.9 H Plt Count 131 MPV 10.5 Neut % (Auto) 90.1 H Lymph % (Auto) 4.9 L Huntington % (Auto) 4.8 Eos % (Auto) 0.0 Baso % (Auto) 0.2 Neut # 6.2 Lymph # 0.3 L Huntington # 0.3 Eos # 0.0 Baso # 0.0 Neutrophils % (Manual) 86 H Lymphocytes % (Manual) 5 L Monocytes % (Manual) 9 Nucleated RBC % 7 H Platelet Estimate Normal Hypochromasia (manual) Slight Poikilocytosis (manual Slight Anisocytosis (manual) Slight Microcytosis (manual) Slight Macrocytosis (manual) Slight Tear Drop Cells Slight Ovalocytes Slight Rodrigue Cells Slight Puncture Site pCO2 pO2 HCO3 ABG pH ABG Total CO2 ABG O2 Saturation ABG Base Excess Lucho Test ABG Potassium A-a O2 Difference Respiratory Index Glucose Lactate Liter Flow FiO2 Crit Value Called To Crit Value Called By Crit Value Read Back Blood Gas Notified Time Sodium 140 Potassium 4.4 Chloride 107 Carbon Dioxide 14 L Anion Gap 23 H BUN 64 H Creatinine 2.5 H Est GFR ( Amer) 30 Est GFR (Non-Af Amer) 25 POC Glucose (mg/dL) Random Glucose 246 H Lactic Acid 5.7 H* Calcium 9.5 Phosphorus 3.9 Magnesium 2.8 H Total Bilirubin 3.9 H AST 250 H D ALT 206 H D Alkaline Phosphatase 190 H D Total Protein 7.4 Albumin 3.6 Globulin 3.8 Albumin/Globulin Ratio 0.9 L Procalcitonin Arterial Blood Potassium 05/22/17 05/22/17 05/22/17 10:47 10:50 11:06 WBC RBC Hgb Hct MCV MCH MCHC RDW Plt Count MPV Neut % (Auto) Lymph % (Auto) Huntington % (Auto) Eos % (Auto) Baso % (Auto) Neut # Lymph # Huntington # Eos # Baso # Neutrophils % (Manual) Lymphocytes % (Manual) Monocytes % (Manual) Nucleated RBC % Platelet Estimate Hypochromasia (manual) Poikilocytosis (manual Anisocytosis (manual) Microcytosis (manual) Macrocytosis (manual) Tear Drop Cells Ovalocytes Rodrigue Cells Puncture Site Lra pCO2 26 L pO2 127 H HCO3 15.7 L ABG pH 7.30 L ABG Total CO2 13.6 L ABG O2 Saturation 99.5 H ABG Base Excess -11.9 L Lucho Test Pos ABG Potassium 3.6 A-a O2 Difference 69.0 Respiratory Index 0.5 Glucose 222 H Lactate 5.1 H* Liter Flow 3.0 FiO2 32.0 Crit Value Called To Dr vásquez Crit Value Called By Jeffrey rausch raw scales operator Crit Value Read Back Y Blood Gas Notified Time 1054 Sodium 142.0 Potassium Chloride 113.0 H Carbon Dioxide Anion Gap BUN Creatinine Est GFR ( Amer) Est GFR (Non-Af Amer) POC Glucose (mg/dL) 253 H Random Glucose Lactic Acid Calcium Phosphorus Magnesium Total Bilirubin AST ALT Alkaline Phosphatase Total Protein Albumin Globulin Albumin/Globulin Ratio Procalcitonin 0.55 H Arterial Blood Potassium 3.6 - Imaging and Cardiology CT scan - head Status: Image reviewed by me, Report reviewed by me (No acute findings from CT done on 05/18) Assessment & Plan (1) Encephalopathy Assessment and Plan: The presence of eyelid apraxia and proximal muscle weakness is concerning for possible infracts. The patient's history of AICD and severe CHF may make an MRI of the brain difficult. I recommend the followin. Repeat CT head today without contrast 2. Continue aspirin and discuss anticoagulation with cardiology (patient is actively bleeding from his mouth and nose) 3. Continue IVF to maintain cerebral perfusion 4. PT/OT eval 5. Treat underlying infection Thank you. Status: Acute Priority: High
--- NOTE | 2017-05-22 16:11 | CP.PCM.PN ---
Subjective - Date & Time of Evaluation Date of Evaluation: 05/22/17 Time of Evaluation: 15:00 - Subjective Subjective: Patient was seen and examined at bedside in ICU. Patient is nonverbal. Appears slightly agitated. Objective - Vital Signs/Intake and Output Vital Signs (last 24 hours): Temp Pulse Resp BP Pulse Ox 97.6 F 82 32 H 110/69 97 05/22/17 12:00 05/22/17 15:20 05/22/17 15:20 05/22/17 15:20 05/22/17 15:20 Intake and Output: 05/22/17 05/22/17 06:59 18:59 Intake Total 985 1205 Output Total 415 225 Balance 570 980 - Medications Medications: Current Medications Albuterol Sulfate (Albuterol 0.083% Inhal Judy (2.5 Mg/3 Ml) Ud) 2.5 mg INH RQ6 PRN PRN Reason: Wheezing Last Admin: 05/21/17 19:32 Dose: 2.5 mg Amiodarone HCl (Cordarone) 200 mg NG DAILY [facility] Last Admin: 05/22/17 09:18 Dose: 200 mg Aspirin (Aspirin Chewable) 81 mg PO DAILY [facility] Last Admin: 05/19/17 11:05 Dose: 81 mg Diltiazem HCl (Cardizem) 60 mg PO Q8H [facility] Last Admin: 05/22/17 14:46 Dose: 60 mg Piperacillin Sod/Tazobactam Sod (Zosyn 2.25 Gm Iv Premix) 2.25 gm in 50 mls @ 100 mls/hr IVPB Q8H [facility] Last Admin: 05/22/17 09:17 Dose: 100 mls/hr Dextrose/Sodium Chloride (Dextrose 5%/0.9% Ns 1000 Ml) 1,000 mls @ 75 mls/hr IV .[id number] [facility] Last Admin: 05/22/17 15:19 Dose: 75 mls/hr Aztreonam 1 gm/ Sodium (Chloride) 100 mls @ 200 mls/hr IVPB Q24H [facility] Meropenem 500 mg/ Sodium (Chloride) 100 mls @ 100 mls/hr IVPB Q12H [facility] Insulin Aspart (Novolog) 0 unit SC Q6H [facility] PRN Reason: Protocol Lorazepam (Ativan) 0.5 mg IVP Q4H PRN PRN Reason: Agitation Last Admin: 05/22/17 03:06 Dose: 0.5 mg Pantoprazole Sodium (Protonix Inj) 40 mg IVP DAILY [facility] Last Admin: 05/22/17 09:18 Dose: 40 mg - Labs Labs: 05/22/17 06:31 05/22/17 06:31 PT 27.7 SECONDS (9.7-12.2) H D 05/19/17 06:11 INR 2.4 D 05/19/17 06:11 APTT 31 SECONDS (21-34) D 05/19/17 06:11 - Head Exam Head Exam: ATRAUMATIC, NORMOCEPHALIC - Eye Exam Eye Exam: Normal appearance - ENT Exam ENT Exam: Mucous Membranes Moist - Respiratory Exam Respiratory Exam: Clear to Ausculation Bilateral - Cardiovascular Exam Cardiovascular Exam: REGULAR RHYTHM, +S1, +S2 - GI/Abdominal Exam GI & Abdominal Exam: Soft - Extremities Exam Extremities Exam: Pedal Edema Assessment and Plan (1) Acute renal failure (ARF) Status: Acute (2) Afib Status: Acute (3) Altered mental status Status: Acute (4) CKD (chronic kidney disease) stage 3, GFR 30-59 ml/min Status: Acute (5) Dilated cardiomyopathy Status: Acute (6) Dyspnea Status: Acute (7) Encephalopathy Status: Acute (8) Sepsis Status: Acute (9) Hyperlipidemia Status: Chronic (10) Edema Status: Acute - Assessment and Plan (Free Text) Plan: Patient is on IV antibiotics as per recommendations of ID Patient is on Azactam and meropenem Because of atrial fibrillation patient is on Cardizem drip and amiodarone. Heart rate is controlled now. Patient is on IV fluids because of acute kidney injury. Nephrology is on board. Continue management for cardiomyopathy/congestive heart failure as per cardiology Discussed with the ICU staff. Discussed with the family at bedside
[2017-05-22] MEDS: Aztreonam 1 GM in Sodium Chloride 0.9% 100 ML IVPB SCH (17:20)
[2017-05-22] MEDS: Meropenem 500 MG in Sodium Chloride 0.9% 100 ML IVPB SCH (17:24)
[2017-05-22] MEDS: (Novolog) Insulin Aspart, Recombinant 100 u/ml 10 ml vial SC SCH ×2 (17:52→18:10)
--- NOTE | 2017-05-22 19:10 | CP.PCM.PN ---
Subjective - Date & Time of Evaluation Date of Evaluation: 05/22/17 Time of Evaluation: 02:35 - Subjective Subjective: Patient remains in icu ,eyes closed,his lactate level increased,he has abdominal pain,jaundiced,renal failure with severe renal disease.being followed by multiple specialities ,he has had cholecystectomy in past has dilated cardiomyopathy Objective - Vital Signs/Intake and Output Vital Signs (last 24 hours): Temp Pulse Resp BP Pulse Ox 98.2 F 78 34 H 116/79 95 05/22/17 16:00 05/22/17 18:20 05/22/17 18:20 05/22/17 18:20 05/22/17 18:20 Intake and Output: 05/22/17 05/23/17 18:59 06:59 Intake Total 1430 Output Total 300 Balance 1130 - Medications Medications: Current Medications Albuterol Sulfate (Albuterol 0.083% Inhal Judy (2.5 Mg/3 Ml) Ud) 2.5 mg INH RQ6 PRN PRN Reason: Wheezing Last Admin: 05/21/17 19:32 Dose: 2.5 mg Amiodarone HCl (Cordarone) 200 mg NG DAILY [facility] Last Admin: 05/22/17 09:18 Dose: 200 mg Aspirin (Aspirin Chewable) 81 mg PO DAILY [facility] Last Admin: 05/19/17 11:05 Dose: 81 mg Diltiazem HCl (Cardizem) 60 mg PO Q8H [facility] Last Admin: 05/22/17 14:46 Dose: 60 mg Dextrose/Sodium Chloride (Dextrose 5%/0.9% Ns 1000 Ml) 1,000 mls @ 75 mls/hr IV .[id number] [facility] Last Admin: 05/22/17 15:19 Dose: 75 mls/hr Aztreonam 1 gm/ Sodium (Chloride) 100 mls @ 200 mls/hr IVPB Q24H [facility] Last Admin: 05/22/17 17:20 Dose: 200 mls/hr Meropenem 500 mg/ Sodium (Chloride) 100 mls @ 100 mls/hr IVPB Q12H [facility] Last Admin: 05/22/17 17:24 Dose: 100 mls/hr Insulin Aspart (Novolog) 0 unit SC Q6H [facility] PRN Reason: Protocol Last Admin: 05/22/17 18:10 Dose: 2 unit Lorazepam (Ativan) 0.5 mg IVP Q4H PRN PRN Reason: Agitation Last Admin: 05/22/17 03:06 Dose: 0.5 mg Pantoprazole Sodium (Protonix Inj) 40 mg IVP DAILY [facility] Last Admin: 05/22/17 09:18 Dose: 40 mg - Labs Labs: 05/22/17 06:31 05/22/17 06:31 PT 27.7 SECONDS (9.7-12.2) H D 05/19/17 06:11 INR 2.4 D 05/19/17 06:11 APTT 31 SECONDS (21-34) D 05/19/17 06:11 - Constitutional Appears: Toxic, Confused - Head Exam Head Exam: ATRAUMATIC, NORMOCEPHALIC - Eye Exam Additional comments: eyes closed - Respiratory Exam Respiratory Exam: Decreased Breath Sounds, Clear to Ausculation Bilateral - Cardiovascular Exam Cardiovascular Exam: Irregular Rhythm - GI/Abdominal Exam GI & Abdominal Exam: Soft, Hypoactive Bowel Sounds - Extremities Exam Extremities Exam: Pedal Edema Assessment and Plan (1) Altered mental status Assessment & Plan: pt has severe acidosis unclear etiology intially cystitis was enetertained due to ctscan suggesting it ,he has had cholecystectomy increased lft due to chf or is it hepatocellular disease or cbd stone ,unclear i have added meropenem and azactam at this time and [employer] to consider GI eval also Status: Acute (2) CKD (chronic kidney disease) stage 3, GFR 30-59 ml/min Status: Acute (3) Dyspnea Status: Acute (4) Elevated LFTs Status: Acute (5) Jaundice Status: Acute (6) Cystitis Status: Acute - Assessment and Plan (Free Text) Assessment: will repeat blood cultures today consider MRCP /wbc scan
--- NOTE | 2017-05-22 19:42 | CP.PCM.PN ---
Objective - Vital Signs/Intake and Output Vital Signs (last 24 hours): Temp Pulse Resp BP Pulse Ox 98.2 F 78 34 H 116/79 95 05/22/17 16:00 05/22/17 18:20 05/22/17 18:20 05/22/17 18:20 05/22/17 18:20 Intake and Output: 05/22/17 05/23/17 18:59 06:59 Intake Total 1430 Output Total 300 Balance 1130 - Medications Medications: Current Medications Albuterol Sulfate (Albuterol 0.083% Inhal Judy (2.5 Mg/3 Ml) Ud) 2.5 mg INH RQ6 PRN PRN Reason: Wheezing Last Admin: 05/21/17 19:32 Dose: 2.5 mg Amiodarone HCl (Cordarone) 200 mg NG DAILY [facility] Last Admin: 05/22/17 09:18 Dose: 200 mg Aspirin (Aspirin Chewable) 81 mg PO DAILY [facility] Last Admin: 05/19/17 11:05 Dose: 81 mg Diltiazem HCl (Cardizem) 60 mg PO Q8H [facility] Last Admin: 05/22/17 14:46 Dose: 60 mg Dextrose/Sodium Chloride (Dextrose 5%/0.9% Ns 1000 Ml) 1,000 mls @ 75 mls/hr IV .[id number] [facility] Last Admin: 05/22/17 15:19 Dose: 75 mls/hr Aztreonam 1 gm/ Sodium (Chloride) 100 mls @ 200 mls/hr IVPB Q24H [facility] Last Admin: 05/22/17 17:20 Dose: 200 mls/hr Meropenem 500 mg/ Sodium (Chloride) 100 mls @ 100 mls/hr IVPB Q12H [facility] Last Admin: 05/22/17 17:24 Dose: 100 mls/hr Insulin Aspart (Novolog) 0 unit SC Q6H [facility] PRN Reason: Protocol Last Admin: 05/22/17 18:10 Dose: 2 unit Lorazepam (Ativan) 0.5 mg IVP Q4H PRN PRN Reason: Agitation Last Admin: 05/22/17 03:06 Dose: 0.5 mg Pantoprazole Sodium (Protonix Inj) 40 mg IVP DAILY [facility] Last Admin: 05/22/17 09:18 Dose: 40 mg - Labs Labs: 05/22/17 06:31 07/20/17 06:31 PT 27.7 SECONDS (9.7-12.2) H D 05/19/17 06:11 INR 2.4 D 05/19/17 06:11 APTT 31 SECONDS (21-34) D 05/19/17 06:11 Assessment and Plan (1) CHF (congestive heart failure) Status: Chronic (2) Acute renal failure (ARF) Status: Acute (3) 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
[2017-05-22] MEDS: Albuterol 0.083% Inhal Sol (2.5 mg/3 mL) UD INH PRN (19:59)
--- NOTE | 2017-05-22 20:06 | US ---
EXAM: US Abdomen Complete CLINICAL HISTORY: 87 years old, male; Signs and symptoms; Other: Elevated lft s; Additional info: Elevated lfts TECHNIQUE: Real-time ultrasound of the abdomen (complete) with image documentation. EXAM DATE/TIME: Exam ordered 05/22/2017 12:07 PM COMPARISON: CT - ABD PELVIS PO CONTRAST ONLY 05/19/2017 5:14:50 AM FINDINGS: Liver: The liver measures 15.5 cm in craniocaudal span. The liver echotexture is mildly increased. There is a simple cyst noted within the liver on the right near the dome measuring 3.8 x 3.2 x 3.3 cm. Normal blood flow direction is seen in the main portal vein. Phasic flow is seen in the hepatic veins. The hepatic veins are distended. Gallbladder: The gallbladder is absent. Common bile duct: The common bile that measures 1 cm. No stones. No dilation. Pancreas: The pancreas is not well-seen due to bowel gas. Kidneys: The right kidney measures 10.1 x 4.2 x 3.9 cm. The lower pole is not well seen due to bowel gas. There is a small amount of perinephric fluid. There is a simple cyst arising from the lower pole right kidney measuring 3.2 x 3.2 x 3.5 cm. An echogenic focus is noted within the right kidney at the junction of the mid and lower portions of the kidney. measures approximately 1.2 cm. The left kidney is poorly seen. The left kidney measures approximately 9.3 x 4.5 x 4.2 cm. There is no hydronephrosis. Spleen: The spleen measures 9.9 cm in craniocaudal span. Aorta: The mid and distal abdominal aorta are not well seen due to bowel gas. Inferior vena cava: Unremarkable. Pleural space: There is a small right pleural effusion. IMPRESSION: 1. Echogenic liver suggest mild hepatic steatosis. Other infiltrative process including cirrhosis is not excluded. 2. Hepatic cyst. 3. Simple cyst in the right kidney. 4. 1.2 cm echogenic focus in the midportion of the right kidney could be artifact. Small angioma myolipoma is another consideration. There are no findings to suggest such a lesion on the CT scan of 05/19/2017 which favors this being artifact. 5. Small right pleural effusion. 6. Pancreas and aorta are not well-seen due to bowel gas. 7. Dilated hepatic veins suggests an element of right heart failure
--- NOTE | 2017-05-22 22:25 | CT ---
EXAM: CT Head Without Intravenous Contrast CLINICAL HISTORY: 87 years old, male; Signs and symptoms; Altered mental status/memory loss; Confusion or disorientation; Additional info: AMS TECHNIQUE: Axial computed tomography images of the head/brain without intravenous contrast. This CT exam was performed using one or more of the following dose reduction techniques: automated exposure control, adjustment of the mA and/or kV according to patient size, and/or use of iterative reconstruction technique. Coronal and sagittal reformatted images were created and reviewed. COMPARISON: No relevant prior studies available. FINDINGS: Brain: Moderate atrophy. No intracranial hemorrhage. No mass. Few scattered subtle foci of decreased attenuation within periventricular/subcortical white matter. 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 No definite edema. Ventricles: No hydrocephalus. Bones/joints: No acute fracture. Soft tissues: Unremarkable. Vasculature: Atherosclerotic disease of intracranial arteries. Sinuses: Scattered minimal mucosal thickening. Mastoid air cells: Minimal fluid within LEFT mastoid. Orbits: Unremarkable as visualized. IMPRESSION: 1. Nonspecific white matter changes. Acute infarction may be CT occult within first 24 hours. If a focal deficit persists, consider followup CT or MRI for further evaluation. 2. Incidental/non-acute findings are described above.
[2017-05-23] MEDS: (Novolog) Insulin Aspart, Recombinant 100 u/ml 10 ml vial SC SCH ×4 (00:30→18:45)
[2017-05-23] MEDS: Dextrose 5%/0.9% NS 1,000 ML IV SCH (02:00)
[2017-05-23] MEDS: Meropenem 500 MG in Sodium Chloride 0.9% 100 ML IVPB SCH ×2 (05:30→18:10)
[2017-05-23] MEDS: Albuterol 0.083% Inhal Sol (2.5 mg/3 mL) UD INH PRN ×2 (07:30→13:13)
[2017-05-23] MEDS: Sodium Chloride 0.9% 1,000 ML IV SCH ×2 (09:00→22:30)
--- NOTE | 2017-05-23 13:33 | CP.PCM.PN ---
Subjective - Date & Time of Evaluation Date of Evaluation: 05/23/17 Time of Evaluation: 12:00 - Subjective Subjective: Mr. Florentino was seen and examined today at bedside in the ICU. He continues to have agitation, but has not had any acute events. He obtained a CT of the head yesterday which did not show any new findings. Objective - Vital Signs/Intake and Output Vital Signs (last 24 hours): Temp Pulse Resp BP Pulse Ox 98.1 F 98 H 14 124/76 98 05/23/17 04:00 05/23/17 07:00 05/23/17 07:00 05/23/17 06:50 05/23/17 07:00 Intake and Output: 05/23/17 05/23/17 06:59 18:59 Intake Total 985 105 Output Total 515 25 Balance 470 80 - Medications Medications: Current Medications Albuterol Sulfate (Albuterol 0.083% Inhal Judy (2.5 Mg/3 Ml) Ud) 2.5 mg INH RQ6 PRN PRN Reason: Wheezing Last Admin: 05/23/17 13:13 Dose: 2.5 mg Amiodarone HCl (Cordarone) 200 mg NG DAILY [facility] Last Admin: 05/23/17 10:41 Dose: 200 mg Aspirin (Aspirin Chewable) 81 mg PO DAILY [facility] Last Admin: 05/19/17 11:05 Dose: 81 mg Diltiazem HCl (Cardizem) 60 mg PO Q8H [facility] Last Admin: 05/23/17 06:01 Dose: 60 mg Aztreonam 1 gm/ Sodium (Chloride) 100 mls @ 200 mls/hr IVPB Q24H [facility] Last Admin: 05/22/17 17:20 Dose: 200 mls/hr Meropenem 500 mg/ Sodium (Chloride) 100 mls @ 100 mls/hr IVPB Q12H [facility] Last Admin: 05/23/17 05:30 Dose: 100 mls/hr Sodium Chloride (Sodium Chloride 0.9%) 1,000 mls @ 75 mls/hr IV .[id number] [facility] Insulin Aspart (Novolog) 0 unit SC Q6H [facility] PRN Reason: Protocol Last Admin: 05/23/17 06:04 Dose: 1 unit Lorazepam (Ativan) 0.5 mg IVP Q4H PRN PRN Reason: Agitation Last Admin: 05/22/17 03:06 Dose: 0.5 mg Pantoprazole Sodium (Protonix Inj) 40 mg IVP DAILY [facility] Last Admin: 05/23/17 10:41 Dose: 40 mg - Labs Labs: 05/22/17 06:31 05/22/17 06:31 PT 27.7 SECONDS (9.7-12.2) H D 05/19/17 06:11 INR 2.4 D 05/19/17 06:11 APTT 31 SECONDS (21-34) D 05/19/17 06:11 - Neurological Exam Additional comments: Neurologically unchanged compared with previous examination. Assessment and Plan (1) Encephalopathy Assessment & Plan: Likely due to co-morbid medical conditions. Treat underlying cause. CT head and neurological exam is non-focal. Status: Acute
--- NOTE | 2017-05-23 17:44 | CP.PCM.PN ---
Subjective - Date & Time of Evaluation Date of Evaluation: 05/23/17 Time of Evaluation: 15:00 - Subjective Subjective: patient remains agitated. He is on cardizem drip Objective - Vital Signs/Intake and Output Vital Signs (last 24 hours): Temp Pulse Resp BP Pulse Ox 98.1 F 98 H 14 124/76 98 05/23/17 04:00 05/23/17 07:00 05/23/17 07:00 05/23/17 06:50 05/23/17 07:00 Intake and Output: 05/23/17 05/23/17 06:59 18:59 Intake Total 985 105 Output Total 515 25 Balance 470 80 - Medications Medications: Current Medications Albuterol Sulfate (Albuterol 0.083% Inhal Judy (2.5 Mg/3 Ml) Ud) 2.5 mg INH RQ6 PRN PRN Reason: Wheezing Last Admin: 05/23/17 13:13 Dose: 2.5 mg Amiodarone HCl (Cordarone) 200 mg NG DAILY [facility] Last Admin: 05/23/17 10:41 Dose: 200 mg Aspirin (Aspirin Chewable) 81 mg PO DAILY [facility] Last Admin: 05/19/17 11:05 Dose: 81 mg Diltiazem HCl (Cardizem) 60 mg PO Q8H [facility] Last Admin: 05/23/17 06:01 Dose: 60 mg Aztreonam 1 gm/ Sodium (Chloride) 100 mls @ 200 mls/hr IVPB Q24H [facility] Last Admin: 05/22/17 17:20 Dose: 200 mls/hr Meropenem 500 mg/ Sodium (Chloride) 100 mls @ 100 mls/hr IVPB Q12H [facility] Last Admin: 05/23/17 05:30 Dose: 100 mls/hr Sodium Chloride (Sodium Chloride 0.9%) 1,000 mls @ 75 mls/hr IV .[id number] [facility] Insulin Aspart (Novolog) 0 unit SC Q6H [facility] PRN Reason: Protocol Last Admin: 05/23/17 06:04 Dose: 1 unit Lorazepam (Ativan) 0.5 mg IVP Q4H PRN PRN Reason: Agitation Last Admin: 05/22/17 03:06 Dose: 0.5 mg Pantoprazole Sodium (Protonix Inj) 40 mg IVP DAILY [facility] Last Admin: 05/23/17 10:41 Dose: 40 mg - Labs Labs: 05/22/17 06:31 05/22/17 06:31 PT 27.7 SECONDS (9.7-12.2) H D 05/19/17 06:11 INR 2.4 D 05/19/17 06:11 APTT 31 SECONDS (21-34) D 05/19/17 06:11 - Constitutional Appears: Non-toxic - Head Exam Head Exam: NORMAL INSPECTION - Eye Exam Eye Exam: Normal appearance - ENT Exam ENT Exam: Mucous Membranes Moist - Neck Exam Neck Exam: Full ROM - Respiratory Exam Respiratory Exam: Decreased Breath Sounds - Cardiovascular Exam Cardiovascular Exam: Irregular Rhythm - GI/Abdominal Exam GI & Abdominal Exam: Normal Bowel Sounds - Rectal Exam Rectal Exam: Deferred - Extremities Exam Extremities Exam: Pedal Edema - Back Exam Back Exam: NORMAL INSPECTION - Neurological Exam Neurological Exam: Alert - Psychiatric Exam Psychiatric exam: Normal Affect - Skin Skin Exam: Normal Color Assessment and Plan (1) Dilated cardiomyopathy Assessment & Plan: currently euvolemic. patient and family have refused AICD in the past. Status: Acute (2) Chronic atrial fibrillation Assessment & Plan: cardizem for rate control Status: Chronic
--- NOTE | 2017-05-23 17:44 | CP.PCM.PN ---
Subjective - Date & Time of Evaluation Date of Evaluation: 05/23/17 Time of Evaluation: 15:00 - Subjective Subjective: Patient has reportedly been trying to vomit; mental status not improved; Objective - Vital Signs/Intake and Output Vital Signs (last 24 hours): Temp Pulse Resp BP Pulse Ox 98.1 F 98 H 14 124/76 98 05/23/17 04:00 05/23/17 07:00 05/23/17 07:00 05/23/17 06:50 05/23/17 07:00 Intake and Output: 05/23/17 05/23/17 06:59 18:59 Intake Total 985 105 Output Total 515 25 Balance 470 80 - Medications Medications: Current Medications Albuterol Sulfate (Albuterol 0.083% Inhal Judy (2.5 Mg/3 Ml) Ud) 2.5 mg INH RQ6 PRN PRN Reason: Wheezing Last Admin: 05/23/17 13:13 Dose: 2.5 mg Amiodarone HCl (Cordarone) 200 mg NG DAILY [facility] Last Admin: 05/23/17 10:41 Dose: 200 mg Aspirin (Aspirin Chewable) 81 mg PO DAILY [facility] Last Admin: 05/19/17 11:05 Dose: 81 mg Diltiazem HCl (Cardizem) 60 mg PO Q8H [facility] Last Admin: 05/23/17 06:01 Dose: 60 mg Aztreonam 1 gm/ Sodium (Chloride) 100 mls @ 200 mls/hr IVPB Q24H [facility] Last Admin: 05/22/17 17:20 Dose: 200 mls/hr Meropenem 500 mg/ Sodium (Chloride) 100 mls @ 100 mls/hr IVPB Q12H [facility] Last Admin: 05/23/17 05:30 Dose: 100 mls/hr Sodium Chloride (Sodium Chloride 0.9%) 1,000 mls @ 75 mls/hr IV .[id number] [facility] Insulin Aspart (Novolog) 0 unit SC Q6H [facility] PRN Reason: Protocol Last Admin: 05/23/17 06:04 Dose: 1 unit Lorazepam (Ativan) 0.5 mg IVP Q4H PRN PRN Reason: Agitation Last Admin: 05/22/17 03:06 Dose: 0.5 mg Pantoprazole Sodium (Protonix Inj) 40 mg IVP DAILY [facility] Last Admin: 05/23/17 10:41 Dose: 40 mg - Labs Labs: 05/22/17 06:31 05/22/17 06:31 PT 27.7 SECONDS (9.7-12.2) H D 05/19/17 06:11 INR 2.4 D 05/19/17 06:11 APTT 31 SECONDS (21-34) D 05/19/17 06:11 - Constitutional Appears: Agitated - Head Exam Head Exam: NORMOCEPHALIC - Eye Exam Eye Exam: Scleral icterus - ENT Exam ENT Exam: Mucous Membranes Moist - Respiratory Exam Respiratory Exam: Clear to Ausculation Bilateral. absent: Rales, Rhonchi, Wheezes, Respiratory Distress - Cardiovascular Exam Additional comments: systolic murmur present; - GI/Abdominal Exam GI & Abdominal Exam: Distended, Soft - Exam Additional comments: whitehead in place; - Extremities Exam Additional comments: Mild b/l leg edema; - Neurological Exam Additional comments: not following commands at all today; - Skin Skin Exam: Normal Color, Warm. absent: Cyanosis Assessment and Plan (1) CHF (congestive heart failure) Assessment & Plan: Volume status still uncertain; may be chronically intravascularly volume overloaded although no evidence of cardiogenic shock with patient normotensive and warm extremities; -continue with IVF for now as renal function had improved earlier on it Status: Chronic (2) Acute renal failure (ARF) Assessment & Plan: Pre-renal etiology but may be in the setting of severe CHF/mitral regurg with decreased renal perfusion rather than inravascular volume depletion; -continue IVF for now as above; Status: Acute (3) Hypertensive CKD (chronic kidney disease) Assessment & Plan: Normotensive; on cardizem drip; avoid hypotension; Status: Chronic (4) Altered mental status Assessment & Plan: In the setting of acute illness; Status: Acute (5) SIRS (systemic inflammatory response syndrome) Assessment & Plan: Still with lactic acidosis of unclear etiology; may need to repeat abd imaging studies; Status: Acute (6) Hyperbilirubinemia Assessment & Plan: Etiology unclear; can still be from congestive hepatopathy, agree with repeat imaging studies; Status: Acute
[2017-05-23] MEDS: Aztreonam 1 GM in Sodium Chloride 0.9% 100 ML IVPB SCH (19:51)
--- NOTE | 2017-05-23 21:51 | CP.PCM.PN ---
<Vicente Moyer - Last Filed: 05/23/17 21:48> Subjective - Date & Time of Evaluation Date of Evaluation: 05/23/17 Time of Evaluation: 14:00 - Subjective Subjective: Patient seen and examined at bedside in ICU. Patient with oral gastric tube in mouth and bipap. Patient not awake and not able to answer questions. Patient's was at bedside. Patient groans and makes grunting sounds occasionally. Difficult to collect ROS. Objective - Vital Signs/Intake and Output Vital Signs (last 24 hours): Temp Pulse Resp BP Pulse Ox 98.6 F 118 H 22 129/78 98 05/23/17 20:00 05/23/17 20:00 05/23/17 20:00 05/23/17 20:00 05/23/17 07:00 Intake and Output: 05/23/17 05/24/17 18:59 06:59 Intake Total 105 Output Total 25 Balance 80 - Medications Medications: Current Medications Albuterol Sulfate (Albuterol 0.083% Inhal Judy (2.5 Mg/3 Ml) Ud) 2.5 mg INH RQ6 PRN PRN Reason: Wheezing Last Admin: 05/23/17 13:13 Dose: 2.5 mg Amiodarone HCl (Cordarone) 200 mg NG DAILY [facility] Last Admin: 05/23/17 10:41 Dose: 200 mg Aspirin (Aspirin Chewable) 81 mg PO DAILY [facility] Last Admin: 05/19/17 11:05 Dose: 81 mg Diltiazem HCl (Cardizem) 60 mg PO Q8H [facility] Last Admin: 05/23/17 15:00 Dose: 60 mg Aztreonam 1 gm/ Sodium (Chloride) 100 mls @ 200 mls/hr IVPB Q24H [facility] Last Admin: 05/23/17 19:51 Dose: 200 mls/hr Meropenem 500 mg/ Sodium (Chloride) 100 mls @ 100 mls/hr IVPB Q12H [facility] Last Admin: 05/23/17 18:10 Dose: 100 mls/hr Sodium Chloride (Sodium Chloride 0.9%) 1,000 mls @ 75 mls/hr IV .[id number] [facility] Last Admin: 05/23/17 09:00 Dose: 75 mls/hr Insulin Aspart (Novolog) 0 unit SC Q6H [facility] PRN Reason: Protocol Last Admin: 05/23/17 18:45 Dose: 1 unit Lorazepam (Ativan) 0.5 mg IVP Q4H PRN PRN Reason: Agitation Last Admin: 05/22/17 03:06 Dose: 0.5 mg Pantoprazole Sodium (Protonix Inj) 40 mg IVP DAILY [facility] Last Admin: 05/23/17 10:41 Dose: 40 mg - Labs Labs: 05/22/17 06:31 05/22/17 06:31 PT 27.7 SECONDS (9.7-12.2) H D 05/19/17 06:11 INR 2.4 D 05/19/17 06:11 APTT 31 SECONDS (21-34) D 05/19/17 06:11 - Head Exam Head Exam: NORMAL INSPECTION - Eye Exam Eye Exam: Normal appearance. absent: EOMI Pupil Exam: Miosis - ENT Exam ENT Exam: Mucous Membranes Moist Additional comments: perimeter of lips with dry blood - Neck Exam Neck Exam: Normal Inspection - Respiratory Exam Respiratory Exam: Clear to Ausculation Bilateral, NORMAL BREATHING PATTERN - Cardiovascular Exam Cardiovascular Exam: REGULAR RHYTHM, +S1, +S2. absent: Murmur - GI/Abdominal Exam GI & Abdominal Exam: Soft, Normal Bowel Sounds - Rectal Exam Rectal Exam: Deferred - Extremities Exam Extremities Exam: Normal Capillary Refill. absent: Full ROM - Neurological Exam Neurological Exam: absent: Alert, Awake - Skin Skin Exam: Dry, Intact, Normal Color, Warm Additional comments: ecchymotic patches of arms and legs b/l Assessment and Plan - Assessment and Plan (Free Text) Assessment: Neuro: Altered mental status secondary to metabolic encephalopathy. - Head CT 05/23: Nonspecific white matter changes. Acute infarction may be CT occult within first 24 hours. If a focal deficit persists, consider followup CT or MRI for further evaluation. - Head CT (05/18): No evidence of acute intracranial hemorrhage territorial infarct mass effect or midline shift. Moderate atrophy and moderate white matter changes likely due to microvascular ischemic disease. - f/u repeat Heat CT - Neuro Consult: Dr. Jimenez --> help appreciated Pulm: Initial hypoxia resolving, patient on high flow oxygen - Lung VQ scan: low probability of PE - Chest X-ray (05/19): No infiltrate. Cardiomegaly. Nasogastric tube in appropriate. - Chest X-ray (05/21): No significant interval change - Wheezing - Solu-Medrol given once - Albuterol RQ6 PRN CV: Blood pressure labile, ranging from normotensive to hypotensive. - Atrial fibrillation - Amiodarone started 05/19 - Cardizem started 05/22 - Cardiology Consult: Dr. Saha --> help appreciated - CT of abdmomen & Pelvis (05/18): Massive cardiomegaly, small pericardial effusion and small bilateral pleural effusions. Hem: No acute issues Renal: Chronic kidney disease, Will monitor urine output. - Nephrology Consult: Dr. Ortiz --> help appreciated - Continue D5NS at 75cc/hr Endo: No acute issues GI: - NG Tube - Changed will be changed (05/22) from the left nostril to the right nostril - Tube feeding - AST/ALT (05/22): 250/206; AST/ALT (05/21): 205/150 - Monitor ID: Possible sepsis from UTI: - Zosyn started on 05/18 - Vancomycin - Active 05/22 - Troph 21.75 - Vanco Random x3 - blood culture: no growth - urine culture: no growth DVT proph - Contraindication due to decreased platelet count GI proph - 40mg Protonix daily whitehead for strict I/O's during acute illness <David Lizarraga - Last Filed: 05/24/17 16:04> Objective - Vital Signs/Intake and Output Vital Signs (last 24 hours): Temp Pulse Resp BP Pulse Ox 98 F 108 H 22 133/92 H 96 05/24/17 07:55 05/24/17 07:55 05/24/17 07:55 05/24/17 07:55 05/24/17 07:55 - Medications Medications: Current Medications Albuterol Sulfate (Albuterol 0.083% Inhal Judy (2.5 Mg/3 Ml) Ud) 2.5 mg INH RQ6 PRN PRN Reason: Wheezing Last Admin: 05/23/17 13:13 Dose: 2.5 mg Amiodarone HCl (Cordarone) 200 mg NG DAILY [facility] Last Admin: 05/24/17 10:21 Dose: 200 mg Aspirin (Aspirin Chewable) 81 mg PO DAILY [facility] Last Admin: 05/19/17 11:05 Dose: 81 mg Diltiazem HCl (Cardizem) 60 mg PO Q8H [facility] Last Admin: 05/24/17 15:58 Dose: 60 mg Aztreonam 1 gm/ Sodium (Chloride) 100 mls @ 200 mls/hr IVPB Q24H [facility] Last Admin: 05/23/17 19:51 Dose: 200 mls/hr Meropenem 500 mg/ Sodium (Chloride) 100 mls @ 100 mls/hr IVPB Q12H [facility] Last Admin: 05/24/17 06:26 Dose: 100 mls/hr Sodium Chloride (Sodium Chloride 0.9%) 1,000 mls @ 75 mls/hr IV .[id number] [facility] Last Admin: 05/24/17 10:55 Dose: Not Given Tigecycline 50 mg/ Sodium (Chloride) 100 mls @ 100 mls/hr IVPB Q12H [facility] Last Admin: 05/24/17 12:10 Dose: 100 mls/hr Insulin Aspart (Novolog) 0 unit SC Q6H [facility] PRN Reason: Protocol Last Admin: 05/24/17 12:14 Dose: Not Given Lorazepam (Ativan) 0.5 mg IVP Q4H PRN PRN Reason: Agitation Last Admin: 05/22/17 03:06 Dose: 0.5 mg Pantoprazole Sodium (Protonix Inj) 40 mg IVP DAILY [facility] Last Admin: 05/24/17 10:21 Dose: 40 mg - Labs Labs: 05/24/17 08:50 05/24/17 08:50 PT 27.7 SECONDS (9.7-12.2) H D 05/19/17 06:11 INR 2.4 D 05/19/17 06:11 APTT 31 SECONDS (21-34) D 05/19/17 06:11 Assessment and Plan (1) Acute renal failure (ARF) Status: Acute (2) Afib Status: Acute (3) Altered mental status Status: Acute (4) CKD (chronic kidney disease) stage 3, GFR 30-59 ml/min Status: Acute (5) Dilated cardiomyopathy Status: Acute (6) Dyspnea Status: Acute (7) Encephalopathy Status: Acute (8) Sepsis Status: Acute (9) Hyperlipidemia Status: Chronic (10) Edema Status: Acute - Assessment and Plan (Free Text) Plan: Patient seen and examined at bedside with the resident neck and patient continues to be lethargic Continue antibiotics for sepsis Lactic acid to be repeated today Transaminases are trending up. We will request gastroenterology evaluation for the patient Patient also has acute on chronic kidney disease. Nephrology evaluation and follow-up seen and appreciated. Discussed with nephrology. Discussed in detail with the patient's family at bedside and answered all questions I agree with the assessment and plan documented by the resident with the necessary and documented here.
--- NOTE | 2017-05-23 23:01 | CP.PCM.PN ---
Subjective - Date & Time of Evaluation Date of Evaluation: 05/23/17 Time of Evaluation: 06:00 - Subjective Subjective: Patient remains with eyes closed,unresponsive,NG tube is out as he was doing manuvre to ge it out,I see bloody drainage in suction jar probably from NG tube , says he was wheezing but at present he is not.No howard in several days, his lactate levell still high ,remeains jaundiced,renal failure,culture negative etiology unclear If remains acidotic may be spinal tap to be considered Objective - Vital Signs/Intake and Output Vital Signs (last 24 hours): Temp Pulse Resp BP Pulse Ox 98.6 F 118 H 22 129/78 98 05/23/17 20:00 05/23/17 20:00 05/23/17 20:00 05/23/17 20:00 05/23/17 07:00 Intake and Output: 05/23/17 05/24/17 18:59 06:59 Intake Total 105 Output Total 25 Balance 80 - Medications Medications: Current Medications Albuterol Sulfate (Albuterol 0.083% Inhal Judy (2.5 Mg/3 Ml) Ud) 2.5 mg INH RQ6 PRN PRN Reason: Wheezing Last Admin: 05/23/17 13:13 Dose: 2.5 mg Amiodarone HCl (Cordarone) 200 mg NG DAILY [facility] Last Admin: 05/23/17 10:41 Dose: 200 mg Aspirin (Aspirin Chewable) 81 mg PO DAILY [facility] Last Admin: 05/19/17 11:05 Dose: 81 mg Diltiazem HCl (Cardizem) 60 mg PO Q8H [facility] Last Admin: 05/23/17 15:00 Dose: 60 mg Aztreonam 1 gm/ Sodium (Chloride) 100 mls @ 200 mls/hr IVPB Q24H [facility] Last Admin: 05/23/17 19:51 Dose: 200 mls/hr Meropenem 500 mg/ Sodium (Chloride) 100 mls @ 100 mls/hr IVPB Q12H [facility] Last Admin: 05/23/17 18:10 Dose: 100 mls/hr Sodium Chloride (Sodium Chloride 0.9%) 1,000 mls @ 75 mls/hr IV .[id number] [facility] 234 [facility]S [facility] Last Admin: 05/23/17 09:00 Dose: 75 mls/hr Tigecycline 100 mg/ Dextrose 100 mls @ 100 mls/hr IVPB ONCE ONE Stop: 05/23/17 23:54 Tigecycline 50 mg/ Dextrose 100 mls @ 100 mls/hr IVPB Q12H [facility] Insulin Aspart (Novolog) 0 unit SC Q6H [facility] PRN Reason: Protocol Last Admin: 05/23/17 18:45 Dose: 1 unit Lorazepam (Ativan) 0.5 mg IVP Q4H PRN PRN Reason: Agitation Last Admin: 05/22/17 03:06 Dose: 0.5 mg Pantoprazole Sodium (Protonix Inj) 40 mg IVP DAILY [facility] Last Admin: 05/23/17 10:41 Dose: 40 mg - Labs Labs: 05/22/17 06:31 05/22/17 06:31 PT 27.7 SECONDS (9.7-12.2) H D 05/19/17 06:11 INR 2.4 D 05/19/17 06:11 APTT 31 SECONDS (21-34) D 05/19/17 06:11 - Constitutional Appears: Toxic, Chronically Ill - Head Exam Head Exam: ATRAUMATIC, NORMOCEPHALIC - Eye Exam Eye Exam: Normal appearance - ENT Exam ENT Exam: Mucous Membranes Moist - Neck Exam Neck Exam: Normal Inspection - Respiratory Exam Respiratory Exam: NORMAL BREATHING PATTERN - Cardiovascular Exam Cardiovascular Exam: REGULAR RHYTHM, RRR - GI/Abdominal Exam GI & Abdominal Exam: Soft - Extremities Exam Extremities Exam: Normal Inspection, Pedal Edema Assessment and Plan (1) Altered mental status Status: Acute (2) CKD (chronic kidney disease) stage 3, GFR 30-59 ml/min Status: Acute (3) Dyspnea Status: Acute (4) Elevated LFTs Status: Acute (5) Jaundice Status: Acute (6) Cystitis Status: Acute (7) Acidosis Status: Acute - Assessment and Plan (Free Text) Assessment: will add tygacil now and repeat lactic acid in am and also if no other etiology consider LP but he is afebrile and anticoagulated
[2017-05-23] MEDS ORDERED: Tigecycline 100 MG in Dextrose 5% In Water 100 ML IVPB ONE (23:30)
[2017-05-24] MEDS: (Novolog) Insulin Aspart, Recombinant 100 u/ml 10 ml vial SC SCH ×4 (06:23→17:56)
[2017-05-24] MEDS: Meropenem 500 MG in Sodium Chloride 0.9% 100 ML IVPB SCH ×2 (06:26→19:03)
[2017-05-24 09:16] LABS: BILIRUBIN,TOTAL 4.9 mg/dL (0.2-1.3); CALCIUM 9.9 mg/dl (8.6-10.4); PHOSPHOROUS 4.9 mg/dL (2.5-4.5); POTASSIUM 4.5 mmol/L (3.6-5.2); TOTAL PROTEIN 6.9 g/dL (6.3-8.3)
[2017-05-24 09:18] LABS: ALB/GLOB RATIO 0.9 (1.0-2.1)
[2017-05-24 09:21] LABS: HEMATOCRIT 47.7 % (35.0-51.0); LYMPH # 0.4 K/uL (1.0-4.3); LYMPH % 4.6 % (20.0-40.0); MEAN CELL VOLUME 86.3 fL (80.0-94.0); MEAN CORPUSCULAR HEMOGLOBIN 25.9 pg (27.0-31.0); MEAN PLATELET VOLUME 10.6 fL (7.2-11.7); MONO # 0.8 K/uL (0.0-0.8); MONO % 10.3 % (0.0-10.0); NRBC % 5.7 % (0.0-2.0); RED CELL DISTRIBUTION WIDTH 19.6 % (11.5-14.5); WHITE BLOOD COUNT 8.2 K/uL (4.8-10.8)
[2017-05-24 09:26] LABS: PLATELET COUNT 100 K/uL (130-400)
[2017-05-24 10:49] LABS: NEUTROPHIL 84 % (50-75); NUCLEATED RED BLOOD CELL 5 % (0-0); TOTAL CELLS COUNTED 100
[2017-05-24] MEDS: Sodium Chloride 0.9% 1,000 ML IV SCH ×2 (10:55→19:05)
--- NOTE | 2017-05-24 13:08 | CP.PCM.CON ---
History of Present Illness - History of Present Illness History of Present Illness: This is an 87 year old man with abnormal liver enzymes. Patient has a history of HTN, CHF, atrial fibrillation, ischemic cardiomyopathy , severe chronic systolic dysfunction and severe mitral regurgitation. He reperted feeling more short of breath for two days prior to admission, with cough, agitation, lethargy, decreased ora intake. He presented to the ER on . Patient was noted by paramedics to have hypotension, hypoglycemia, tachypnea, JVD and a rapid irregular pulse. Patient remains lethargic, and a full review of systems could not be obtained. Abnormal liver enzymes were first noted 12/20/2015: TBILI 1.8, AST 80, ALT 110, ALKP 131. Repeat values from 11/21/2016 showed TBILI 2.1, AST 44, ALT 41, ALKP 117. On admission, these were TBILI 4.7, AST 69, ALT 39, ALKP 151. The peak value of bilirubin was 6.2 on 05/19/2017. Todays's values are as follows: TBILI 4.9, AST 178, ALT 215, ALKP 137. Sonogram 05/18/2017 showed common duct .95 cm; repeat sonogram 05/22/2017 showed common duct 1.0 cm and dilated hepatic veins. Patient also had chronic kidney injury, with eGFR 25 going back to December,. The most recent BUN is 87, Cr 2.9, eGFR 21. Review of Systems - Review of Systems Systems not reviewed;Unavailable: Altered Mental Status Past Patient History - Past Medical History & Family History Past Medical History?: Yes - Past Social History Smoking Status: Never Smoked - CARDIAC Hx Congestive Heart Failure: Yes Hx Hypercholesterolemia: Yes Hx Hypertension: Yes - PULMONARY Hx Bronchitis: Yes Hx Pneumonia: Yes - NEUROLOGICAL Hx Neurological Disorder: No - HEENT Other/Comment: blurring ofVISION AND HARD OF HEARING AFTER taking heart medicine from [facility] [place] - RENAL Hx Chronic Kidney Disease: Yes - ENDOCRINE/METABOLIC Hx Endocrine Disorders: No - HEMATOLOGICAL/ONCOLOGICAL Hx Blood Disorders: No - INTEGUMENTARY Hx Dermatological Problems: No - MUSCULOSKELETAL/RHEUMATOLOGICAL Hx Falls: No - GASTROINTESTINAL Hx Gastrointestinal Disorders: No - GENITOURINARY/GYNECOLOGICAL Hx Genitourinary Disorders: No - PSYCHIATRIC Hx Substance Use: No - SURGICAL HISTORY Hx Cholecystectomy: Yes - ANESTHESIA Hx Anesthesia: Yes Hx Anesthesia Reactions: No Hx Malignant Hyperthermia: No Meds Allergies/Adverse Reactions: Allergies Allergy/AdvReac Type Severity Reaction Status Date / Time clopidogrel bisulfate Allergy RASH Verified 05/18/17 11:26 [From Plavix] nut - unspecified Allergy SHORTNESS Verified 05/21/17 14:57 OF BREATH oxycodone HCl [From Percocet] Allergy RASH Verified 05/18/17 11:26 kiwi, peaches Allergy RASH Uncoded 05/19/17 14:18 - Medications Medications: Current Medications Albuterol Sulfate (Albuterol 0.083% Inhal Judy (2.5 Mg/3 Ml) Ud) 2.5 mg INH RQ6 PRN PRN Reason: Wheezing Last Admin: 05/23/17 13:13 Dose: 2.5 mg Amiodarone HCl (Cordarone) 200 mg NG DAILY [facility] Last Admin: 05/24/17 10:21 Dose: 200 mg Aspirin (Aspirin Chewable) 81 mg PO DAILY [facility] Last Admin: 05/19/17 11:05 Dose: 81 mg Diltiazem HCl (Cardizem) 60 mg PO Q8H [facility] Last Admin: 05/24/17 06:26 Dose: 60 mg Aztreonam 1 gm/ Sodium (Chloride) 100 mls @ 200 mls/hr IVPB Q24H [facility] Last Admin: 05/23/17 19:51 Dose: 200 mls/hr Meropenem 500 mg/ Sodium (Chloride) 100 mls @ 100 mls/hr IVPB Q12H [facility] Last Admin: 05/24/17 06:26 Dose: 100 mls/hr Sodium Chloride (Sodium Chloride 0.9%) 1,000 mls @ 75 mls/hr IV .[id number] [facility] Last Admin: 05/24/17 10:55 Dose: Not Given Tigecycline 50 mg/ Sodium (Chloride) 100 mls @ 100 mls/hr IVPB Q12H [facility] Last Admin: 05/24/17 12:10 Dose: 100 mls/hr Insulin Aspart (Novolog) 0 unit SC Q6H [facility] PRN Reason: Protocol Last Admin: 05/24/17 12:14 Dose: Not Given Lorazepam (Ativan) 0.5 mg IVP Q4H PRN PRN Reason: Agitation Last Admin: 05/22/17 03:06 Dose: 0.5 mg Pantoprazole Sodium (Protonix Inj) 40 mg IVP DAILY [facility] Last Admin: 05/24/17 10:21 Dose: 40 mg Physical Exam - Constitutional Appears: Other Additional comments: Lethargic - Head Exam Head Exam: ATRAUMATIC, NORMOCEPHALIC - Neck Exam Neck exam: Negative for: Lymphadenopathy, Thyromegaly - Respiratory Exam Respiratory Exam: NORMAL BREATHING PATTERN. absent: Rales, Rhonchi, Wheezes - Cardiovascular Exam Cardiovascular Exam: +S1, +S2. absent: Gallop, Rubs, Systolic Murmur - GI/Abdominal Exam GI & Abdominal Exam: Distended, Normal Bowel Sounds, Soft. absent: Mass, Organomegaly, Tenderness - Rectal Exam Rectal Exam: Deferred - Extremities Exam Extremities exam: Negative for: calf tenderness, pedal edema Results - Vital Signs Recent Vital Signs: Last Vital Signs Temp 98 F 05/24/17 07:55 Pulse 108 H 05/24/17 07:55 Resp 22 05/24/17 07:55 BP 133/92 H 05/24/17 07:55 Pulse Ox 96 05/24/17 07:55 - Labs Result Diagrams: 05/24/17 08:50 05/24/17 08:50 Labs: Laboratory Results - last 24 hr 05/23/17 05/23/17 05/24/17 18:16 23:36 01:25 WBC RBC Hgb Hct MCV MCH MCHC RDW Plt Count MPV Neut % (Auto) Lymph % (Auto) [place] % (Auto) Eos % (Auto) Baso % (Auto) Neut # Lymph # [place] # Eos # Baso # Neutrophils % (Manual) Lymphocytes % (Manual) Monocytes % (Manual) Nucleated RBC % Platelet Estimate Polychromasia Poikilocytosis (manual Anisocytosis (manual) Microcytosis (manual) Macrocytosis (manual) Tear Drop Cells Ovalocytes APTT Cancelled Sodium Potassium Chloride Carbon Dioxide Anion Gap BUN Creatinine Est GFR ( Amer) Est GFR (Non-Af Amer) POC Glucose (mg/dL) 180 H 134 H Random Glucose Lactic Acid Calcium Phosphorus Magnesium Total Bilirubin AST ALT Alkaline Phosphatase Ammonia Total Protein Albumin Globulin Albumin/Globulin Ratio 05/24/17 05/24/17 05/24/17 05:53 08:50 08:50 WBC 8.2 RBC 5.53 Hgb 14.3 Hct 47.7 MCV 86.3 MCH 25.9 L MCHC 30.0 L RDW 19.6 H Plt Count 100 L D MPV 10.6 Neut % (Auto) 85.1 H Lymph % (Auto) 4.6 L [place] % (Auto) 10.3 H Eos % (Auto) 0.0 Baso % (Auto) 0.0 Neut # 7.0 Lymph # 0.4 L Dup[place] # 0.8 Eos # 0.0 Baso # 0.0 Neutrophils % (Manual) 84 H Lymphocytes % (Manual) 7 L Monocytes % (Manual) 9 Nucleated RBC % 5 H Platelet Estimate Decreased L Polychromasia Slight Poikilocytosis (manual Slight Anisocytosis (manual) Slight Microcytosis (manual) Slight Macrocytosis (manual) Slight Tear Drop Cells Slight Ovalocytes Slight APTT Sodium 146 Potassium 4.5 Chloride 112 H Carbon Dioxide 18 L Anion Gap 21 H BUN 87 H Creatinine 2.9 H Est GFR ( Amer) 25 Est GFR (Non-Af Amer) 21 POC Glucose (mg/dL) 147 H Random Glucose 140 H Lactic Acid Calcium 9.9 Phosphorus 4.9 H Magnesium 3.0 H Total Bilirubin 4.9 H AST 178 H D ALT 215 H Alkaline Phosphatase 137 H D Ammonia Total Protein 6.9 Albumin 3.3 L Globulin 3.5 Albumin/Globulin Ratio 0.9 L 05/24/17 05/24/17 08:50 08:52 WBC RBC Hgb Hct MCV MCH MCHC RDW Plt Count MPV Neut % (Auto) Lymph % (Auto) [place] % (Auto) Eos % (Auto) Baso % (Auto) Neut # Lymph # [place] # Eos # Baso # Neutrophils % (Manual) Lymphocytes % (Manual) Monocytes % (Manual) Nucleated RBC % Platelet Estimate Polychromasia Poikilocytosis (manual Anisocytosis (manual) Microcytosis (manual) Macrocytosis (manual) Tear Drop Cells Ovalocytes APTT Sodium Potassium Chloride Carbon Dioxide Anion Gap BUN Creatinine Est GFR ( Amer) Est GFR (Non-Af Amer) POC Glucose (mg/dL) Random Glucose Lactic Acid 4.0 H* Calcium Phosphorus Magnesium Total Bilirubin AST ALT Alkaline Phosphatase Ammonia 18 Total Protein Albumin Globulin Albumin/Globulin Ratio Assessment & Plan (1) Jaundice Assessment and Plan: Patient has had abnormal liver enzymes since 2016. The bilirubin is higher than before,with minor changes in the AST and ALT; the ALKP is unchanged. The sonogram showed dilated hepatic veins. These abnormalities may be due primarily to congestive heart failure with elevated right heart pressures and hepatic venous pressures. Other etiologies include CBD obstruction due to stone or tumor, sepsis, drug-induced hepatotoxicity. Recommend optimizing treatment of heart failure and withdrawing potentially hepatotoxic medications. Sonogram may be helpful in ruling out hepatic vein thrombosis, portal vein thrombosis. Status: Acute
--- NOTE | 2017-05-24 13:21 | CP.PCM.PN ---
Subjective - Date & Time of Evaluation Date of Evaluation: 05/24/17 Time of Evaluation: 13:00 - Subjective Subjective: patient is unchanged. no current dyspnea Objective - Vital Signs/Intake and Output Vital Signs (last 24 hours): Temp Pulse Resp BP Pulse Ox 98 F 108 H 22 133/92 H 96 05/24/17 07:55 05/24/17 07:55 05/24/17 07:55 05/24/17 07:55 05/24/17 07:55 - Medications Medications: Current Medications Albuterol Sulfate (Albuterol 0.083% Inhal Judy (2.5 Mg/3 Ml) Ud) 2.5 mg INH RQ6 PRN PRN Reason: Wheezing Last Admin: 05/23/17 13:13 Dose: 2.5 mg Amiodarone HCl (Cordarone) 200 mg NG DAILY [facility] Last Admin: 05/24/17 10:21 Dose: 200 mg Aspirin (Aspirin Chewable) 81 mg PO DAILY [facility] Last Admin: 05/19/17 11:05 Dose: 81 mg Diltiazem HCl (Cardizem) 60 mg PO Q8H [facility] Last Admin: 05/24/17 06:26 Dose: 60 mg Aztreonam 1 gm/ Sodium (Chloride) 100 mls @ 200 mls/hr IVPB Q24H [facility] Last Admin: 05/23/17 19:51 Dose: 200 mls/hr Meropenem 500 mg/ Sodium (Chloride) 100 mls @ 100 mls/hr IVPB Q12H [facility] Last Admin: 05/24/17 06:26 Dose: 100 mls/hr Sodium Chloride (Sodium Chloride 0.9%) 1,000 mls @ 75 mls/hr IV .[id number] [facility] Last Admin: 05/24/17 10:55 Dose: Not Given Tigecycline 50 mg/ Sodium (Chloride) 100 mls @ 100 mls/hr IVPB Q12H [facility] Last Admin: 05/24/17 12:10 Dose: 100 mls/hr Insulin Aspart (Novolog) 0 unit SC Q6H [facility] PRN Reason: Protocol Last Admin: 05/24/17 12:14 Dose: Not Given Lorazepam (Ativan) 0.5 mg IVP Q4H PRN PRN Reason: Agitation Last Admin: 05/22/17 03:06 Dose: 0.5 mg Pantoprazole Sodium (Protonix Inj) 40 mg IVP DAILY [facility] Last Admin: 05/24/17 10:21 Dose: 40 mg - Labs Labs: 05/24/17 08:50 05/24/17 08:50 PT 27.7 SECONDS (9.7-12.2) H D 05/19/17 06:11 INR 2.4 D 05/19/17 06:11 APTT 31 SECONDS (21-34) D 05/19/17 06:11 - Constitutional Appears: Chronically Ill - Eye Exam Eye Exam: Normal appearance - ENT Exam ENT Exam: Mucous Membranes Moist - Neck Exam Neck Exam: absent: Thyromegaly - Respiratory Exam Respiratory Exam: Decreased Breath Sounds - Cardiovascular Exam Cardiovascular Exam: Irregular Rhythm - GI/Abdominal Exam GI & Abdominal Exam: Normal Bowel Sounds - Rectal Exam Rectal Exam: Deferred - Extremities Exam Extremities Exam: Pedal Edema - Back Exam Back Exam: NORMAL INSPECTION - Skin Skin Exam: Normal Color Assessment and Plan (1) Dilated cardiomyopathy Assessment & Plan: euvolemic. continue present care Status: Acute (2) Chronic atrial fibrillation Assessment & Plan: rate is controlled. Status: Chronic
[2017-05-24] MEDS: Albuterol 0.083% Inhal Sol (2.5 mg/3 mL) UD INH PRN (16:05)
--- NOTE | 2017-05-24 16:35 | CP.PCM.PN ---
<Marine Doherty - Last Filed: 05/24/17 15:59> Subjective - Date & Time of Evaluation Date of Evaluation: 05/24/17 Time of Evaluation: 15:59 - Subjective Subjective: PGY2 progress note for hospitalists Pt is seen and examined at bedside. No acute events overnight. Patient is unchanged in mental status from pervious days. Patient responds to painful stimuli but does not respond ot verbal stimuli. 12 point ROS are unobtainable due to AMS. Objective - Vital Signs/Intake and Output Vital Signs (last 24 hours): Temp Pulse Resp BP Pulse Ox 98 F 108 H 22 133/92 H 96 05/24/17 07:55 05/24/17 07:55 05/24/17 07:55 05/24/17 07:55 05/24/17 07:55 - Medications Medications: Current Medications Albuterol Sulfate (Albuterol 0.083% Inhal Judy (2.5 Mg/3 Ml) Ud) 2.5 mg INH RQ6 PRN PRN Reason: Wheezing Last Admin: 05/23/17 13:13 Dose: 2.5 mg Amiodarone HCl (Cordarone) 200 mg NG DAILY [facility] Last Admin: 05/24/17 10:21 Dose: 200 mg Aspirin (Aspirin Chewable) 81 mg PO DAILY [facility] Last Admin: 05/19/17 11:05 Dose: 81 mg Diltiazem HCl (Cardizem) 60 mg PO Q8H [facility] Last Admin: 05/24/17 15:58 Dose: 60 mg Aztreonam 1 gm/ Sodium (Chloride) 100 mls @ 200 mls/hr IVPB Q24H [facility] Last Admin: 05/23/17 19:51 Dose: 200 mls/hr Meropenem 500 mg/ Sodium (Chloride) 100 mls @ 100 mls/hr IVPB Q12H [facility] Last Admin: 05/24/17 06:26 Dose: 100 mls/hr Sodium Chloride (Sodium Chloride 0.9%) 1,000 mls @ 75 mls/hr IV .[id number] [facility] Last Admin: 05/24/17 10:55 Dose: Not Given Tigecycline 50 mg/ Sodium (Chloride) 100 mls @ 100 mls/hr IVPB Q12H [facility] Last Admin: 05/24/17 12:10 Dose: 100 mls/hr Insulin Aspart (Novolog) 0 unit SC Q6H [facility] PRN Reason: Protocol Last Admin: 05/24/17 12:14 Dose: Not Given Lorazepam (Ativan) 0.5 mg IVP Q4H PRN PRN Reason: Agitation Last Admin: 05/22/17 03:06 Dose: 0.5 mg Pantoprazole Sodium (Protonix Inj) 40 mg IVP DAILY [facility] Last Admin: 05/24/17 10:21 Dose: 40 mg - Labs Labs: 05/24/17 08:50 05/24/17 08:50 PT 27.7 SECONDS (9.7-12.2) H D 05/19/17 06:11 INR 2.4 D 05/19/17 06:11 APTT 31 SECONDS (21-34) D 05/19/17 06:11 - Constitutional Appears: No Acute Distress - Head Exam Head Exam: ATRAUMATIC - ENT Exam ENT Exam: Mucous Membranes Moist - Respiratory Exam Respiratory Exam: absent: Accessory Muscle Use, Respiratory Distress - Cardiovascular Exam Cardiovascular Exam: Irregular Rhythm, +S1, +S2. absent: Bradycardia, Tachycardia - GI/Abdominal Exam GI & Abdominal Exam: Soft, Tenderness (diffusely ), Normal Bowel Sounds. absent : Rigid - Extremities Exam Extremities Exam: absent: Pedal Edema, Tenderness - Neurological Exam Neurological Exam: Alert, Awake, Oriented x3 - Psychiatric Exam Psychiatric exam: Normal Affect, Normal Mood - Skin Skin Exam: Dry, Intact, Normal Color, Warm Assessment and Plan - Assessment and Plan (Free Text) Assessment: Neuro: Altered mental status secondary to metabolic encephalopathy. - Head CT 05/22: Nonspecific white matter changes. - Head CT (05/18): No evidence of acute intracranial hemorrhage territorial infarct mass effect or midline shift. Moderate atrophy and moderate white matter changes likely due to microvascular ischemic disease. - Neuro Consult: Dr. Jimenez --> help appreciated Pulm: Initial hypoxia resolving, patient on high flow oxygen - Lung VQ scan: low probability of PE - Chest X-ray (05/19): No infiltrate. Cardiomegaly. Nasogastric tube in appropriate. - Chest X-ray (05/21): No significant interval change - Wheezing - Solu-Medrol given once - Albuterol RQ6 PRN CV: Patient has history of CHF with severely decreased Ef to 20%, HTN, Afib, ischemic cardiomyopathy, and severe chronic mitral regurgitation Blood pressure labile, ranging from normotensive to hypotensive. - Atrial fibrillation - Amiodarone started 05/19. - Cardizem started 05/22 - Continue Aspirin 81 mg po qd - Cardiology Consult: Dr. Saha --> help appreciated - CT of abdmomen & Pelvis (05/18): Massive cardiomegaly, small pericardial effusion and small bilateral pleural effusions. - Patient's family is not agreeable to having AICD placed Hem: No acute issues Thrombocytopenia likely due to severe sepsis. Will continue to monitor. Will check INR today. Will check a manual platelet count for tomorrow morning Renal: Chronic kidney disease, Will monitor urine output. - Nephrology Consult: Dr. Ortiz --> help appreciated - Continue D5NS at 75cc/hr - Cr trending back up Endo: History of DM Continue ISS GI: Transaminitis and jaundice present. Elevated LFTs likely due to poor perfusion for cardiac dysfunction. GI, Dr. Barroso is consulted. Recommendations for elevated LFTs is to optimize cardiac function for better perfusion. Sepsis may be 2/2 ischemic bowel or some other infection in abdomen. Unfortunately, due to poor kidney function, CT of abd with IV contrast is unable to be done. Abd doppler US is ordered, results are pending. CT with PO contrast 05-18 showed massive cardiomegaly; small pericardial effusion and small B/L pleural effusions, possible cystitis, enlarged prostate. Abd US from 05/22 showed echogenic liver, mild steatosis, hepatic cyst, simple right kidney cyst, small right pleural effusion, dilated hepatic vein suggests heart failure Continue Tube feeding ID: Repeat lacitc acid remains elevated at 4 today. Sepsis source 2/2 ischemic bowel vs. UTI Will continue: - Zosyn started on 05/18 - Vancomycin - Active 05/22 - Vanco Random x3 - blood culture 05/18 & 05/22: no growth - urine culture: no growth DVT proph - Contraindication due to decreased platelet count GI proph - 40mg Protonix daily [place] for strict I/O's during acute illness Pt is DNR/DNI Case discussed with attending, Dr. Lizarraga <David Lizarraga - Last Filed: 05/24/17 17:18> Objective - Vital Signs/Intake and Output Vital Signs (last 24 hours): Temp Pulse Resp BP Pulse Ox 97.9 F 99 H 20 127/98 H 97 05/24/17 16:00 05/24/17 16:00 05/24/17 16:00 05/24/17 16:00 05/24/17 16:00 Intake and Output: 05/24/17 05/24/17 06:59 18:59 Intake Total 625 Output Total 250 Balance 375 - Medications Medications: Current Medications Albuterol Sulfate (Albuterol 0.083% Inhal Judy (2.5 Mg/3 Ml) Ud) 2.5 mg INH RQ6 PRN PRN Reason: Wheezing Last Admin: 05/24/17 16:05 Dose: 2.5 mg Amiodarone HCl (Cordarone) 200 mg NG DAILY [facility] Last Admin: 05/24/17 10:21 Dose: 200 mg Aspirin (Aspirin Chewable) 81 mg PO DAILY [facility] Last Admin: 05/19/17 11:05 Dose: 81 mg Diltiazem HCl (Cardizem) 60 mg PO Q8H [facility] Last Admin: 05/24/17 15:58 Dose: 60 mg Aztreonam 1 gm/ Sodium (Chloride) 100 mls @ 200 mls/hr IVPB Q24H [facility] Last Admin: 05/23/17 19:51 Dose: 200 mls/hr Meropenem 500 mg/ Sodium (Chloride) 100 mls @ 100 mls/hr IVPB Q12H [facility] Last Admin: 05/24/17 06:26 Dose: 100 mls/hr Sodium Chloride (Sodium Chloride 0.9%) 1,000 mls @ 75 mls/hr IV .[id number] [facility] Last Admin: 05/24/17 10:55 Dose: Not Given Tigecycline 50 mg/ Sodium (Chloride) 100 mls @ 100 mls/hr IVPB Q12H [facility] Last Admin: 05/24/17 12:10 Dose: 100 mls/hr Insulin Aspart (Novolog) 0 unit SC Q6H [facility] PRN Reason: Protocol Last Admin: 05/24/17 12:14 Dose: Not Given Lorazepam (Ativan) 0.5 mg IVP Q4H PRN PRN Reason: Agitation Last Admin: 05/22/17 03:06 Dose: 0.5 mg Pantoprazole Sodium (Protonix Inj) 40 mg IVP DAILY [facility] Last Admin: 05/24/17 10:21 Dose: 40 mg - Labs Labs: 07/22/17 08:50 05/24/17 08:50 PT 27.7 SECONDS (9.7-12.2) H D 05/19/17 06:11 INR 2.4 D 05/19/17 06:11 APTT 31 SECONDS (21-34) D 05/19/17 06:11 Assessment and Plan (1) Acute renal failure (ARF) Status: Acute (2) Afib Status: Acute (3) Altered mental status Status: Acute (4) CKD (chronic kidney disease) stage 3, GFR 30-59 ml/min Status: Acute (5) Dilated cardiomyopathy Status: Acute (6) Dyspnea Status: Acute (7) Encephalopathy Status: Acute (8) Sepsis Status: Acute (9) Hyperlipidemia Status: Chronic (10) Edema Status: Acute (11) Hepatic failure Status: Acute Attending/Attestation - Attestation I have personally seen and examined this patient.: Yes I have fully participated in the care of the patient.: Yes I have reviewed all pertinent clinical information, including history, physical exam and plan: Yes Notes (Text): 05/24/17 17:17 Patient seen and examined at bedside. No improvement noted in the mental status Patient is lethargic and the we will be unable to feed the patient at this time.. Requested to swallowing evaluation for the patient We have requested supplemental nutrition for the patient. He is being started on LifeVest in We have also requested GI evaluation. Discussed with Dr. Sarah Hepatic failure likely secondary to congestive heart failure Cannot rule out the ischemic bowel. I discussed the plan of care with the bilingual medical receptionist and agree with assessment and plan documented with the exceptions noted..
--- NOTE | 2017-05-24 16:44 | US ---
HISTORY: Abdominal pain, elevated lactic acid COMPARISON: Measures approximately 15 cm in CC dimension. TECHNIQUE: Sonographic evaluation of the abdomen performed. Note that the examination is limited due to patient's inability to breath hold. FINDINGS: LIVER: Measures approximately 15 cm in CC dimension. Liver demonstrates smooth contour however increased echotexture likely due to fatty infiltration however other infiltrative hepatocellular disease process not excluded. Re- demonstrated is a cyst along the inferolateral margin right lobe liver seen to better advantage on prior CT scan. . No evidence of gross intrahepatic biliary ductal dilatation. GALLBLADDER: Again noted is cholecystectomy. No evidence of sonographic Bedolla sign. COMMON BILE DUCT: Measures approximately 4.6 mm. No stones. No dilatation. PANCREAS: Pancreas poorly seen due to body habitus and bowel gas. RIGHT KIDNEY: Measures approximately 10.0 x 3.9 x 4.9 cm. . Re- demonstrated is a cyst lower pole left kidney measuring approximately 4.0 x 3.5 x 3.9 cm also seen to better advantage on prior CT scan. LEFT KIDNEY: Measures 9.1 x 4.5 x 4.5cm. . Tiny - punctate calcifications lower pole left kidney not appreciated on this exam SPLEEN: Normal in size measuring approximately 9.6 cm. No splenic mass collection or calcification. AORTA: No aneurysmal dilatation. IVC: Unremarkable. OTHER FINDINGS: Right-sided pleural effusion. IMPRESSION: Limited study. . Probable fatty infiltration however other infiltrative hepatocellular disease process not excluded. Hepatic cyst seen to better advantage on prior CT scan. Status post cholecystectomy. Cyst lower pole right kidney. Tiny nonobstructing calculi lower pole left kidney not seen on this exam. . Right-sided pleural effusion.
[2017-05-24] MEDS: Aztreonam 1 GM in Sodium Chloride 0.9% 100 ML IVPB SCH (17:55)
[2017-05-25] MEDS: (Novolog) Insulin Aspart, Recombinant 100 u/ml 10 ml vial SC SCH ×4 (00:20→17:05)
[2017-05-25] MEDS: Sodium Chloride 0.9% 1,000 ML IV SCH ×2 (00:32→10:53)
[2017-05-25] MEDS: Meropenem 500 MG in Sodium Chloride 0.9% 100 ML IVPB SCH ×2 (05:25→17:04)
--- NOTE | 2017-05-25 10:07 | CP.PCM.PN ---
Subjective - Date & Time of Evaluation Date of Evaluation: 05/25/17 Time of Evaluation: 10:04 - Subjective Subjective: Patient remains lethargic. He does not respond to questions. Objective - Vital Signs/Intake and Output Vital Signs (last 24 hours): Temp Pulse Resp BP Pulse Ox 97.7 F 100 H 20 133/83 96 05/25/17 07:43 05/25/17 07:43 05/25/17 07:43 05/25/17 07:43 05/25/17 07:43 Intake and Output: 05/25/17 05/25/17 06:59 18:59 Intake Total 1250 Output Total 600 Balance 650 - Medications Medications: Current Medications Albuterol Sulfate (Albuterol 0.083% Inhal Judy (2.5 Mg/3 Ml) Ud) 2.5 mg INH RQ6 PRN PRN Reason: Wheezing Last Admin: 05/24/17 16:05 Dose: 2.5 mg Amiodarone HCl (Cordarone) 200 mg NG DAILY [facility] Last Admin: 05/24/17 10:21 Dose: 200 mg Aspirin (Aspirin Chewable) 81 mg PO DAILY [facility] Last Admin: 05/19/17 11:05 Dose: 81 mg Diltiazem HCl (Cardizem) 60 mg PO Q8H [facility] Last Admin: 05/25/17 06:40 Dose: 60 mg Aztreonam 1 gm/ Sodium (Chloride) 100 mls @ 200 mls/hr IVPB Q24H [facility] Last Admin: 05/24/17 17:55 Dose: 200 mls/hr Meropenem 500 mg/ Sodium (Chloride) 100 mls @ 100 mls/hr IVPB Q12H [facility] Last Admin: 05/25/17 05:25 Dose: 100 mls/hr Sodium Chloride (Sodium Chloride 0.9%) 1,000 mls @ 75 mls/hr IV .[id number] [facility] Last Admin: 05/25/17 00:32 Dose: Not Given Tigecycline 50 mg/ Sodium (Chloride) 100 mls @ 100 mls/hr IVPB Q12H [facility] Last Admin: 05/25/17 00:00 Dose: 100 mls/hr Insulin Aspart (Novolog) 0 unit SC Q6H [facility] PRN Reason: Protocol Last Admin: 05/25/17 05:49 Dose: Not Given Lorazepam (Ativan) 0.5 mg IVP Q4H PRN PRN Reason: Agitation Last Admin: 05/22/17 03:06 Dose: 0.5 mg Pantoprazole Sodium (Protonix Inj) 40 mg IVP DAILY [facility] Last Admin: 05/24/17 10:21 Dose: 40 mg - Labs Labs: 05/24/17 08:50 05/24/17 08:50 PT 27.7 SECONDS (9.7-12.2) H D 05/19/17 06:11 INR 2.4 D 05/19/17 06:11 APTT 31 SECONDS (21-34) D 05/19/17 06:11 - Constitutional Appears: No Acute Distress - Head Exam Head Exam: ATRAUMATIC, NORMOCEPHALIC - Neck Exam Neck Exam: absent: Lymphadenopathy, Thyromegaly - Respiratory Exam Respiratory Exam: NORMAL BREATHING PATTERN. absent: Rales, Rhonchi, Wheezes - Cardiovascular Exam Cardiovascular Exam: REGULAR RHYTHM, +S1, +S2. absent: Gallop, Rubs, Murmur - GI/Abdominal Exam GI & Abdominal Exam: Soft, Normal Bowel Sounds. absent: Tenderness, Mass, Organomegaly - Rectal Exam Rectal Exam: Deferred - Extremities Exam Extremities Exam: absent: Calf Tenderness, Pedal Edema Assessment and Plan (1) Jaundice Assessment & Plan: Blood work from this morning is still pending. Ultrasound from yesterday shows echogenic liver consiistent with fatty liver, right pleural effusion, and common duct 7.4 to 7.8 mm, slightly less than previous study. 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 Nevertheless, potentially hepatotoxic drugs such as amiodarone should be discontinued. The antibiotics have also been reported to cause hepatotoxicity in rare cases: tigecycline in 2-5%, others in less than 1% of cases. Status: Acute
[2017-05-25] MEDS ORDERED: Sodium Chloride 0.9% 1,000 ML IV SCH (11:11)
--- NOTE | 2017-05-25 12:43 | CP.PCM.PN ---
<Marine Doherty - Last Filed: 05/25/17 12:41> Subjective - Date & Time of Evaluation Date of Evaluation: 05/25/17 Time of Evaluation: 12:41 - Subjective Subjective: PGY2 progress note for Hospitalists Pt is seen and examined at bedside. No acute events overnight. Pt is still responsive to painful stimuli but does not respond to voice. Patient is still getting peripheral nutrition. 12 point ROS are negative except for the above mentioned. Objective - Vital Signs/Intake and Output Vital Signs (last 24 hours): Temp Pulse Resp BP Pulse Ox 97.7 F 100 H 20 133/83 96 05/25/17 07:43 05/25/17 07:43 05/25/17 07:43 05/25/17 07:43 05/25/17 07:43 Intake and Output: 05/25/17 05/25/17 06:59 18:59 Intake Total 1250 Output Total 600 Balance 650 - Medications Medications: Current Medications Albuterol Sulfate (Albuterol 0.083% Inhal Judy (2.5 Mg/3 Ml) Ud) 2.5 mg INH RQ6 PRN PRN Reason: Wheezing Last Admin: 05/24/17 16:05 Dose: 2.5 mg Amiodarone HCl (Cordarone) 200 mg NG DAILY [facility] Last Admin: 05/25/17 10:51 Dose: 200 mg Artificial Tears (Artificial Tears) 0 ml OU Q3H [facility] Aspirin (Aspirin Chewable) 81 mg PO DAILY [facility] Last Admin: 05/19/17 11:05 Dose: 81 mg Diltiazem HCl (Cardizem) 60 mg PO Q8H [facility] Last Admin: 05/25/17 06:40 Dose: 60 mg Aztreonam 1 gm/ Sodium (Chloride) 100 mls @ 200 mls/hr IVPB Q24H [facility] Last Admin: 05/24/17 17:55 Dose: 200 mls/hr Meropenem 500 mg/ Sodium (Chloride) 100 mls @ 100 mls/hr IVPB Q12H [facility] Last Admin: 05/25/17 05:25 Dose: 100 mls/hr Tigecycline 50 mg/ Sodium (Chloride) 100 mls @ 100 mls/hr IVPB Q12H [facility] Last Admin: 05/25/17 12:23 Dose: 100 mls/hr Sodium Chloride (Sodium Chloride 0.9%) 1,000 mls @ 50 mls/hr IV .Q20H [facility] Last Admin: 05/25/17 11:30 Dose: 50 mls/hr Insulin Aspart (Novolog) 0 unit SC Q6H [facility] PRN Reason: Protocol Last Admin: 05/25/17 12:24 Dose: 1 unit Lorazepam (Ativan) 0.5 mg IVP Q4H PRN PRN Reason: Agitation Last Admin: 05/22/17 03:06 Dose: 0.5 mg Pantoprazole Sodium (Protonix Inj) 40 mg IVP DAILY [facility] Last Admin: 05/25/17 10:51 Dose: 40 mg - Labs Labs: 05/24/17 08:50 05/24/17 08:50 PT 27.7 SECONDS (9.7-12.2) H D 05/19/17 06:11 INR 2.4 D 05/19/17 06:11 APTT 31 SECONDS (21-34) D 05/19/17 06:11 - Constitutional Appears: Non-toxic, No Acute Distress - Head Exam Head Exam: ATRAUMATIC - Eye Exam Eye Exam: absent: EOMI Pupil Exam: PERRL - Respiratory Exam Respiratory Exam: Clear to Ausculation Bilateral. absent: Rales, Rhonchi, Wheezes - Cardiovascular Exam Cardiovascular Exam: Irregular Rhythm, +S1, +S2. absent: Bradycardia, Tachycardia - GI/Abdominal Exam GI & Abdominal Exam: Soft, Tenderness (diffusely ), Normal Bowel Sounds. absent : Guarding, Rigid - Extremities Exam Extremities Exam: absent: Pedal Edema, Tenderness - Neurological Exam Neurological Exam: Alert, Awake, Oriented x3 - Psychiatric Exam Psychiatric exam: Normal Affect, Normal Mood - Skin Skin Exam: Dry, Intact, Normal Color, Warm Assessment and Plan - Assessment and Plan (Free Text) Assessment: Neuro: Altered mental status secondary to metabolic encephalopathy. - Head CT 05/22: Nonspecific white matter changes. - Head CT (05/18): No evidence of acute intracranial hemorrhage territorial infarct mass effect or midline shift. Moderate atrophy and moderate white matter changes likely due to microvascular ischemic disease. - Neuro Consult: Dr. Jimenez --> help appreciated Pulm: Initial hypoxia resolving, patient on nasal cannula - Lung VQ scan: low probability of PE - Chest X-ray (05/19): No infiltrate. Cardiomegaly. Nasogastric tube in appropriate. - Chest X-ray (05/21): No significant interval change - Albuterol RQ6 PRN CV: Patient has history of CHF with severely decreased Ef to 20%, HTN, Afib, ischemic cardiomyopathy, and severe chronic mitral regurgitation Blood pressure labile, ranging from normotensive to hypotensive. - Atrial fibrillation - Cardizem 60 mg po q8 [facility] - Continue Aspirin 81 mg po qd - Will consider adding metoprolol IVP if HR continues to remain elevated - Cardiology Consult: Dr. Saha --> help appreciated - CT of abdmomen & Pelvis (05/18): Massive cardiomegaly, small pericardial effusion and small bilateral pleural effusions. - Patient's family is not agreeable to having AICD placed - Patient to be transferred to tele floor today for cardiac monitoring Hem: Thrombocytopenia likely due to severe sepsis. Will continue to monitor. Will check INR and manual platelet count Renal: Chronic kidney disease, Will monitor urine output. - Nephrology Consult: Dr. Ortiz --> help appreciated - Continue D5NS at 75cc/hr - Cr trending back up Endo: History of DM Continue ISS GI: Transaminitis and jaundice present. Elevated LFTs likely due to poor perfusion for cardiac dysfunction. GI, Dr. Barroso is consulted. Recommendations for elevated LFTs is to optimize cardiac function for better perfusion. Sepsis may be 2/2 ischemic bowel or some other infection in abdomen. Unfortunately, due to poor kidney function, CT of abd with IV contrast is unable to be done. CT with PO contrast 05-18 showed massive cardiomegaly; small pericardial effusion and small B/L pleural effusions, possible cystitis, enlarged prostate. Abd US from 05/22 showed echogenic liver, mild steatosis, hepatic cyst, simple right kidney cyst, small right pleural effusion, dilated hepatic vein suggests heart failure Abd duplex US 05/24 showed fatty infiltration or other infiltrative hepatocellular process not excluded. See full report Currently on peripheral feeding with Liposen ID: Elevated lactic acid. Sepsis source 2/2 ischemic bowel vs. UTI Currently on Aztreonam, tigecycline, and meropenem - blood culture 05/18 & 05/22: no growth - urine culture: no growth DVT proph - Contraindication due to decreased platelet count GI proph - 40mg Protonix daily whitehead for strict I/O's during acute illness SCDs Pt is DNR/DNI Case discussed with attending, Dr. Lizarraga <David Lizarraga - Last Filed: 05/25/17 17:18> Objective - Vital Signs/Intake and Output Vital Signs (last 24 hours): Temp Pulse Resp BP Pulse Ox 98.3 F 117 H 30 H 157/68 H 97 05/25/17 15:30 05/25/17 15:42 05/25/17 15:30 05/25/17 17:03 05/25/17 15:30 Intake and Output: 05/25/17 05/25/17 06:59 18:59 Intake Total 1250 400 Output Total 600 400 Balance 650 0 - Medications Medications: Current Medications Albuterol Sulfate (Albuterol 0.083% Inhal Judy (2.5 Mg/3 Ml) Ud) 2.5 mg INH RQ6 PRN PRN Reason: Wheezing Last Admin: 05/24/17 16:05 Dose: 2.5 mg Amiodarone HCl (Cordarone) 200 mg NG DAILY [facility] Last Admin: 05/25/17 10:51 Dose: 200 mg Artificial Tears (Artificial Tears) 0 ml OU Q3H [facility] Last Admin: 05/25/17 13:00 Dose: Not Given Aspirin (Aspirin Chewable) 81 mg PO DAILY [facility] Last Admin: 05/19/17 11:05 Dose: 81 mg Furosemide (Lasix) 20 mg IVP BID [facility] Last Admin: 05/25/17 17:03 Dose: 20 mg Aztreonam 1 gm/ Sodium (Chloride) 100 mls @ 200 mls/hr IVPB Q24H [facility] Last Admin: 05/24/17 17:55 Dose: 200 mls/hr Meropenem 500 mg/ Sodium (Chloride) 100 mls @ 100 mls/hr IVPB Q12H [facility] Last Admin: 05/25/17 17:04 Dose: 100 mls/hr Tigecycline 50 mg/ Sodium (Chloride) 100 mls @ 100 mls/hr IVPB Q12H [facility] Last Admin: 05/25/17 12:23 Dose: 100 mls/hr Sodium Chloride (Sodium Chloride 0.9%) 1,000 mls @ 50 mls/hr IV .Q20H [facility] Last Admin: 05/25/17 11:30 Dose: 50 mls/hr Insulin Aspart (Novolog) 0 unit SC Q6H [facility] PRN Reason: Protocol Last Admin: 05/25/17 17:05 Dose: Not Given Lorazepam (Ativan) 0.5 mg IVP Q4H PRN PRN Reason: Agitation Last Admin: 05/22/17 03:06 Dose: 0.5 mg Pantoprazole Sodium (Protonix Inj) 40 mg IVP DAILY [facility] Last Admin: 05/25/17 10:51 Dose: 40 mg - Labs Labs: 05/24/17 08:50 05/24/17 08:50 PT 27.7 SECONDS (9.7-12.2) H D 05/19/17 06:11 INR 2.4 D 05/19/17 06:11 APTT 31 SECONDS (21-34) D 05/19/17 06:11 Assessment and Plan (1) Acute renal failure (ARF) Assessment & Plan: Patient is on IV fluids. However renal function is worsening. 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 Possibly secondary to CHF versus hepatorenal syndrome. We will start the patient on diuresis. May stop the fluid once nutrition is started. Status: Acute (2) Afib Assessment & Plan: Patient was in rapid A. fib. Was started on amiodarone and Cardizem oral. Currently amiodarone has been placed on hold because of hepatic failure as per recommendations of for GI. We may need to start patient on Cardizem drip if patient develops rapid atrial fibrillation. Status: Acute (3) Altered mental status Assessment & Plan: Multi-factorial metabolic encephalopathy. Patient has hepatic failure, renal failure, congestive heart failure, sepsis. Patient has been placed nothing by mouth and we will request a swallowing evaluation in the morning. No speech language pathologist is available over the weekend. Status: Acute (4) CKD (chronic kidney disease) stage 3, GFR 30-59 ml/min Assessment & Plan: Patient has baseline chronic kidney disease. Has developed acute kidney on top of that. Management as per nephrology. Status: Acute (5) Dilated cardiomyopathy Assessment & Plan: Patient has dilated cardiomyopathy with ejection fraction of around 20%. Management as per cardiology. Status: Acute (6) Dyspnea Assessment & Plan: Status post respiratory failure. Patient now extubated and on oxygen by nasal cannula. Respiratory status to be monitored closely. Status: Acute (7) Encephalopathy Assessment & Plan: As discussed above multifactorial. Status: Acute (8) Sepsis Assessment & Plan: We will continue antibiotics as per recommendations of ID. Cultures have been negative so far. Status: Acute (9) Hyperlipidemia Assessment & Plan: Not a candidate for statin therapy at this time because of hepatic failure. Status: Chronic (10) Edema Assessment & Plan: Multifactorial with hepatic/renal/congestive heart failure. Started on Lasix today. Status: Acute (11) Hepatic failure Assessment & Plan: Possibly secondary to congestive heart failure. 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 Discussed with GI. Status: Acute - Assessment and Plan (Free Text) Plan: Discussed with the family at bedside. Explained the prognosis and answered all questions. Prognosis is guarded.
[2017-05-25] MEDS: Aritificial Tears (15ml) OU SCH ×4 (13:00→22:35)
[2017-05-25] MEDS: Aztreonam 1 GM in Sodium Chloride 0.9% 100 ML IVPB SCH (17:44)
[2017-05-25 18:22] LABS: ALB/GLOB RATIO 0.8 (1.0-2.1); BILIRUBIN,TOTAL 5.9 mg/dL (0.2-1.3); POTASSIUM 5.1 mmol/L (3.6-5.2); TOTAL PROTEIN 6.5 g/dL (6.3-8.3)
[2017-05-25 18:23] LABS: CALCIUM 9.5 mg/dl (8.6-10.4); PHOSPHOROUS 5.4 mg/dL (2.5-4.5)
[2017-05-25 18:38] LABS: BASO % 0.1 % (0.0-2.0); EOS % 0.1 % (0.0-4.0); HEMATOCRIT 47.6 % (35.0-51.0); LYMPH # 0.3 K/uL (1.0-4.3); LYMPH % 3.3 % (20.0-40.0); MEAN CORPUSCULAR HEMOGLOBIN 26.3 pg (27.0-31.0); MEAN CORPUSCULAR HGB CONC 30.6 g/dL (33.0-37.0); MEAN PLATELET VOLUME 9.6 fL (7.2-11.7); MONO # 0.8 K/uL (0.0-0.8); NRBC % 9.2 % (0.0-2.0); RED CELL DISTRIBUTION WIDTH 20.2 % (11.5-14.5); WHITE BLOOD COUNT 8.7 K/uL (4.8-10.8)
[2017-05-25 18:39] LABS: PLATELET COUNT 103 K/uL (130-400)
[2017-05-25 18:54] LABS: INR 3.1
[2017-05-25] MEDS ORDERED: Sodium Chloride 0.45% 1,000 ML IV SCH (19:00)
[2017-05-25 19:09] LABS: NEUTROPHIL 93 % (50-75); NUCLEATED RED BLOOD CELL 6 % (0-0); TOTAL CELLS COUNTED 100
[2017-05-25 19:11] LABS: LARGE PLATELETS PRESENT
[2017-05-26] MEDS: (Novolog) Insulin Aspart, Recombinant 100 u/ml 10 ml vial SC SCH ×4 (00:25→18:11)
[2017-05-26] MEDS: Aritificial Tears (15ml) OU SCH ×8 (01:18→22:53)
[2017-05-26] MEDS: Meropenem 500 MG in Sodium Chloride 0.9% 100 ML IVPB SCH ×2 (05:52→18:05)
--- NOTE | 2017-05-26 08:12 | CP.PCM.PN ---
Subjective - Date & Time of Evaluation Date of Evaluation: 05/26/17 Time of Evaluation: 08:00 - Subjective Subjective: no new clinical change. Objective - Vital Signs/Intake and Output Vital Signs (last 24 hours): Temp Pulse Resp BP Pulse Ox 98.4 F 107 H 20 124/71 97 05/25/17 23:50 05/26/17 01:39 05/25/17 23:50 05/25/17 23:50 05/25/17 23:50 Intake and Output: 05/26/17 05/26/17 06:59 18:59 Intake Total 990 Output Total 1600 Balance -610 - Medications Medications: Current Medications Albuterol Sulfate (Albuterol 0.083% Inhal Judy (2.5 Mg/3 Ml) Ud) 2.5 mg INH RQ6 PRN PRN Reason: Wheezing Last Admin: 05/24/17 16:05 Dose: 2.5 mg Amiodarone HCl (Cordarone) 200 mg NG DAILY [facility] Last Admin: 05/25/17 10:51 Dose: 200 mg Artificial Tears (Artificial Tears) 0 ml OU Q3H [facility] Last Admin: 05/26/17 05:54 Dose: 1 drop Aspirin (Aspirin Chewable) 81 mg PO DAILY [facility] Last Admin: 05/19/17 11:05 Dose: 81 mg Furosemide (Lasix) 20 mg IVP BID [facility] Last Admin: 05/25/17 17:03 Dose: 20 mg Aztreonam 1 gm/ Sodium (Chloride) 100 mls @ 200 mls/hr IVPB Q24H [facility] Last Admin: 05/25/17 17:44 Dose: 200 mls/hr Meropenem 500 mg/ Sodium (Chloride) 100 mls @ 100 mls/hr IVPB Q12H [facility] Last Admin: 05/26/17 05:52 Dose: 100 mls/hr Tigecycline 50 mg/ Sodium (Chloride) 100 mls @ 100 mls/hr IVPB Q12H [facility] Last Admin: 05/25/17 22:35 Dose: 100 mls/hr Sodium Chloride (Sodium Chloride 0.45%) 1,000 mls @ 50 mls/hr IV .Q20H [facility] Last Admin: 05/25/17 19:34 Dose: 50 mls/hr Diltiazem HCl 125 mg/ Sodium (Chloride) 125 mls @ 5 mls/hr IV .Q24H [facility]; 5 MG/ HR PRN Reason: Protocol Last Admin: 05/25/17 19:42 Dose: 5 mg/hr, 5 mls/hr Insulin Aspart (Novolog) 0 unit SC Q6H [facility] PRN Reason: Protocol Last Admin: 05/26/17 06:57 Dose: Not Given Lorazepam (Ativan) 0.5 mg IVP Q4H PRN PRN Reason: Agitation Last Admin: 05/22/17 03:06 Dose: 0.5 mg Pantoprazole Sodium (Protonix Inj) 40 mg IVP DAILY [facility] Last Admin: 05/25/17 10:51 Dose: 40 mg - Labs Labs: 05/25/17 17:36 05/25/17 17:36 PT 36.2 SECONDS (9.7-12.2) H* 05/25/17 17:36 INR 3.1 05/25/17 17:36 APTT 40 SECONDS (21-34) H 05/25/17 17:36 - Constitutional Appears: Chronically Ill - Head Exam Head Exam: NORMAL INSPECTION - Eye Exam Eye Exam: Normal appearance - ENT Exam ENT Exam: Mucous Membranes Moist - Neck Exam Neck Exam: absent: Thyromegaly - Respiratory Exam Respiratory Exam: Decreased Breath Sounds - Cardiovascular Exam Cardiovascular Exam: Irregular Rhythm - GI/Abdominal Exam GI & Abdominal Exam: Normal Bowel Sounds - Rectal Exam Rectal Exam: Deferred - Extremities Exam Extremities Exam: absent: Pedal Edema - Neurological Exam Additional comments: somnolent - Skin Skin Exam: Normal Color Assessment and Plan (1) Dilated cardiomyopathy Assessment & Plan: stable volume status. continue current medication. patient and family have repeatedly refused AICD Status: Acute (2) Chronic atrial fibrillation Assessment & Plan: rate controlled. not on anticoagulation Status: Chronic
--- NOTE | 2017-05-26 10:28 | CP.PCM.PN ---
Subjective - Date & Time of Evaluation Date of Evaluation: 05/26/17 Time of Evaluation: 10:25 - Subjective Subjective: Mental status is unchanged. He remains lethargic, unable to respond to verbal stimuli. Objective - Vital Signs/Intake and Output Vital Signs (last 24 hours): Temp Pulse Resp BP Pulse Ox 98.0 F 98 H 20 132/76 98 05/26/17 07:45 05/26/17 07:45 05/25/17 23:50 05/26/17 07:45 05/26/17 07:45 Intake and Output: 05/26/17 05/26/17 06:59 18:59 Intake Total 990 Output Total 1600 Balance -610 - Medications Medications: Current Medications Albuterol Sulfate (Albuterol 0.083% Inhal Judy (2.5 Mg/3 Ml) Ud) 2.5 mg INH RQ6 PRN PRN Reason: Wheezing Last Admin: 05/24/17 16:05 Dose: 2.5 mg Amiodarone HCl (Cordarone) 200 mg NG DAILY [facility] Last Admin: 05/25/17 10:51 Dose: 200 mg Artificial Tears (Artificial Tears) 0 ml OU Q3H [facility] Last Admin: 05/26/17 08:34 Dose: 1 drop Aspirin (Aspirin Chewable) 81 mg PO DAILY [facility] Last Admin: 05/19/17 11:05 Dose: 81 mg Furosemide (Lasix) 20 mg IVP BID [facility] Last Admin: 05/25/17 17:03 Dose: 20 mg Aztreonam 1 gm/ Sodium (Chloride) 100 mls @ 200 mls/hr IVPB Q24H [facility] Last Admin: 05/25/17 17:44 Dose: 200 mls/hr Meropenem 500 mg/ Sodium (Chloride) 100 mls @ 100 mls/hr IVPB Q12H [facility] Last Admin: 05/26/17 05:52 Dose: 100 mls/hr Tigecycline 50 mg/ Sodium (Chloride) 100 mls @ 100 mls/hr IVPB Q12H [facility] Last Admin: 05/25/17 22:35 Dose: 100 mls/hr Sodium Chloride (Sodium Chloride 0.45%) 1,000 mls @ 50 mls/hr IV .Q20H [facility] Last Admin: 05/25/17 19:34 Dose: 50 mls/hr Diltiazem HCl 125 mg/ Sodium (Chloride) 125 mls @ 5 mls/hr IV .Q24H [facility]; 5 MG/ HR PRN Reason: Protocol Last Admin: 05/25/17 19:42 Dose: 5 mg/hr, 5 mls/hr Insulin Aspart (Novolog) 0 unit SC Q6H [facility] PRN Reason: Protocol Last Admin: 05/26/17 06:57 Dose: Not Given Lorazepam (Ativan) 0.5 mg IVP Q4H PRN PRN Reason: Agitation Last Admin: 05/22/17 03:06 Dose: 0.5 mg Pantoprazole Sodium (Protonix Inj) 40 mg IVP DAILY [facility] Last Admin: 05/26/17 09:42 Dose: 40 mg - Labs Labs: 05/25/17 17:36 05/25/17 17:36 PT 36.2 SECONDS (9.7-12.2) H* 05/25/17 17:36 INR 3.1 05/25/17 17:36 APTT 40 SECONDS (21-34) H 05/25/17 17:36 - Head Exam Head Exam: ATRAUMATIC, NORMOCEPHALIC - Eye Exam Eye Exam: EOMI, PERRL, Scleral icterus - Neck Exam Neck Exam: absent: Lymphadenopathy, Thyromegaly - Respiratory Exam Respiratory Exam: NORMAL BREATHING PATTERN. absent: Rales, Rhonchi, Wheezes - Cardiovascular Exam Cardiovascular Exam: +S1, +S2. absent: Gallop, Rubs, Murmur - GI/Abdominal Exam GI & Abdominal Exam: Distended, Soft, Normal Bowel Sounds. absent: Tenderness, Organomegaly - Rectal Exam Rectal Exam: Deferred - Extremities Exam Additional comments: Edema of both upper extremities, R > L Assessment and Plan (1) Jaundice Assessment & Plan: Again, the lab work from today is not yet available in the morning. From yesterday, the bilirubin has increased slightly to 5.9 from 4.9, but the transaminases and alkaline phosphatase have improved: AST now 132 (was 178); ALT 167 (215); ALKP 121 (137). The result of the direct bilirubin, requested , has not yet returned to the chart. Since the renal function has declined to BUN 104, Cr 2.9, GFR 21 (from 45/1.9 and GFR 34 on admission), it is likely that the direct bilirubin is increasing due to decreased clearance by the kidneys. Again, the plan is to optimize the treatment of heart failure. Status: Acute
[2017-05-26 11:40] LABS: RBC URINE 25 /hpf (0-3); URINE BACTERIA OCC (<OCC); URINE BILIRUBIN NEGATIVE (NEGATIVE); URINE BLOOD 3+ (NEGATIVE); URINE COLOR Yellow (YELLOW); URINE GLUCOSE (UA) NORMAL (Normal); URINE KETONE NEGATIVE (NEGATIVE); URINE LEUKOCYTE ESTERASE 3+ Leu/uL (Negative); URINE PROTEIN NEGATIVE (NEGATIVE); URINE UROBILINOGEN NORMAL mg/dL (0.2-1.0); WBC URINE 246 /hpf (0-5)
[2017-05-26 12:01] LABS: POTASSIUM 4.4 mmol/L (3.6-5.2)
[2017-05-26 12:04] LABS: PHOSPHOROUS 4.7 mg/dL (2.5-4.5); TOTAL PROTEIN 5.9 g/dL (6.3-8.3)
[2017-05-26 12:05] LABS: MAGNESIUM 2.7 mg/dL (1.6-2.3)
[2017-05-26 12:12] LABS: ALB/GLOB RATIO 0.8 (1.0-2.1)
[2017-05-26 12:14] LABS: BASO % 0.3 % (0.0-2.0); EOS % 0.6 % (0.0-4.0); HEMATOCRIT 45.6 % (35.0-51.0); LYMPH # 0.4 K/uL (1.0-4.3); LYMPH % 4.2 % (20.0-40.0); MEAN CELL VOLUME 85.6 fL (80.0-94.0); MEAN CORPUSCULAR HEMOGLOBIN 26.7 pg (27.0-31.0); MEAN CORPUSCULAR HGB CONC 31.1 g/dL (33.0-37.0); MONO # 0.9 K/uL (0.0-0.8); MONO % 9.6 % (0.0-10.0); NRBC % 5.3 % (0.0-2.0); RED CELL DISTRIBUTION WIDTH 19.9 % (11.5-14.5); WHITE BLOOD COUNT 8.9 K/uL (4.8-10.8)
[2017-05-26 12:19] LABS: CREATININE, RANDOM URINE 46.8 mg/dL
[2017-05-26 12:25] LABS: PLATELET COUNT 79 K/uL (130-400)
[2017-05-26 12:56] LABS: EOSINOPHIL 1 % (0-4); NEUTROPHIL 83 % (50-75); NUCLEATED RED BLOOD CELL 4 % (0-0); TOTAL CELLS COUNTED 100
[2017-05-26] MEDS: Aztreonam 1 GM in Sodium Chloride 0.9% 100 ML IVPB SCH (16:36)
--- NOTE | 2017-05-26 18:51 | CP.PCM.PN ---
Subjective - Date & Time of Evaluation Date of Evaluation: 05/26/17 Time of Evaluation: 11:00 - Subjective Subjective: Patient still unable to answer any questions; Objective - Vital Signs/Intake and Output Vital Signs (last 24 hours): Temp Pulse Resp BP Pulse Ox 97.4 F L 89 20 125/82 96 05/26/17 15:54 05/26/17 15:54 05/26/17 15:54 05/26/17 18:13 05/26/17 15:54 Intake and Output: 05/26/17 05/26/17 06:59 18:59 Intake Total 990 400 Output Total 1600 1200 Balance -610 -800 - Medications Medications: Current Medications Albuterol Sulfate (Albuterol 0.083% Inhal Judy (2.5 Mg/3 Ml) Ud) 2.5 mg INH RQ6 PRN PRN Reason: Wheezing Last Admin: 05/24/17 16:05 Dose: 2.5 mg Amiodarone HCl (Cordarone) 200 mg NG DAILY [facility] Last Admin: 05/25/17 10:51 Dose: 200 mg Artificial Tears (Artificial Tears) 0 ml OU Q3H [facility] Last Admin: 05/26/17 18:01 Dose: 1 drop Aspirin (Aspirin Chewable) 81 mg PO DAILY [facility] Last Admin: 05/19/17 11:05 Dose: 81 mg Furosemide (Lasix) 40 mg IVP Q8H [facility] Last Admin: 05/26/17 18:13 Dose: 40 mg Aztreonam 1 gm/ Sodium (Chloride) 100 mls @ 200 mls/hr IVPB Q24H [facility] Last Admin: 05/26/17 16:36 Dose: 200 mls/hr Meropenem 500 mg/ Sodium (Chloride) 100 mls @ 100 mls/hr IVPB Q12H [facility] Last Admin: 05/26/17 18:05 Dose: 100 mls/hr Tigecycline 50 mg/ Sodium (Chloride) 100 mls @ 100 mls/hr IVPB Q12H [facility] Last Admin: 05/26/17 10:36 Dose: 100 mls/hr Sodium Chloride (Sodium Chloride 0.45%) 1,000 mls @ 50 mls/hr IV .Q20H [facility] Last Admin: 05/25/17 19:34 Dose: 50 mls/hr Dextrose (Dextrose 5% In Water 1000 Ml) 1,000 mls @ 100 mls/hr IV .Q10H [facility] Last Admin: 05/26/17 11:07 Dose: 100 mls/hr Diltiazem HCl 125 mg/ Sodium (Chloride) 125 mls @ 5 mls/hr IV .Q24H [facility]; 5 MG/ HR PRN Reason: Protocol Last Admin: 05/26/17 18:00 Dose: 5 mg/hr, 5 mls/hr Insulin Aspart (Novolog) 0 unit SC Q6H [facility] PRN Reason: Protocol Last Admin: 05/26/17 18:11 Dose: 1 unit Lorazepam (Ativan) 0.5 mg IVP Q4H PRN PRN Reason: Agitation Last Admin: 05/22/17 03:06 Dose: 0.5 mg Pantoprazole Sodium (Protonix Inj) 40 mg IVP DAILY [facility] Last Admin: 05/26/17 09:42 Dose: 40 mg - Labs Labs: 05/26/17 11:31 05/26/17 11:31 PT 36.2 SECONDS (9.7-12.2) H* 05/25/17 17:36 INR 3.1 05/25/17 17:36 APTT 40 SECONDS (21-34) H 05/25/17 17:36 - Constitutional Appears: Non-toxic, Agitated - Head Exam Head Exam: NORMOCEPHALIC - Eye Exam Eye Exam: Scleral icterus - ENT Exam ENT Exam: Mucous Membranes Moist - Respiratory Exam Respiratory Exam: Clear to Ausculation Bilateral, NORMAL BREATHING PATTERN. absent: Rales, Rhonchi, Wheezes, Respiratory Distress - Cardiovascular Exam Additional comments: systolic murmur present; - GI/Abdominal Exam GI & Abdominal Exam: Distended, Soft - Exam Additional comments: whitehead in place; - Extremities Exam Additional comments: moderately edematous ext; - Neurological Exam Additional comments: Not following commands; - Skin Skin Exam: Normal Color, Warm. absent: Cyanosis Assessment and Plan (1) CHF (congestive heart failure) Assessment & Plan: Severe systolic failure, volume status unclear but overall has not improved with IVF and so now trying aggressive diuresis; -lasix 40 mg IV q8h Status: Chronic (2) Acute renal failure (ARF) Assessment & Plan: LULA on CKD; appears to be cardiorenal etiology; did at one point show some improvement with IVF but serum creat still increased; now trying diuresis as mentioned above to decrease venous congestion and hoping to improve renal function; Status: Acute (3) Hypertensive CKD (chronic kidney disease) Assessment & Plan: Normotensive; monitor for relative hypotension with diuresis, may need to decrease dose/frequency; Status: Chronic (4) Altered mental status Assessment & Plan: Appears secondary to acute illness; cannot take PO meds/water, NG tube out, should replace; Status: Acute (5) SIRS (systemic inflammatory response syndrome) Assessment & Plan: Possible sepsis despite lack of positive cultures;lactic acid has improved; on tygecil (no renal dose adjustment needed) and meropenem (agree with q12h dosing for renal insufficiency); Status: Acute (6) Hyperbilirubinemia Assessment & Plan: Etiology unclear; if due to congestive hepatopathy, should see some improvement with diuresis; f/u with GI; Status: Acute
--- NOTE | 2017-05-26 20:56 | CP.PCM.PN ---
Subjective - Date & Time of Evaluation Date of Evaluation: 05/26/17 Time of Evaluation: 04:00 - Subjective Subjective: Patient remains lethargic,eyes closed ,no change in mental status,son refused for LP per Dr Norman patient not having fever but not being fed needs NG tube again Objective - Vital Signs/Intake and Output Vital Signs (last 24 hours): Temp Pulse Resp BP Pulse Ox 97.4 F L 89 20 125/82 96 05/26/17 15:54 05/26/17 15:54 05/26/17 15:54 05/26/17 18:13 05/26/17 15:54 Intake and Output: 05/26/17 05/27/17 18:59 06:59 Intake Total 400 Output Total 1200 Balance -800 - Medications Medications: Current Medications Albuterol Sulfate (Albuterol 0.083% Inhal Judy (2.5 Mg/3 Ml) Ud) 2.5 mg INH RQ6 PRN PRN Reason: Wheezing Last Admin: 05/24/17 16:05 Dose: 2.5 mg Amiodarone HCl (Cordarone) 200 mg NG DAILY [facility] Last Admin: 05/25/17 10:51 Dose: 200 mg Artificial Tears (Artificial Tears) 0 ml OU Q3H [facility] Last Admin: 05/26/17 18:01 Dose: 1 drop Aspirin (Aspirin Chewable) 81 mg PO DAILY [facility] Last Admin: 05/19/17 11:05 Dose: 81 mg Furosemide (Lasix) 40 mg IVP Q8H [facility] Last Admin: 05/26/17 18:13 Dose: 40 mg Aztreonam 1 gm/ Sodium (Chloride) 100 mls @ 200 mls/hr IVPB Q24H [facility] Last Admin: 05/26/17 16:36 Dose: 200 mls/hr Meropenem 500 mg/ Sodium (Chloride) 100 mls @ 100 mls/hr IVPB Q12H [facility] Last Admin: 05/26/17 18:05 Dose: 100 mls/hr Tigecycline 50 mg/ Sodium (Chloride) 100 mls @ 100 mls/hr IVPB Q12H [facility] Last Admin: 05/26/17 10:36 Dose: 100 mls/hr Sodium Chloride (Sodium Chloride 0.45%) 1,000 mls @ 50 mls/hr IV .Q20H [facility] Last Admin: 05/25/17 19:34 Dose: 50 mls/hr Diltiazem HCl 125 mg/ Sodium (Chloride) 125 mls @ 5 mls/hr IV .Q24H [facility]; 5 MG/ HR PRN Reason: Protocol Last Admin: 05/26/17 18:00 Dose: 5 mg/hr, 5 mls/hr Dextrose (Dextrose 5% In Water 1000 Ml) 1,000 mls @ 125 mls/hr IV .Q8H [facility] Last Admin: 05/26/17 20:30 Dose: 125 mls/hr Insulin Aspart (Novolog) 0 unit SC Q6H [facility] PRN Reason: Protocol Last Admin: 05/26/17 18:11 Dose: 1 unit Lorazepam (Ativan) 0.5 mg IVP Q4H PRN PRN Reason: Agitation Last Admin: 05/22/17 03:06 Dose: 0.5 mg Pantoprazole Sodium (Protonix Inj) 40 mg IVP DAILY [facility] Last Admin: 05/26/17 09:42 Dose: 40 mg - Labs Labs: 05/26/17 11:31 05/26/17 11:31 PT 36.2 SECONDS (9.7-12.2) H* 05/25/17 17:36 INR 3.1 05/25/17 17:36 APTT 40 SECONDS (21-34) H 05/25/17 17:36 - Constitutional Appears: No Acute Distress - Head Exam Head Exam: ATRAUMATIC, NORMOCEPHALIC - Eye Exam Eye Exam: Normal appearance - ENT Exam ENT Exam: Mucous Membranes Dry - Neck Exam Neck Exam: Normal Inspection - Respiratory Exam Respiratory Exam: Decreased Breath Sounds, Clear to Ausculation Bilateral - Cardiovascular Exam Cardiovascular Exam: REGULAR RHYTHM, RRR - GI/Abdominal Exam GI & Abdominal Exam: Soft, Normal Bowel Sounds - Extremities Exam Extremities Exam: Normal Inspection - Skin Skin Exam: Dry Assessment and Plan (1) Altered mental status Status: Acute (2) CKD (chronic kidney disease) stage 3, GFR 30-59 ml/min Status: Acute (3) Dyspnea Status: Acute (4) Elevated LFTs Status: Acute (5) Jaundice Status: Acute (6) Cystitis Status: Acute (7) Acidosis Status: Acute - Assessment and Plan (Free Text) Assessment: will continue antibiotics and follow poor prognosis
--- NOTE | 2017-05-26 22:14 | CP.PCM.PN ---
<Vicente Moyer - Last Filed: 05/26/17 22:08> Subjective - Date & Time of Evaluation Date of Evaluation: 05/26/17 Time of Evaluation: 15:20 - Subjective Subjective: PGY-[address] Gregory Norman's Service: Patient was seen and examined today at bedside in [facility]. Started on Cardezim drip overnight. Patient is still responsive to painful stimuli, but does not respond to voice. Unable to complete ROS due to lethargy and unresponsiveness. Objective - Vital Signs/Intake and Output Vital Signs (last 24 hours): Temp Pulse Resp BP Pulse Ox 97.4 F L 89 20 125/82 96 05/26/17 15:54 05/26/17 15:54 05/26/17 15:54 05/26/17 18:13 05/26/17 15:54 Intake and Output: 05/26/17 05/27/17 18:59 06:59 Intake Total 400 Output Total 1200 Balance -800 - Medications Medications: Current Medications Albuterol Sulfate (Albuterol 0.083% Inhal Judy (2.5 Mg/3 Ml) Ud) 2.5 mg INH RQ6 PRN PRN Reason: Wheezing Last Admin: 05/24/17 16:05 Dose: 2.5 mg Amiodarone HCl (Cordarone) 200 mg NG DAILY [facility] Last Admin: 05/25/17 10:51 Dose: 200 mg Artificial Tears (Artificial Tears) 0 ml OU Q3H [facility] Last Admin: 05/26/17 18:01 Dose: 1 drop Aspirin (Aspirin Chewable) 81 mg PO DAILY [facility] Last Admin: 05/19/17 11:05 Dose: 81 mg Furosemide (Lasix) 40 mg IVP Q8H [facility] Last Admin: 05/26/17 18:13 Dose: 40 mg Aztreonam 1 gm/ Sodium (Chloride) 100 mls @ 200 mls/hr IVPB Q24H [facility] Last Admin: 05/26/17 16:36 Dose: 200 mls/hr Meropenem 500 mg/ Sodium (Chloride) 100 mls @ 100 mls/hr IVPB Q12H [facility] Last Admin: 05/26/17 18:05 Dose: 100 mls/hr Tigecycline 50 mg/ Sodium (Chloride) 100 mls @ 100 mls/hr IVPB Q12H [facility] Last Admin: 05/26/17 10:36 Dose: 100 mls/hr Sodium Chloride (Sodium Chloride 0.45%) 1,000 mls @ 50 mls/hr IV .Q20H [facility] Last Admin: 05/25/17 19:34 Dose: 50 mls/hr Diltiazem HCl 125 mg/ Sodium (Chloride) 125 mls @ 5 mls/hr IV .Q24H [facility]; 5 MG/ HR PRN Reason: Protocol Last Admin: 05/26/17 18:00 Dose: 5 mg/hr, 5 mls/hr Dextrose (Dextrose 5% In Water 1000 Ml) 1,000 mls @ 125 mls/hr IV .Q8H [facility] Last Admin: 05/26/17 20:30 Dose: 125 mls/hr Insulin Aspart (Novolog) 0 unit SC Q6H [facility] PRN Reason: Protocol Last Admin: 05/26/17 18:11 Dose: 1 unit Lorazepam (Ativan) 0.5 mg IVP Q4H PRN PRN Reason: Agitation Last Admin: 05/22/17 03:06 Dose: 0.5 mg Pantoprazole Sodium (Protonix Inj) 40 mg IVP DAILY [facility] Last Admin: 05/26/17 09:42 Dose: 40 mg - Labs Labs: 05/26/17 11:31 05/26/17 11:31 PT 36.2 SECONDS (9.7-12.2) H* 05/25/17 17:36 INR 3.1 05/25/17 17:36 APTT 40 SECONDS (21-34) H 05/25/17 17:36 - Constitutional Appears: Toxic - Head Exam Head Exam: NORMAL INSPECTION - Eye Exam Eye Exam: PERRL, Scleral icterus Pupil Exam: NORMAL ACCOMODATION Additional comments: Patient unable to open eyes - ENT Exam Additional comments: dried blood at perimeter of superior and inferior labium jeremy - Neck Exam Neck Exam: Normal Inspection - Respiratory Exam Respiratory Exam: Rhonchi, Wheezes, NORMAL BREATHING PATTERN - Cardiovascular Exam Cardiovascular Exam: REGULAR RHYTHM, RRR, +S1, +S2, Murmur Additional comments: 2/6 systolic murmur most prominently heard at left sternal border - Rectal Exam Rectal Exam: Deferred - Extremities Exam Extremities Exam: Pedal Edema - Neurological Exam Neurological Exam: Altered - Skin Skin Exam: Pallor, Warm Assessment and Plan - Assessment and Plan (Free Text) Assessment: Neuro: Altered mental status secondary to metabolic encephalopathy. Son stated that he does not want a lumbar puncture to be done - Head CT 05/22: Nonspecific white matter changes. - Head CT (05/18): No evidence of acute intracranial hemorrhage territorial infarct mass effect or midline shift. Moderate atrophy and moderate white matter changes likely due to microvascular ischemic disease. - Neuro Consult: Dr. Jimenez --> help appreciated Pulm: Initial hypoxia resolving, patient on nasal cannula - Lung VQ scan: low probability of PE - Chest X-ray (05/19): No infiltrate. Cardiomegaly. Nasogastric tube in appropriate. - Chest X-ray (05/21): No significant interval change - Albuterol RQ6 PRN CV: Patient has history of CHF with severely decreased Ef to 20%, HTN, Afib, ischemic cardiomyopathy, and severe chronic mitral regurgitation Blood pressure labile, ranging from normotensive to hypotensive. - Atrial fibrillation - Cardizem drip 5mg/hr iv - Continue Aspirin 81 mg po qd - Will consider adding metoprolol IVP if HR continues to remain elevated - Cardiology Consult: Dr. Saha --> help appreciated - CT of abdmomen & Pelvis (05/18): Massive cardiomegaly, small pericardial effusion and small bilateral pleural effusions. - Patient's family is not agreeable to having AICD placed - Patient to be transferred to tele floor today for cardiac monitoring Hem: Thrombocytopenia likely due to severe sepsis. Will continue to monitor. Will check INR and manual platelet count Renal: UA 05/26 shows 3+ blood, 3+ leuk esterase, 246 wbc, 25 rbc Chronic kidney disease, Will monitor urine output. - Nephrology Consult: Dr. Ortiz --> help appreciated - Continue D5NS at 75cc/hr - Cr trending back up Endo: History of DM Continue ISS GI: Likely that the direct bilirubin is increasing due to decreased clearance by the kidneys. Hep panel negative Transaminitis and jaundice present. Elevated LFTs likely due to poor perfusion for cardiac dysfunction. LFTs trending down. GI, Dr. Barroso is consulted. Recommendations for elevated LFTs is to optimize cardiac function for better perfusion. Sepsis may be 2/2 ischemic bowel or some other infection in abdomen. Unfortunately, due to poor kidney function, CT of abd with IV contrast is unable to be done. CT with PO contrast 05-18 showed massive cardiomegaly; small pericardial effusion and small B/L pleural effusions, possible cystitis, enlarged prostate. Abd US from 05/22 showed echogenic liver, mild steatosis, hepatic cyst, simple right kidney cyst, small right pleural effusion, dilated hepatic vein suggests heart failure Abd duplex US 05/24 showed fatty infiltration or other infiltrative hepatocellular process not excluded. See full report Currently on peripheral feeding with Liposen ID: Blood cultures negative after 3 days Elevated lactic acid. Sepsis source 2/2 ischemic bowel vs. UTI Currently on Aztreonam, tigecycline, and meropenem - blood culture 05/18 & 05/22: no growth - urine culture: no growth - nose culture neg for MRSA : PSA wnl 1.81 CT shows enlarged prostate DVT proph - Contraindication due to decreased platelet count GI proph - 40mg Protonix daily whitehead for strict I/O's during acute illness SCDs Speech and swallow eval Pt is DNR/DNI Case discussed with attending, Dr. Gregory Norman <Gregory Norman - Last Filed: 05/27/17 10:29> Objective - Vital Signs/Intake and Output Vital Signs (last 24 hours): Temp Pulse Resp BP Pulse Ox 97.5 F L 90 20 158/79 H 94 L 05/27/17 07:40 05/27/17 07:40 05/27/17 06:04 05/27/17 10:02 05/27/17 07:40 Intake and Output: 05/27/17 05/27/17 06:59 18:59 Intake Total 1840 Output Total 2900 Balance -1060 - Medications Medications: Current Medications Albuterol Sulfate (Albuterol 0.083% Inhal Judy (2.5 Mg/3 Ml) Ud) 2.5 mg INH RQ6 PRN PRN Reason: Wheezing Last Admin: 05/24/17 16:05 Dose: 2.5 mg Amiodarone HCl (Cordarone) 200 mg NG DAILY [facility] Last Admin: 05/25/17 10:51 Dose: 200 mg Artificial Tears (Artificial Tears) 0 ml OU Q3H [facility] Last Admin: 05/27/17 08:35 Dose: 1 drop Aspirin (Aspirin Chewable) 81 mg PO DAILY [facility] Last Admin: 05/19/17 11:05 Dose: 81 mg Furosemide (Lasix) 40 mg IVP Q8H [facility] Last Admin: 05/27/17 10:02 Dose: 40 mg Aztreonam 1 gm/ Sodium (Chloride) 100 mls @ 200 mls/hr IVPB Q24H [facility] Last Admin: 05/26/17 16:36 Dose: 200 mls/hr Meropenem 500 mg/ Sodium (Chloride) 100 mls @ 100 mls/hr IVPB Q12H [facility] Last Admin: 05/27/17 06:27 Dose: 100 mls/hr Tigecycline 50 mg/ Sodium (Chloride) 100 mls @ 100 mls/hr IVPB Q12H [facility] Last Admin: 05/26/17 22:52 Dose: 100 mls/hr Diltiazem HCl 125 mg/ Sodium (Chloride) 125 mls @ 5 mls/hr IV .Q24H [facility]; 5 MG/ HR PRN Reason: Protocol Last Admin: 05/26/17 18:00 Dose: 5 mg/hr, 5 mls/hr Dextrose (Dextrose 5% In Water 1000 Ml) 1,000 mls @ 200 mls/hr IV .Q5H [facility] Insulin Aspart (Novolog) 0 unit SC Q6H [facility] PRN Reason: Protocol Last Admin: 05/27/17 06:28 Dose: 2 unit Lorazepam (Ativan) 0.5 mg IVP Q4H PRN PRN Reason: Agitation Last Admin: 05/22/17 03:06 Dose: 0.5 mg Pantoprazole Sodium (Protonix Inj) 40 mg IVP DAILY [facility] Last Admin: 05/27/17 10:03 Dose: 40 mg - Labs Labs: 05/27/17 08:40 05/27/17 08:19 PT 36.2 SECONDS (9.7-12.2) H* 05/25/17 17:36 INR 3.1 05/25/17 17:36 APTT 40 SECONDS (21-34) H 05/25/17 17:36 Attending/Attestation - Attestation I have personally seen and examined this patient.: Yes I have fully participated in the care of the patient.: Yes I have reviewed all pertinent clinical information, including history, physical exam and plan: Yes Notes (Text): 05/27/17 10:14 Patient was seen and examined on 05/26/17 evening Exam, Assessment and Plan were thoroughly gone over with the resident Assessments: SIRS Metabolic Acidosis Change in mental sttus CHF Hypernatremia CKD Stage 3 Atrial Fibrillation Elevated LFTs HTN HLD Chronic Leg Edema: now involving the arms Elevated Blood Glucose Extensive coversation with patient's son Suhas [phone] about patient's multiple medical issues (CHF, Atrial Fibrillation, Liver Failure, Kidney Failure ) and that the prognosis was not good. Suhas explains that he and his mom are the primary decision makers for patient and there is NO living will/NO advance directive. Currently he does not want any further testing/treatment: NO lumbar tap (I discussed with ID Dr. Hutton about another possible source of infection to be possibly the CSF considering blood and urine cultures have been negative) , NO MRI, NO PEG Tube. Suhas also revealed that patient has Kaposi Sarcoma and was being treated by [facility] Operations Coordinator Oncologist in [place], whom we will reach out to on 05/27/17. I will also discuss with Suhas about Palliative Care. Gregory Norman D.O.
[2017-05-27] MEDS: Aritificial Tears (15ml) OU SCH ×9 (00:45→22:00)
[2017-05-27] MEDS: (Novolog) Insulin Aspart, Recombinant 100 u/ml 10 ml vial SC SCH ×4 (00:59→18:55)
--- NOTE | 2017-05-27 06:07 | CP.PCM.PN ---
<Yoel Childers - Last Filed: 05/27/17 06:01> Subjective - Date & Time of Evaluation Date of Evaluation: 05/27/17 Time of Evaluation: 02:00 - Subjective Subjective: House doc note: Patient seen and examined, with family at bedside. Called to see patient due to bloody sputum after deep suctioning performed by nursing. Breathing was very labored and shallow, with oxygen saturation in the 80's. Patient responded to non-rebreather mask with O2 sat at 96%. Patient has a low platelet count likely due to severe sepsis. Patient is DNR/DNI. The patients family was made aware that his prognosis is poor and without intubation, his respiratory status will likely continue to deteriorate in light of now bloody sputum, thickened secretions, and labored breathing. The family that was present could not contact the patients medical decision maker. They will re- attempt in the morning. CXR was ordered, showing venous congestion, but no overt lung consolidations. Objective - Vital Signs/Intake and Output Vital Signs (last 24 hours): Temp Pulse Resp BP Pulse Ox 98.0 F 76 22 115/80 95 05/26/17 23:33 05/27/17 00:00 05/26/17 23:33 05/27/17 02:30 05/26/17 23:33 Intake and Output: 05/26/17 05/27/17 18:59 06:59 Intake Total 400 800 Output Total 1200 1700 Balance -800 -900 - Medications Medications: Current Medications Albuterol Sulfate (Albuterol 0.083% Inhal Judy (2.5 Mg/3 Ml) Ud) 2.5 mg INH RQ6 PRN PRN Reason: Wheezing Last Admin: 05/24/17 16:05 Dose: 2.5 mg Amiodarone HCl (Cordarone) 200 mg NG DAILY [facility] Last Admin: 05/25/17 10:51 Dose: 200 mg Artificial Tears (Artificial Tears) 0 ml OU Q3H [facility] Last Admin: 05/27/17 02:33 Dose: 1 drop Aspirin (Aspirin Chewable) 81 mg PO DAILY [facility] Last Admin: 05/19/17 11:05 Dose: 81 mg Furosemide (Lasix) 40 mg IVP Q8H [facility] Last Admin: 05/27/17 02:30 Dose: 40 mg Aztreonam 1 gm/ Sodium (Chloride) 100 mls @ 200 mls/hr IVPB Q24H [facility] Last Admin: 05/26/17 16:36 Dose: 200 mls/hr Meropenem 500 mg/ Sodium (Chloride) 100 mls @ 100 mls/hr IVPB Q12H [facility] Last Admin: 05/26/17 18:05 Dose: 100 mls/hr Tigecycline 50 mg/ Sodium (Chloride) 100 mls @ 100 mls/hr IVPB Q12H [facility] Last Admin: 05/26/17 22:52 Dose: 100 mls/hr Sodium Chloride (Sodium Chloride 0.45%) 1,000 mls @ 50 mls/hr IV .Q20H [facility] Last Admin: 05/25/17 19:34 Dose: 50 mls/hr Diltiazem HCl 125 mg/ Sodium (Chloride) 125 mls @ 5 mls/hr IV .Q24H [facility]; 5 MG/ HR PRN Reason: Protocol Last Admin: 05/26/17 18:00 Dose: 5 mg/hr, 5 mls/hr Dextrose (Dextrose 5% In Water 1000 Ml) 1,000 mls @ 125 mls/hr IV .Q8H [facility] Last Admin: 05/26/17 20:30 Dose: 125 mls/hr Insulin Aspart (Novolog) 0 unit SC Q6H [facility] PRN Reason: Protocol Last Admin: 05/27/17 00:59 Dose: 1 unit Lorazepam (Ativan) 0.5 mg IVP Q4H PRN PRN Reason: Agitation Last Admin: 05/22/17 03:06 Dose: 0.5 mg Pantoprazole Sodium (Protonix Inj) 40 mg IVP DAILY [facility] Last Admin: 05/26/17 09:42 Dose: 40 mg - Labs Labs: 05/26/17 11:31 05/26/17 11:31 PT 36.2 SECONDS (9.7-12.2) H* 05/25/17 17:36 INR 3.1 05/25/17 17:36 APTT 40 SECONDS (21-34) H 05/25/17 17:36 - Additional Findings Additional findings: - Constitutional Appears: Toxic - Head Exam Head Exam: NORMAL INSPECTION - Eye Exam Eye Exam: PERRL, Scleral icterus Pupil Exam: NORMAL ACCOMODATION Additional comments: Patient does not open eyes - ENT Exam Additional comments: -fresh blood in oral mucosa - Neck Exam Neck Exam: Normal Inspection - Respiratory Exam Respiratory Exam: Rhonchi, Wheezes. absent: NORMAL BREATHING PATTERN - labored breathing - Cardiovascular Exam Cardiovascular Exam: REGULAR RHYTHM, RRR, +S1, +S2, Murmur Additional comments: 2/6 systolic murmur most prominently heard at left sternal border - Rectal Exam Rectal Exam: Deferred - Extremities Exam Extremities Exam: Pedal Edema - Neurological Exam Neurological Exam: Altered - Skin Skin Exam: Pallor, Warm <Keswani,Weston P - Last Filed: 05/30/17 06:12> Objective - Vital Signs/Intake and Output Vital Signs (last 24 hours): Temp Pulse Resp BP Pulse Ox 98.2 F 121 H 25 H 102/48 L 100 05/30/17 04:00 05/30/17 05:00 05/30/17 05:00 05/30/17 05:00 05/30/17 05:00 Intake and Output: 05/29/17 05/30/17 18:59 06:59 Intake Total 1520.0 1788.5 Output Total 1575 565 Balance -55.0 1223.5 - Medications Medications: Current Medications Albuterol Sulfate (Albuterol 0.083% Inhal Judy (2.5 Mg/3 Ml) Ud) 2.5 mg INH RQ6 PRN PRN Reason: Wheezing Last Admin: 05/24/17 16:05 Dose: 2.5 mg Amiodarone HCl (Cordarone) 200 mg NG DAILY [facility] Last Admin: 05/25/17 10:51 Dose: 200 mg Artificial Tears (Artificial Tears) 0 ml OU Q3H [facility] Last Admin: 05/30/17 05:52 Dose: 1 drop Aspirin (Aspirin Chewable) 81 mg PO DAILY [facility] Last Admin: 05/19/17 11:05 Dose: 81 mg Aztreonam 1 gm/ Sodium (Chloride) 100 mls @ 200 mls/hr IVPB Q24H [facility] Last Admin: 05/29/17 16:32 Dose: 200 mls/hr Meropenem 500 mg/ Sodium (Chloride) 100 mls @ 100 mls/hr IVPB Q12H [facility] Last Admin: 05/30/17 05:00 Dose: 100 mls/hr Tigecycline 50 mg/ Sodium (Chloride) 100 mls @ 100 mls/hr IVPB Q12H [facility] Last Admin: 05/29/17 23:55 Dose: 100 mls/hr Diltiazem HCl 125 mg/ Sodium (Chloride) 125 mls @ 5 mls/hr IV .Q24H [facility]; 5 MG/ HR PRN Reason: Protocol Last Admin: 05/27/17 16:36 Dose: 5 mg/hr, 5 mls/hr Sodium Chloride (Sodium Chloride 0.45%) 1,000 mls @ 100 mls/hr IV .Q10H [facility] Last Admin: 05/30/17 02:00 Dose: Not Given Norepinephrine Bitartrate 4 mg (/ Sodium Chloride) 254 mls @ 15.24 mls/hr IV .[id number] PRN; Protocol; 4 MCG/MIN PRN Reason: TITRATE PER MD ORDER Last Admin: 05/30/17 05:00 Dose: 4 mcg/min, 15.24 mls/hr Milrinone Lactate/Dextrose 20 (mg/ Dextrose) 100 mls @ 4.46 mls/hr IV .[id number] [facility]; 0.2 MCG/KG/MIN PRN Reason: Protocol Last Admin: 05/29/17 16:37 Dose: 0.2 mcg/kg/min, 4.46 mls/hr Insulin Aspart (Novolog) 0 unit SC Q6H [facility] PRN Reason: Protocol Last Admin: 05/30/17 05:58 Dose: Not Given Lorazepam (Ativan) 0.5 mg IVP Q4H PRN PRN Reason: Agitation Last Admin: 05/29/17 09:15 Dose: 0.5 mg Pantoprazole Sodium (Protonix Inj) 40 mg IVP DAILY [facility] Last Admin: 05/29/17 10:41 Dose: 40 mg - Labs Labs: 05/29/17 06:22 05/29/17 06:22 PT > 320.0 SECONDS (9.7-12.2) H* D 05/28/17 16:43 INR > 10.0 D 05/28/17 16:43 APTT > 400 SECONDS (21-34) H* D 05/28/17 16:43 Attending/Attestation - Attestation I have personally seen and examined this patient.: Yes I have fully participated in the care of the patient.: Yes I have reviewed all pertinent clinical information, including history, physical exam and plan: Yes
[2017-05-27] MEDS: Meropenem 500 MG in Sodium Chloride 0.9% 100 ML IVPB SCH ×2 (06:27→18:30)
[2017-05-27 08:36] LABS: IRON 94 ug/dL (49-181)
[2017-05-27 08:42] LABS: BILIRUBIN,DIRECT 4.4 mg/dL (0.0-0.4)
[2017-05-27 08:44] LABS: NRBC % 5.7 % (0.0-2.0)
--- NOTE | 2017-05-27 08:50 | RAD ---
Chest x-ray single frontal view History: Congestion. Comparison: 05/22/2017 Findings: Mild venous congestion. Small bilateral pleural effusions. Biapical pleural thickening with upper lobe granulomatous changes. Cardiomegaly. Calcification at the aortic knob. Degenerative changes in the spine and shoulders. Surgical clips in the right upper abdomen. Impression: Mild venous congestion. Small bilateral pleural effusions. Biapical pleural thickening with upper lobe granulomatous changes. Cardiomegaly.
[2017-05-27 09:01] LABS: BASO # 0.1 K/uL (0.0-0.2); BASO % 0.7 % (0.0-2.0); HEMATOCRIT 45.1 % (35.0-51.0); LYMPH # 0.7 K/uL (1.0-4.3); LYMPH % 5.3 % (20.0-40.0); MEAN CORPUSCULAR HEMOGLOBIN 26.6 pg (27.0-31.0); MEAN CORPUSCULAR HGB CONC 30.5 g/dL (33.0-37.0); MEAN PLATELET VOLUME 9.5 fL (7.2-11.7); MONO # 1.1 K/uL (0.0-0.8); MONO % 7.8 % (0.0-10.0); RED CELL DISTRIBUTION WIDTH 20.5 % (11.5-14.5)
[2017-05-27 09:03] LABS: PLATELET COUNT 82 K/uL (130-400)
[2017-05-27 09:28] LABS: ALB/GLOB RATIO 0.8 (1.0-2.1); CALCIUM 8.6 mg/dl (8.6-10.4); MAGNESIUM 2.7 mg/dL (1.6-2.3); PHOSPHOROUS 5.8 mg/dL (2.5-4.5); POTASSIUM 4.1 mmol/L (3.6-5.2); TOTAL PROTEIN 6.2 g/dL (6.3-8.3)
[2017-05-27 09:39] LABS: NEUTROPHIL 85 % (50-75); NUCLEATED RED BLOOD CELL 5 % (0-0); TOTAL CELLS COUNTED 100
--- NOTE | 2017-05-27 11:50 | CP.PCM.PN ---
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; hypoxic earlier today and put on non -rebreather; Objective - Vital Signs/Intake and Output Vital Signs (last 24 hours): Temp Pulse Resp BP Pulse Ox 97.5 F L 90 20 158/79 H 94 L 05/27/17 07:40 05/27/17 07:40 05/27/17 06:04 05/27/17 10:02 05/27/17 07:40 Intake and Output: 05/27/17 05/27/17 06:59 18:59 Intake Total 1840 Output Total 2900 Balance -1060 - Medications Medications: Current Medications Albuterol Sulfate (Albuterol 0.083% Inhal Judy (2.5 Mg/3 Ml) Ud) 2.5 mg INH RQ6 PRN PRN Reason: Wheezing Last Admin: 05/24/17 16:05 Dose: 2.5 mg Amiodarone HCl (Cordarone) 200 mg NG DAILY [facility] Last Admin: 05/25/17 10:51 Dose: 200 mg Artificial Tears (Artificial Tears) 0 ml OU Q3H [facility] Last Admin: 05/27/17 08:35 Dose: 1 drop Aspirin (Aspirin Chewable) 81 mg PO DAILY [facility] Last Admin: 05/19/17 11:05 Dose: 81 mg Furosemide (Lasix) 40 mg IVP Q8H [facility] Last Admin: 05/27/17 10:02 Dose: 40 mg Aztreonam 1 gm/ Sodium (Chloride) 100 mls @ 200 mls/hr IVPB Q24H [facility] Last Admin: 05/26/17 16:36 Dose: 200 mls/hr Meropenem 500 mg/ Sodium (Chloride) 100 mls @ 100 mls/hr IVPB Q12H [facility] Last Admin: 05/27/17 06:27 Dose: 100 mls/hr Tigecycline 50 mg/ Sodium (Chloride) 100 mls @ 100 mls/hr IVPB Q12H [facility] Last Admin: 05/27/17 10:39 Dose: 100 mls/hr Diltiazem HCl 125 mg/ Sodium (Chloride) 125 mls @ 5 mls/hr IV .Q24H [facility]; 5 MG/ HR PRN Reason: Protocol Last Admin: 05/26/17 18:00 Dose: 5 mg/hr, 5 mls/hr Dextrose (Dextrose 5% In Water 1000 Ml) 1,000 mls @ 200 mls/hr IV .Q5H [facility] Last Admin: 05/27/17 10:23 Dose: 200 mls/hr Insulin Aspart (Novolog) 0 unit SC Q6H [facility] PRN Reason: Protocol Last Admin: 05/27/17 06:28 Dose: 2 unit Lorazepam (Ativan) 0.5 mg IVP Q4H PRN PRN Reason: Agitation Last Admin: 05/22/17 03:06 Dose: 0.5 mg Pantoprazole Sodium (Protonix Inj) 40 mg IVP DAILY [facility] Last Admin: 05/27/17 10:03 Dose: 40 mg - Labs Labs: 05/27/17 08:40 05/27/17 08:19 PT 36.2 SECONDS (9.7-12.2) H* 05/25/17 17:36 INR 3.1 05/25/17 17:36 APTT 40 SECONDS (21-34) H 05/25/17 17:36 - Constitutional Appears: No Acute Distress - Head Exam Head Exam: NORMAL INSPECTION - Eye Exam Eye Exam: Scleral icterus - ENT Exam ENT Exam: Mucous Membranes Moist - Neck Exam Additional comments: distended neck veins; - Respiratory Exam Additional comments: tachypneic - Cardiovascular Exam Additional comments: systolic murmur - GI/Abdominal Exam GI & Abdominal Exam: Distended - Exam Additional comments: whitehead in place; - Extremities Exam Additional comments: moderately edematous legs; - Neurological Exam Neurological Exam: Altered Additional comments: Not alert; - Skin Skin Exam: Warm. absent: Cyanosis Assessment and Plan (1) CHF (congestive heart failure) Assessment & Plan: Severe systolic failure with MR; started on aggresive diuresis yesterday and UO responded well with stable BP; however, BP dropping today as is UO; -decrease IV lasix to 20 mg q8h Status: Chronic (2) Acute renal failure (ARF) Assessment & Plan: LULA on CKD; pre-renal etiology possibly from poor renal perfusion in the setting of severely decompensated CHF; -continue diuretics Status: Acute (3) Hypertensive CKD (chronic kidney disease) Assessment & Plan: Borderline hypotensive; on cardizem drip for afib and diuretics; continue to hold other BP meds; Status: Chronic (4) Altered mental status Assessment & Plan: Due to overall deteriorated clinical condition; consider replacing NG tube for feeds/meds; Status: Acute (5) SIRS (systemic inflammatory response syndrome) Assessment & Plan: No positive cultures to date; agree with dosing of tygecil, meropenem and aztreonam in setting of renal failure; Status: Acute (6) Hyperbilirubinemia Assessment & Plan: Persistent; no improvement with diuretics thus far (were previously thinking congestive hepatopathy); f/u with GI; Status: Acute - Assessment and Plan (Free Text) Assessment: Hypernatremia - 4-5L free water deficit; no improvement since yesterday due to use of loop diuretics; increasing D5W to 200 cc/hr;
--- NOTE | 2017-05-27 11:50 | CP.PCM.DIS ---
Provider - Provider Date of Admission: 05/18/17 13:34 Attending physician: Gregory Norman MD Primary care physician: PMD: Dr Mooney Consults: Cardiology: Dr Cesar Saha Infectious Disease: Dr David Hutton Nephrology: Dr Raj Gill Neurology: Dr Stephen Jimenez GI: Dr Shemar Barroso Palliative Care: Dixie Parra RN Time Spent in preparation of Discharge (in minutes): 45 Hospital Course - Lab Results Lab Results: Micro Results 05/22/17 21:30 Blood-Venous Blood Culture - Preliminary NO GROWTH AFTER 4 DAYS 05/22/17 21:00 Blood-Venous Blood Culture - Preliminary NO GROWTH AFTER 4 DAYS 05/24/17 07:00 Nose MRSA Culture - Final MRSA NOT DETECTED 05/20/17 11:40 Urine,Whitehead Urine Culture - Final No Growth (<1,000 CFU/ML) 05/18/17 20:00 Naris MRSA Culture (Admit) - Final MRSA NOT DETECTED Most Recent Lab Values WBC 14.0 K/uL (4.8-10.8) H D 05/27/17 08:40 RBC 5.18 Mil/uL (4.40-5.90) 05/27/17 08:40 Hgb 13.8 g/dL (12.0-18.0) 05/27/17 08:40 Hct 45.1 % (35.0-51.0) 05/27/17 08:40 MCV 87.0 fL (80.0-94.0) 05/27/17 08:40 MCH 26.6 pg (27.0-31.0) L 05/27/17 08:40 MCHC 30.5 g/dL (33.0-37.0) L 05/27/17 08:40 RDW 20.5 % (11.5-14.5) H 05/27/17 08:40 Plt Count 82 K/uL (130-400) L 05/27/17 08:40 Manual Plt Count 112 K/uL (130-400) L 05/25/17 17:36 MPV 9.5 fL (7.2-11.7) 05/27/17 08:40 Neut % (Auto) 86.2 % (50.0-75.0) H 05/27/17 08:40 Lymph % (Auto) 5.3 % (20.0-40.0) L 05/27/17 08:40 [place] % (Auto) 7.8 % (0.0-10.0) 05/27/17 08:40 Eos % (Auto) 0.0 % (0.0-4.0) 05/27/17 08:40 Baso % (Auto) 0.7 % (0.0-2.0) 05/27/17 08:40 Neut # 12.1 K/uL (1.8-7.0) H 05/27/17 08:40 Lymph # 0.7 K/uL (1.0-4.3) L 05/27/17 08:40 [place] # 1.1 K/uL (0.0-0.8) H 05/27/17 08:40 Eos # 0.0 K/uL (0.0-0.7) 05/27/17 08:40 Baso # 0.1 K/uL (0.0-0.2) 05/27/17 08:40 Neutrophils % (Manual) 85 % (50-75) H 05/27/17 08:40 Band Neutrophils % 6 % (0-2) H 05/27/17 08:40 Lymphocytes % (Manual) 3 % (20-40) L 05/27/17 08:40 Monocytes % (Manual) 6 % (0-10) 05/27/17 08:40 Eosinophils % (Manual) 1 % (0-4) 05/26/17 11:31 Basophils % (Manual) 1 % (0-2) 05/19/17 06:11 Nucleated RBC % 5 % (0-0) H 05/27/17 08:40 Differential Comment 05/18/17 11:54 Platelet Estimate Decreased (NORMAL) L 05/27/17 08:40 Large Platelets Present 05/25/17 17:36 Polychromasia Slight 05/25/17 17:36 Hypochromasia (manual) Slight 05/25/17 17:36 Poikilocytosis (manual Slight 05/27/17 08:40 Anisocytosis (manual) Moderate 05/27/17 08:40 Microcytosis (manual) Slight 05/25/17 17:36 Macrocytosis (manual) Slight 05/25/17 17:36 Tear Drop Cells Slight 05/24/17 08:50 Ovalocytes Slight 05/27/17 08:40 [place] Cells Slight 05/27/17 08:40 Schistocytes Slight 05/25/17 17:36 PT 36.2 SECONDS (9.7-12.2) H* 05/25/17 17:36 INR 3.1 05/25/17 17:36 APTT 40 SECONDS (21-34) H 05/25/17 17:36 D-Dimer, Quantitative 1097 ng/mlDDU (0-243) H 05/18/17 11:54 Puncture Site Lra 05/22/17 10:47 pCO2 26 mm/Hg (35-45) L 05/22/17 10:47 pO2 127 mm/Hg (80-100) H 05/22/17 10:47 HCO3 15.7 mmol/L (21-28) L 05/22/17 10:47 ABG pH 7.30 (7.35-7.45) L 05/22/17 10:47 ABG Total CO2 13.6 mmol/L (22-28) L 05/22/17 10:47 ABG O2 Saturation 99.5 % (95-98) H 05/22/17 10:47 ABG Base Excess -11.9 mmol/L (-2.0-3.0) L 05/22/17 10:47 ABG Hemoglobin 14.2 g/dL (11.7-17.4) 05/21/17 08:58 ABG Carboxyhemoglobin 1.6 % (0.5-1.5) H 05/21/17 08:58 POC ABG HHb (Measured) 1.6 % (0.0-5.0) 05/21/17 08:58 ABG Methemoglobin 0.8 % (0.0-3.0) 05/21/17 08:58 Lucho Test Pos 05/22/17 10:47 ABG Potassium 3.6 mmol/L (3.6-5.2) 05/22/17 10:47 VBG pH 7.25 (7.32-7.43) L 05/18/17 14:30 VBG pCO2 39 mmHg (40-60) L 05/18/17 14:30 VBG HCO3 15.8 mmol/L 05/18/17 14:30 VBG Total CO2 18.3 mmol/L (22-28) L 05/18/17 14:30 VBG O2 Sat (Calc) 41.5 % (40-65) 05/18/17 14:30 VBG Base Excess -9.5 mmol/L (0.0-2.0) L 05/18/17 14:30 VBG Potassium 3.5 mmol/L (3.6-5.2) L 05/18/17 14:30 A-a O2 Difference 69.0 mm/Hg 05/22/17 10:47 Respiratory Index 0.5 05/22/17 10:47 Hgb O2 Saturation 95.9 % (95.0-98.0) 05/21/17 08:58 Sodium 142.0 mmol/l (132-148) 05/22/17 10:47 Chloride 113.0 mmol/L (98-107) H 05/22/17 10:47 Glucose 222 mg/dl (75-110) H 05/22/17 10:47 Lactate 5.1 mmol/L (0.7-2.1) H* 05/22/17 10:47 Liter Flow 3.0 05/22/17 10:47 Vent Mode Bipap 05/18/17 12:10 FiO2 32.0 % 05/22/17 10:47 Inspiratory BiPAP 12 05/18/17 12:10 Expiratory BiPAP 6 05/18/17 12:10 Crit Value Called To Dr vásquez 05/22/17 10:47 Crit Value Called By Jeffrey rausch digital operations analyst 05/22/17 10:47 Crit Value Read Back Y 05/22/17 10:47 Blood Gas Notified Time 1054 05/22/17 10:47 Sodium 158 mmol/L (132-148) H 05/27/17 08:19 Potassium 4.1 mmol/L (3.6-5.2) 05/27/17 08:19 Chloride 115 mmol/L (98-107) H 05/27/17 08:19 Carbon Dioxide 25 mmol/L (22-30) 05/27/17 08:19 Anion Gap 22 (10-20) H 05/27/17 08:19 BUN 109 mg/dL (9-20) H* 05/27/17 08:19 Creatinine 2.9 MG/DL (0.8-1.5) H 05/27/17 08:19 Est GFR ( Amer) 05/27/17 08:19 Est GFR (Non-Af Amer) 05/27/17 08:19 POC Glucose (mg/dL) 222 mg/dL (65-110) H 05/27/17 06:16 Random Glucose 170 mg/dL (75-110) H 05/27/17 08:19 Hemoglobin A1c 7.5 % (4.2-6.5) H 05/19/17 06:11 Lactic Acid 1.5 mmol/L (0.7-2.1) 05/26/17 11:37 Calcium 8.6 mg/dl (8.6-10.4) 05/27/17 08:19 Phosphorus 5.8 mg/dL (2.5-4.5) H 05/27/17 08:19 Magnesium 2.7 mg/dL (1.6-2.3) H 05/27/17 08:19 Iron 94 ug/dL (49-181) 05/27/17 08:19 TIBC 343 ug/dL (250-450) 05/27/17 08:19 % Saturation 27 (20-55) 05/27/17 08:19 Ferritin 45.5 ng/mL 05/27/17 08:19 Total Bilirubin 6.0 mg/dL (0.2-1.3) H 05/27/17 08:19 Direct Bilirubin 4.4 mg/dL (0.0-0.4) H 05/27/17 08:19 AST 96 U/L (17-59) H 05/27/17 08:19 ALT 133 U/L (21-72) H 05/27/17 08:19 Alkaline Phosphatase 99 U/L (38-126) 05/27/17 08:19 Ammonia 18 umol/L (9-33) 05/24/17 08:50 Total Creatine Kinase 62 U/L (55-170) 05/18/17 23:56 CK-MB (Mass) 2.88 ng/mL (0.0-3.38) 05/18/17 23:56 Troponin I 0.0440 ng/mL (0.00-0.120) 05/18/17 11:54 Troponin I, Quant 0.0660 ng/mL (0.00-0.120) 05/18/17 23:56 NT-Pro-B Natriuret Pep 7710 pg/mL (0-900) H 05/18/17 11:54 Total Protein 6.2 g/dL (6.3-8.3) L 05/27/17 08:19 Albumin 2.8 g/dL (3.5-5.0) L 05/27/17 08:19 Globulin 3.4 gm/dL (2.2-3.9) 05/27/17 08:19 Albumin/Globulin Ratio 0.8 (1.0-2.1) L 05/27/17 08:19 Triglycerides 106 mg/dL (0-149) 05/19/17 06:11 Cholesterol 101 mg/dL (0-199) 05/19/17 06:11 LDL Cholesterol Direct 48 mg/dL (0-129) 05/19/17 06:11 HDL Cholesterol 33 mg/dL (30-70) 05/19/17 06:11 Prostate Specific Ag 1.81 ng/mL (0.00-4.0) 05/26/17 19:33 Procalcitonin 0.55 NG/ML (0.19-0.49) H 05/22/17 10:50 Free T4 2.83 ng/dL (0.78-2.19) H 05/19/17 06:11 TSH 3rd Generation 2.09 mIU/L (0.46-4.68) 05/19/17 06:11 Arterial Blood Potassium 3.6 mmol/L (3.6-5.2) 05/22/17 10:47 Venous Blood Potassium 3.5 mmol/L (3.6-5.2) L 05/18/17 14:30 Urine Color Yellow (YELLOW) 05/26/17 11:25 Urine Clarity Hazy (Clear) 05/26/17 11:25 Urine pH 5.0 (5.0-8.0) 05/26/17 11:25 Ur Specific [place] 1.015 (1.003-1.030) 05/26/17 11:25 Urine Protein Negative mg/dL (NEGATIVE) 05/26/17 11:25 Urine Glucose (UA) Normal mg/dL (Normal) 05/26/17 11:25 Urine Ketones Negative mg/dL (NEGATIVE) 05/26/17 11:25 Urine Blood 3+ (NEGATIVE) H 05/26/17 11:25 Urine Nitrate Negative (NEGATIVE) 05/26/17 11:25 Urine Bilirubin Negative (NEGATIVE) 05/26/17 11:25 Urine Urobilinogen Normal mg/dL (0.2-1.0) 05/26/17 11:25 Ur Leukocyte Esterase 3+ [place]/uL (Negative) H 05/26/17 11:25 Urine WBC (Auto) 246 /hpf (0-5) H 05/26/17 11:25 Urine RBC (Auto) 25 /hpf (0-3) H 05/26/17 11:25 Ur Squamous Epith Cells < 1 /hpf (0-5) 05/26/17 11:25 Urine Bacteria Occ (<OCC) H 05/26/17 11:25 Hyaline Casts 6-10 /lpf (0-2) H 05/26/17 11:25 Urine Yeast (Budding) Occ /hpf (NEGATIVE) H 05/26/17 11:25 Ur Random Creatinine 46.8 mg/dL 05/26/17 11:25 U Random Total Protein 85.0 mg/dL (0.0-12.0) H 05/18/17 22:06 Ur Random Sodium 42 mmol/L 05/26/17 11:25 Ur Random Urea Nitrogn 965 mg/dL 05/26/17 11:25 Urine Microalbumin 467.6 mg/L (0.0-16.6) H 05/18/17 22:00 Random Vancomycin 21.75 ug/mL 05/20/17 06:35 Hepatitis A IgM Ab Negative (NEGATIVE) 05/25/17 17:36 Hep Bs Antigen Negative (NEGATIVE) 05/25/17 17:36 Hep B Core IgM Ab Negative (NEGATIVE) 05/25/17 17:36 Hepatitis C Antibody Negative (NEGATIVE) 05/25/17 17:36 - Hospital Course Hospital Course: This patient was seen by the junior underwriter at approximately 14:00pm on 05/18 in the ED Patient's code status is yet to be determined. Health proxy is patient's Lily Florentino. CC: shortness of breath with altered mental status HPI: 87 year old male with PMHx significant for CHF, HTN, atrial fibrillation, ischemic cardiomyopathy, severe chronic systolic dysfunction and severe mitral regurgitation presents after complaints of shortness of breath and lethargy as explained by son-in-law. Son-in law stated that upon EMS arriving, patient was much more altered however he became more responsive in the ED. At the time of the evaluation, patient was quite somnolent and minimally responsive to questions asked and thus a full review of symptoms was not obtained. Patient is a poor historian and not able to provide most of the history. Sme history was provided by son-in law and ; however a great portion was supplemented by the medical records. PMHx- as noted above PSHx- denies Fam Hx- Dad, brothers and sister all have DM Meds- ASA 81 mg, Carvedilol 12.5 mg PO BID, Benadryl 25 mg PO q4 prn Social- denies tobacco use, alcohol intake or drug use Allergies- tylenol, plavix, oxycodone ( rash) PMD: Dr. Munoz Sharples Machine Operator: Dr. Terry ([place]) In the ED, vitals were obtained and initially temperature read 98.1 degrees Fahrenheit. Minutes later, vitals were reassessed and temperature dropped to 95.8. Initial Vitals: T 98.1, HR 105, BP 120/99, R 22, O2 100 on Bipap Following Vitals:T 95.8, HR 111, BP 129/91, R 22, O2 98 on Bipap ICU import and export clerk initially deemed the patient appropriate for telemetry monitoring; however following the decrease in temperature, patient upgraded to the ICU. Hospital Course: Upon admission patient was found to be septic and protocol with IV antib was initiated. Given history of CHF, An ECHO was ordered for this patient. The EF was severely decreased to 20%. This ECHO was compared to a previous ECHO done on 11/06/2016 which showed an EF of 10%. A CT was ordered which showed massive cardiomegaly and small pericardial effusion. His ProBNB was 7710, relatively unchanged from his ProBNP 6950 on 11/06/2016. A CT showed massive cardiomegaly and small pericardial effusion. The patient had labile blood pressure throughout his stay, ranging from normotensive to hypotensive. To treat his atrial fibrillation he was started on a cardizem drip and given amiodarone. The patient's altered mental status is most likely due to metabolic encephalopathy. Other causes were also investigated. A head CT on 05/18 showed no evidence of acute intracranial hemorrhage, territorial infarct, mass effect or midline shift. Moderate atrophy and moderate white matter changes are likely due to microvascular ischemic disease. A repeat head CT on 05/22 showed nonspecific white matter changes. An infectious etiology was also considered. The patient was started on vancomycin and zosyn, renally dosed. Blood culture, urine culture, nose culture have all been negative to date. The patient's family has refused a lumbar puncture. The patient's lactate has been persistently elevated. Vancomycin and zosyn was discontinued and Aztreonam, tigecycline, and meropenem were started. Patient initally had hypoxia. A CXR was performed on 05/19 and again on 05/21 which showed no infiltrate or significant interval change. The patient also had elevated LFTs. An abdominal ultrasound was ordered which showed showed echogenic liver, mild steatosis, hepatic cyst, simple right kidney cyst, small right pleural effusion, dilated hepatic vein suggestive of heart failure. Unfortunately, due to poor kidney function, CT of abd with IV contrast was unable to be performed. The elevated LFTs have been down trending in the past few days. It is likely that the elevated LFTs are due to poor perfusion secondary to cardiac dysfunction. And it is likely that the direct bilirubin is increasing due to decreased clearance by the kidneys. The patient has LULA on CKD which appears to be a cardiorenal etiology. His BUN has uptrended from 45 to 109. His creatinine has uptrended from 1.9 to 2.9. His GFR has downtrended from 34 to 21. His Na has uptrended from 135 to 158. Dextrose 5% in water was initially given at a rate of 100mls/hr then increased to 125mls/hr and now 200mls/hr to correct hypernatremia Na 158. Lasix 40mg q8 is being given to decrease venous congestion and hoping to improve renal function. A englarged prostate was also seen on CT. His PSA was check and was within normal limits. The patient had elevated blood glucose levels throughout his stay , he was treated with insulin sliding scale novolog. Currently the patient's son, Suhas, does not want any further testing/treatment: NO lumbar tap (another possible source of infection to be possibly the CSF considering blood and urine cultures have been negative), NO MRI, NO PEG Tube. 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 Per Palliative Care note, patient's clinical status was discussed with and she was very clear that her would never want to be on HD as he had told her in the past. Neuro: Altered mental status secondary to metabolic encephalopathy. Son stated that he does not want a lumbar puncture to be done - Head CT 05/22: Nonspecific white matter changes. - Head CT (05/18): No evidence of acute intracranial hemorrhage territorial infarct mass effect or midline shift. Moderate atrophy and moderate white matter changes likely due to microvascular ischemic disease. - Neuro Consult: Dr. Jimenez --> help appreciated Pulm: Initial hypoxia resolving, patient on nasal cannula - Lung VQ scan: low probability of PE - Chest X-ray (05/19): No infiltrate. Cardiomegaly. Nasogastric tube in appropriate. - Chest X-ray (05/21): No significant interval change - Albuterol RQ6 PRN CV: Patient has history of CHF with severely decreased Ef to 20%, HTN, Afib, ischemic cardiomyopathy, and severe chronic mitral regurgitation Blood pressure labile, ranging from normotensive to hypotensive. - Chronic Atrial fibrillation - Cardizem drip 5mg/hr iv - Continue Aspirin 81 mg po qd - Will consider adding metoprolol IVP if HR continues to remain elevated - rate controlled. not on anticoagulation -Severe systolic failure, volume status unclear but overall has not improved with IVF and so now trying aggressive diuresis; lasix 40 mg IV q8h - CT of abdmomen & Pelvis (05/18/17): Massive cardiomegaly, small pericardial effusion and small bilateral pleural effusions. - ECHO (05/18/17): Global hypokinesis of left ventricle. Left ventricle mildly dilated. Systolic function severely impaired. EF is 20%. Severe left ventricular diastolic dysfunction. Left atrium moderately dilated. Right atrium moderately dilated. Aortic valve is mildly to moderately calcified with reduced opening. Aortic stenosis is present. Mitral regurgitation is moderate. Tricuspid regurgitation is moderate. Mild pulmonic valvular regurgitation. Abnormal septal motion present. DILATED CARDIOMYOPATHY///R/O ISCHEMIC CARDIOMYOPATHY - Patient's family is not agreeable to having AICD placed - Patient to be transferred to telemetry floor today for cardiac monitoring -ProBNP 7710, relatively unchanged from level noted back in November - Duplex scan lower extremity: no evidence of deep or superficial vein thrombosis in lower extremities b/l - Cardiology Consult: Dr. Saha --> help appreciated Hem: Thrombocytopenia likely due to severe sepsis. Will continue to monitor. Will check INR and manual platelet count Renal: LULA on CKD; appears to be cardiorenal etiology; did at one point show some improvement with IVF but serum creat still increased; now trying diuresis as mentioned above to decrease venous congestion and hoping to improve renal function; UA 05/26 shows 3+ blood, 3+ leuk esterase, 246 wbc, 25 rbc Chronic kidney disease, Will monitor urine output. - Continue D5NS at 200cc/hr for hypernatremia - Cr trending back up - Nephrology Consult: Dr. Ortiz --> help appreciated Endo: History of DM Continue ISS GI: Likely that the direct bilirubin is increasing due to decreased clearance by the kidneys. Hep panel negative Transaminitis and jaundice present. Elevated LFTs likely due to poor perfusion for cardiac dysfunction. LFTs trending down. GI, Dr. Barroso is consulted. Recommendations for elevated LFTs is to optimize cardiac function for better perfusion. Sepsis may be 2/2 ischemic bowel or some other infection in abdomen. Unfortunately, due to poor kidney function, CT of abd with IV contrast is unable to be done. CT with PO contrast 05-18 showed massive cardiomegaly; small pericardial effusion and small B/L pleural effusions, possible cystitis, enlarged prostate. Abd US from 05/22 showed echogenic liver, mild steatosis, hepatic cyst, simple right kidney cyst, small right pleural effusion, dilated hepatic vein suggests heart failure Abd duplex US 05/24 showed fatty infiltration or other infiltrative hepatocellular process not excluded. See full report Currently on peripheral feeding with Liposen ID: Blood cultures negative after 4 days Elevated lactic acid. Sepsis source 2/2 ischemic bowel vs. UTI Currently on Aztreonam, tigecycline, and meropenem - blood culture 05/18 & 05/22: no growth - urine culture: no growth - nose culture neg for MRSA Increased urinary frequency on admission Patient's son has refused Lumbar puncture : PSA wnl 1.81 CT shows enlarged prostate DVT proph - Contraindication due to decreased platelet count GI proph - 40mg Protonix daily whitehead for strict I/O's during acute illness SCDs Speech and swallow eval Pt is DNR/DNI PGY-1 Note, Case discussed with attending, Dr. Gregory Norman Discharge Exam - Head Exam Head Exam: NORMOCEPHALIC - Eye Exam Eye Exam: Normal appearance, PERRL, Scleral icterus Additional comments: Patient unable to open eyes - ENT Exam ENT Exam: Mucous Membranes Dry Additional comments: dried blood at perimeter of superior and inferior labium jeremy - Neck Exam Additional comments: significant JVD on right side (+) for hepatojugular reflex - Respiratory Exam Respiratory Exam: Rhonchi, Wheezes - Cardiovascular Exam Cardiovascular Exam: Tachycardia, Irregular Rhythm, RRR, +S1, +S2, Systolic Murmur Additional comments: 2/6 systolic murmur most prominently heard at left sternal border - GI/Abdominal Exam GI & Abdominal Exam: Normal Bowel Sounds, Soft - Rectal Exam Rectal Exam: Deferred - Extremities Exam Extremities exam: pedal edema, pedal pulses present - Neurological Exam Neurological exam: Altered - Skin Skin Exam: Dry, Intact, Normal Color, Warm Discharge Plan - Follow Up Plan Condition: GUARDED Disposition: Trans to Other Acute Care Hosp
--- NOTE | 2017-05-27 12:59 | CP.PCM.CON ---
History of Present Illness - History of Present Illness History of Present Illness: Palliative consult Requested by Gregory Norman MD Reason: Goals of care discussion Patient is a 87 yo male admitted from home with SOB. The EMS found patient with low BP, rapid A Fib, low blood sugar, elevated JVD. Per family patient was feeling worm for 2 days. Upon admission patient was found to be septic and protocol with IV antib was initiated. The CT head, blood and urine cultures all negative. WBC 14.0, Hb 13.8. Patient is in severe kidney failure; BUN 109, Na 158, Powder Worker 2.9 , Harsh friend 6.0, Alb 2.8. Last night patient was in acute respiratory distress and signed DNR/DNI as she said were patient's wishes when he was able to talk. Patient has been on BiPap since the admission, O2sat low 94% NC. PMH: karposi sarkoma , CHF, CKD, [employer]. Hx: , lives at home, daughter in [facility] in [place] and one daughter in [facility] Fam Hx: denies known fam Hx, parentis for many years now Review of Systems - Review of Systems Systems not reviewed;Unavailable: Respiratory Distress, Altered Mental Status All systems: reviewed and no additional remarkable complaints except Review of Systems: ROS obtained from nursing. Patient has been in constant need for O2 supply and on BiPap for all night. Past Patient History - Past Medical History & Family History Past Medical History?: Yes - Past Social History Smoking Status: Never Smoked - CARDIAC Hx Congestive Heart Failure: Yes Hx Hypercholesterolemia: Yes Hx Hypertension: Yes - PULMONARY Hx Bronchitis: Yes Hx Pneumonia: Yes - NEUROLOGICAL Hx Neurological Disorder: No - HEENT Other/Comment: blurring ofVISION AND HARD OF HEARING AFTER [place] [facility] [place] Hx Chronic Kidney Disease: Yes - ENDOCRINE/METABOLIC Hx Endocrine Disorders: No - HEMATOLOGICAL/ONCOLOGICAL Hx Blood Disorders: No - INTEGUMENTARY Hx Dermatological Problems: No - MUSCULOSKELETAL/RHEUMATOLOGICAL Hx Falls: No - GASTROINTESTINAL Hx Gastrointestinal Disorders: No - GENITOURINARY/GYNECOLOGICAL Hx Genitourinary Disorders: No - PSYCHIATRIC Hx Substance Use: No - SURGICAL HISTORY Hx Cholecystectomy: Yes - ANESTHESIA Hx Anesthesia: Yes Hx Anesthesia Reactions: No Hx Malignant Hyperthermia: No Meds Allergies/Adverse Reactions: Allergies Allergy/AdvReac Type Severity Reaction Status Date / Time clopidogrel bisulfate Allergy RASH Verified 05/18/17 11:26 [From Plavix] nut - unspecified Allergy SHORTNESS Verified 05/21/17 14:57 OF BREATH oxycodone HCl [From Percocet] Allergy RASH Verified 05/18/17 11:26 kijusten fierro Allergy RASH Uncoded 05/19/17 14:18 - Medications Medications: Current Medications Albuterol Sulfate (Albuterol 0.083% Inhal Judy (2.5 Mg/3 Ml) Ud) 2.5 mg INH RQ6 PRN PRN Reason: Wheezing Last Admin: 05/24/17 16:05 Dose: 2.5 mg Amiodarone HCl (Cordarone) 200 mg NG DAILY [facility] Last Admin: 05/25/17 10:51 Dose: 200 mg Artificial Tears (Artificial Tears) 0 ml OU Q3H [facility] Last Admin: 05/27/17 12:05 Dose: Not Given Aspirin (Aspirin Chewable) 81 mg PO DAILY [facility] Last Admin: 05/19/17 11:05 Dose: 81 mg Furosemide (Lasix) 40 mg IVP Q8H [facility] Last Admin: 05/27/17 10:02 Dose: 40 mg Aztreonam 1 gm/ Sodium (Chloride) 100 mls @ 200 mls/hr IVPB Q24H [facility] Last Admin: 05/26/17 16:36 Dose: 200 mls/hr Meropenem 500 mg/ Sodium (Chloride) 100 mls @ 100 mls/hr IVPB Q12H [facility] Last Admin: 05/27/17 06:27 Dose: 100 mls/hr Tigecycline 50 mg/ Sodium (Chloride) 100 mls @ 100 mls/hr IVPB Q12H [facility] Last Admin: 05/27/17 10:39 Dose: 100 mls/hr Diltiazem HCl 125 mg/ Sodium (Chloride) 125 mls @ 5 mls/hr IV .Q24H [facility]; 5 MG/ HR PRN Reason: Protocol Last Admin: 05/26/17 18:00 Dose: 5 mg/hr, 5 mls/hr Dextrose (Dextrose 5% In Water 1000 Ml) 1,000 mls @ 200 mls/hr IV .Q5H [facility] Last Admin: 05/27/17 10:23 Dose: 200 mls/hr Insulin Aspart (Novolog) 0 unit SC Q6H [facility] PRN Reason: Protocol Last Admin: 05/27/17 12:01 Dose: 1 unit Lorazepam (Ativan) 0.5 mg IVP Q4H PRN PRN Reason: Agitation Last Admin: 05/22/17 03:06 Dose: 0.5 mg Pantoprazole Sodium (Protonix Inj) 40 mg IVP DAILY [facility] Last Admin: 05/27/17 10:03 Dose: 40 mg Physical Exam - Constitutional Appears: In Acute Distress - Head Exam Head Exam: ATRAUMATIC, NORMAL INSPECTION, NORMOCEPHALIC - Eye Exam Eye Exam: Periorbital swelling Pupil Exam: NORMAL ACCOMODATION, PERRL - ENT Exam ENT Exam: Mucous Membranes Dry - Neck Exam Neck exam: Positive for: Normal Inspection - Respiratory Exam Respiratory Exam: Rales, Rhonchi - Cardiovascular Exam Cardiovascular Exam: Tachycardia, Irregular Rhythm - GI/Abdominal Exam GI & Abdominal Exam: Hypoactive Bowel Sounds - Rectal Exam Rectal Exam: Deferred - Exam Exam: NORMAL INSPECTION - Extremities Exam Extremities exam: Positive for: pedal edema - Back Exam Back exam: NORMAL INSPECTION - Neurological Exam Neurological exam: Altered, Motor Sensory Deficit - Psychiatric Exam Psychiatric exam: Flat Affect - Skin Skin Exam: Mottled Results - Vital Signs Recent Vital Signs: Last Vital Signs Temp 97.7 F 05/27/17 12:28 Pulse 102 H 05/27/17 12:28 Resp 24 05/27/17 12:28 BP 105/64 05/27/17 12:28 Pulse Ox 90 L 05/27/17 12:28 - Labs Result Diagrams: 05/27/17 08:40 05/27/17 08:19 Labs: Laboratory Results - last 24 hr 05/26/17 05/26/17 05/26/17 11:31 16:17 17:55 WBC RBC Hgb Hct MCV MCH MCHC RDW Plt Count MPV Neut % (Auto) Lymph % (Auto) Posey % (Auto) Eos % (Auto) Baso % (Auto) Neut # Lymph # Posey # Eos # Baso # Neutrophils % (Manual) 83 H Band Neutrophils % 1 Lymphocytes % (Manual) 6 L Monocytes % (Manual) 9 Eosinophils % (Manual) 1 Nucleated RBC % 4 H Platelet Estimate Decreased L Poikilocytosis (manual Anisocytosis (manual) Moderate Ovalocytes Rodrigue Cells Sodium Potassium Chloride Carbon Dioxide Anion Gap BUN Creatinine Est GFR ( Amer) Est GFR (Non-Af Amer) POC Glucose (mg/dL) 200 H 165 H Random Glucose Calcium Phosphorus Magnesium Iron TIBC % Saturation Ferritin Total Bilirubin Direct Bilirubin AST ALT Alkaline Phosphatase Total Protein Albumin Globulin Albumin/Globulin Ratio Prostate Specific Ag 05/26/17 05/27/17 05/27/17 19:33 00:49 06:16 WBC RBC Hgb Hct MCV MCH MCHC RDW Plt Count MPV Neut % (Auto) Lymph % (Auto) Posey % (Auto) Eos % (Auto) Baso % (Auto) Neut # Lymph # Posey # Eos # Baso # Neutrophils % (Manual) Band Neutrophils % Lymphocytes % (Manual) Monocytes % (Manual) Eosinophils % (Manual) Nucleated RBC % Platelet Estimate Poikilocytosis (manual Anisocytosis (manual) Ovalocytes Rodrigue Cells Sodium Potassium Chloride Carbon Dioxide Anion Gap BUN Creatinine Est GFR ( Amer) Est GFR (Non-Af Amer) POC Glucose (mg/dL) 165 H 222 H Random Glucose Calcium Phosphorus Magnesium Iron TIBC % Saturation Ferritin Total Bilirubin Direct Bilirubin AST ALT Alkaline Phosphatase Total Protein Albumin Globulin Albumin/Globulin Ratio Prostate Specific Ag 1.81 05/27/17 05/27/17 05/27/17 08:19 08:19 08:40 WBC 14.0 H D RBC 5.18 Hgb 13.8 Hct 45.1 MCV 87.0 MCH 26.6 L MCHC 30.5 L RDW 20.5 H Plt Count 82 L MPV 9.5 Neut % (Auto) 86.2 H Lymph % (Auto) 5.3 L Posey % (Auto) 7.8 Eos % (Auto) 0.0 Baso % (Auto) 0.7 Neut # 12.1 H Lymph # 0.7 L Posey # 1.1 H Eos # 0.0 Baso # 0.1 Neutrophils % (Manual) 85 H Band Neutrophils % 6 H Lymphocytes % (Manual) 3 L Monocytes % (Manual) 6 Eosinophils % (Manual) Nucleated RBC % 5 H Platelet Estimate Decreased L Poikilocytosis (manual Slight Anisocytosis (manual) Moderate Ovalocytes Slight Rodrigue Cells Slight Sodium 158 H Potassium 4.1 Chloride 115 H Carbon Dioxide 25 Anion Gap 22 H BUN 109 H* Creatinine 2.9 H Est GFR ( Amer) 25 Est GFR (Non-Af Amer) 21 POC Glucose (mg/dL) Random Glucose 170 H Calcium 8.6 Phosphorus 5.8 H Magnesium 2.7 H Iron 94 TIBC 343 % Saturation 27 Ferritin 45.5 Total Bilirubin 6.0 H Direct Bilirubin 4.4 H AST 96 H ALT 133 H Alkaline Phosphatase 99 Total Protein 6.2 L Albumin 2.8 L Globulin 3.4 Albumin/Globulin Ratio 0.8 L Prostate Specific Ag 05/27/17 11:07 WBC RBC Hgb Hct MCV MCH MCHC RDW Plt Count MPV Neut % (Auto) Lymph % (Auto) Posey % (Auto) Eos % (Auto) Baso % (Auto) Neut # Lymph # Posey # Eos # Baso # Neutrophils % (Manual) Band Neutrophils % Lymphocytes % (Manual) Monocytes % (Manual) Eosinophils % (Manual) Nucleated RBC % Platelet Estimate Poikilocytosis (manual Anisocytosis (manual) Ovalocytes Rodrigue Cells Sodium Potassium Chloride Carbon Dioxide Anion Gap BUN Creatinine Est GFR ( Amer) Est GFR (Non-Af Amer) POC Glucose (mg/dL) 199 H Random Glucose Calcium Phosphorus Magnesium Iron TIBC % Saturation Ferritin Total Bilirubin Direct Bilirubin AST ALT Alkaline Phosphatase Total Protein Albumin Globulin Albumin/Globulin Ratio Prostate Specific Ag Assessment & Plan - Assessment and Plan (Free Text) Assessment: Palliative consult Code status DNR/DNI, copy on chart, PPS 0% I reviewed medical records and all diagnostic studies, examined patient in the bed,discussed patient with Doctor Emerson Hunter and with patient's son Yamilex. later in the afternoon I met with patient's , daughter and son Yamilex for the family meeting. Patient is very lethargic, with eyes closed, unresponsive to verbal nor tactile stimuli. There is a gross edema, skin is yellow and molted, urine output low. Breathing is labored, a lot of ronchi on auscultation, HR fast and irregular. Abdomen soft, flat. BP 158/79, HR 93, O2Sat 94 % NC. I was asked by Doctor Norman to meet with patient's son Suhas, who was having difficult time acepting his mother's decision to make patient DNR/DNI. I met with Suhas at bed side and elicited his knowledge regarding his father's condition. He was aware that his father's condition was very complex, but was very focused on how his father looked like a year and 1/2 ago. I offered more information regarding his father EF 10-15%, very high kidney functions values and lynn quality of life concerns. Suhas excepted the current Code status after being reassured that DNR/DNI will not change course of treatment as long as it is beneficial for the patient. As he insisted on further treatment despite very poor prognosis, I suggested that HD may be the only solution to remove the toxins, but the nephrology needs to be consulted. 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 This was shared with Doctor Jenkins and he got in touch with the treating Physician there. Later on around 12:30 pm the and sister arrived and we sat up for the family meeting. The official translation was used to assist the and daughter with Turkish/Irish. The is alert, oriented X 3 very pleasant lady, with right hand immobilized with the sling. I reviewed with her patient's clinical status and she was very clear that her would never want to be on HD as he had told her in the past. Thus was shared with Doctor Jean Baptiste. During the family meeting, I felt very strange atmosphere between the son Suhas and the mother. Also, the daughter almost tried to stay away from it and left the room, but Suhas brought her back. Suhas now insisted that the meeting was not necessary since discharge to [facility] was pending. I confirmed with the if she wanted patient transferred to [facility], and she said yes. I also discussed with the that at this point there is no much left to do for the patient , if they do not want aggressive treatment, except the comfort measures to promote peaceful . She stated understanding but still wanted the transfer. Impression * This is a very sick man who is actively dying due to multi organ failure * advocates against aggressive measures as those were patient's wishes, including HD * Patient's son Suhas is influencing mother's decisions . For some reason not clear to me, he wants to prolong patient;s life despite suffering and terminal prognosis * is asking for transfer to [facility] where patient's chain hoist operator would accept the patient Suggestion * Comfort care would be the only appropriate level of care for this dying patient. * Agree with DNR/DNI Thank you Doctor Norman for including me in case of this very interesting case.
[2017-05-27] MEDS: Aztreonam 1 GM in Sodium Chloride 0.9% 100 ML IVPB SCH (16:26)
--- NOTE | 2017-05-27 17:25 | CP.PCM.PCO ---
Physician Communication Note - Physician Communication Note Physician Communication Note: Please see above
--- NOTE | 2017-05-27 18:39 | CP.PCM.PN ---
<Vicente Moyer - Last Filed: 05/27/17 18:36> Subjective - Date & Time of Evaluation Date of Evaluation: 05/27/17 Time of Evaluation: 15:00 - Subjective Subjective: PGY-[address] Gregory Norman's Service: Patient was seen and examined at bedside with his familiy by his side. Patient is still responsive to painful stimuli, but does not respond to voice. Unable to complete ROS due to lethargy and unresponsiveness. Objective - Vital Signs/Intake and Output Vital Signs (last 24 hours): Temp Pulse Resp BP Pulse Ox 98 F 82 20 99/59 L 93 L 05/27/17 15:00 05/27/17 15:00 05/27/17 15:00 05/27/17 15:00 05/27/17 15:00 Intake and Output: 05/27/17 05/27/17 06:59 18:59 Intake Total 1840 1165 Output Total 2900 800 Balance -1060 365 - Medications Medications: Current Medications Albuterol Sulfate (Albuterol 0.083% Inhal Judy (2.5 Mg/3 Ml) Ud) 2.5 mg INH RQ6 PRN PRN Reason: Wheezing Last Admin: 05/24/17 16:05 Dose: 2.5 mg Amiodarone HCl (Cordarone) 200 mg NG DAILY [facility] Last Admin: 05/25/17 10:51 Dose: 200 mg Artificial Tears (Artificial Tears) 0 ml OU Q3H [facility] Last Admin: 05/27/17 18:31 Dose: Not Given Aspirin (Aspirin Chewable) 81 mg PO DAILY [facility] Last Admin: 05/19/17 11:05 Dose: 81 mg Furosemide (Lasix) 40 mg IVP Q8H [facility] Last Admin: 05/27/17 10:02 Dose: 40 mg Aztreonam 1 gm/ Sodium (Chloride) 100 mls @ 200 mls/hr IVPB Q24H [facility] Last Admin: 05/27/17 16:26 Dose: 200 mls/hr Meropenem 500 mg/ Sodium (Chloride) 100 mls @ 100 mls/hr IVPB Q12H [facility] Last Admin: 05/27/17 18:30 Dose: 100 mls/hr Tigecycline 50 mg/ Sodium (Chloride) 100 mls @ 100 mls/hr IVPB Q12H [facility] Last Admin: 05/27/17 10:39 Dose: 100 mls/hr Diltiazem HCl 125 mg/ Sodium (Chloride) 125 mls @ 5 mls/hr IV .Q24H [facility]; 5 MG/ HR PRN Reason: Protocol Last Admin: 05/27/17 16:36 Dose: 5 mg/hr, 5 mls/hr Dextrose (Dextrose 5% In Water 1000 Ml) 1,000 mls @ 200 mls/hr IV .Q5H [facility] Last Admin: 05/27/17 14:10 Dose: 200 mls/hr Insulin Aspart (Novolog) 0 unit SC Q6H [facility] PRN Reason: Protocol Last Admin: 05/27/17 12:01 Dose: 1 unit Lorazepam (Ativan) 0.5 mg IVP Q4H PRN PRN Reason: Agitation Last Admin: 05/22/17 03:06 Dose: 0.5 mg Pantoprazole Sodium (Protonix Inj) 40 mg IVP DAILY [facility] Last Admin: 05/27/17 10:03 Dose: 40 mg - Labs Labs: 05/27/17 08:40 05/27/17 08:19 PT 36.2 SECONDS (9.7-12.2) H* 05/25/17 17:36 INR 3.1 05/25/17 17:36 APTT 40 SECONDS (21-34) H 05/25/17 17:36 - Constitutional Appears: Toxic - Head Exam Head Exam: NORMAL INSPECTION - Eye Exam Eye Exam: PERRL, Scleral icterus - ENT Exam ENT Exam: Mucous Membranes Dry - Neck Exam Additional comments: prominent JVD on right neck, hepatojugular reflux present - Respiratory Exam Respiratory Exam: Rhonchi - Cardiovascular Exam Cardiovascular Exam: Irregular Rhythm - GI/Abdominal Exam GI & Abdominal Exam: Soft, Normal Bowel Sounds - Rectal Exam Rectal Exam: Deferred - Extremities Exam Extremities Exam: Pedal Edema - Neurological Exam Neurological Exam: Altered - Psychiatric Exam Psychiatric exam: Normal Affect, Normal Mood - Skin Skin Exam: Dry, Intact, Normal Color, Warm Additional comments: ecchymosis on legs bilaterally Assessment and Plan - Assessment and Plan (Free Text) Assessment: Neuro: Altered mental status secondary to metabolic encephalopathy. Son stated that he does not want a lumbar puncture to be done - Head CT 05/22: Nonspecific white matter changes. - Head CT (05/18): No evidence of acute intracranial hemorrhage territorial infarct mass effect or midline shift. Moderate atrophy and moderate white matter changes likely due to microvascular ischemic disease. - Neuro Consult: Dr. Jimenez --> help appreciated Pulm: Initial hypoxia resolving, patient on nasal cannula - Lung VQ scan: low probability of PE - Chest X-ray (05/19): No infiltrate. Cardiomegaly. Nasogastric tube in appropriate. - Chest X-ray (05/21): No significant interval change - Albuterol RQ6 PRN CV: Patient has history of CHF with severely decreased Ef to 20%, HTN, Afib, ischemic cardiomyopathy, and severe chronic mitral regurgitation Blood pressure labile, ranging from normotensive to hypotensive. - Atrial fibrillation - Cardizem drip 5mg/hr iv - Continue Aspirin 81 mg po qd - Will consider adding metoprolol IVP if HR continues to remain elevated - Cardiology Consult: Dr. Saha --> help appreciated - CT of abdmomen & Pelvis (05/18): Massive cardiomegaly, small pericardial effusion and small bilateral pleural effusions. - Patient's family is not agreeable to having AICD placed - Patient to be transferred to tele floor today for cardiac monitoring Hem: Thrombocytopenia likely due to severe sepsis. Will continue to monitor. Will check INR and manual platelet count Renal: Dextrose 5% increased from 100mls/hr to currently at a rate of 200mls/hr. Lasix currently at 40mg iv q8. Managing fluid overload with diuriesis and dextrose infusion to correct hypernatremia. UA 05/26 shows 3+ blood, 3+ leuk esterase, 246 wbc, 25 rbc Chronic kidney disease, Will monitor urine output. - Nephrology Consult: Dr. Ortiz --> help appreciated - Continue D5NS at 75cc/hr - Cr trending back up Endo: History of DM Continue ISS GI: Likely that the direct bilirubin is increasing due to decreased clearance by the kidneys. Hep panel negative Transaminitis and jaundice present. Elevated LFTs likely due to poor perfusion for cardiac dysfunction. LFTs trending down. GI, Dr. Barroso is consulted. Recommendations for elevated LFTs is to optimize cardiac function for better perfusion. Sepsis may be 2/2 ischemic bowel or some other infection in abdomen. Unfortunately, due to poor kidney function, CT of abd with IV contrast is unable to be done. CT with PO contrast 05-18 showed massive cardiomegaly; small pericardial effusion and small B/L pleural effusions, possible cystitis, enlarged prostate. Abd US from 05/22 showed echogenic liver, mild steatosis, hepatic cyst, simple right kidney cyst, small right pleural effusion, dilated hepatic vein suggests heart failure Abd duplex US 05/24 showed fatty infiltration or other infiltrative hepatocellular process not excluded. See full report Currently on peripheral feeding with Liposen ID: Blood cultures negative after 4 days Elevated lactic acid. Sepsis source 2/2 ischemic bowel vs. UTI Currently on Aztreonam, tigecycline, and meropenem - blood culture 05/18 & 05/22: no growth - urine culture: no growth - nose culture neg for MRSA : PSA wnl 1.81 CT shows enlarged prostate DVT proph - Contraindication due to decreased platelet count GI proph - 40mg Protonix daily whitehead for strict I/O's during acute illness SCDs Speech and swallow eval Pt is DNR/DNI <Gregory Norman - Last Filed: 05/28/17 06:25> Objective - Vital Signs/Intake and Output Vital Signs (last 24 hours): Temp Pulse Resp BP Pulse Ox 97.6 F 60 20 70/36 L 91 L 05/28/17 04:20 05/28/17 04:58 05/28/17 04:20 05/28/17 04:58 05/28/17 04:20 Intake and Output: 05/27/17 05/28/17 18:59 06:59 Intake Total 1165 1600 Output Total 800 900 Balance 365 700 - Medications Medications: Current Medications Albuterol Sulfate (Albuterol 0.083% Inhal Judy (2.5 Mg/3 Ml) Ud) 2.5 mg INH RQ6 PRN PRN Reason: Wheezing Last Admin: 05/24/17 16:05 Dose: 2.5 mg Amiodarone HCl (Cordarone) 200 mg NG DAILY [facility] Last Admin: 05/25/17 10:51 Dose: 200 mg Artificial Tears (Artificial Tears) 0 ml OU Q3H [facility] Last Admin: 05/28/17 06:19 Dose: 1 drop Aspirin (Aspirin Chewable) 81 mg PO DAILY [facility] Last Admin: 05/19/17 11:05 Dose: 81 mg Furosemide (Lasix) 20 mg IVP Q8H [facility] Last Admin: 05/28/17 00:44 Dose: Not Given Aztreonam 1 gm/ Sodium (Chloride) 100 mls @ 200 mls/hr IVPB Q24H [facility] Last Admin: 05/27/17 16:26 Dose: 200 mls/hr Meropenem 500 mg/ Sodium (Chloride) 100 mls @ 100 mls/hr IVPB Q12H [facility] Last Admin: 05/27/17 18:30 Dose: 100 mls/hr Tigecycline 50 mg/ Sodium (Chloride) 100 mls @ 100 mls/hr IVPB Q12H [facility] Last Admin: 05/27/17 22:01 Dose: 100 mls/hr Diltiazem HCl 125 mg/ Sodium (Chloride) 125 mls @ 5 mls/hr IV .Q24H [facility]; 5 MG/ HR PRN Reason: Protocol Last Admin: 05/27/17 16:36 Dose: 5 mg/hr, 5 mls/hr Dextrose (Dextrose 5% In Water 1000 Ml) 1,000 mls @ 200 mls/hr IV .Q5H [facility] Last Admin: 05/28/17 00:33 Dose: 200 mls/hr Insulin Aspart (Novolog) 0 unit SC Q6H [facility] PRN Reason: Protocol Last Admin: 05/28/17 00:32 Dose: 3 unit Lorazepam (Ativan) 0.5 mg IVP Q4H PRN PRN Reason: Agitation Last Admin: 05/22/17 03:06 Dose: 0.5 mg Pantoprazole Sodium (Protonix Inj) 40 mg IVP DAILY [facility] Last Admin: 05/27/17 10:03 Dose: 40 mg - Labs Labs: 05/27/17 08:40 05/27/17 08:19 PT 36.2 SECONDS (9.7-12.2) H* 05/25/17 17:36 INR 3.1 05/25/17 17:36 APTT 40 SECONDS (21-34) H 05/25/17 17:36 Attending/Attestation - Attestation I have personally seen and examined this patient.: Yes I have fully participated in the care of the patient.: Yes I have reviewed all pertinent clinical information, including history, physical exam and plan: Yes Notes (Text): 05/28/17 06:23 Patient was seen and examined on morning of 05/27/17. Please see my Physician Communication Notes dated 05/27/17. Exam, asssessment and plan were thoroughly gone over with the resident. Patient is for transfer to [facility] to Hospitalist Service under Dr. Cook as per my phone conversation with Nuris in the Admitting Department at [facility]. Nuris informed me that the arrangements would be made for transfer on the morning of 05/28/17. Gregory Norman D.O.
--- NOTE | 2017-05-27 20:11 | CP.PCM.PN ---
Subjective - Date & Time of Evaluation Date of Evaluation: 05/27/17 Time of Evaluation: 20:08 - Subjective Subjective: Patient's main decision maker son Suhas called from the nursing station, requesting to keep his father DNR/DNI and only at the time of the transfer to due to added risk of transfer would rescind at that time and make full code for the duration of the transfer. DNR/DNI order reinserted, patient's nurse witnessed the same please the the documentation the nursing note. Objective - Vital Signs/Intake and Output Vital Signs (last 24 hours): Temp Pulse Resp BP Pulse Ox 98 F 82 20 96/45 L 93 L 05/27/17 15:00 05/27/17 15:00 05/27/17 15:00 05/27/17 20:05 05/27/17 15:00 Intake and Output: 05/27/17 05/28/17 18:59 06:59 Intake Total 1165 Output Total 800 Balance 365 - Medications Medications: Current Medications Albuterol Sulfate (Albuterol 0.083% Inhal Judy (2.5 Mg/3 Ml) Ud) 2.5 mg INH RQ6 PRN PRN Reason: Wheezing Last Admin: 05/24/17 16:05 Dose: 2.5 mg Amiodarone HCl (Cordarone) 200 mg NG DAILY [facility] Last Admin: 05/25/17 10:51 Dose: 200 mg Artificial Tears (Artificial Tears) 0 ml OU Q3H [facility] Last Admin: 05/27/17 18:31 Dose: Not Given Aspirin (Aspirin Chewable) 81 mg PO DAILY [facility] Last Admin: 05/19/17 11:05 Dose: 81 mg Furosemide (Lasix) 40 mg IVP Q8H [facility] Last Admin: 05/27/17 10:02 Dose: 40 mg Aztreonam 1 gm/ Sodium (Chloride) 100 mls @ 200 mls/hr IVPB Q24H [facility] Last Admin: 05/27/17 16:26 Dose: 200 mls/hr Meropenem 500 mg/ Sodium (Chloride) 100 mls @ 100 mls/hr IVPB Q12H [facility] Last Admin: 05/27/17 18:30 Dose: 100 mls/hr Tigecycline 50 mg/ Sodium (Chloride) 100 mls @ 100 mls/hr IVPB Q12H [facility] Last Admin: 05/27/17 10:39 Dose: 100 mls/hr Diltiazem HCl 125 mg/ Sodium (Chloride) 125 mls @ 5 mls/hr IV .Q24H [facility]; 5 MG/ HR PRN Reason: Protocol Last Admin: 05/27/17 16:36 Dose: 5 mg/hr, 5 mls/hr Dextrose (Dextrose 5% In Water 1000 Ml) 1,000 mls @ 200 mls/hr IV .Q5H [facility] Last Admin: 05/27/17 19:44 Dose: 200 mls/hr Insulin Aspart (Novolog) 0 unit SC Q6H [facility] PRN Reason: Protocol Last Admin: 05/27/17 18:55 Dose: Not Given Lorazepam (Ativan) 0.5 mg IVP Q4H PRN PRN Reason: Agitation Last Admin: 05/22/17 03:06 Dose: 0.5 mg Pantoprazole Sodium (Protonix Inj) 40 mg IVP DAILY [facility] Last Admin: 05/27/17 10:03 Dose: 40 mg - Labs Labs: 05/27/17 08:40 05/27/17 08:19 PT 36.2 SECONDS (9.7-12.2) H* 05/25/17 17:36 INR 3.1 05/25/17 17:36 APTT 40 SECONDS (21-34) H 05/25/17 17:36
--- NOTE | 2017-05-27 21:22 | CP.PCM.PN ---
Subjective - Date & Time of Evaluation Date of Evaluation: 05/27/17 Time of Evaluation: 03:00 - Subjective Subjective: Patient remains lethargic and no change in his mental status in several days, icterus present Objective - Vital Signs/Intake and Output Vital Signs (last 24 hours): Temp Pulse Resp BP Pulse Ox 98 F 88 20 96/45 L 93 L 05/27/17 15:00 05/27/17 16:30 05/27/17 15:00 05/27/17 20:05 05/27/17 15:00 Intake and Output: 05/27/17 05/28/17 18:59 06:59 Intake Total 1165 Output Total 800 Balance 365 - Medications Medications: Current Medications Albuterol Sulfate (Albuterol 0.083% Inhal Judy (2.5 Mg/3 Ml) Ud) 2.5 mg INH RQ6 PRN PRN Reason: Wheezing Last Admin: 05/24/17 16:05 Dose: 2.5 mg Amiodarone HCl (Cordarone) 200 mg NG DAILY [facility] Last Admin: 05/25/17 10:51 Dose: 200 mg Artificial Tears (Artificial Tears) 0 ml OU Q3H [facility] Last Admin: 05/27/17 18:31 Dose: Not Given Aspirin (Aspirin Chewable) 81 mg PO DAILY [facility] Last Admin: 05/19/17 11:05 Dose: 81 mg Furosemide (Lasix) 40 mg IVP Q8H [facility] Last Admin: 05/27/17 10:02 Dose: 40 mg Aztreonam 1 gm/ Sodium (Chloride) 100 mls @ 200 mls/hr IVPB Q24H [facility] Last Admin: 05/27/17 16:26 Dose: 200 mls/hr Meropenem 500 mg/ Sodium (Chloride) 100 mls @ 100 mls/hr IVPB Q12H [facility] Last Admin: 05/27/17 18:30 Dose: 100 mls/hr Tigecycline 50 mg/ Sodium (Chloride) 100 mls @ 100 mls/hr IVPB Q12H [facility] Last Admin: 05/27/17 10:39 Dose: 100 mls/hr Diltiazem HCl 125 mg/ Sodium (Chloride) 125 mls @ 5 mls/hr IV .Q24H [facility]; 5 MG/ HR PRN Reason: Protocol Last Admin: 05/27/17 16:36 Dose: 5 mg/hr, 5 mls/hr Dextrose (Dextrose 5% In Water 1000 Ml) 1,000 mls @ 200 mls/hr IV .Q5H [facility] Last Admin: 05/27/17 19:44 Dose: 200 mls/hr Insulin Aspart (Novolog) 0 unit SC Q6H [facility] PRN Reason: Protocol Last Admin: 05/27/17 18:55 Dose: Not Given Lorazepam (Ativan) 0.5 mg IVP Q4H PRN PRN Reason: Agitation Last Admin: 05/22/17 03:06 Dose: 0.5 mg Pantoprazole Sodium (Protonix Inj) 40 mg IVP DAILY [facility] Last Admin: 05/27/17 10:03 Dose: 40 mg - Labs Labs: 05/27/17 08:40 05/27/17 08:19 PT 36.2 SECONDS (9.7-12.2) H* 05/25/17 17:36 INR 3.1 05/25/17 17:36 APTT 40 SECONDS (21-34) H 05/25/17 17:36 - Constitutional Appears: Toxic - Head Exam Head Exam: ATRAUMATIC, NORMOCEPHALIC Additional comments: lethargic,jaundiced - Neck Exam Neck Exam: Normal Inspection - Respiratory Exam Respiratory Exam: Rhonchi - Cardiovascular Exam Cardiovascular Exam: Irregular Rhythm - GI/Abdominal Exam GI & Abdominal Exam: Soft, Diminished Bowel Sounds - Extremities Exam Extremities Exam: Pedal Edema Additional comments: edema on upper extremities also Assessment and Plan (1) Altered mental status Status: Acute (2) CKD (chronic kidney disease) stage 3, GFR 30-59 ml/min Status: Acute (3) Dyspnea Status: Acute (4) Elevated LFTs Status: Acute (5) Jaundice Status: Acute (6) Cystitis Status: Acute (7) Acidosis Status: Acute (8) Afib Status: Acute (9) Dilated cardiomyopathy Status: Acute - Assessment and Plan (Free Text) Assessment: patient remains on multpile antibiotics all cultures are negative,severe acidosis and dilated cardiomyopathy with atrial fibrillation and jaundice an renal failure
--- NOTE | 2017-05-27 23:48 | CP.PCM.HP ---
Past Patient History - Past Medical History & Family History Past Medical History?: Yes - Past Social History Smoking Status: Never Smoked - CARDIAC Hx Congestive Heart Failure: Yes Hx Hypercholesterolemia: Yes Hx Hypertension: Yes - PULMONARY Hx Bronchitis: Yes Hx Pneumonia: Yes - NEUROLOGICAL Hx Neurological Disorder: No - HEENT Other/Comment: blurring ofVISION AND HARD OF HEARING AFTER taking heart medicine from [facility] [place] RENAL Hx Chronic Kidney Disease: Yes - ENDOCRINE/METABOLIC Hx Endocrine Disorders: No - HEMATOLOGICAL/ONCOLOGICAL Hx Blood Disorders: No - INTEGUMENTARY Hx Dermatological Problems: No - MUSCULOSKELETAL/RHEUMATOLOGICAL Hx Falls: No - GASTROINTESTINAL Hx Gastrointestinal Disorders: No - GENITOURINARY/GYNECOLOGICAL Hx Genitourinary Disorders: No - PSYCHIATRIC Hx Substance Use: No - SURGICAL HISTORY Hx Cholecystectomy: Yes - ANESTHESIA Hx Anesthesia: Yes Hx Anesthesia Reactions: No Hx Malignant Hyperthermia: No Meds Allergies/Adverse Reactions: Allergies Allergy/AdvReac Type Severity Reaction Status Date / Time clopidogrel bisulfate Allergy RASH Verified 05/18/17 11:26 [From Plavix] nut - unspecified Allergy SHORTNESS Verified 05/21/17 14:57 OF BREATH oxycodone HCl [From Percocet] Allergy RASH Verified 05/18/17 11:26 kiwi, peaches Allergy RASH Uncoded 05/19/17 14:18 Results - Vital Signs Recent Vital Signs: Last Vital Signs Temp 98 F 05/27/17 15:00 Pulse 64 05/27/17 21:59 Resp 20 05/27/17 15:00 BP 94/56 L 05/27/17 22:01 Pulse Ox 93 L 05/27/17 15:00 - Labs Result Diagrams: 05/27/17 08:40 05/27/17 08:19 Labs: Laboratory Results - last 24 hr 05/27/17 05/27/17 05/27/17 00:49 06:16 08:19 WBC RBC Hgb Hct MCV MCH MCHC RDW Plt Count MPV Neut % (Auto) Lymph % (Auto) Christian % (Auto) Eos % (Auto) Baso % (Auto) Neut # Lymph # Christian # Eos # Baso # Neutrophils % (Manual) Band Neutrophils % Lymphocytes % (Manual) Monocytes % (Manual) Nucleated RBC % Platelet Estimate Poikilocytosis (manual Anisocytosis (manual) Ovalocytes Rodrigue Cells Sodium 158 H Potassium 4.1 Chloride 115 H Carbon Dioxide 25 Anion Gap 22 H BUN 109 H* Creatinine 2.9 H Est GFR ( Amer) 25 Est GFR (Non-Af Amer) 21 POC Glucose (mg/dL) 165 H 222 H Random Glucose 170 H Calcium 8.6 Phosphorus 5.8 H Magnesium 2.7 H Iron TIBC % Saturation Ferritin 45.5 Total Bilirubin 6.0 H Direct Bilirubin 4.4 H AST 96 H ALT 133 H Alkaline Phosphatase 99 Total Protein 6.2 L Albumin 2.8 L Globulin 3.4 Albumin/Globulin Ratio 0.8 L 05/27/17 05/27/17 05/27/17 08:19 08:40 11:07 WBC 14.0 H D RBC 5.18 Hgb 13.8 Hct 45.1 MCV 87.0 MCH 26.6 L MCHC 30.5 L RDW 20.5 H Plt Count 82 L MPV 9.5 Neut % (Auto) 86.2 H Lymph % (Auto) 5.3 L Christian % (Auto) 7.8 Eos % (Auto) 0.0 Baso % (Auto) 0.7 Neut # 12.1 H Lymph # 0.7 L Christian # 1.1 H Eos # 0.0 Baso # 0.1 Neutrophils % (Manual) 85 H Band Neutrophils % 6 H Lymphocytes % (Manual) 3 L Monocytes % (Manual) 6 Nucleated RBC % 5 H Platelet Estimate Decreased L Poikilocytosis (manual Slight Anisocytosis (manual) Moderate Ovalocytes Slight Rodrigue Cells Slight Sodium Potassium Chloride Carbon Dioxide Anion Gap BUN Creatinine Est GFR ( Amer) Est GFR (Non-Af Amer) POC Glucose (mg/dL) 199 H Random Glucose Calcium Phosphorus Magnesium Iron 94 TIBC 343 % Saturation 27 Ferritin Total Bilirubin Direct Bilirubin AST ALT Alkaline Phosphatase Total Protein Albumin Globulin Albumin/Globulin Ratio 05/27/17 18:49 WBC RBC Hgb Hct MCV MCH MCHC RDW Plt Count MPV Neut % (Auto) Lymph % (Auto) Christian % (Auto) Eos % (Auto) Baso % (Auto) Neut # Lymph # Christian # Eos # Baso # Neutrophils % (Manual) Band Neutrophils % Lymphocytes % (Manual) Monocytes % (Manual) Nucleated RBC % Platelet Estimate Poikilocytosis (manual Anisocytosis (manual) Ovalocytes Rodrigue Cells Sodium Potassium Chloride Carbon Dioxide Anion Gap BUN Creatinine Est GFR ( Amer) Est GFR (Non-Af Amer) POC Glucose (mg/dL) 288 H Random Glucose Calcium Phosphorus Magnesium Iron TIBC % Saturation Ferritin Total Bilirubin Direct Bilirubin AST ALT Alkaline Phosphatase Total Protein Albumin Globulin Albumin/Globulin Ratio
[2017-05-28] MEDS: (Novolog) Insulin Aspart, Recombinant 100 u/ml 10 ml vial SC SCH ×5 (00:32→23:31)
[2017-05-28] MEDS: Aritificial Tears (15ml) OU SCH ×9 (00:34→23:32)
[2017-05-28] MEDS: Meropenem 500 MG in Sodium Chloride 0.9% 100 ML IVPB SCH ×2 (05:00→17:17)
[2017-05-28] MEDS ORDERED: Sodium Chloride 0.9% 1,000 ML IV ONE (07:45)
[2017-05-28] MEDS: DOPamine 400mg/250ml D5W 400 MG/250 ML BAG IV PRN ×2 (08:56→22:25)
--- NOTE | 2017-05-28 08:58 | PCM.ANES ---
Anesthesia Emergent Intubation - Diagnosis Working Diagnosis:: respiratory failure - Consult Reason for Consult:: emergent endotracheal intubation - Intubation Attempts Previous Number of Intubation Attempts:: 2 By:: Hospitalist - Pre-Intubation Vital Signs Blood Pressure: 74/35 Heart Rate: 68 Respiratory Rate: 5 O2 Sat: 92 FIO2: 100 Oxygen Delivery Method: Ambu-Bag Level Of Consciousness: Comatose/Unresponsive - Airway Management Oropharyngeal Area Suctioned: Yes (blood noted in the posterior pharynx) PreOxygenation: 100 (via ambubag) - Method of Intubation Intubation Method: Oral ETT ETT Size: 7.5 Lipline@: 22 Atramatic: Yes - Placement Confirmation Breath Sounds Present & Equal Bilaterally: Yes Gurgling Sounds Not Audible at Epigastrum: Yes Positive EtCO2: Yes Portable CXR: Yes Recommendations: Ventilator, Chest X Ray, ABG - Post-Intubation Vital Signs Blood Pressure: 89/62 Heart Rate: 71 Respiratory Rate: 12 O2 Sat: 94 FIO2: 100
[2017-05-28 09:10] LABS: ABG MECHANICAL RATE 20; ATERIAL BLOOD GAS PEEP 5; DRAW SITE L/F
[2017-05-28 09:11] LABS: BASO # 0.1 K/uL (0.0-0.2); BASO % 0.5 % (0.0-2.0); LYMPH # 0.3 K/uL (1.0-4.3); LYMPH % 2.1 % (20.0-40.0); MEAN CORPUSCULAR HEMOGLOBIN 25.7 pg (27.0-31.0); MEAN CORPUSCULAR HGB CONC 28.5 g/dL (33.0-37.0); MEAN PLATELET VOLUME 9.6 fL (7.2-11.7); MONO # 1.5 K/uL (0.0-0.8); MONO % 11.7 % (0.0-10.0); NRBC % 8.3 % (0.0-2.0); RED CELL DISTRIBUTION WIDTH 20.2 % (11.5-14.5); WHITE BLOOD COUNT 12.4 K/uL (4.8-10.8)
--- NOTE | 2017-05-28 09:22 | PCM.RRTMUL ---
Addendum entered and electronically signed by Vicente Moyer 05/28/17 12:36: Assessment/Plan: Neuro: Altered mental status secondary to metabolic encephalopathy. Son stated that he does not want a lumbar puncture to be done - Head CT 05/22: Nonspecific white matter changes. - Head CT (05/18): No evidence of acute intracranial hemorrhage territorial infarct mass effect or midline shift. Moderate atrophy and moderate white matter changes likely due to microvascular ischemic disease. - Neuro Consult: Dr. Jimenez --> help appreciated Pulm: 05/28: Pt's code status was changed this morning per his son Suhas, a code blue was called and intubation was performed. - Lung VQ scan: low probability of PE - Chest X-ray (05/19): No infiltrate. Cardiomegaly. Nasogastric tube in appropriate. - Chest X-ray (05/21): No significant interval change - Albuterol RQ6 PRN CV: Patient has history of CHF with severely decreased Ef to 20%, HTN, Afib, ischemic cardiomyopathy, and severe chronic mitral regurgitation Blood pressure labile, ranging from normotensive to hypotensive. - Atrial fibrillation - Cardizem drip 5mg/hr iv - Continue Aspirin 81 mg po qd - Will consider adding metoprolol IVP if HR continues to remain elevated - Cardiology Consult: Dr. Saha --> help appreciated - CT of abdmomen & Pelvis (05/18): Massive cardiomegaly, small pericardial effusion and small bilateral pleural effusions. - Patient's family is not agreeable to having AICD placed - Patient to be transferred to tele floor today for cardiac monitoring Hem: Thrombocytopenia likely due to severe sepsis. Will continue to monitor. Will check INR and manual platelet count Renal: Dextrose 5% increased from 100mls/hr to currently at a rate of 200mls/hr. Lasix currently at 40mg iv q8. Managing fluid overload with diuriesis and dextrose infusion to correct hypernatremia. UA 05/26 shows 3+ blood, 3+ leuk esterase, 246 wbc, 25 rbc Chronic kidney disease, Will monitor urine output. - Nephrology Consult: Dr. Ortiz --> help appreciated - Continue D5NS at 75cc/hr - Cr trending back up Endo: History of DM Continue ISS GI: Likely that the direct bilirubin is increasing due to decreased clearance by the kidneys. Hep panel negative Transaminitis and jaundice present. Elevated LFTs likely due to poor perfusion for cardiac dysfunction. LFTs trending down. GI, Dr. Barroso is consulted. Recommendations for elevated LFTs is to optimize cardiac function for better perfusion. Sepsis may be 2/2 ischemic bowel or some other infection in abdomen. Unfortunately, due to poor kidney function, CT of abd with IV contrast is unable to be done. CT with PO contrast 05-18 showed massive cardiomegaly; small pericardial effusion and small B/L pleural effusions, possible cystitis, enlarged prostate. Abd US from 05/22 showed echogenic liver, mild steatosis, hepatic cyst, simple right kidney cyst, small right pleural effusion, dilated hepatic vein suggests heart failure Abd duplex US 05/24 showed fatty infiltration or other infiltrative hepatocellular process not excluded. See full report Currently on peripheral feeding with Liposen ID: Blood cultures negative after 4 days Elevated lactic acid. Sepsis source 2/2 ischemic bowel vs. UTI Currently on Aztreonam, tigecycline, and meropenem - blood culture 05/18 & 05/22: no growth - urine culture: no growth - nose culture neg for MRSA : PSA wnl 1.81 CT shows enlarged prostate DVT proph - Contraindication due to decreased platelet count GI proph - 40mg Protonix daily whitehead for strict I/O's during acute illness SCDs Speech and swallow eval Pt is DNR/DNI Original Note: <Vicente Moyer - Last Filed: 05/28/17 09:22> [facility] [employer] Nurses Assessment - Situation [facility] [employer] Responder Arrival Time:: 07:25 Room Number:: 670B [facility] Reason for Call: Respiratory Distress - IV IV Inserted during RESISTOR COATER?: No New IV Insertion Tolerance:: Good - Respiratory Was the Patient Intubated?: Yes - Ventilator Settings Mode:: PRVC Ventilator Respiratory Rate Setting:: 20 Ventilator Tidal Volume Setting:: 500 PEEP/CPAP (cm H2O):: 5 SAO2 %:: 100 FIO2 (% Oxygen):: 100 - Diagnostic Test Ordered EKG:: No Chest X-Ray:: No CT Scan:: No CPR started during RESISTOR COATER?: No - Vital Signs Blood Pressure:: 74/35 Pulse Rate:: 68 Respiratory Rate:: 5 - Time [facility] [employer] Ended Time [facility] [employer] Ended:: 07:40 - Recommendations 5) [facility] [employer] Level of Care Recommendations: Transfer to ICU I.Reason for [facility] [employer] - A) Acute Change in Patient: Subjective: A code blue was called on this patient this morning at [address] Gregory Norman had a discussion over the phone with the patient's son who wished to change the code status of this patient from DNR/DNI to Full code and requested an immediate intubation. This conversation was witnessed by myself and the case assembler on the 6th floor. The reason for the intubation is agonal breathing secondary to clinical deterioration for the past few days resulting from severe diastolic dysfunction. Chest compressions were not necessary as the patient had a pulse. Dr Gregory Norman began the intubation process which was then completed by the critical care team and anesthesiologist. The patient's O2 sat was maintained between 89-95% during the intubation. Once intubated the patient was transferred to ICU bed 9 where critical care will continue his care. He was maintained on normal saline infusion and will be switched to half normal saline in the ICU due to his hypernatremia. - B) Neurological Status (Select all that apply): Lethargic - C) Respiratory Oxygen Delivery Method: Intubated - Constitutional Appears: Toxic, In Acute Distress - Head Head Exam: NORMAL INSPECTION - Eyes Eye Exam: Scleral icterus - Respiratory Exam Respiratory Exam: Rhonchi - Cardiovascular Exam Cardiovascular Exam: Murmur - Neurological Exam Neurological Exam: Altered Plan - B. Assessment of Findings&Treatment Plan The patient was successfully intubated and transferred to the ICU. <Gregory Norman - Last Filed: 05/28/17 19:18> Attending/Attestation - Attestation I have personally seen and examined this patient.: Yes I have fully participated in the care of the patient.: Yes I have reviewed all pertinent clinical information, including history, physical exam and plan: Yes Notes (Text): 05/28/17 19:17 Patient was seen and examined with patient as part of [facility] [employer]. Please also see my Physician Notes. Gregory Norman D.O.
[2017-05-28 09:25] LABS: POTASSIUM 4.6 mmol/L (3.6-5.2)
[2017-05-28 09:27] LABS: BILIRUBIN,TOTAL 4.5 mg/dL (0.2-1.3); PHOSPHOROUS 7.2 mg/dL (2.5-4.5); TOTAL PROTEIN 4.1 g/dL (6.3-8.3)
[2017-05-28 09:28] LABS: ALB/GLOB RATIO 0.8 (1.0-2.1); MAGNESIUM 2.2 mg/dL (1.6-2.3)
[2017-05-28 09:38] LABS: MEAN CELL VOLUME 89.9 fL (80.0-94.0); PLATELET COUNT 50 K/uL (130-400)
[2017-05-28 10:00] LABS: NEUTROPHIL 78 % (50-75); NUCLEATED RED BLOOD CELL 11 % (0-0); REACTIVE LYMPHOCYTES 2 % (0-0); TOTAL CELLS COUNTED 100
[2017-05-28] MEDS: Sodium Chloride 0.45% 1,000 ML IV SCH ×3 (10:09→23:28)
--- NOTE | 2017-05-28 10:28 | RAD ---
HISTORY: Intubation COMPARISON: 05/26/2017 FINDINGS: The endotracheal tube terminates 3.7 cm proximal to the johnny. The right IJV line terminates in the SVC. LUNGS: There is dense consolidation in the left lung and ill-defined airspace disease in the right perihilar region and lower lobe. PLEURA: No significant pleural effusion identified, no pneumothorax apparent. CARDIOVASCULAR: There is severe cardiomegaly. Atherosclerotic aortic arch calcifications are present. OSSEOUS STRUCTURES: No significant abnormalities. VISUALIZED UPPER ABDOMEN: Normal. OTHER FINDINGS: None. IMPRESSION: 1. Findings may represent interval development of pulmonary edema or pneumonia, worse in the left lung. Clinical correlation and follow-up is advised. 2. Endotracheal tube terminates 3.7 cm proximal to the johnny. The right IJV line terminates in the SVC.
--- NOTE | 2017-05-28 12:34 | CP.PCM.PCO ---
Physician Communication Note - Physician Communication Note Physician Communication Note: Please see above for details.
--- NOTE | 2017-05-28 14:41 | CP.PCM.CON ---
<Mary Graves - Last Filed: 05/28/17 18:12> History of Present Illness - History of Present Illness History of Present Illness: 87 year old Male with past medical history of CHF, HTN, atrial fibrillation, ischemic cardiomyopathy, severe chronic systolic dysfunction, severe mitral regurgitation. Patient was transferred to the ICU because the patient was experiencing agonal breathing. Patient's DNR/DNI status was rescinded by family in anticipation of his transfer to [facility] as they wanted him to be full code during the transport. Dr. Gregory Norman called patient's Son Suhas and explained to him the patient's breathing status and to determine his wishes for the patient. Son Suhas asked initiate CPR on patient and I placed Street Sweeper Operator Pat who close by on the phone with Suhas as a witness. Patient had a pulse but had agonal breathing. A code was called and the son stated for CPR to be initiated on patient. Dr. Gregory Norman placed a call to Street Sweeper Operator Pat who close by on the phone with Suhas as a witness. Per Dr. Norman' s note patient's pharynx/larynx was filled with blood and was not able to visualize the vocal cords despite suctioning and Anesthesia was called and arrived and they were able to intubate patient. Patient's family is currently having a discussion on what the management of the patient will be since the patient's previous code status was DNR/DNI. The family has discussed the code status with ICU attending Dr. Kelsey and they would like the patient to be full code. Review of Systems - Review of Systems Systems not reviewed;Unavailable: Intubated Past Patient History - Past Medical History & Family History Past Medical History?: Yes - Past Social History Smoking Status: Never Smoked - CARDIAC Hx Congestive Heart Failure: Yes Hx Hypercholesterolemia: Yes Hx Hypertension: Yes - PULMONARY Hx Bronchitis: Yes Hx Pneumonia: Yes - NEUROLOGICAL Hx Neurological Disorder: No - HEENT Other/Comment: blurring ofVISION AND HARD OF HEARING AFTER taking heart medicine from [facility] - RENAL Hx Chronic Kidney Disease: Yes - ENDOCRINE/METABOLIC Hx Endocrine Disorders: No - HEMATOLOGICAL/ONCOLOGICAL Hx Blood Disorders: No - INTEGUMENTARY Hx Dermatological Problems: No - MUSCULOSKELETAL/RHEUMATOLOGICAL Hx Falls: No - GASTROINTESTINAL Hx Gastrointestinal Disorders: No - GENITOURINARY/GYNECOLOGICAL Hx Genitourinary Disorders: No - PSYCHIATRIC Hx Substance Use: No - SURGICAL HISTORY Hx Cholecystectomy: Yes - ANESTHESIA Hx Anesthesia: Yes Hx Anesthesia Reactions: No Hx Malignant Hyperthermia: No Meds Allergies/Adverse Reactions: Allergies Allergy/AdvReac Type Severity Reaction Status Date / Time clopidogrel bisulfate Allergy RASH Verified 05/18/17 11:26 [From Plavix] nut - unspecified Allergy SHORTNESS Verified 05/21/17 14:57 OF BREATH oxycodone HCl [From Percocet] Allergy RASH Verified 05/18/17 11:26 kiwi, peaches Allergy RASH Uncoded 05/19/17 14:18 - Medications Medications: Current Medications Albuterol Sulfate (Albuterol 0.083% Inhal Judy (2.5 Mg/3 Ml) Ud) 2.5 mg INH RQ6 PRN PRN Reason: Wheezing Last Admin: 05/24/17 16:05 Dose: 2.5 mg Amiodarone HCl (Cordarone) 200 mg NG DAILY [facility] Last Admin: 05/25/17 10:51 Dose: 200 mg Artificial Tears (Artificial Tears) 0 ml OU Q3H [facility] Last Admin: 05/28/17 12:07 Dose: 1 drop Aspirin (Aspirin Chewable) 81 mg PO DAILY [facility] Last Admin: 05/19/17 11:05 Dose: 81 mg Furosemide (Lasix) 20 mg IVP Q8H [facility] Last Admin: 05/28/17 09:33 Dose: Not Given Aztreonam 1 gm/ Sodium (Chloride) 100 mls @ 200 mls/hr IVPB Q24H [facility] Last Admin: 05/27/17 16:26 Dose: 200 mls/hr Meropenem 500 mg/ Sodium (Chloride) 100 mls @ 100 mls/hr IVPB Q12H [facility] Last Admin: 05/28/17 05:00 Dose: 100 mls/hr Tigecycline 50 mg/ Sodium (Chloride) 100 mls @ 100 mls/hr IVPB Q12H [facility] Last Admin: 05/28/17 10:56 Dose: 100 mls/hr Diltiazem HCl 125 mg/ Sodium (Chloride) 125 mls @ 5 mls/hr IV .Q24H [facility]; 5 MG/ HR PRN Reason: Protocol Last Admin: 05/27/17 16:36 Dose: 5 mg/hr, 5 mls/hr Dopamine HCl/Dextrose (Dopamine 400mg/250ml D5w) 400 mg in 250 mls @ 14.628 mls /hr IV .Q17H6M PRN; Protocol; 5 MCG/KG/MIN PRN Reason: TITRATE PER MD ORDER Last Titration: 05/28/17 14:16 Dose: 7 mcg/kg/min, 20.48 mls/hr Sodium Chloride (Sodium Chloride 0.45%) 1,000 mls @ 100 mls/hr IV .Q10H [facility] Last Admin: 05/28/17 10:09 Dose: 100 mls/hr Insulin Aspart (Novolog) 0 unit SC Q6H [facility] PRN Reason: Protocol Last Admin: 05/28/17 12:10 Dose: Not Given Lorazepam (Ativan) 0.5 mg IVP Q4H PRN PRN Reason: Agitation Last Admin: 05/22/17 03:06 Dose: 0.5 mg Pantoprazole Sodium (Protonix Inj) 40 mg IVP DAILY [facility] Last Admin: 05/28/17 10:12 Dose: 40 mg Physical Exam - Head Exam Head Exam: ATRAUMATIC, NORMAL INSPECTION - Respiratory Exam Respiratory Exam: Decreased Breath Sounds Additional comments: Patient is intubated - Cardiovascular Exam Cardiovascular Exam: Tachycardia, REGULAR RHYTHM - GI/Abdominal Exam GI & Abdominal Exam: Hypoactive Bowel Sounds, Soft Results - Vital Signs Recent Vital Signs: Last Vital Signs Temp 97.6 F 05/28/17 04:20 Pulse 97 H 05/28/17 11:02 Resp 21 05/28/17 11:02 BP 95/44 L 05/28/17 11:02 Pulse Ox 100 05/28/17 11:02 - Labs Result Diagrams: 05/28/17 09:08 05/28/17 16:43 Labs: Laboratory Results - last 24 hr 05/27/17 05/27/17 05/27/17 08:19 08:19 18:49 WBC RBC Hgb Hct MCV MCH MCHC RDW Plt Count MPV Neut % (Auto) Lymph % (Auto) [place] % (Auto) Eos % (Auto) Baso % (Auto) Neut # Lymph # [place] # Eos # Baso # Neutrophils % (Manual) Band Neutrophils % Lymphocytes % (Manual) Reactive Lymphs % Monocytes % (Manual) Nucleated RBC % Platelet Estimate Hypochromasia (manual) Poikilocytosis (manual Basophilic Stippling Anisocytosis (manual) Ovalocytes Bethune Cells Schistocytes Puncture Site pCO2 pO2 HCO3 ABG pH ABG Total CO2 ABG O2 Saturation ABG Base Excess Lucho Test ABG Potassium A-a O2 Difference Respiratory Index Sodium Chloride Glucose Lactate Mechanical Rate FiO2 Tidal Volume PEEP Crit Value Called To Crit Value Called By Crit Value Read Back Blood Gas Notified Time Potassium Carbon Dioxide Anion Gap BUN Creatinine Est GFR ( Amer) Est GFR (Non-Af Amer) POC Glucose (mg/dL) 288 H Random Glucose Calcium Phosphorus Magnesium Total Bilirubin AST ALT Alkaline Phosphatase Total Protein Albumin Globulin Albumin/Globulin Ratio Arterial Blood Potassium ZECHARIAH 6 Profile Negative Anti-Mitochondrial Ab Negative Anti-Smooth Muscle Ab Negative 05/27/17 05/28/17 05/28/17 23:54 06:23 09:00 WBC RBC Hgb Hct MCV MCH MCHC RDW Plt Count MPV Neut % (Auto) Lymph % (Auto) [place] % (Auto) Eos % (Auto) Baso % (Auto) Neut # Lymph # [place] # Eos # Baso # Neutrophils % (Manual) Band Neutrophils % Lymphocytes % (Manual) Reactive Lymphs % Monocytes % (Manual) Nucleated RBC % Platelet Estimate Hypochromasia (manual) Poikilocytosis (manual Basophilic Stippling Anisocytosis (manual) Ovalocytes Rodrigue Cells Schistocytes Puncture Site L/f pCO2 85 H* pO2 170 H HCO3 17.2 L ABG pH 7.03 L* ABG Total CO2 25.1 ABG O2 Saturation 99.8 H ABG Base Excess -10.0 L Lucho Test N/a ABG Potassium 4.0 A-a O2 Difference 437.0 Respiratory Index 2.6 Sodium 148.0 Chloride 120.0 H Glucose 139 H Lactate 1.4 Mechanical Rate 20 FiO2 100.0 Tidal Volume 500 PEEP 5 Crit Value Called To Dr kelsey Crit Value Called By Joseph jones tank car mechanic Crit Value Read Back Y Blood Gas Notified Time 900 Potassium Carbon Dioxide Anion Gap BUN Creatinine Est GFR ( Amer) Est GFR (Non-Af Amer) POC Glucose (mg/dL) 257 H 286 H Random Glucose Calcium Phosphorus Magnesium Total Bilirubin AST ALT Alkaline Phosphatase Total Protein Albumin Globulin Albumin/Globulin Ratio Arterial Blood Potassium 4.0 ZECHARIAH 6 Profile Anti-Mitochondrial Ab Anti-Smooth Muscle Ab 05/28/17 05/28/17 05/28/17 09:08 09:08 11:49 WBC 12.4 H RBC 3.78 L Hgb 9.7 L D Hct 34.0 L MCV 89.9 D MCH 25.7 L MCHC 28.5 L RDW 20.2 H Plt Count 50 L D MPV 9.6 Neut % (Auto) 85.7 H Lymph % (Auto) 2.1 L [place] % (Auto) 11.7 H Eos % (Auto) 0.0 Baso % (Auto) 0.5 Neut # 10.7 H Lymph # 0.3 L [place] # 1.5 H Eos # 0.0 Baso # 0.1 Neutrophils % (Manual) 78 H Band Neutrophils % 6 H Lymphocytes % (Manual) 2 L Reactive Lymphs % 2 H Monocytes % (Manual) 12 H Nucleated RBC % 11 H Platelet Estimate Decreased L Hypochromasia (manual) Slight Poikilocytosis (manual Moderate Basophilic Stippling Slight Anisocytosis (manual) Moderate Ovalocytes Slight Rodrigue Cells Moderate Schistocytes Slight Puncture Site pCO2 pO2 HCO3 ABG pH ABG Total CO2 ABG O2 Saturation ABG Base Excess Lucho Test ABG Potassium A-a O2 Difference Respiratory Index Sodium 147 Chloride 110 H Glucose Lactate Mechanical Rate FiO2 Tidal Volume PEEP Crit Value Called To Crit Value Called By Crit Value Read Back Blood Gas Notified Time Potassium 4.6 Carbon Dioxide 25 Anion Gap 17 BUN 105 H* Creatinine 3.3 H Est GFR ( Amer) 22 Est GFR (Non-Af Amer) 18 POC Glucose (mg/dL) 149 H Random Glucose 146 H Calcium 7.0 L Phosphorus 7.2 H Magnesium 2.2 Total Bilirubin 4.5 H AST 59 D ALT 93 H D Alkaline Phosphatase 61 Total Protein 4.1 L Albumin 1.8 L D Globulin 2.4 Albumin/Globulin Ratio 0.8 L Arterial Blood Potassium ZECHARIAH 6 Profile Anti-Mitochondrial Ab Anti-Smooth Muscle Ab Assessment & Plan - Assessment and Plan (Free Text) Plan: 87yo M. PMHx CHF,HTN, atrial fibrillation, ischemic cardiomyopathy, severe chronic systolic dysfunction, severe mitral regurgitation. Presented with change in mental status, and dyspnea. Neuro: Intubated - Neuro Consult: Dr. Jimenez --> help appreciated Pulm: Intubated CV: Patient has history of CHF with severely decreased Ef to 20%, HTN, Afib, ischemic cardiomyopathy, and severe chronic mitral regurgitation Dopamine 400mg - Cardiology Consult: Dr. Saha --> help appreciated - CT of abdmomen & Pelvis (05/18): Massive cardiomegaly, small pericardial effusion and small bilateral pleural effusions. - Patient's family is not agreeable to having AICD placed Hem: Thrombocytopenia likely due to severe sepsis. Will continue to monitor. Renal: Chronic kidney disease, Will monitor urine output. - Nephrology Consult: Dr. Ortiz --> help appreciated - Continue D5NS at 75cc/hr - Cr trending back up Endo: History of DM, continue ISS GI: Likely that the direct bilirubin is increasing due to decreased clearance by the kidneys. Transaminitis and jaundice present. Elevated LFTs likely due to poor perfusion for cardiac dysfunction. LFTs trending down. GI: Dr. Barroso is consulted--> Recommendations for elevated LFTs is to optimize cardiac function for better perfusion. Sepsis may be 2/2 ischemic bowel or some other infection in abdomen. Unfortunately, due to poor kidney function, CT of abd with IV contrast is unable to be Currently on peripheral feeding with Liposen ID: Blood cultures negative after 4 days Elevated lactic acid. Sepsis source 2/2 ischemic bowel vs. UTI Currently on Aztreonam, tigecycline, and meropenem - blood culture 05/18 & 05/22: no growth - urine culture: no growth - nose culture neg for MRSA DVT proph - Contraindication due to decreased platelet count GI proph - 40mg Protonix daily whitehead for strict I/O's during acute illness Code status - Full Code Case discussed with Dr. Mekhi Graves PGY-1 <Moe Kelsey S - Last Filed: 05/28/17 18:32> Meds - Medications Medications: Current Medications Albuterol Sulfate (Albuterol 0.083% Inhal Judy (2.5 Mg/3 Ml) Ud) 2.5 mg INH RQ6 PRN PRN Reason: Wheezing Last Admin: 05/24/17 16:05 Dose: 2.5 mg Amiodarone HCl (Cordarone) 200 mg NG DAILY [facility] Last Admin: 05/25/17 10:51 Dose: 200 mg Artificial Tears (Artificial Tears) 0 ml OU Q3H [facility] Last Admin: 05/28/17 17:43 Dose: 1 drop Aspirin (Aspirin Chewable) 81 mg PO DAILY [facility] Last Admin: 05/19/17 11:05 Dose: 81 mg Furosemide (Lasix) 20 mg IVP Q8H [facility] Last Admin: 05/28/17 15:23 Dose: 20 mg Aztreonam 1 gm/ Sodium (Chloride) 100 mls @ 200 mls/hr IVPB Q24H [facility] Last Admin: 05/28/17 16:13 Dose: 200 mls/hr Meropenem 500 mg/ Sodium (Chloride) 100 mls @ 100 mls/hr IVPB Q12H [facility] Last Admin: 05/28/17 17:17 Dose: 100 mls/hr Tigecycline 50 mg/ Sodium (Chloride) 100 mls @ 100 mls/hr IVPB Q12H [facility] Last Admin: 05/28/17 10:56 Dose: 100 mls/hr Diltiazem HCl 125 mg/ Sodium (Chloride) 125 mls @ 5 mls/hr IV .Q24H [facility]; 5 MG/ HR PRN Reason: Protocol Last Admin: 05/27/17 16:36 Dose: 5 mg/hr, 5 mls/hr Dopamine HCl/Dextrose (Dopamine 400mg/250ml D5w) 400 mg in 250 mls @ 14.628 mls /hr IV .Q17H6M PRN; Protocol; 5 MCG/KG/MIN PRN Reason: TITRATE PER MD ORDER Last Titration: 05/28/17 17:13 Dose: 3 mcg/kg/min, 8.777 mls/hr Sodium Chloride (Sodium Chloride 0.45%) 1,000 mls @ 100 mls/hr IV .Q10H [facility] Last Admin: 05/28/17 10:09 Dose: 100 mls/hr Insulin Aspart (Novolog) 0 unit SC Q6H [facility] PRN Reason: Protocol Last Admin: 05/28/17 18:20 Dose: Not Given Lorazepam (Ativan) 0.5 mg IVP Q4H PRN PRN Reason: Agitation Last Admin: 05/22/17 03:06 Dose: 0.5 mg Pantoprazole Sodium (Protonix Inj) 40 mg IVP DAILY [facility] Last Admin: 05/28/17 10:12 Dose: 40 mg Results - Vital Signs Recent Vital Signs: Last Vital Signs Temp 97.4 F L 05/28/17 16:00 Pulse 110 H 05/28/17 16:12 Resp 21 05/28/17 16:12 BP 121/67 05/28/17 16:12 Pulse Ox 100 05/28/17 16:12 - Labs Result Diagrams: 05/28/17 09:08 05/28/17 16:43 Labs: Laboratory Results - last 24 hr 05/27/17 05/27/17 05/27/17 08:19 08:19 18:49 WBC RBC Hgb Hct MCV MCH MCHC RDW Plt Count MPV Neut % (Auto) Lymph % (Auto) [place] % (Auto) Eos % (Auto) Baso % (Auto) Neut # Lymph # [place] # Eos # Baso # Neutrophils % (Manual) Band Neutrophils % Lymphocytes % (Manual) Reactive Lymphs % Monocytes % (Manual) Nucleated RBC % Platelet Estimate Hypochromasia (manual) Poikilocytosis (manual Basophilic Stippling Anisocytosis (manual) Ovalocytes Bethune Cells Schistocytes PT INR APTT Puncture Site pCO2 pO2 HCO3 ABG pH ABG Total CO2 ABG O2 Saturation ABG Base Excess ABG Hemoglobin ABG Carboxyhemoglobin POC ABG HHb (Measured) ABG Methemoglobin Lucho Test ABG Potassium A-a O2 Difference Respiratory Index Hgb O2 Saturation Sodium Chloride Glucose Lactate Vent Mode Mechanical Rate FiO2 Tidal Volume PEEP Crit Value Called To Crit Value Called By Crit Value Read Back Blood Gas Notified Time Potassium Carbon Dioxide Anion Gap BUN Creatinine Est GFR ( Amer) Est GFR (Non-Af Amer) POC Glucose (mg/dL) 288 H Random Glucose Calcium Phosphorus Magnesium Total Bilirubin AST ALT Alkaline Phosphatase Total Protein Albumin Globulin Albumin/Globulin Ratio Arterial Blood Potassium ZECHARIAH 6 Profile Negative Anti-Mitochondrial Ab Negative Anti-Smooth Muscle Ab Negative 05/27/17 05/28/17 05/28/17 23:54 06:23 09:00 WBC RBC Hgb Hct MCV MCH MCHC RDW Plt Count MPV Neut % (Auto) Lymph % (Auto) [place] % (Auto) Eos % (Auto) Baso % (Auto) Neut # Lymph # [place] # Eos # Baso # Neutrophils % (Manual) Band Neutrophils % Lymphocytes % (Manual) Reactive Lymphs % Monocytes % (Manual) Nucleated RBC % Platelet Estimate Hypochromasia (manual) Poikilocytosis (manual Basophilic Stippling Anisocytosis (manual) Ovalocytes Bethune Cells Schistocytes PT INR APTT Puncture Site L/f pCO2 85 H* pO2 170 H HCO3 17.2 L ABG pH 7.03 L* ABG Total CO2 25.1 ABG O2 Saturation 99.8 H ABG Base Excess -10.0 L ABG Hemoglobin ABG Carboxyhemoglobin POC ABG HHb (Measured) ABG Methemoglobin Lucho Test N/a ABG Potassium 4.0 A-a O2 Difference 437.0 Respiratory Index 2.6 Hgb O2 Saturation Sodium 148.0 Chloride 120.0 H Glucose 139 H Lactate 1.4 Vent Mode Mechanical Rate 20 FiO2 100.0 Tidal Volume 500 PEEP 5 Crit Value Called To Dr kelsey Crit Value Called By Joseph jones tank car mechanic Crit Value Read Back Y Blood Gas Notified Time 900 Potassium Carbon Dioxide Anion Gap BUN Creatinine Est GFR ( Amer) Est GFR (Non-Af Amer) POC Glucose (mg/dL) 257 H 286 H Random Glucose Calcium Phosphorus Magnesium Total Bilirubin AST ALT Alkaline Phosphatase Total Protein Albumin Globulin Albumin/Globulin Ratio Arterial Blood Potassium 4.0 ZECHARIAH 6 Profile Anti-Mitochondrial Ab Anti-Smooth Muscle Ab 05/28/17 05/28/17 05/28/17 09:08 09:08 11:49 WBC 12.4 H RBC 3.78 L Hgb 9.7 L D Hct 34.0 L MCV 89.9 D MCH 25.7 L MCHC 28.5 L RDW 20.2 H Plt Count 50 L D MPV 9.6 Neut % (Auto) 85.7 H Lymph % (Auto) 2.1 L [place] % (Auto) 11.7 H Eos % (Auto) 0.0 Baso % (Auto) 0.5 Neut # 10.7 H Lymph # 0.3 L [place] # 1.5 H Eos # 0.0 Baso # 0.1 Neutrophils % (Manual) 78 H Band Neutrophils % 6 H Lymphocytes % (Manual) 2 L Reactive Lymphs % 2 H Monocytes % (Manual) 12 H Nucleated RBC % 11 H Platelet Estimate Decreased L Hypochromasia (manual) Slight Poikilocytosis (manual Moderate Basophilic Stippling Slight Anisocytosis (manual) Moderate Ovalocytes Slight Bethune Cells Moderate Schistocytes Slight PT INR APTT Puncture Site pCO2 pO2 HCO3 ABG pH ABG Total CO2 ABG O2 Saturation ABG Base Excess ABG Hemoglobin ABG Carboxyhemoglobin POC ABG HHb (Measured) ABG Methemoglobin Lucho Test ABG Potassium A-a O2 Difference Respiratory Index Hgb O2 Saturation Sodium 147 Chloride 110 H Glucose Lactate Vent Mode Mechanical Rate FiO2 Tidal Volume PEEP Crit Value Called To Crit Value Called By Crit Value Read Back Blood Gas Notified Time Potassium 4.6 Carbon Dioxide 25 Anion Gap 17 BUN 105 H* Creatinine 3.3 H Est GFR ( Amer) 22 Est GFR (Non-Af Amer) 18 POC Glucose (mg/dL) 149 H Random Glucose 146 H Calcium 7.0 L Phosphorus 7.2 H Magnesium 2.2 Total Bilirubin 4.5 H AST 59 D ALT 93 H D Alkaline Phosphatase 61 Total Protein 4.1 L Albumin 1.8 L D Globulin 2.4 Albumin/Globulin Ratio 0.8 L Arterial Blood Potassium ZECHARIAH 6 Profile Anti-Mitochondrial Ab Anti-Smooth Muscle Ab 05/28/17 05/28/17 05/28/17 16:40 16:43 16:43 WBC RBC Hgb Hct MCV MCH MCHC RDW Plt Count MPV Neut % (Auto) Lymph % (Auto) [place] % (Auto) Eos % (Auto) Baso % (Auto) Neut # Lymph # [place] # Eos # Baso # Neutrophils % (Manual) Band Neutrophils % Lymphocytes % (Manual) Reactive Lymphs % Monocytes % (Manual) Nucleated RBC % Platelet Estimate Hypochromasia (manual) Poikilocytosis (manual Basophilic Stippling Anisocytosis (manual) Ovalocytes Bethune Cells Schistocytes PT > 320.0 H* D INR > 10.0 D APTT > 400 H* D Puncture Site Rra pCO2 44 pO2 95 HCO3 19.9 L ABG pH 7.27 L ABG Total CO2 21.6 L ABG O2 Saturation 99.3 H ABG Base Excess -6.4 L ABG Hemoglobin 10.6 L ABG Carboxyhemoglobin 2.3 H POC ABG HHb (Measured) 0.7 ABG Methemoglobin 1.1 Lucho Test Pos ABG Potassium A-a O2 Difference 563.0 Respiratory Index 5.9 Hgb O2 Saturation 95.9 Sodium 145 Chloride 109 H Glucose Lactate Vent Mode A/c Mechanical Rate 24 FiO2 100.0 Tidal Volume 550 PEEP 5 Crit Value Called To Crit Value Called By Crit Value Read Back Blood Gas Notified Time Potassium 4.3 Carbon Dioxide 22 Anion Gap 18 BUN 109 H* Creatinine 3.4 H Est GFR ( Amer) 21 Est GFR (Non-Af Amer) 17 POC Glucose (mg/dL) Random Glucose 105 Calcium 7.6 L Phosphorus 5.9 H Magnesium 2.1 Total Bilirubin 6.7 H AST 94 H D ALT 102 H Alkaline Phosphatase 86 Total Protein 4.8 L Albumin 2.1 L Globulin 2.7 Albumin/Globulin Ratio 0.8 L Arterial Blood Potassium ZECHARIAH 6 Profile Anti-Mitochondrial Ab Anti-Smooth Muscle Ab 05/28/17 18:17 WBC RBC Hgb Hct MCV MCH MCHC RDW Plt Count MPV Neut % (Auto) Lymph % (Auto) [place] % (Auto) Eos % (Auto) Baso % (Auto) Neut # Lymph # [place] # Eos # Baso # Neutrophils % (Manual) Band Neutrophils % Lymphocytes % (Manual) Reactive Lymphs % Monocytes % (Manual) Nucleated RBC % Platelet Estimate Hypochromasia (manual) Poikilocytosis (manual Basophilic Stippling Anisocytosis (manual) Ovalocytes Bethune Cells Schistocytes PT INR APTT Puncture Site pCO2 pO2 HCO3 ABG pH ABG Total CO2 ABG O2 Saturation ABG Base Excess ABG Hemoglobin ABG Carboxyhemoglobin POC ABG HHb (Measured) ABG Methemoglobin Lucho Test ABG Potassium A-a O2 Difference Respiratory Index Hgb O2 Saturation Sodium Chloride Glucose Lactate Vent Mode Mechanical Rate FiO2 Tidal Volume PEEP Crit Value Called To Crit Value Called By Crit Value Read Back Blood Gas Notified Time Potassium Carbon Dioxide Anion Gap BUN Creatinine Est GFR ( Amer) Est GFR (Non-Af Amer) POC Glucose (mg/dL) 122 H Random Glucose Calcium Phosphorus Magnesium Total Bilirubin AST ALT Alkaline Phosphatase Total Protein Albumin Globulin Albumin/Globulin Ratio Arterial Blood Potassium ZECHARIAH 6 Profile Anti-Mitochondrial Ab Anti-Smooth Muscle Ab Attending/Attestation - Attestation I have personally seen and examined this patient.: Yes I have fully participated in the care of the patient.: Yes I have reviewed all pertinent clinical information: Yes Notes (Text): 05/28/17 18:29 Patient seen and examined in the intensive care unit. 87-year-old male transferred to ICU status post respiratory failure, intubated and transferred to ICU. Patient placed on ventilatory support Worsening renal function noted Spoke with family at length, and wants to continue present management Continue antibiotics as per infectious disease Follow-up renal function History of cardiomyopathy with ejection fraction 20%
[2017-05-28] MEDS: Aztreonam 1 GM in Sodium Chloride 0.9% 100 ML IVPB SCH (16:13)
[2017-05-28 16:49] LABS: ABG ALLEN TEST POS; ABG MECHANICAL RATE 24; ARTERIAL BLOOD GAS MODE A/C; ARTERIAL BLOOD HGB O2 SAT 95.9 % (95.0-98.0); ATERIAL BLOOD GAS PEEP 5; CARBOXYHEMOGLOBIN 2.3 % (0.5-1.5); DRAW SITE RRA; HHB 0.7 % (0.0-5.0); METHEMOGLOBIN 1.1 % (0.0-3.0)
[2017-05-28 17:05] LABS: POTASSIUM 4.3 mmol/L (3.6-5.2)
[2017-05-28 17:07] LABS: ALB/GLOB RATIO 0.8 (1.0-2.1); BILIRUBIN,TOTAL 6.7 mg/dL (0.2-1.3); TOTAL PROTEIN 4.8 g/dL (6.3-8.3)
[2017-05-28 17:08] LABS: CALCIUM 7.6 mg/dl (8.6-10.4); MAGNESIUM 2.1 mg/dL (1.6-2.3); PHOSPHOROUS 5.9 mg/dL (2.5-4.5)
[2017-05-28 17:27] LABS: INR > 10.0; PARTIAL THROMBOPLASTIN TIME > 400 SECONDS (21-34)
[2017-05-28 18:27] LABS: RED CELL DISTRIBUTION WIDTH 19.9 % (11.5-14.5)
[2017-05-28 18:39] LABS: BASO # 0.1 K/uL (0.0-0.2); BASO % 0.4 % (0.0-2.0); EOS % 0.1 % (0.0-4.0); HEMATOCRIT 36.4 % (35.0-51.0); LYMPH # 0.4 K/uL (1.0-4.3); LYMPH % 3.2 % (20.0-40.0); MEAN CORPUSCULAR HGB CONC 29.8 g/dL (33.0-37.0); MEAN PLATELET VOLUME 10.8 fL (7.2-11.7); MONO # 1.2 K/uL (0.0-0.8); MONO % 9.4 % (0.0-10.0); NRBC % 13.8 % (0.0-2.0); PLATELET COUNT 52 K/uL (130-400); WHITE BLOOD COUNT 13.1 K/uL (4.8-10.8)
[2017-05-28 18:40] LABS: MEAN CELL VOLUME 87.2 fL (80.0-94.0)
[2017-05-28 19:09] LABS: NEUTROPHIL 91 % (50-75); NUCLEATED RED BLOOD CELL 15 % (0-0); TOTAL CELLS COUNTED 100
[2017-05-28 19:10] LABS: ACANTHOCYTES SLIGHT
--- NOTE | 2017-05-28 19:22 | CP.PCM.PN ---
Subjective - Date & Time of Evaluation Date of Evaluation: 05/28/17 Time of Evaluation: 19:19 - Subjective Subjective: Please see above Objective - Vital Signs/Intake and Output Vital Signs (last 24 hours): Temp Pulse Resp BP Pulse Ox 97.4 F L 97 H 17 110/46 L 100 05/28/17 16:00 05/28/17 18:10 05/28/17 18:10 05/28/17 18:10 05/28/17 18:10 Intake and Output: 05/28/17 05/29/17 18:59 06:59 Intake Total 1268.4 Output Total 300 Balance 968.4 - Medications Medications: Current Medications Albuterol Sulfate (Albuterol 0.083% Inhal Judy (2.5 Mg/3 Ml) Ud) 2.5 mg INH RQ6 PRN PRN Reason: Wheezing Last Admin: 05/24/17 16:05 Dose: 2.5 mg Amiodarone HCl (Cordarone) 200 mg NG DAILY [facility] Last Admin: 05/25/17 10:51 Dose: 200 mg Artificial Tears (Artificial Tears) 0 ml OU Q3H [facility] Last Admin: 05/28/17 17:43 Dose: 1 drop Aspirin (Aspirin Chewable) 81 mg PO DAILY [facility] Last Admin: 05/19/17 11:05 Dose: 81 mg Furosemide (Lasix) 20 mg IVP Q8H [facility] Last Admin: 05/28/17 15:23 Dose: 20 mg Aztreonam 1 gm/ Sodium (Chloride) 100 mls @ 200 mls/hr IVPB Q24H [facility] Last Admin: 05/28/17 16:13 Dose: 200 mls/hr Meropenem 500 mg/ Sodium (Chloride) 100 mls @ 100 mls/hr IVPB Q12H [facility] Last Admin: 05/28/17 17:17 Dose: 100 mls/hr Tigecycline 50 mg/ Sodium (Chloride) 100 mls @ 100 mls/hr IVPB Q12H [facility] Last Admin: 05/28/17 10:56 Dose: 100 mls/hr Diltiazem HCl 125 mg/ Sodium (Chloride) 125 mls @ 5 mls/hr IV .Q24H [facility]; 5 MG/ HR PRN Reason: Protocol Last Admin: 05/27/17 16:36 Dose: 5 mg/hr, 5 mls/hr Dopamine HCl/Dextrose (Dopamine 400mg/250ml D5w) 400 mg in 250 mls @ 14.628 mls /hr IV .Q17H6M PRN; Protocol; 5 MCG/KG/MIN PRN Reason: TITRATE PER MD ORDER Last Titration: 05/28/17 17:13 Dose: 3 mcg/kg/min, 8.777 mls/hr Sodium Chloride (Sodium Chloride 0.45%) 1,000 mls @ 100 mls/hr IV .Q10H [facility] Last Admin: 05/28/17 10:09 Dose: 100 mls/hr Insulin Aspart (Novolog) 0 unit SC Q6H [facility] PRN Reason: Protocol Last Admin: 05/28/17 18:20 Dose: Not Given Lorazepam (Ativan) 0.5 mg IVP Q4H PRN PRN Reason: Agitation Last Admin: 05/22/17 03:06 Dose: 0.5 mg Pantoprazole Sodium (Protonix Inj) 40 mg IVP DAILY [facility] Last Admin: 05/28/17 10:12 Dose: 40 mg - Labs Labs: 05/28/17 16:43 05/28/17 16:43 PT > 320.0 SECONDS (9.7-12.2) H* D 05/28/17 16:43 INR > 10.0 D 05/28/17 16:43 APTT > 400 SECONDS (21-34) H* D 05/28/17 16:43
--- NOTE | 2017-05-28 19:40 | CP.PCM.PN ---
Subjective - Date & Time of Evaluation Date of Evaluation: 05/28/17 Time of Evaluation: 12:30 - Subjective Subjective: Patient intubated this morning after having agonal breathing; Objective - Vital Signs/Intake and Output Vital Signs (last 24 hours): Temp Pulse Resp BP Pulse Ox 97.4 F L 97 H 17 110/46 L 100 05/28/17 16:00 05/28/17 18:10 05/28/17 18:10 05/28/17 18:10 05/28/17 18:10 Intake and Output: 05/28/17 05/29/17 18:59 06:59 Intake Total 1268.4 Output Total 300 Balance 968.4 - Medications Medications: Current Medications Albuterol Sulfate (Albuterol 0.083% Inhal Judy (2.5 Mg/3 Ml) Ud) 2.5 mg INH RQ6 PRN PRN Reason: Wheezing Last Admin: 05/24/17 16:05 Dose: 2.5 mg Amiodarone HCl (Cordarone) 200 mg NG DAILY HILL Last Admin: 05/25/17 10:51 Dose: 200 mg Artificial Tears (Artificial Tears) 0 ml OU Q3H HILL Last Admin: 05/28/17 17:43 Dose: 1 drop Aspirin (Aspirin Chewable) 81 mg PO DAILY HILL Last Admin: 05/19/17 11:05 Dose: 81 mg Furosemide (Lasix) 20 mg IVP Q8H H[facility] Last Admin: 05/28/17 15:23 Dose: 20 mg Aztreonam 1 gm/ Sodium (Chloride) 100 mls @ 200 mls/hr IVPB Q24H [facility] Last Admin: 05/28/17 16:13 Dose: 200 mls/hr Meropenem 500 mg/ Sodium (Chloride) 100 mls @ 100 mls/hr IVPB Q12H [facility] Last Admin: 05/28/17 17:17 Dose: 100 mls/hr Tigecycline 50 mg/ Sodium (Chloride) 100 mls @ 100 mls/hr IVPB Q12H [facility] Last Admin: 05/28/17 10:56 Dose: 100 mls/hr Diltiazem HCl 125 mg/ Sodium (Chloride) 125 mls @ 5 mls/hr IV .Q24H HILL; 5 MG/ HR PRN Reason: Protocol Last Admin: 05/27/17 16:36 Dose: 5 mg/hr, 5 mls/hr Dopamine HCl/Dextrose (Dopamine 400mg/250ml D5w) 400 mg in 250 mls @ 14.628 mls /hr IV .Q17H6M PRN; Protocol; 5 MCG/KG/MIN PRN Reason: TITRATE PER MD ORDER Last Titration: 05/28/17 17:13 Dose: 3 mcg/kg/min, 8.777 mls/hr Sodium Chloride (Sodium Chloride 0.45%) 1,000 mls @ 100 mls/hr IV .Q10H [facility] Last Admin: 05/28/17 10:09 Dose: 100 mls/hr Insulin Aspart (Novolog) 0 unit SC Q6H HILL PRN Reason: Protocol Last Admin: 05/28/17 18:20 Dose: Not Given Lorazepam (Ativan) 0.5 mg IVP Q4H PRN PRN Reason: Agitation Last Admin: 05/22/17 03:06 Dose: 0.5 mg Pantoprazole Sodium (Protonix Inj) 40 mg IVP DAILY HILL Last Admin: 05/28/17 10:12 Dose: 40 mg - Labs Labs: 05/28/17 16:43 05/28/17 16:43 PT > 320.0 SECONDS (9.7-12.2) H* D 05/28/17 16:43 INR > 10.0 D 05/28/17 16:43 APTT > 400 SECONDS (21-34) H* D 05/28/17 16:43 - Constitutional Appears: In Acute Distress - Eye Exam Eye Exam: Scleral icterus - ENT Exam ENT Exam: Mucous Membranes Moist - Respiratory Exam Additional comments: bilateral rales present; - Cardiovascular Exam Cardiovascular Exam: Tachycardia - GI/Abdominal Exam GI & Abdominal Exam: Distended, Tenderness - Exam Additional comments: whitehead in place - Extremities Exam Additional comments: moderately edematous legs; - Neurological Exam Neurological Exam: Awake - Psychiatric Exam Psychiatric exam: Agitated - Skin Additional comments: distal ext cool; Assessment and Plan (1) CHF (congestive heart failure) Assessment & Plan: Severe acutely decompensated systolic CHF w/ severe MR; pulmonary edema on CXR; continue IV lasix 20 mg q8h, if no response and BP tolerates, should increase to 40 mg; may benefit from inotropic support; Status: Chronic (2) Acute renal failure (ARF) Assessment & Plan: LULA on CKD; initially pre-renal etiology, however, may have progressed to ATN; recommend to try inotropic support; family has previously been against hemodialysis, however, this may be only option for volume removal if diuretics fail; Status: Acute (3) Hypertensive CKD (chronic kidney disease) Assessment & Plan: Has been hypotensive lately, on dopamine; continue; Status: Chronic (4) Altered mental status Status: Acute (5) SIRS (systemic inflammatory response syndrome) Assessment & Plan: Intermittently elevated lactic acidosis of unclear etiology; on aztreonam, tygecil and meropenem, correctly dosed for CrCl 10-30 mL/min; Status: Acute (6) Hyperbilirubinemia Assessment & Plan: Worsened today, likely due to congestive hepatopathy; volume removal may help; Status: Acute
[2017-05-29] MEDS: Aritificial Tears (15ml) OU SCH ×7 (02:41→22:00)
[2017-05-29] MEDS: Meropenem 500 MG in Sodium Chloride 0.9% 100 ML IVPB SCH ×2 (05:52→18:33)
[2017-05-29] MEDS: (Novolog) Insulin Aspart, Recombinant 100 u/ml 10 ml vial SC SCH ×3 (06:00→18:37)
[2017-05-29] MEDS: Sodium Chloride 0.45% 1,000 ML IV SCH ×3 (06:15→16:29)
[2017-05-29 06:29] LABS: BASO % 0.1 % (0.0-2.0); HEMATOCRIT 32.5 % (35.0-51.0); LYMPH # 0.3 K/uL (1.0-4.3); LYMPH % 2.5 % (20.0-40.0); MEAN CELL VOLUME 83.4 fL (80.0-94.0); MEAN CORPUSCULAR HEMOGLOBIN 26.3 pg (27.0-31.0); MEAN CORPUSCULAR HGB CONC 31.5 g/dL (33.0-37.0); MEAN PLATELET VOLUME 9.4 fL (7.2-11.7); MONO # 0.8 K/uL (0.0-0.8); MONO % 6.4 % (0.0-10.0); NRBC % 2.1 % (0.0-2.0); PLATELET COUNT 37 K/uL (130-400); RED CELL DISTRIBUTION WIDTH 19.6 % (11.5-14.5); WHITE BLOOD COUNT 11.9 K/uL (4.8-10.8)
--- NOTE | 2017-05-29 06:29 | PN ---
INFECTIOUS DISEASE FOLLOWUP DATE OF SERVICE: 05/28/2017 SUBJECTIVE: Patient was intubated this morning as he was getting short of breath and he had a cold according to the physician, they noted agonal breathing and they had to intubate him and he was intubated, brought to the EICU and the code was called and intubated; however, his pharynx and larynx were filled with blood and I was not able to visualize the vocal cords despite suctioning and so they had to call CODE BLUE and so he is status post code blue. He opened his eyes, however. The son insists that he did that this morning, however, his eyes are closed at this time. He remains on a ventilator. PHYSICAL EXAMINATION VITAL SIGNS: His temperature, I do not see any recorded right now, the last one was at 4:00 97.4, heart rate remains 97, blood pressure was 113/47, respirations are on the ventilator. GENERAL: He keeps his eyes closed, otherwise, has been lethargic since admission, it is almost 10 days now. LUNGS: Clear with occasional rhonchi. HEART: S1 and S2 is regular. ABDOMEN: Soft, nontender, no guarding, no rigidity present. EXTREMITIES: He has his foot supporters. LABORATORY DATA: Labs are noted. Labs show white count is 13.1 today, hemoglobin 10.4, hematocrit 36.4, platelet count is 52 and neutrophils are 86. Chemistries show sodium is 145, potassium 4.3, chloride is 109, CO2 is 22, BUN is 109, creatinine is 3.4, is climbing up and he remains jaundiced with a bilirubin of 6.7 and AST is 94, ALT is 102. ASSESSMENT AND PLAN: Son tells me that last year, he had similar episode, but he came out of it in [facility]. All the cultures have been so far negative. He does have multiorgan failure as he is now on respirator as well as has renal insufficiency, hepatic, and he also has dilated cardiomyopathy with a poor ejection fraction in the past and his interval development of pulmonary edema, pneumonia worse in the left lung and that is the x-ray. Medications, he is on albuterol, Artificial Tears, aspirin, Theosol, Azactam he is on 1 gram daily, diltiazem, dopamine, he is on meropenem 500 every 12 hours and he remains on . So he is on these multiple medications, and now that he is intubated, we will order a sputum C&S and he will need to be followed. Even though he remains acidotic, etiology of his sepsis is unknown as his x-ray was clear when he came. I will be away. I will endorse this patient to Dr. Cheek to follow. Prognosis remains guarded as we have not found the exact source of his sepsis. David Hutton MD
[2017-05-29 06:41] LABS: ABG MECHANICAL RATE 24; ATERIAL BLOOD GAS PEEP 5; CARBOXYHEMOGLOBIN 2.1 % (0.5-1.5); DRAW SITE L B; HHB 3.6 % (0.0-5.0); METHEMOGLOBIN 1.3 % (0.0-3.0)
[2017-05-29 06:45] LABS: POTASSIUM 3.9 mmol/L (3.6-5.2)
[2017-05-29 06:47] LABS: BILIRUBIN,DIRECT 5.4 mg/dL (0.0-0.4); BILIRUBIN,TOTAL 7.5 mg/dL (0.2-1.3); TOTAL PROTEIN 4.5 g/dL (6.3-8.3)
[2017-05-29 06:48] LABS: CALCIUM 7.9 mg/dl (8.6-10.4); MAGNESIUM 2.1 mg/dL (1.6-2.3); PHOSPHOROUS 4.9 mg/dL (2.5-4.5)
[2017-05-29 06:54] LABS: ALB/GLOB RATIO 0.7 (1.0-2.1)
[2017-05-29 08:00] LABS: NEUTROPHIL 90 % (50-75); NUCLEATED RED BLOOD CELL 6 % (0-0); TOTAL CELLS COUNTED 100
--- NOTE | 2017-05-29 08:25 | RAD ---
Chest x-ray single frontal view History: Intubation. Comparison: 05/28/2017 Findings: Lines and tubes in stable position. Dense confluent consolidative opacifications throughout the left lung as well as within the right hilar region. Small left pleural effusion. Cardiomegaly. Calcification at the aortic knob. Degenerative changes in the spine and shoulders. Impression: Lines and tubes in stable position. Dense confluent consolidative opacifications throughout the left lung as well as within the right hilar region. Small left pleural effusion. Cardiomegaly. Calcification at the aortic knob.
--- NOTE | 2017-05-29 16:24 | CP.CCUPN ---
<Mary Graves - Last Filed: 05/29/17 16:21> CCU Subjective - Physician Review Subjective (Free Text): Patient was seen and examined at bedside in the AM. Patient is not alert or oriented. Patient is intubated 05/29/17 16:21 CCU Objective - Vital Signs / Intake & Output Vital Signs (Last 4 hours): Vital Signs Pulse Resp BP Pulse Ox 05/29/17 15:00 99 H 23 100 05/29/17 14:38 97 H 17 92/46 L 100 05/29/17 14:18 99 H 24 98/53 L 100 05/29/17 14:17 99 H 24 100 05/29/17 14:00 102 H 20 100 05/29/17 13:37 117 H 24 88/54 L 100 05/29/17 13:00 117 H 24 100 05/29/17 12:38 127 H 22 98/54 L 100 Intake and Output (Last 8hrs): Intake & Output 05/29/17 05/29/17 05/29/17 06:59 14:59 22:59 Intake Total 880.8 995.5 115 Output Total 655 1125 100 Balance 225.8 -129.5 15 Weight 160 lb 14.999 oz 164 lb 1.6 oz Intake: Intake, IV Amount 880.8 995.5 115 Right Medial Port 800 900 100 Internal Jugular Right Proximal Port 80.8 95.5 15 Internal Jugular Output: Urine 655 1125 100 Urethral (White[place]) 655 1125 100 Other: # Bowel Movements 0 0 0 - Physical Exam Physical Exam Limitations: Positive for: Clinical Condition Head: Positive for: Atraumatic, Normocephalic Mouth: Positive for: Dry Nose (Internal): Negative for: No Active Bleeding (Patient is bleeding slighly from left nostril with NG tube ) Respiratory/Chest: Positive for: Decreased Breath Sounds, Other (patient is intubated). Negative for: Respiratory Distress, Accessory Muscle Use Abdomen: Negative for: Distention, Normal Bowel Sounds (hypo bowel sounds) Upper Extremity: Negative for: Edema Lower Extremity: Negative for: Edema Neurological: Negative for: GCS=15, Speech Normal Psychiatric: Negative for: Alert, Oriented x 3 - Medications Active Medications: Active Medications Generic Name Dose Route Start Last Admin Trade Name Freq PRN Reason Stop Dose Admin Albuterol Sulfate 2.5 mg 05/21/17 07:51 05/24/17 16:05 Albuterol 0.083% Inhal Judy (2.5 Mg/3 Ml) Ud INH 2.5 mg RQ6 PRN Administration Wheezing Amiodarone HCl 200 mg 05/19/17 14:00 05/25/17 10:51 Cordarone NG 200 mg DAILY HILL Administration Artificial Tears 0 ml 05/25/17 12:30 05/29/17 14:53 Artificial Tears OU 1 drop Q3H HILL Administration Aspirin 81 mg 05/19/17 10:00 05/19/17 11:05 Aspirin Chewable PO 81 mg DAILY HILL Administration Aztreonam 1 gm/ Sodium 100 mls @ 200 mls/hr 05/22/17 17:00 05/28/17 16:13 Chloride IVPB 200 mls/hr Q24H HILL Administration Meropenem 500 mg/ Sodium 100 mls @ 100 mls/hr 05/22/17 18:00 05/29/17 05:52 Chloride IVPB 100 mls/hr Q12H HILL Administration Tigecycline 50 mg/ Sodium 100 mls @ 100 mls/hr 05/24/17 11:30 05/29/17 10:51 Chloride IVPB 100 mls/hr Q12H HILL Administration Diltiazem HCl 125 mg/ Sodium 125 mls @ 5 mls/hr 05/26/17 17:16 05/27/17 16:36 Chloride IV 5 mg/hr .Q24H HILL 5 mls/hr Protocol Administration 5 MG/HR Sodium Chloride 1,000 mls @ 100 mls/hr 05/28/17 10:15 05/29/17 12:42 Sodium Chloride 0.45% IV 100 mls/hr .Q10H HILL Administration Norepinephrine Bitartrate 4 mg 254 mls @ 15.24 mls/hr 05/29/17 10:13 11:19 / Sodium Chloride IV 4 mcg/min .[id number] PRN 15.24 mls/hr TITRATE PER MD ORDER Administration Protocol 4 MCG/MIN Milrinone Lactate/Dextrose 20 100 mls @ 4.46 mls/hr 05/29/17 15:45 mg/ Dextrose IV .[id number] HILL Protocol 0.2 MCG/KG/MIN Insulin Aspart 0 unit 05/22/17 18:00 05/29/17 12:38 Novolog SC 1 unit Q6H HILL Administration Protocol Lorazepam 0.5 mg 05/18/17 15:32 05/29/17 09:15 Ativan IVP 0.5 mg Q4H PRN Administration Agitation Pantoprazole Sodium 40 mg 05/19/17 10:00 05/29/17 10:41 Protonix Inj IVP 40 mg DAILY HILL Administration - Patient Studies Lab Studies: Microbiology Studies 05/28/17 08:00 MRSA Culture (Admit) - Final Naris MRSA NOT DETECTED Lab Studies 05/29/17 05/29/17 05/29/17 Range/Units 11:28 06:22 06:22 WBC 11.9 H (4.8-10.8) K/uL RBC 3.90 L (4.40-5.90) Mil/uL Hgb 10.2 L (12.0-18.0) g/dL Hct 32.5 L (35.0-51.0) % MCV 83.4 D (80.0-94.0) fL MCH 26.3 L (27.0-31.0) pg MCHC 31.5 L (33.0-37.0) g/dL RDW 19.6 H (11.5-14.5) % Plt Count 37 L (130-400) K/uL MPV 9.4 (7.2-11.7) fL Neut % (Auto) 91.0 H (50.0-75.0) % Lymph % (Auto) 2.5 L (20.0-40.0) % Gates % (Auto) 6.4 (0.0-10.0) % Eos % (Auto) 0.0 (0.0-4.0) % Baso % (Auto) 0.1 (0.0-2.0) % Neut # 10.8 H (1.8-7.0) K/uL Lymph # 0.3 L (1.0-4.3) K/uL Gates # 0.8 (0.0-0.8) K/uL Eos # 0.0 (0.0-0.7) K/uL Baso # 0.0 (0.0-0.2) K/uL Neutrophils % (Manual) 90 H (50-75) % Band Neutrophils % 5 H (0-2) % Lymphocytes % (Manual) 1 L (20-40) % Monocytes % (Manual) 4 (0-10) % Nucleated RBC % 6 H (0-0) % Platelet Estimate Decreased L (NORMAL) Polychromasia Hypochromasia (manual) Slight Poikilocytosis (manual Moderate Basophilic Stippling Slight Anisocytosis (manual) Moderate Target Cells Slight Tear Drop Cells Ovalocytes Moderate Rodrigue Cells Slight Acanthocytes (Spur) Schistocytes Slight PT (9.7-12.2) SECONDS INR APTT (21-34) SECONDS Puncture Site pCO2 (35-45) mm/Hg pO2 (80-100) mm/Hg HCO3 (21-28) mmol/L ABG pH (7.35-7.45) ABG Total CO2 (22-28) mmol/L ABG O2 Saturation (95-98) % ABG Base Excess (-2.0-3.0) mmol/L ABG Hemoglobin (11.7-17.4) g/dL ABG Carboxyhemoglobin (0.5-1.5) % POC ABG HHb (Measured) (0.0-5.0) % ABG Methemoglobin (0.0-3.0) % Lucho Test A-a O2 Difference mm/Hg Respiratory Index Hgb O2 Saturation (95.0-98.0) % Vent Mode Mechanical Rate FiO2 % Tidal Volume PEEP Sodium 145 (132-148) mmol/L Potassium 3.9 (3.6-5.2) mmol/L Chloride 108 H (98-107) mmol/L Carbon Dioxide 21 L (22-30) mmol/L Anion Gap 20 (10-20) BUN 117 H* (9-20) mg/dL Creatinine 3.3 H (0.8-1.5) MG/DL Est GFR ( Amer) 22 Est GFR (Non-Af Amer) 18 POC Glucose (mg/dL) 151 H (65-110) mg/dL Random Glucose 124 H (75-110) mg/dL Calcium 7.9 L (8.6-10.4) mg/dl Phosphorus 4.9 H (2.5-4.5) mg/dL Magnesium 2.1 (1.6-2.3) mg/dL Total Bilirubin 7.5 H (0.2-1.3) mg/dL Direct Bilirubin 5.4 H (0.0-0.4) mg/dL AST 79 H (17-59) U/L ALT 93 H (21-72) U/L Alkaline Phosphatase 80 (38-126) U/L Total Protein 4.5 L (6.3-8.3) g/dL Albumin 1.9 L (3.5-5.0) g/dL Globulin 2.6 (2.2-3.9) gm/dL Albumin/Globulin Ratio 0.7 L (1.0-2.1) 05/29/17 05/29/17 05/28/17 Range/Units 05:51 05:24 23:27 WBC (4.8-10.8) K/uL RBC (4.40-5.90) Mil/uL Hgb (12.0-18.0) g/dL Hct (35.0-51.0) % MCV (80.0-94.0) fL MCH (27.0-31.0) pg MCHC (33.0-37.0) g/dL RDW (11.5-14.5) % Plt Count (130-400) K/uL MPV (7.2-11.7) fL Neut % (Auto) (50.0-75.0) % Lymph % (Auto) (20.0-40.0) % Gates % (Auto) (0.0-10.0) % Eos % (Auto) (0.0-4.0) % Baso % (Auto) (0.0-2.0) % Neut # (1.8-7.0) K/uL Lymph # (1.0-4.3) K/uL Gates # (0.0-0.8) K/uL Eos # (0.0-0.7) K/uL Baso # (0.0-0.2) K/uL Neutrophils % (Manual) (50-75) % Band Neutrophils % (0-2) % Lymphocytes % (Manual) (20-40) % Monocytes % (Manual) (0-10) % Nucleated RBC % (0-0) % Platelet Estimate (NORMAL) Polychromasia Hypochromasia (manual) Poikilocytosis (manual Basophilic Stippling Anisocytosis (manual) Target Cells Tear Drop Cells Ovalocytes Rodrigue Cells Acanthocytes (Spur) Schistocytes PT (9.7-12.2) SECONDS INR APTT (21-34) SECONDS Puncture Site L b pCO2 27 L (35-45) mm/Hg pO2 63 L (80-100) mm/Hg HCO3 20.7 L (21-28) mmol/L ABG pH 7.43 (7.35-7.45) ABG Total CO2 18.7 L (22-28) mmol/L ABG O2 Saturation 96.3 (95-98) % ABG Base Excess -5.4 L (-2.0-3.0) mmol/L ABG Hemoglobin 9.4 L (11.7-17.4) g/dL ABG Carboxyhemoglobin 2.1 H (0.5-1.5) % POC ABG HHb (Measured) 3.6 (0.0-5.0) % ABG Methemoglobin 1.3 (0.0-3.0) % Lucho Test Na A-a O2 Difference 616.0 mm/Hg Respiratory Index 9.8 Hgb O2 Saturation 93.0 L (95.0-98.0) % Vent Mode Mechanical Rate 24 FiO2 100.0 % Tidal Volume 550 PEEP 5 Sodium (132-148) mmol/L Potassium (3.6-5.2) mmol/L Chloride (98-107) mmol/L Carbon Dioxide (22-30) mmol/L Anion Gap (10-20) BUN (9-20) mg/dL Creatinine (0.8-1.5) MG/DL Est GFR ( Amer) Est GFR (Non-Af Amer) POC Glucose (mg/dL) 138 H 103 (65-110) mg/dL Random Glucose (75-110) mg/dL Calcium (8.6-10.4) mg/dl Phosphorus (2.5-4.5) mg/dL Magnesium (1.6-2.3) mg/dL Total Bilirubin (0.2-1.3) mg/dL Direct Bilirubin (0.0-0.4) mg/dL AST (17-59) U/L ALT (21-72) U/L Alkaline Phosphatase (38-126) U/L Total Protein (6.3-8.3) g/dL Albumin (3.5-5.0) g/dL Globulin (2.2-3.9) gm/dL Albumin/Globulin Ratio (1.0-2.1) 05/28/17 05/28/17 05/28/17 Range/Units 18:17 16:43 16:43 WBC (4.8-10.8) K/uL RBC (4.40-5.90) Mil/uL Hgb (12.0-18.0) g/dL Hct (35.0-51.0) % MCV (80.0-94.0) fL MCH (27.0-31.0) pg MCHC (33.0-37.0) g/dL RDW (11.5-14.5) % Plt Count (130-400) K/uL MPV (7.2-11.7) fL Neut % (Auto) (50.0-75.0) % Lymph % (Auto) (20.0-40.0) % Gates % (Auto) (0.0-10.0) % Eos % (Auto) (0.0-4.0) % Baso % (Auto) (0.0-2.0) % Neut # (1.8-7.0) K/uL Lymph # (1.0-4.3) K/uL Gates # (0.0-0.8) K/uL Eos # (0.0-0.7) K/uL Baso # (0.0-0.2) K/uL Neutrophils % (Manual) (50-75) % Band Neutrophils % (0-2) % Lymphocytes % (Manual) (20-40) % Monocytes % (Manual) (0-10) % Nucleated RBC % (0-0) % Platelet Estimate (NORMAL) Polychromasia Hypochromasia (manual) Poikilocytosis (manual Basophilic Stippling Anisocytosis (manual) Target Cells Tear Drop Cells Ovalocytes Labelle Cells Acanthocytes (Spur) Schistocytes PT > 320.0 H* D (9.7-12.2) SECONDS INR > 10.0 D APTT > 400 H* D (21-34) SECONDS Puncture Site pCO2 (35-45) mm/Hg pO2 (80-100) mm/Hg HCO3 (21-28) mmol/L ABG pH (7.35-7.45) ABG Total CO2 (22-28) mmol/L ABG O2 Saturation (95-98) % ABG Base Excess (-2.0-3.0) mmol/L ABG Hemoglobin (11.7-17.4) g/dL ABG Carboxyhemoglobin (0.5-1.5) % POC ABG HHb (Measured) (0.0-5.0) % ABG Methemoglobin (0.0-3.0) % Lucho Test A-a O2 Difference mm/Hg Respiratory Index Hgb O2 Saturation (95.0-98.0) % Vent Mode Mechanical Rate FiO2 % Tidal Volume PEEP Sodium 145 (132-148) mmol/L Potassium 4.3 (3.6-5.2) mmol/L Chloride 109 H (98-107) mmol/L Carbon Dioxide 22 (22-30) mmol/L Anion Gap 18 (10-20) BUN 109 H* (9-20) mg/dL Creatinine 3.4 H (0.8-1.5) MG/DL Est GFR ( Amer) 21 Est GFR (Non-Af Amer) 17 POC Glucose (mg/dL) 122 H (65-110) mg/dL Random Glucose 105 (75-110) mg/dL Calcium 7.6 L (8.6-10.4) mg/dl Phosphorus 5.9 H (2.5-4.5) mg/dL Magnesium 2.1 (1.6-2.3) mg/dL Total Bilirubin 6.7 H (0.2-1.3) mg/dL Direct Bilirubin (0.0-0.4) mg/dL AST 94 H D (17-59) U/L ALT 102 H (21-72) U/L Alkaline Phosphatase 86 (38-126) U/L Total Protein 4.8 L (6.3-8.3) g/dL Albumin 2.1 L (3.5-5.0) g/dL Globulin 2.7 (2.2-3.9) gm/dL Albumin/Globulin Ratio 0.8 L (1.0-2.1) 05/28/17 05/28/17 Range/Units 16:43 16:40 WBC 13.1 H (4.8-10.8) K/uL RBC 4.18 L (4.40-5.90) Mil/uL Hgb 10.9 L (12.0-18.0) g/dL Hct 36.4 (35.0-51.0) % MCV 87.2 D (80.0-94.0) fL MCH 26.0 L (27.0-31.0) pg MCHC 29.8 L (33.0-37.0) g/dL RDW 19.9 H (11.5-14.5) % Plt Count 52 L (130-400) K/uL MPV 10.8 (7.2-11.7) fL Neut % (Auto) 86.9 H (50.0-75.0) % Lymph % (Auto) 3.2 L (20.0-40.0) % Gates % (Auto) 9.4 (0.0-10.0) % Eos % (Auto) 0.1 (0.0-4.0) % Baso % (Auto) 0.4 (0.0-2.0) % Neut # 11.4 H (1.8-7.0) K/uL Lymph # 0.4 L (1.0-4.3) K/uL Gates # 1.2 H (0.0-0.8) K/uL Eos # 0.0 (0.0-0.7) K/uL Baso # 0.1 (0.0-0.2) K/uL Neutrophils % (Manual) 91 H (50-75) % Band Neutrophils % (0-2) % Lymphocytes % (Manual) 2 L (20-40) % Monocytes % (Manual) 7 (0-10) % Nucleated RBC % 15 H (0-0) % Platelet Estimate Markedly decreased L (NORMAL) Polychromasia Slight Hypochromasia (manual) Poikilocytosis (manual Moderate Basophilic Stippling Anisocytosis (manual) Moderate Target Cells Tear Drop Cells Slight Ovalocytes Slight Rodrigue Cells Acanthocytes (Spur) Slight Schistocytes Slight PT (9.7-12.2) SECONDS INR APTT (21-34) SECONDS Puncture Site Rra pCO2 44 (35-45) mm/Hg pO2 95 (80-100) mm/Hg HCO3 19.9 L (21-28) mmol/L ABG pH 7.27 L (7.35-7.45) ABG Total CO2 21.6 L (22-28) mmol/L ABG O2 Saturation 99.3 H (95-98) % ABG Base Excess -6.4 L (-2.0-3.0) mmol/L ABG Hemoglobin 10.6 L (11.7-17.4) g/dL ABG Carboxyhemoglobin 2.3 H (0.5-1.5) % POC ABG HHb (Measured) 0.7 (0.0-5.0) % ABG Methemoglobin 1.1 (0.0-3.0) % Lucho Test Pos A-a O2 Difference 563.0 mm/Hg Respiratory Index 5.9 Hgb O2 Saturation 95.9 (95.0-98.0) % Vent Mode A/c Mechanical Rate 24 FiO2 100.0 % Tidal Volume 550 PEEP 5 Sodium (132-148) mmol/L Potassium (3.6-5.2) mmol/L Chloride (98-107) mmol/L Carbon Dioxide (22-30) mmol/L Anion Gap (10-20) BUN (9-20) mg/dL Creatinine (0.8-1.5) MG/DL Est GFR ( Amer) Est GFR (Non-Af Amer) POC Glucose (mg/dL) (65-110) mg/dL Random Glucose (75-110) mg/dL Calcium (8.6-10.4) mg/dl Phosphorus (2.5-4.5) mg/dL Magnesium (1.6-2.3) mg/dL Total Bilirubin (0.2-1.3) mg/dL Direct Bilirubin (0.0-0.4) mg/dL AST (17-59) U/L ALT (21-72) U/L Alkaline Phosphatase (38-126) U/L Total Protein (6.3-8.3) g/dL Albumin (3.5-5.0) g/dL Globulin (2.2-3.9) gm/dL Albumin/Globulin Ratio (1.0-2.1) Laboratory Results - last 24 hr 05/28/17 05/28/17 05/28/17 16:40 16:43 16:43 WBC 13.1 H RBC 4.18 L Hgb 10.9 L Hct 36.4 MCV 87.2 D MCH 26.0 L MCHC 29.8 L RDW 19.9 H Plt Count 52 L MPV 10.8 Neut % (Auto) 86.9 H Lymph % (Auto) 3.2 L Gates % (Auto) 9.4 Eos % (Auto) 0.1 Baso % (Auto) 0.4 Neut # 11.4 H Lymph # 0.4 L Gates # 1.2 H Eos # 0.0 Baso # 0.1 Neutrophils % (Manual) 91 H Band Neutrophils % Lymphocytes % (Manual) 2 L Monocytes % (Manual) 7 Nucleated RBC % 15 H Platelet Estimate Markedly decreased L Polychromasia Slight Hypochromasia (manual) Poikilocytosis (manual Moderate Basophilic Stippling Anisocytosis (manual) Moderate Target Cells Tear Drop Cells Slight Ovalocytes Slight Labelle Cells Acanthocytes (Spur) Slight Schistocytes Slight PT > 320.0 H* D INR > 10.0 D APTT > 400 H* D Puncture Site Rra pCO2 44 pO2 95 HCO3 19.9 L ABG pH 7.27 L ABG Total CO2 21.6 L ABG O2 Saturation 99.3 H ABG Base Excess -6.4 L ABG Hemoglobin 10.6 L ABG Carboxyhemoglobin 2.3 H POC ABG HHb (Measured) 0.7 ABG Methemoglobin 1.1 Lucho Test Pos A-a O2 Difference 563.0 Respiratory Index 5.9 Hgb O2 Saturation 95.9 Vent Mode A/c Mechanical Rate 24 FiO2 100.0 Tidal Volume 550 PEEP 5 Sodium Potassium Chloride Carbon Dioxide Anion Gap BUN Creatinine Est GFR ( Amer) Est GFR (Non-Af Amer) POC Glucose (mg/dL) Random Glucose Calcium Phosphorus Magnesium Total Bilirubin Direct Bilirubin AST ALT Alkaline Phosphatase Total Protein Albumin Globulin Albumin/Globulin Ratio 05/28/17 05/28/17 05/28/17 16:43 18:17 23:27 WBC RBC Hgb Hct MCV MCH MCHC RDW Plt Count MPV Neut % (Auto) Lymph % (Auto) Gates % (Auto) Eos % (Auto) Baso % (Auto) Neut # Lymph # Gates # Eos # Baso # Neutrophils % (Manual) Band Neutrophils % Lymphocytes % (Manual) Monocytes % (Manual) Nucleated RBC % Platelet Estimate Polychromasia Hypochromasia (manual) Poikilocytosis (manual Basophilic Stippling Anisocytosis (manual) Target Cells Tear Drop Cells Ovalocytes Labelle Cells Acanthocytes (Spur) Schistocytes PT INR APTT Puncture Site pCO2 pO2 HCO3 ABG pH ABG Total CO2 ABG O2 Saturation ABG Base Excess ABG Hemoglobin ABG Carboxyhemoglobin POC ABG HHb (Measured) ABG Methemoglobin Lucho Test A-a O2 Difference Respiratory Index Hgb O2 Saturation Vent Mode Mechanical Rate FiO2 Tidal Volume PEEP Sodium 145 Potassium 4.3 Chloride 109 H Carbon Dioxide 22 Anion Gap 18 BUN 109 H* Creatinine 3.4 H Est GFR ( Amer) 21 Est GFR (Non-Af Amer) 17 POC Glucose (mg/dL) 122 H 103 Random Glucose 105 Calcium 7.6 L Phosphorus 5.9 H Magnesium 2.1 Total Bilirubin 6.7 H Direct Bilirubin AST 94 H D ALT 102 H Alkaline Phosphatase 86 Total Protein 4.8 L Albumin 2.1 L Globulin 2.7 Albumin/Globulin Ratio 0.8 L 05/29/17 05/29/17 05/29/17 05:24 05:51 06:22 WBC RBC Hgb Hct MCV MCH MCHC RDW Plt Count MPV Neut % (Auto) Lymph % (Auto) Gates % (Auto) Eos % (Auto) Baso % (Auto) Neut # Lymph # Gates # Eos # Baso # Neutrophils % (Manual) Band Neutrophils % Lymphocytes % (Manual) Monocytes % (Manual) Nucleated RBC % Platelet Estimate Polychromasia Hypochromasia (manual) Poikilocytosis (manual Basophilic Stippling Anisocytosis (manual) Target Cells Tear Drop Cells Ovalocytes Rodrigue Cells Acanthocytes (Spur) Schistocytes PT INR APTT Puncture Site L b pCO2 27 L pO2 63 L HCO3 20.7 L ABG pH 7.43 ABG Total CO2 18.7 L ABG O2 Saturation 96.3 ABG Base Excess -5.4 L ABG Hemoglobin 9.4 L ABG Carboxyhemoglobin 2.1 H POC ABG HHb (Measured) 3.6 ABG Methemoglobin 1.3 Lucho Test Na A-a O2 Difference 616.0 Respiratory Index 9.8 Hgb O2 Saturation 93.0 L Vent Mode Mechanical Rate 24 FiO2 100.0 Tidal Volume 550 PEEP 5 Sodium 145 Potassium 3.9 Chloride 108 H Carbon Dioxide 21 L Anion Gap 20 BUN 117 H* Creatinine 3.3 H Est GFR ( Amer) 22 Est GFR (Non-Af Amer) 18 POC Glucose (mg/dL) 138 H Random Glucose 124 H Calcium 7.9 L Phosphorus 4.9 H Magnesium 2.1 Total Bilirubin 7.5 H Direct Bilirubin 5.4 H AST 79 H ALT 93 H Alkaline Phosphatase 80 Total Protein 4.5 L Albumin 1.9 L Globulin 2.6 Albumin/Globulin Ratio 0.7 L 05/29/17 05/29/17 06:22 11:28 WBC 11.9 H RBC 3.90 L Hgb 10.2 L Hct 32.5 L MCV 83.4 D MCH 26.3 L MCHC 31.5 L RDW 19.6 H Plt Count 37 L MPV 9.4 Neut % (Auto) 91.0 H Lymph % (Auto) 2.5 L Gates % (Auto) 6.4 Eos % (Auto) 0.0 Baso % (Auto) 0.1 Neut # 10.8 H Lymph # 0.3 L Gates # 0.8 Eos # 0.0 Baso # 0.0 Neutrophils % (Manual) 90 H Band Neutrophils % 5 H Lymphocytes % (Manual) 1 L Monocytes % (Manual) 4 Nucleated RBC % 6 H Platelet Estimate Decreased L Polychromasia Hypochromasia (manual) Slight Poikilocytosis (manual Moderate Basophilic Stippling Slight Anisocytosis (manual) Moderate Target Cells Slight Tear Drop Cells Ovalocytes Moderate Rodrigue Cells Slight Acanthocytes (Spur) Schistocytes Slight PT INR APTT Puncture Site pCO2 pO2 HCO3 ABG pH ABG Total CO2 ABG O2 Saturation ABG Base Excess ABG Hemoglobin ABG Carboxyhemoglobin POC ABG HHb (Measured) ABG Methemoglobin Lucho Test A-a O2 Difference Respiratory Index Hgb O2 Saturation Vent Mode Mechanical Rate FiO2 Tidal Volume PEEP Sodium Potassium Chloride Carbon Dioxide Anion Gap BUN Creatinine Est GFR ( Amer) Est GFR (Non-Af Amer) POC Glucose (mg/dL) 151 H Random Glucose Calcium Phosphorus Magnesium Total Bilirubin Direct Bilirubin AST ALT Alkaline Phosphatase Total Protein Albumin Globulin Albumin/Globulin Ratio Fingerstick Blood Sugar Results: 122 Assessment/Plan - Assessment and Plan (Free Text) Plan: 87yo M. PMHx CHF,HTN, atrial fibrillation, ischemic cardiomyopathy, severe chronic systolic dysfunction, severe mitral regurgitation. Presented with change in mental status, and dyspnea. Patient was transferred to the ICU because the patient was experiencing agonal breathing. At the time as per the son the patient was intubated. Today the ICU attending spoke with the family and they consented the patient be DNR. Neuro: Intubated - Neuro Consult: Dr. Jimenez --> help appreciated Pulm: Intubated CV: Patient has history of CHF with severely decreased Ef to 20%, HTN, Afib, ischemic cardiomyopathy, and severe chronic mitral regurgitation Dopamine 400mg - Cardiology Consult: Dr. Saha --> help appreciated - CT of abdmomen & Pelvis (05/18): Massive cardiomegaly, small pericardial effusion and small bilateral pleural effusions. - Patient's family is not agreeable to having AICD placed Hem: Thrombocytopenia likely due to severe sepsis. Will continue to monitor. Renal: Chronic kidney disease, Will monitor urine output. - Nephrology Consult: Dr. Ortiz --> help appreciated - Patient is not a candidate for dialysis due to hypoperfusion secondary to poor cardiac ejection fraction Endo: History of DM, continue ISS GI: Likely that the direct bilirubin is increasing due to decreased clearance by the kidneys. Transaminitis and jaundice present. Elevated LFTs likely due to poor perfusion for cardiac dysfunction. LFTs trending down. GI: Dr. Barroso is consulted--> Recommendations for elevated LFTs is to optimize cardiac function for better perfusion. Sepsis may be 2/2 ischemic bowel or some other infection in abdomen. Unfortunately, due to poor kidney function, CT of abd with IV contrast is unable to be Currently on peripheral feeding with Liposen ID: Blood cultures negative after 4 days Elevated lactic acid. Sepsis source 2/2 ischemic bowel vs. UTI Currently on Aztreonam, tigecycline, and meropenem - blood culture 05/18 & 05/22: no growth - urine culture: no growth - nose culture neg for MRSA - ID Consult: Dr. Hutton --> help appreciated DVT proph - Contraindication due to decreased platelet count GI proph - 40mg Protonix daily whitehead for strict I/O's during acute illness Code status - DNR Case discussed with Dr. Erasmo Graves PGY-1 <Milan Zimmerman - Last Filed: 05/29/17 17:00> CCU Objective - Vital Signs / Intake & Output Vital Signs (Last 4 hours): Vital Signs Pulse Resp BP Pulse Ox 05/29/17 16:37 102 H 25 H 106/47 L 100 05/29/17 15:00 99 H 23 100 05/29/17 14:38 97 H 17 92/46 L 100 05/29/17 14:18 99 H 24 98/53 L 100 05/29/17 14:17 99 H 24 100 05/29/17 14:00 102 H 20 100 05/29/17 13:37 117 H 24 88/54 L 100 05/29/17 13:00 117 H 24 100 Intake and Output (Last 8hrs): Intake & Output 05/29/17 05/29/17 05/29/17 06:59 14:59 22:59 Intake Total 880.8 995.5 250 Output Total 655 1125 200 Balance 225.8 -129.5 50 Weight 160 lb 14.999 oz 164 lb 1.6 oz Intake: Intake, IV Amount 880.8 995.5 230 Right Medial Port 800 900 200 Internal Jugular Right Proximal Port 80.8 95.5 30 Internal Jugular Tube Feeding 20 Output: Urine 655 1125 200 Urethral ([place]) 655 1125 200 Other: # Bowel Movements 0 0 1 - Medications Active Medications: Active Medications Generic Name Dose Route Start Last Admin Trade Name Freq PRN Reason Stop Dose Admin Albuterol Sulfate 2.5 mg 05/21/17 07:51 05/24/17 16:05 Albuterol 0.083% Inhal Judy (2.5 Mg/3 Ml) Ud INH 2.5 mg RQ6 PRN Administration Wheezing Amiodarone HCl 200 mg 05/19/17 14:00 05/25/17 10:51 Cordarone NG 200 mg DAILY HILL Administration Artificial Tears 0 ml 05/25/17 12:30 05/29/17 14:53 Artificial Tears OU 1 drop Q3H HILL Administration Aspirin 81 mg 05/19/17 10:00 05/19/17 11:05 Aspirin Chewable PO 81 mg DAILY HILL Administration Aztreonam 1 gm/ Sodium 100 mls @ 200 mls/hr 05/22/17 17:00 05/29/17 16:32 Chloride IVPB 200 mls/hr Q24H H[facility] Administration Meropenem 500 mg/ Sodium 100 mls @ 100 mls/hr 05/22/17 18:00 05/29/17 05:52 Chloride IVPB 100 mls/hr Q12H [facility] Administration Tigecycline 50 mg/ Sodium 100 mls @ 100 mls/hr 05/24/17 11:30 05/29/17 10:51 Chloride IVPB 100 mls/hr Q12H [facility] Administration Diltiazem HCl 125 mg/ Sodium 125 mls @ 5 mls/hr 05/26/17 17:16 05/27/17 16:36 Chloride IV 5 mg/hr .Q24H H[facility] 5 mls/hr Protocol Administration 5 MG/HR Sodium Chloride 1,000 mls @ 100 mls/hr 05/28/17 10:15 05/29/17 16:29 Sodium Chloride 0.45% IV Not Given .Q10H [facility] Norepinephrine Bitartrate 4 mg 254 mls @ 15.24 mls/hr 05/29/17 10:13 11:19 / Sodium Chloride IV 4 mcg/min .[id number] PRN 15.24 mls/hr TITRATE PER MD ORDER Administration Protocol 4 MCG/MIN Milrinone Lactate/Dextrose 20 100 mls @ 4.46 mls/hr 05/29/17 15:45 05/29/17 16:37 mg/ Dextrose IV 0.2 mcg/kg/min .[id number] H[facility] 4.46 mls/hr Protocol Administration 0.2 MCG/KG/MIN Insulin Aspart 0 unit 05/22/17 18:00 05/29/17 12:38 Novolog SC 1 unit Q6H H[facility] Administration Protocol Lorazepam 0.5 mg 05/18/17 15:32 05/29/17 09:15 Ativan IVP 0.5 mg Q4H PRN Administration Agitation Pantoprazole Sodium 40 mg 05/19/17 10:00 05/29/17 10:41 Protonix Inj IVP 40 mg DAILY HILL Administration - Patient Studies Lab Studies: Microbiology Studies 05/28/17 Unknown Gram Stain - Preliminary Trachasp 05/28/17 08:00 MRSA Culture (Admit) - Final Naris MRSA NOT DETECTED Lab Studies 05/29/17 05/29/17 05/29/17 Range/Units 11:28 06:22 06:22 WBC 11.9 H (4.8-10.8) K/uL RBC 3.90 L (4.40-5.90) Mil/uL Hgb 10.2 L (12.0-18.0) g/dL Hct 32.5 L (35.0-51.0) % MCV 83.4 D (80.0-94.0) fL MCH 26.3 L (27.0-31.0) pg MCHC 31.5 L (33.0-37.0) g/dL RDW 19.6 H (11.5-14.5) % Plt Count 37 L (130-400) K/uL MPV 9.4 (7.2-11.7) fL Neut % (Auto) 91.0 H (50.0-75.0) % Lymph % (Auto) 2.5 L (20.0-40.0) % Gates % (Auto) 6.4 (0.0-10.0) % Eos % (Auto) 0.0 (0.0-4.0) % Baso % (Auto) 0.1 (0.0-2.0) % Neut # 10.8 H (1.8-7.0) K/uL Lymph # 0.3 L (1.0-4.3) K/uL Gates # 0.8 (0.0-0.8) K/uL Eos # 0.0 (0.0-0.7) K/uL Baso # 0.0 (0.0-0.2) K/uL Neutrophils % (Manual) 90 H (50-75) % Band Neutrophils % 5 H (0-2) % Lymphocytes % (Manual) 1 L (20-40) % Monocytes % (Manual) 4 (0-10) % Nucleated RBC % 6 H (0-0) % Platelet Estimate Decreased L (NORMAL) Polychromasia Hypochromasia (manual) Slight Poikilocytosis (manual Moderate Basophilic Stippling Slight Anisocytosis (manual) Moderate Target Cells Slight Tear Drop Cells Ovalocytes Moderate Rodrigue Cells Slight Acanthocytes (Spur) Schistocytes Slight PT (9.7-12.2) SECONDS INR APTT (21-34) SECONDS Puncture Site pCO2 (35-45) mm/Hg pO2 (80-100) mm/Hg HCO3 (21-28) mmol/L ABG pH (7.35-7.45) ABG Total CO2 (22-28) mmol/L ABG O2 Saturation (95-98) % ABG Base Excess (-2.0-3.0) mmol/L ABG Hemoglobin (11.7-17.4) g/dL ABG Carboxyhemoglobin (0.5-1.5) % POC ABG HHb (Measured) (0.0-5.0) % ABG Methemoglobin (0.0-3.0) % Lucho Test A-a O2 Difference mm/Hg Respiratory Index Hgb O2 Saturation (95.0-98.0) % Mechanical Rate FiO2 % Tidal Volume PEEP Sodium 145 (132-148) mmol/L Potassium 3.9 (3.6-5.2) mmol/L Chloride 108 H (98-107) mmol/L Carbon Dioxide 21 L (22-30) mmol/L Anion Gap 20 (10-20) BUN 117 H* (9-20) mg/dL Creatinine 3.3 H (0.8-1.5) MG/DL Est GFR ( Amer) 22 Est GFR (Non-Af Amer) 18 POC Glucose (mg/dL) 151 H (65-110) mg/dL Random Glucose 124 H (75-110) mg/dL Calcium 7.9 L (8.6-10.4) mg/dl Phosphorus 4.9 H (2.5-4.5) mg/dL Magnesium 2.1 (1.6-2.3) mg/dL Total Bilirubin 7.5 H (0.2-1.3) mg/dL Direct Bilirubin 5.4 H (0.0-0.4) mg/dL AST 79 H (17-59) U/L ALT 93 H (21-72) U/L Alkaline Phosphatase 80 (38-126) U/L Total Protein 4.5 L (6.3-8.3) g/dL Albumin 1.9 L (3.5-5.0) g/dL Globulin 2.6 (2.2-3.9) gm/dL Albumin/Globulin Ratio 0.7 L (1.0-2.1) 05/29/17 05/29/17 05/28/17 Range/Units 05:51 05:24 23:27 WBC (4.8-10.8) K/uL RBC (4.40-5.90) Mil/uL Hgb (12.0-18.0) g/dL Hct (35.0-51.0) % MCV (80.0-94.0) fL MCH (27.0-31.0) pg MCHC (33.0-37.0) g/dL RDW (11.5-14.5) % Plt Count (130-400) K/uL MPV (7.2-11.7) fL Neut % (Auto) (50.0-75.0) % Lymph % (Auto) (20.0-40.0) % Gates % (Auto) (0.0-10.0) % Eos % (Auto) (0.0-4.0) % Baso % (Auto) (0.0-2.0) % Neut # (1.8-7.0) K/uL Lymph # (1.0-4.3) K/uL Gates # (0.0-0.8) K/uL Eos # (0.0-0.7) K/uL Baso # (0.0-0.2) K/uL Neutrophils % (Manual) (50-75) % Band Neutrophils % (0-2) % Lymphocytes % (Manual) (20-40) % Monocytes % (Manual) (0-10) % Nucleated RBC % (0-0) % Platelet Estimate (NORMAL) Polychromasia Hypochromasia (manual) Poikilocytosis (manual Basophilic Stippling Anisocytosis (manual) Target Cells Tear Drop Cells Ovalocytes Rodrigue Cells Acanthocytes (Spur) Schistocytes PT (9.7-12.2) SECONDS INR APTT (21-34) SECONDS Puncture Site L b pCO2 27 L (35-45) mm/Hg pO2 63 L (80-100) mm/Hg HCO3 20.7 L (21-28) mmol/L ABG pH 7.43 (7.35-7.45) ABG Total CO2 18.7 L (22-28) mmol/L ABG O2 Saturation 96.3 (95-98) % ABG Base Excess -5.4 L (-2.0-3.0) mmol/L ABG Hemoglobin 9.4 L (11.7-17.4) g/dL ABG Carboxyhemoglobin 2.1 H (0.5-1.5) % POC ABG HHb (Measured) 3.6 (0.0-5.0) % ABG Methemoglobin 1.3 (0.0-3.0) % Lucho Test Na A-a O2 Difference 616.0 mm/Hg Respiratory Index 9.8 Hgb O2 Saturation 93.0 L (95.0-98.0) % Mechanical Rate 24 FiO2 100.0 % Tidal Volume 550 PEEP 5 Sodium (132-148) mmol/L Potassium (3.6-5.2) mmol/L Chloride (98-107) mmol/L Carbon Dioxide (22-30) mmol/L Anion Gap (10-20) BUN (9-20) mg/dL Creatinine (0.8-1.5) MG/DL Est GFR ( Amer) Est GFR (Non-Af Amer) POC Glucose (mg/dL) 138 H 103 (65-110) mg/dL Random Glucose (75-110) mg/dL Calcium (8.6-10.4) mg/dl Phosphorus (2.5-4.5) mg/dL Magnesium (1.6-2.3) mg/dL Total Bilirubin (0.2-1.3) mg/dL Direct Bilirubin (0.0-0.4) mg/dL AST (17-59) U/L ALT (21-72) U/L Alkaline Phosphatase (38-126) U/L Total Protein (6.3-8.3) g/dL Albumin (3.5-5.0) g/dL Globulin (2.2-3.9) gm/dL Albumin/Globulin Ratio (1.0-2.1) 05/28/17 05/28/17 05/28/17 Range/Units 18:17 16:43 16:43 WBC (4.8-10.8) K/uL RBC (4.40-5.90) Mil/uL Hgb (12.0-18.0) g/dL Hct (35.0-51.0) % MCV (80.0-94.0) fL MCH (27.0-31.0) pg MCHC (33.0-37.0) g/dL RDW (11.5-14.5) % Plt Count (130-400) K/uL MPV (7.2-11.7) fL Neut % (Auto) (50.0-75.0) % Lymph % (Auto) (20.0-40.0) % Gates % (Auto) (0.0-10.0) % Eos % (Auto) (0.0-4.0) % Baso % (Auto) (0.0-2.0) % Neut # (1.8-7.0) K/uL Lymph # (1.0-4.3) K/uL Gates # (0.0-0.8) K/uL Eos # (0.0-0.7) K/uL Baso # (0.0-0.2) K/uL Neutrophils % (Manual) (50-75) % Band Neutrophils % (0-2) % Lymphocytes % (Manual) (20-40) % Monocytes % (Manual) (0-10) % Nucleated RBC % (0-0) % Platelet Estimate (NORMAL) Polychromasia Hypochromasia (manual) Poikilocytosis (manual Basophilic Stippling Anisocytosis (manual) Target Cells Tear Drop Cells Ovalocytes Rodrigue Cells Acanthocytes (Spur) Schistocytes PT > 320.0 H* D (9.7-12.2) SECONDS INR > 10.0 D APTT > 400 H* D (21-34) SECONDS Puncture Site pCO2 (35-45) mm/Hg pO2 (80-100) mm/Hg HCO3 (21-28) mmol/L ABG pH (7.35-7.45) ABG Total CO2 (22-28) mmol/L ABG O2 Saturation (95-98) % ABG Base Excess (-2.0-3.0) mmol/L ABG Hemoglobin (11.7-17.4) g/dL ABG Carboxyhemoglobin (0.5-1.5) % POC ABG HHb (Measured) (0.0-5.0) % ABG Methemoglobin (0.0-3.0) % Lucho Test A-a O2 Difference mm/Hg Respiratory Index Hgb O2 Saturation (95.0-98.0) % Mechanical Rate FiO2 % Tidal Volume PEEP Sodium 145 (132-148) mmol/L Potassium 4.3 (3.6-5.2) mmol/L Chloride 109 H (98-107) mmol/L Carbon Dioxide 22 (22-30) mmol/L Anion Gap 18 (10-20) BUN 109 H* (9-20) mg/dL Creatinine 3.4 H (0.8-1.5) MG/DL Est GFR ( Amer) 21 Est GFR (Non-Af Amer) 17 POC Glucose (mg/dL) 122 H (65-110) mg/dL Random Glucose 105 (75-110) mg/dL Calcium 7.6 L (8.6-10.4) mg/dl Phosphorus 5.9 H (2.5-4.5) mg/dL Magnesium 2.1 (1.6-2.3) mg/dL Total Bilirubin 6.7 H (0.2-1.3) mg/dL Direct Bilirubin (0.0-0.4) mg/dL AST 94 H D (17-59) U/L ALT 102 H (21-72) U/L Alkaline Phosphatase 86 (38-126) U/L Total Protein 4.8 L (6.3-8.3) g/dL Albumin 2.1 L (3.5-5.0) g/dL Globulin 2.7 (2.2-3.9) gm/dL Albumin/Globulin Ratio 0.8 L (1.0-2.1) 05/28/17 Range/Units 16:43 WBC 13.1 H (4.8-10.8) K/uL RBC 4.18 L (4.40-5.90) Mil/uL Hgb 10.9 L (12.0-18.0) g/dL Hct 36.4 (35.0-51.0) % MCV 87.2 D (80.0-94.0) fL MCH 26.0 L (27.0-31.0) pg MCHC 29.8 L (33.0-37.0) g/dL RDW 19.9 H (11.5-14.5) % Plt Count 52 L (130-400) K/uL MPV 10.8 (7.2-11.7) fL Neut % (Auto) 86.9 H (50.0-75.0) % Lymph % (Auto) 3.2 L (20.0-40.0) % Gates % (Auto) 9.4 (0.0-10.0) % Eos % (Auto) 0.1 (0.0-4.0) % Baso % (Auto) 0.4 (0.0-2.0) % Neut # 11.4 H (1.8-7.0) K/uL Lymph # 0.4 L (1.0-4.3) K/uL Gates # 1.2 H (0.0-0.8) K/uL Eos # 0.0 (0.0-0.7) K/uL Baso # 0.1 (0.0-0.2) K/uL Neutrophils % (Manual) 91 H (50-75) % Band Neutrophils % (0-2) % Lymphocytes % (Manual) 2 L (20-40) % Monocytes % (Manual) 7 (0-10) % Nucleated RBC % 15 H (0-0) % Platelet Estimate Markedly decreased L (NORMAL) Polychromasia Slight Hypochromasia (manual) Poikilocytosis (manual Moderate Basophilic Stippling Anisocytosis (manual) Moderate Target Cells Tear Drop Cells Slight Ovalocytes Slight Labelle Cells Acanthocytes (Spur) Slight Schistocytes Slight PT (9.7-12.2) SECONDS INR APTT (21-34) SECONDS Puncture Site pCO2 (35-45) mm/Hg pO2 (80-100) mm/Hg HCO3 (21-28) mmol/L ABG pH (7.35-7.45) ABG Total CO2 (22-28) mmol/L ABG O2 Saturation (95-98) % ABG Base Excess (-2.0-3.0) mmol/L ABG Hemoglobin (11.7-17.4) g/dL ABG Carboxyhemoglobin (0.5-1.5) % POC ABG HHb (Measured) (0.0-5.0) % ABG Methemoglobin (0.0-3.0) % Lucho Test A-a O2 Difference mm/Hg Respiratory Index Hgb O2 Saturation (95.0-98.0) % Mechanical Rate FiO2 % Tidal Volume PEEP Sodium (132-148) mmol/L Potassium (3.6-5.2) mmol/L Chloride (98-107) mmol/L Carbon Dioxide (22-30) mmol/L Anion Gap (10-20) BUN (9-20) mg/dL Creatinine (0.8-1.5) MG/DL Est GFR ( Amer) Est GFR (Non-Af Amer) POC Glucose (mg/dL) (65-110) mg/dL Random Glucose (75-110) mg/dL Calcium (8.6-10.4) mg/dl Phosphorus (2.5-4.5) mg/dL Magnesium (1.6-2.3) mg/dL Total Bilirubin (0.2-1.3) mg/dL Direct Bilirubin (0.0-0.4) mg/dL AST (17-59) U/L ALT (21-72) U/L Alkaline Phosphatase (38-126) U/L Total Protein (6.3-8.3) g/dL Albumin (3.5-5.0) g/dL Globulin (2.2-3.9) gm/dL Albumin/Globulin Ratio (1.0-2.1) Laboratory Results - last 24 hr 05/28/17 05/28/17 05/28/17 16:43 16:43 16:43 WBC 13.1 H RBC 4.18 L Hgb 10.9 L Hct 36.4 MCV 87.2 D MCH 26.0 L MCHC 29.8 L RDW 19.9 H Plt Count 52 L MPV 10.8 Neut % (Auto) 86.9 H Lymph % (Auto) 3.2 L Gates % (Auto) 9.4 Eos % (Auto) 0.1 Baso % (Auto) 0.4 Neut # 11.4 H Lymph # 0.4 L Gates # 1.2 H Eos # 0.0 Baso # 0.1 Neutrophils % (Manual) 91 H Band Neutrophils % Lymphocytes % (Manual) 2 L Monocytes % (Manual) 7 Nucleated RBC % 15 H Platelet Estimate Markedly decreased L Polychromasia Slight Hypochromasia (manual) Poikilocytosis (manual Moderate Basophilic Stippling Anisocytosis (manual) Moderate Target Cells Tear Drop Cells Slight Ovalocytes Slight Labelle Cells Acanthocytes (Spur) Slight Schistocytes Slight PT > 320.0 H* D INR > 10.0 D APTT > 400 H* D Puncture Site pCO2 pO2 HCO3 ABG pH ABG Total CO2 ABG O2 Saturation ABG Base Excess ABG Hemoglobin ABG Carboxyhemoglobin POC ABG HHb (Measured) ABG Methemoglobin Lucho Test A-a O2 Difference Respiratory Index Hgb O2 Saturation Mechanical Rate FiO2 Tidal Volume PEEP Sodium 145 Potassium 4.3 Chloride 109 H Carbon Dioxide 22 Anion Gap 18 BUN 109 H* Creatinine 3.4 H Est GFR ( Amer) 21 Est GFR (Non-Af Amer) 17 POC Glucose (mg/dL) Random Glucose 105 Calcium 7.6 L Phosphorus 5.9 H Magnesium 2.1 Total Bilirubin 6.7 H Direct Bilirubin AST 94 H D ALT 102 H Alkaline Phosphatase 86 Total Protein 4.8 L Albumin 2.1 L Globulin 2.7 Albumin/Globulin Ratio 0.8 L 05/28/17 05/28/17 05/29/17 18:17 23:27 05:24 WBC RBC Hgb Hct MCV MCH MCHC RDW Plt Count MPV Neut % (Auto) Lymph % (Auto) Gates % (Auto) Eos % (Auto) Baso % (Auto) Neut # Lymph # Gates # Eos # Baso # Neutrophils % (Manual) Band Neutrophils % Lymphocytes % (Manual) Monocytes % (Manual) Nucleated RBC % Platelet Estimate Polychromasia Hypochromasia (manual) Poikilocytosis (manual Basophilic Stippling Anisocytosis (manual) Target Cells Tear Drop Cells Ovalocytes Labelle Cells Acanthocytes (Spur) Schistocytes PT INR APTT Puncture Site L b pCO2 27 L pO2 63 L HCO3 20.7 L ABG pH 7.43 ABG Total CO2 18.7 L ABG O2 Saturation 96.3 ABG Base Excess -5.4 L ABG Hemoglobin 9.4 L ABG Carboxyhemoglobin 2.1 H POC ABG HHb (Measured) 3.6 ABG Methemoglobin 1.3 Lucho Test Na A-a O2 Difference 616.0 Respiratory Index 9.8 Hgb O2 Saturation 93.0 L Mechanical Rate 24 FiO2 100.0 Tidal Volume 550 PEEP 5 Sodium Potassium Chloride Carbon Dioxide Anion Gap BUN Creatinine Est GFR ( Amer) Est GFR (Non-Af Amer) POC Glucose (mg/dL) 122 H 103 Random Glucose Calcium Phosphorus Magnesium Total Bilirubin Direct Bilirubin AST ALT Alkaline Phosphatase Total Protein Albumin Globulin Albumin/Globulin Ratio 05/29/17 05/29/17 05/29/17 05:51 06:22 06:22 WBC 11.9 H RBC 3.90 L Hgb 10.2 L Hct 32.5 L MCV 83.4 D MCH 26.3 L MCHC 31.5 L RDW 19.6 H Plt Count 37 L MPV 9.4 Neut % (Auto) 91.0 H Lymph % (Auto) 2.5 L Gates % (Auto) 6.4 Eos % (Auto) 0.0 Baso % (Auto) 0.1 Neut # 10.8 H Lymph # 0.3 L Gates # 0.8 Eos # 0.0 Baso # 0.0 Neutrophils % (Manual) 90 H Band Neutrophils % 5 H Lymphocytes % (Manual) 1 L Monocytes % (Manual) 4 Nucleated RBC % 6 H Platelet Estimate Decreased L Polychromasia Hypochromasia (manual) Slight Poikilocytosis (manual Moderate Basophilic Stippling Slight Anisocytosis (manual) Moderate Target Cells Slight Tear Drop Cells Ovalocytes Moderate Labelle Cells Slight Acanthocytes (Spur) Schistocytes Slight PT INR APTT Puncture Site pCO2 pO2 HCO3 ABG pH ABG Total CO2 ABG O2 Saturation ABG Base Excess ABG Hemoglobin ABG Carboxyhemoglobin POC ABG HHb (Measured) ABG Methemoglobin Lucho Test A-a O2 Difference Respiratory Index Hgb O2 Saturation Mechanical Rate FiO2 Tidal Volume PEEP Sodium 145 Potassium 3.9 Chloride 108 H Carbon Dioxide 21 L Anion Gap 20 BUN 117 H* Creatinine 3.3 H Est GFR ( Amer) 22 Est GFR (Non-Af Amer) 18 POC Glucose (mg/dL) 138 H Random Glucose 124 H Calcium 7.9 L Phosphorus 4.9 H Magnesium 2.1 Total Bilirubin 7.5 H Direct Bilirubin 5.4 H AST 79 H ALT 93 H Alkaline Phosphatase 80 Total Protein 4.5 L Albumin 1.9 L Globulin 2.6 Albumin/Globulin Ratio 0.7 L 05/29/17 11:28 WBC RBC Hgb Hct MCV MCH MCHC RDW Plt Count MPV Neut % (Auto) Lymph % (Auto) Gates % (Auto) Eos % (Auto) Baso % (Auto) Neut # Lymph # Gates # Eos # Baso # Neutrophils % (Manual) Band Neutrophils % Lymphocytes % (Manual) Monocytes % (Manual) Nucleated RBC % Platelet Estimate Polychromasia Hypochromasia (manual) Poikilocytosis (manual Basophilic Stippling Anisocytosis (manual) Target Cells Tear Drop Cells Ovalocytes Labelle Cells Acanthocytes (Spur) Schistocytes PT INR APTT Puncture Site pCO2 pO2 HCO3 ABG pH ABG Total CO2 ABG O2 Saturation ABG Base Excess ABG Hemoglobin ABG Carboxyhemoglobin POC ABG HHb (Measured) ABG Methemoglobin Lucho Test A-a O2 Difference Respiratory Index Hgb O2 Saturation Mechanical Rate FiO2 Tidal Volume PEEP Sodium Potassium Chloride Carbon Dioxide Anion Gap BUN Creatinine Est GFR ( Amer) Est GFR (Non-Af Amer) POC Glucose (mg/dL) 151 H Random Glucose Calcium Phosphorus Magnesium Total Bilirubin Direct Bilirubin AST ALT Alkaline Phosphatase Total Protein Albumin Globulin Albumin/Globulin Ratio Attending/Attestation - Attestation I have personally seen and examined this patient.: Yes I have fully participated in the care of the patient.: Yes I have reviewed all pertinent clinical information: Yes Notes (Text): 05/29/17 16:52 I have seen and examined the patient. Medical records, lab studies, and imaging were reviewed by me and a management plan was formulated on multidisciplinary rounds with resident Dr. Graves. I agree with their above documented assessment and plan. Had a long conversation with the family who has agreed to DNR. We discussed the patient's poor clinical status and whether he would be a good candidate for dialysis. All physicians in his care do not feel he would be a good candidate. The patient had a recent recurrent stroke and now has multi organ dysfunction with liver failure, respiratory failure, renal failure. The family seems to understand this. Critical Care Time 35 minutes. Multi-disciplinary rounds were performed with house staff, nursing, speech therapy, respiratory therapy, pharmacy and nutrition with integrated input from the primary team/attending and other consulting services. The documented time is cumulative and includes review of patient data/exams/labs/chart review and examination of the patient on rounds and throughout the day; time is exclusive of any procedures or teaching time.
[2017-05-29] MEDS: Aztreonam 1 GM in Sodium Chloride 0.9% 100 ML IVPB SCH (16:32)
[2017-05-29] MEDS: Milrinone 20 MG in Dextrose 5% In Water 80 ML IV SCH (16:37)
--- NOTE | 2017-05-29 18:45 | CP.PCM.PN ---
Subjective - Date & Time of Evaluation Date of Evaluation: 05/29/17 Time of Evaluation: 15:00 - Subjective Subjective: Patient's family again making him DNR today; Objective - Vital Signs/Intake and Output Vital Signs (last 24 hours): Temp Pulse Resp BP Pulse Ox 98.2 F 120 H 23 115/46 L 100 05/29/17 16:00 05/29/17 18:38 05/29/17 18:38 05/29/17 18:38 05/29/17 18:38 Intake and Output: 05/29/17 05/29/17 06:59 18:59 Intake Total 1363.4 1245.5 Output Total 820 1325 Balance 543.4 -79.5 - Medications Medications: Current Medications Albuterol Sulfate (Albuterol 0.083% Inhal Judy (2.5 Mg/3 Ml) Ud) 2.5 mg INH RQ6 PRN PRN Reason: Wheezing Last Admin: 05/24/17 16:05 Dose: 2.5 mg Amiodarone HCl (Cordarone) 200 mg NG DAILY HILL Last Admin: 05/25/17 10:51 Dose: 200 mg Artificial Tears (Artificial Tears) 0 ml OU Q3H HILL Last Admin: 05/29/17 18:31 Dose: 1 drop Aspirin (Aspirin Chewable) 81 mg PO DAILY HILL Last Admin: 05/19/17 11:05 Dose: 81 mg Aztreonam 1 gm/ Sodium (Chloride) 100 mls @ 200 mls/hr IVPB Q24H HILL Last Admin: 05/29/17 16:32 Dose: 200 mls/hr Meropenem 500 mg/ Sodium (Chloride) 100 mls @ 100 mls/hr IVPB Q12H HILL Last Admin: 05/29/17 18:33 Dose: 100 mls/hr Tigecycline 50 mg/ Sodium (Chloride) 100 mls @ 100 mls/hr IVPB Q12H HILL Last Admin: 05/29/17 10:51 Dose: 100 mls/hr Diltiazem HCl 125 mg/ Sodium (Chloride) 125 mls @ 5 mls/hr IV .Q24H HILL; 5 MG/ HR PRN Reason: Protocol Last Admin: 05/27/17 16:36 Dose: 5 mg/hr, 5 mls/hr Sodium Chloride (Sodium Chloride 0.45%) 1,000 mls @ 100 mls/hr IV .Q10H HILL Last Admin: 05/29/17 16:29 Dose: Not Given Norepinephrine Bitartrate 4 mg (/ Sodium Chloride) 254 mls @ 15.24 mls/hr IV .[id number] PRN; Protocol; 4 MCG/MIN PRN Reason: TITRATE PER MD ORDER Last Admin: 05/29/17 11:19 Dose: 4 mcg/min, 15.24 mls/hr Milrinone Lactate/Dextrose 20 (mg/ Dextrose) 100 mls @ 4.46 mls/hr IV .[id number] HILL; 0.2 MCG/KG/MIN PRN Reason: Protocol Last Admin: 05/29/17 16:37 Dose: 0.2 mcg/kg/min, 4.46 mls/hr Insulin Aspart (Novolog) 0 unit SC Q6H HILL PRN Reason: Protocol Last Admin: 05/29/17 18:37 Dose: 1 unit Lorazepam (Ativan) 0.5 mg IVP Q4H PRN PRN Reason: Agitation Last Admin: 05/29/17 09:15 Dose: 0.5 mg Pantoprazole Sodium (Protonix Inj) 40 mg IVP DAILY HILL Last Admin: 05/29/17 10:41 Dose: 40 mg - Labs Labs: 05/29/17 06:22 05/29/17 06:22 PT > 320.0 SECONDS (9.7-12.2) H* D 05/28/17 16:43 INR > 10.0 D 05/28/17 16:43 APTT > 400 SECONDS (21-34) H* D 05/28/17 16:43 - Constitutional Appears: Agitated - Head Exam Head Exam: NORMAL INSPECTION - Eye Exam Eye Exam: Scleral icterus - ENT Exam ENT Exam: Mucous Membranes Moist - Respiratory Exam Additional comments: Bilateral rales; - Cardiovascular Exam Cardiovascular Exam: Irregular Rhythm Additional comments: muffled sounds; - GI/Abdominal Exam GI & Abdominal Exam: Distended, Tenderness - Exam Additional comments: whitehead in place; - Back Exam Additional comments: Moderately edematous upper and lower ext; - Neurological Exam Additional comments: Grimaces to tactile stimuli; - Skin Skin Exam: Warm. absent: Cyanosis Assessment and Plan (1) CHF (congestive heart failure) Assessment & Plan: Acute severely decompensated systolic CHF w/ MR; with pulm edema on CXR; agree with starting intropic agent; if BP allows, should resume diuresis; Status: Chronic (2) Acute renal failure (ARF) Assessment & Plan: LULA on CKD; cardiorenal etiology although may have progressed to ATN; non- oliguric; serum creat at relative plateau; agree with inotropic agent; slim chance that hemodialysis will help but will likely not tolerate the procedure as patient is already hypotensive; also high risk for bleeding with placing HD catheter; no urgent indication for HD at this point; option discussed with family, they are leaning toward declining after being explained that patient's clinical deterioration is too far advanced and is patient is prone to complications as mentioned above; Status: Acute (3) Hypertensive CKD (chronic kidney disease) Assessment & Plan: Currently hypotensive on small dose of vasopressor support, continue same; Status: Chronic (4) Altered mental status Status: Acute (5) SIRS (systemic inflammatory response syndrome) Assessment & Plan: On meropenem, tygecil and aztreonam; may need further dose reductions for worsening renal function; Status: Acute (6) Hyperbilirubinemia Assessment & Plan: Worsening; only obvious etiology is congestive hepatopathy, will see response to milrinone; Status: Acute - Assessment and Plan (Free Text) Assessment: Total critical care time spent evaluating patient and in discussions with family , primary and critical care attendings: > 45 minutes.
[2017-05-30] MEDS: Aritificial Tears (15ml) OU SCH ×6 (00:05→15:55)
[2017-05-30] MEDS: (Novolog) Insulin Aspart, Recombinant 100 u/ml 10 ml vial SC SCH ×3 (00:30→12:12)
[2017-05-30] MEDS: Sodium Chloride 0.45% 1,000 ML IV SCH ×3 (00:49→12:26)
[2017-05-30] MEDS: Meropenem 500 MG in Sodium Chloride 0.9% 100 ML IVPB SCH ×2 (05:00→17:20)
[2017-05-30 05:43] LABS: ABG MECHANICAL RATE 24; ARTERIAL BLOOD GAS MODE PRVC; ARTERIAL BLOOD HGB O2 SAT 97.6 % (95.0-98.0); ATERIAL BLOOD GAS PEEP 5; CARBOXYHEMOGLOBIN 1.8 % (0.5-1.5); DRAW SITE LB; HHB -0.4 % (0.0-5.0)
[2017-05-30 06:10] LABS: BASO % 0.3 % (0.0-2.0); HEMATOCRIT 26.7 % (35.0-51.0); LYMPH # 0.3 K/uL (1.0-4.3); LYMPH % 2.3 % (20.0-40.0); MEAN CELL VOLUME 82.4 fL (80.0-94.0); MEAN CORPUSCULAR HEMOGLOBIN 26.6 pg (27.0-31.0); MEAN CORPUSCULAR HGB CONC 32.3 g/dL (33.0-37.0); MONO % 6.8 % (0.0-10.0); NRBC % 0.7 % (0.0-2.0); PLATELET COUNT 34 K/uL (130-400); RED CELL DISTRIBUTION WIDTH 20.1 % (11.5-14.5); WHITE BLOOD COUNT 14.3 K/uL (4.8-10.8)
[2017-05-30 06:28] LABS: ALB/GLOB RATIO 0.9 (1.0-2.1); BILIRUBIN,DIRECT 5.6 mg/dL (0.0-0.4); BILIRUBIN,TOTAL 7.7 mg/dL (0.2-1.3); CALCIUM 7.9 mg/dl (8.6-10.4); MAGNESIUM 2.3 mg/dL (1.6-2.3); PHOSPHOROUS 4.4 mg/dL (2.5-4.5); POTASSIUM 3.2 mmol/L (3.6-5.2); TOTAL PROTEIN 3.7 g/dL (6.3-8.3)
[2017-05-30] MEDS ORDERED: Potassium Chloride 10 mEq ER Tab PO ONE (07:50)
[2017-05-30] MEDS: Albuterol 0.083% Inhal Sol (2.5 mg/3 mL) UD INH PRN (08:09)
[2017-05-30 08:20] LABS: NEUTROPHIL 96 % (50-75); TOTAL CELLS COUNTED 100
--- NOTE | 2017-05-30 08:50 | RAD ---
PROCEDURE: CHEST RADIOGRAPH, 1 VIEW HISTORY: vented COMPARISON: 05/29/2017 FINDINGS: LUNGS: NG tube which appears coiled in the stomach. Re- adjustment may be helpful. Endotracheal tube extending into the mid thoracic trachea. Other lines and tubes in stable position. Dense consolidative changes throughout the left lung with a small left pleural effusion. Prominent consolidative changes at the right lung base. Biapical pleural thickening with upper lobe granulomatous changes. Moderate to severe venous congestion. PLEURA: As above. CARDIOVASCULAR: Cardiomegaly. OSSEOUS STRUCTURES: Degenerative changes in the spine and shoulders. VISUALIZED UPPER ABDOMEN: Normal. OTHER FINDINGS: None. IMPRESSION: NG tube which appears coiled in the stomach. Re- adjustment may be helpful. Endotracheal tube extending into the mid thoracic trachea. Other lines and tubes in stable position. Dense consolidative changes throughout the left lung with a small left pleural effusion. Prominent consolidative changes at the right lung base. Biapical pleural thickening with upper lobe granulomatous changes. Moderate to severe venous congestion.
--- NOTE | 2017-05-30 11:59 | CP.PCM.PN ---
Subjective - Date & Time of Evaluation Date of Evaluation: 05/30/17 Time of Evaluation: 11:40 - Subjective Subjective: Hospitalist Progress Note (Patient was seen and examined at 11:40 AM 05/30/17 ICU Bed 9) 87 year old male who was admitted on 05/18/17 with multiple medical problems (as documented below) with multiple organ failure. ROS not possible as patient is intubated. Exam: HEENT: NCA, Both pupils are round but the left is larger than the right and both are reactive to light, Scleral Icterus, Oral mucosa and nasal turbinates are dry, NO lymphadenopathy, NO thyromegaly Cardio: irregularly irregular Resp: scattered espiratory wheezes GI: BSx4 are decreased, Soft Ext: 2+ pitting edema bilateral legs from feet to just inferior to the knees Neuro: not possible Assessments: SIRS:Tigecycline, Merapenam, Aztreonam Metabolic Acidosis Change in Mental Status Secondary to likely Metabolic Encephalopathy CHF Dilated Cardiomyopathy: Milrinone Hx HTN currently Hypotensive: Norepinephrine Hx HLD CKD IV Bilateral Leg Edema Elevated LFTs Chronic A-fib: Diltiazam, ASA, Amiodarone Extensive conversation with Son Suhas and Lily on 05/29/17 with the help of Vopiumd Interpretor Carolina Gilliam [id number] (with Relief Worker Nuris present). Re-expressed to family that the patient was dying (secondary to HF, Liver Failure, Renal Failure , Respiratory Failure) and that did not believe that further intervention would bring back the patient to the level that the family was expecting. Both Lily and Suhas wanted more time for consideration but wanted to continue current management. They have also expressed their wish that no health care providers provide information concerning patient status unless either Lily and/or Suhas are present. This was explained to the ICU nurses and Safety Analyst. Gregory Norman D.O. Objective - Vital Signs/Intake and Output Vital Signs (last 24 hours): Temp Pulse Resp BP Pulse Ox 98.7 F 144 H 25 H 98/47 L 100 05/30/17 08:00 05/30/17 11:00 05/30/17 11:00 05/30/17 10:51 05/30/17 11:00 Intake and Output: 05/30/17 05/30/17 06:59 18:59 Intake Total 1928.0 193.5 Output Total 595 30 Balance 1333.0 163.5 - Medications Medications: Current Medications Albuterol Sulfate (Albuterol 0.083% Inhal Judy (2.5 Mg/3 Ml) Ud) 2.5 mg INH RQ6 PRN PRN Reason: Wheezing Last Admin: 05/30/17 08:09 Dose: 2.5 mg Amiodarone HCl (Cordarone) 200 mg NG DAILY [facility] Last Admin: 05/25/17 10:51 Dose: 200 mg Artificial Tears (Artificial Tears) 0 ml OU Q3H [facility] Last Admin: 05/30/17 08:59 Dose: 1 drop Aspirin (Aspirin Chewable) 81 mg PO DAILY [facility] Last Admin: 05/19/17 11:05 Dose: 81 mg Aztreonam 1 gm/ Sodium (Chloride) 100 mls @ 200 mls/hr IVPB Q24H [facility] Last Admin: 05/29/17 16:32 Dose: 200 mls/hr Meropenem 500 mg/ Sodium (Chloride) 100 mls @ 100 mls/hr IVPB Q12H [facility] Last Admin: 05/30/17 05:00 Dose: 100 mls/hr Tigecycline 50 mg/ Sodium (Chloride) 100 mls @ 100 mls/hr IVPB Q12H [facility] Last Admin: 05/30/17 10:37 Dose: 100 mls/hr Diltiazem HCl 125 mg/ Sodium (Chloride) 125 mls @ 5 mls/hr IV .Q24H [facility]; 5 MG/ HR PRN Reason: Protocol Last Admin: 05/27/17 16:36 Dose: 5 mg/hr, 5 mls/hr Sodium Chloride (Sodium Chloride 0.45%) 1,000 mls @ 100 mls/hr IV .Q10H [facility] Last Admin: 05/30/17 02:00 Dose: Not Given Norepinephrine Bitartrate 4 mg (/ Sodium Chloride) 254 mls @ 15.24 mls/hr IV .[id number] PRN; Protocol; 4 MCG/MIN PRN Reason: TITRATE PER MD ORDER Last Titration: 05/30/17 09:47 Dose: 6 mcg/min, 22.86 mls/hr Milrinone Lactate/Dextrose 20 (mg/ Dextrose) 100 mls @ 4.46 mls/hr IV .[id number] [facility]; 0.2 MCG/KG/MIN PRN Reason: Protocol Last Admin: 05/29/17 16:37 Dose: 0.2 mcg/kg/min, 4.46 mls/hr Insulin Aspart (Novolog) 0 unit SC Q6H [facility] PRN Reason: Protocol Last Admin: 05/30/17 05:58 Dose: Not Given Lorazepam (Ativan) 0.5 mg IVP Q4H PRN PRN Reason: Agitation Last Admin: 05/29/17 09:15 Dose: 0.5 mg Pantoprazole Sodium (Protonix Inj) 40 mg IVP DAILY [facility] Last Admin: 05/30/17 09:39 Dose: 40 mg - Labs Labs: 05/30/17 05:59 05/30/17 05:59 PT > 320.0 SECONDS (9.7-12.2) H* D 05/28/17 16:43 INR > 10.0 D 05/28/17 16:43 APTT > 400 SECONDS (21-34) H* D 05/28/17 16:43
[2017-05-30] MEDS: Milrinone 20 MG in Dextrose 5% In Water 80 ML IV SCH ×2 (12:16→14:42)
--- NOTE | 2017-05-30 12:34 | CP.CCUPN ---
<Mary Graves - Last Filed: 05/30/17 13:42> CCU Subjective - Physician Review Subjective (Free Text): Patient was seen and examined at bedside in the AM. Patient is alert but not oriented. Patient is intubated. Goals of care and palliative care will be discussed today with the family. 05/30/17 13:42 05/30/17 13:45 CCU Objective - Vital Signs / Intake & Output Vital Signs (Last 4 hours): Vital Signs Pulse Resp BP Pulse Ox 05/30/17 12:16 139 H 25 H 92/60 L 100 05/30/17 11:00 144 H 25 H 100 05/30/17 10:51 136 H 25 H 98/47 L 100 05/30/17 10:34 143 H 28 H 120/59 L 100 05/30/17 10:20 132 H 22 79/46 L 100 05/30/17 10:00 136 H 28 H 100 05/30/17 09:52 136 H 25 H 100/54 L 100 05/30/17 09:39 132 H 25 H 76/45 L 99 05/30/17 09:37 128 H 25 H 74/40 L 100 05/30/17 09:00 136 H 24 100 05/30/17 08:37 137 H 26 H 98/56 L 100 Intake and Output (Last 8hrs): Intake & Output 05/29/17 05/30/17 05/30/17 22:59 06:59 14:59 Intake Total 1082.5 1370.0 644.0 Output Total 780 265 35 Balance 302.5 1105.0 609.0 Intake: IV 254 154 Intake, IV Amount 942.5 956.0 390.0 Right Distal Port 22.5 36.0 22.5 Internal Jugular Right Medial Port 800 800 300 Internal Jugular Right Proximal Port 120 120 67.5 Internal Jugular Tube Feeding 140 160 100 Output: Urine 680 265 35 Urethral (White[place]) 680 265 35 Stool 100 Other: # Bowel Movements 1 100 0 - Physical Exam Head: Positive for: Atraumatic, Normocephalic Mouth: Positive for: Dry Nose (Internal): Negative for: No Active Bleeding (blood in the suction tube ) Respiratory/Chest: Positive for: Decreased Breath Sounds, Other (patient is intubated). Negative for: Respiratory Distress, Accessory Muscle Use Abdomen: Negative for: Distention, Normal Bowel Sounds (hypo bowel sounds) Upper Extremity: Negative for: Edema Lower Extremity: Negative for: Edema Neurological: Negative for: GCS=15, Speech Normal Psychiatric: Positive for: Alert. Negative for: Oriented x 3 - Medications Active Medications: Active Medications Generic Name Dose Route Start Last Admin Trade Name Freq PRN Reason Stop Dose Admin Albuterol Sulfate 2.5 mg 05/21/17 07:51 05/30/17 08:09 Albuterol 0.083% Inhal Judy (2.5 Mg/3 Ml) Ud INH 2.5 mg RQ6 PRN Administration Wheezing Amiodarone HCl 200 mg 05/19/17 14:00 05/25/17 10:51 Cordarone NG 200 mg DAILY HILL Administration Artificial Tears 0 ml 05/25/17 12:30 05/30/17 12:23 Artificial Tears OU 1 drop Q3H HILL Administration Aspirin 81 mg 05/19/17 10:00 05/19/17 11:05 Aspirin Chewable PO 81 mg DAILY HILL Administration Aztreonam 1 gm/ Sodium 100 mls @ 200 mls/hr 05/22/17 17:00 05/29/17 16:32 Chloride IVPB 200 mls/hr Q24H HILL Administration Meropenem 500 mg/ Sodium 100 mls @ 100 mls/hr 05/22/17 18:00 05/30/17 05:00 Chloride IVPB 100 mls/hr Q12H HILL Administration Tigecycline 50 mg/ Sodium 100 mls @ 100 mls/hr 05/24/17 11:30 05/30/17 10:37 Chloride IVPB 100 mls/hr Q12H HILL Administration Diltiazem HCl 125 mg/ Sodium 125 mls @ 5 mls/hr 05/26/17 17:16 05/27/17 16:36 Chloride IV 5 mg/hr .Q24H HILL 5 mls/hr Protocol Administration 5 MG/HR Sodium Chloride 1,000 mls @ 100 mls/hr 05/28/17 10:15 05/30/17 12:26 Sodium Chloride 0.45% IV Not Given .Q10H HILL Norepinephrine Bitartrate 4 mg 254 mls @ 15.24 mls/hr 05/29/17 10:13 09:47 / Sodium Chloride IV 6 mcg/min .[id number] PRN 22.86 mls/hr TITRATE PER MD ORDER Titration Protocol 4 MCG/MIN Milrinone Lactate/Dextrose 20 100 mls @ 4.46 mls/hr 05/29/17 15:45 05/30/17 12:16 mg/ Dextrose IV 0.2 mcg/kg/min .[id number] HILL 4.46 mls/hr Protocol Administration 0.2 MCG/KG/MIN Insulin Aspart 0 unit 05/22/17 18:00 05/30/17 12:12 Novolog SC 1 unit Q6H HILL Administration Protocol Lorazepam 0.5 mg 05/18/17 15:32 05/29/17 09:15 Ativan IVP 0.5 mg Q4H PRN Administration Agitation Pantoprazole Sodium 40 mg 05/19/17 10:00 05/30/17 09:39 Protonix Inj IVP 40 mg DAILY HILL Administration - Patient Studies Lab Studies: Microbiology Studies 05/28/17 Unknown Gram Stain - Preliminary Trachasp 05/28/17 08:00 MRSA Culture (Admit) - Final Naris MRSA NOT DETECTED Lab Studies 05/30/17 05/30/17 05/30/17 Range/Units 12:06 05:59 05:59 WBC 14.3 H (4.8-10.8) K/uL RBC 3.24 L (4.40-5.90) Mil/uL Hgb 8.6 L (12.0-18.0) g/dL Hct 26.7 L (35.0-51.0) % MCV 82.4 (80.0-94.0) fL MCH 26.6 L (27.0-31.0) pg MCHC 32.3 L (33.0-37.0) g/dL RDW 20.1 H (11.5-14.5) % Plt Count 34 L (130-400) K/uL MPV 9.0 (7.2-11.7) fL Neut % (Auto) 90.6 H (50.0-75.0) % Lymph % (Auto) 2.3 L (20.0-40.0) % Pickett % (Auto) 6.8 (0.0-10.0) % Eos % (Auto) 0.0 (0.0-4.0) % Baso % (Auto) 0.3 (0.0-2.0) % Neut # 12.9 H (1.8-7.0) K/uL Lymph # 0.3 L (1.0-4.3) K/uL Pickett # 1.0 H (0.0-0.8) K/uL Eos # 0.0 (0.0-0.7) K/uL Baso # 0.0 (0.0-0.2) K/uL Neutrophils % (Manual) 96 H (50-75) % Band Neutrophils % 2 (0-2) % Lymphocytes % (Manual) 1 L (20-40) % Monocytes % (Manual) 1 (0-10) % Platelet Estimate Decreased L (NORMAL) Polychromasia Slight Hypochromasia (manual) Slight Anisocytosis (manual) Slight Target Cells Slight Tear Drop Cells Slight Ovalocytes Slight Rodeo Cells Slight Schistocytes Slight Puncture Site pCO2 (35-45) mm/Hg pO2 (80-100) mm/Hg HCO3 (21-28) mmol/L ABG pH (7.35-7.45) ABG Total CO2 (22-28) mmol/L ABG O2 Saturation (95-98) % ABG Base Excess (-2.0-3.0) mmol/L ABG Hemoglobin (11.7-17.4) g/dL ABG Carboxyhemoglobin (0.5-1.5) % POC ABG HHb (Measured) (0.0-5.0) % ABG Methemoglobin (0.0-3.0) % Lucho Test A-a O2 Difference mm/Hg Respiratory Index Hgb O2 Saturation (95.0-98.0) % Vent Mode Mechanical Rate FiO2 % Tidal Volume PEEP Sodium 146 (132-148) mmol/L Potassium 3.2 L (3.6-5.2) mmol/L Chloride 109 H (98-107) mmol/L Carbon Dioxide 21 L (22-30) mmol/L Anion Gap 19 (10-20) BUN 125 H* (9-20) mg/dL Creatinine 3.3 H (0.8-1.5) MG/DL Est GFR ( Amer) 22 Est GFR (Non-Af Amer) 18 POC Glucose (mg/dL) 164 H (65-110) mg/dL Random Glucose 136 H (75-110) mg/dL Calcium 7.9 L (8.6-10.4) mg/dl Phosphorus 4.4 (2.5-4.5) mg/dL Magnesium 2.3 (1.6-2.3) mg/dL Total Bilirubin 7.7 H (0.2-1.3) mg/dL Direct Bilirubin 5.6 H (0.0-0.4) mg/dL AST 75 H (17-59) U/L ALT 78 H (21-72) U/L Alkaline Phosphatase 89 (38-126) U/L Total Protein 3.7 L (6.3-8.3) g/dL Albumin 1.8 L (3.5-5.0) g/dL Globulin 2.0 L (2.2-3.9) gm/dL Albumin/Globulin Ratio 0.9 L (1.0-2.1) 05/30/17 05/30/17 05/30/17 Range/Units 05:25 05:21 00:09 WBC (4.8-10.8) K/uL RBC (4.40-5.90) Mil/uL Hgb (12.0-18.0) g/dL Hct (35.0-51.0) % MCV (80.0-94.0) fL MCH (27.0-31.0) pg MCHC (33.0-37.0) g/dL RDW (11.5-14.5) % Plt Count (130-400) K/uL MPV (7.2-11.7) fL Neut % (Auto) (50.0-75.0) % Lymph % (Auto) (20.0-40.0) % Pickett % (Auto) (0.0-10.0) % Eos % (Auto) (0.0-4.0) % Baso % (Auto) (0.0-2.0) % Neut # (1.8-7.0) K/uL Lymph # (1.0-4.3) K/uL Pickett # (0.0-0.8) K/uL Eos # (0.0-0.7) K/uL Baso # (0.0-0.2) K/uL Neutrophils % (Manual) (50-75) % Band Neutrophils % (0-2) % Lymphocytes % (Manual) (20-40) % Monocytes % (Manual) (0-10) % Platelet Estimate (NORMAL) Polychromasia Hypochromasia (manual) Anisocytosis (manual) Target Cells Tear Drop Cells Ovalocytes Rodeo Cells Schistocytes Puncture Site Lb pCO2 26 L (35-45) mm/Hg pO2 244 H (80-100) mm/Hg HCO3 21.4 (21-28) mmol/L ABG pH 7.46 H (7.35-7.45) ABG Total CO2 19.3 L (22-28) mmol/L ABG O2 Saturation 100.4 H (95-98) % ABG Base Excess -4.5 L (-2.0-3.0) mmol/L ABG Hemoglobin 8.5 L (11.7-17.4) g/dL ABG Carboxyhemoglobin 1.8 H (0.5-1.5) % POC ABG HHb (Measured) -0.4 L (0.0-5.0) % ABG Methemoglobin 1.0 (0.0-3.0) % Lucho Test Na A-a O2 Difference 437.0 mm/Hg Respiratory Index 1.8 Hgb O2 Saturation 97.6 (95.0-98.0) % Vent Mode Prvc Mechanical Rate 24 FiO2 100.0 % Tidal Volume 550 PEEP 5 Sodium (132-148) mmol/L Potassium (3.6-5.2) mmol/L Chloride (98-107) mmol/L Carbon Dioxide (22-30) mmol/L Anion Gap (10-20) BUN (9-20) mg/dL Creatinine (0.8-1.5) MG/DL Est GFR ( Amer) Est GFR (Non-Af Amer) POC Glucose (mg/dL) 169 H 163 H (65-110) mg/dL Random Glucose (75-110) mg/dL Calcium (8.6-10.4) mg/dl Phosphorus (2.5-4.5) mg/dL Magnesium (1.6-2.3) mg/dL Total Bilirubin (0.2-1.3) mg/dL Direct Bilirubin (0.0-0.4) mg/dL AST (17-59) U/L ALT (21-72) U/L Alkaline Phosphatase (38-126) U/L Total Protein (6.3-8.3) g/dL Albumin (3.5-5.0) g/dL Globulin (2.2-3.9) gm/dL Albumin/Globulin Ratio (1.0-2.1) 05/29/17 05/29/17 Range/Units 17:32 11:28 WBC (4.8-10.8) K/uL RBC (4.40-5.90) Mil/uL Hgb (12.0-18.0) g/dL Hct (35.0-51.0) % MCV (80.0-94.0) fL MCH (27.0-31.0) pg MCHC (33.0-37.0) g/dL RDW (11.5-14.5) % Plt Count (130-400) K/uL MPV (7.2-11.7) fL Neut % (Auto) (50.0-75.0) % Lymph % (Auto) (20.0-40.0) % Pickett % (Auto) (0.0-10.0) % Eos % (Auto) (0.0-4.0) % Baso % (Auto) (0.0-2.0) % Neut # (1.8-7.0) K/uL Lymph # (1.0-4.3) K/uL Pickett # (0.0-0.8) K/uL Eos # (0.0-0.7) K/uL Baso # (0.0-0.2) K/uL Neutrophils % (Manual) (50-75) % Band Neutrophils % (0-2) % Lymphocytes % (Manual) (20-40) % Monocytes % (Manual) (0-10) % Platelet Estimate (NORMAL) Polychromasia Hypochromasia (manual) Anisocytosis (manual) Target Cells Tear Drop Cells Ovalocytes Rodrigue Cells Schistocytes Puncture Site pCO2 (35-45) mm/Hg pO2 (80-100) mm/Hg HCO3 (21-28) mmol/L ABG pH (7.35-7.45) ABG Total CO2 (22-28) mmol/L ABG O2 Saturation (95-98) % ABG Base Excess (-2.0-3.0) mmol/L ABG Hemoglobin (11.7-17.4) g/dL ABG Carboxyhemoglobin (0.5-1.5) % POC ABG HHb (Measured) (0.0-5.0) % ABG Methemoglobin (0.0-3.0) % Lucho Test A-a O2 Difference mm/Hg Respiratory Index Hgb O2 Saturation (95.0-98.0) % Vent Mode Mechanical Rate FiO2 % Tidal Volume PEEP Sodium (132-148) mmol/L Potassium (3.6-5.2) mmol/L Chloride (98-107) mmol/L Carbon Dioxide (22-30) mmol/L Anion Gap (10-20) BUN (9-20) mg/dL Creatinine (0.8-1.5) MG/DL Est GFR ( Amer) Est GFR (Non-Af Amer) POC Glucose (mg/dL) 172 H 151 H (65-110) mg/dL Random Glucose (75-110) mg/dL Calcium (8.6-10.4) mg/dl Phosphorus (2.5-4.5) mg/dL Magnesium (1.6-2.3) mg/dL Total Bilirubin (0.2-1.3) mg/dL Direct Bilirubin (0.0-0.4) mg/dL AST (17-59) U/L ALT (21-72) U/L Alkaline Phosphatase (38-126) U/L Total Protein (6.3-8.3) g/dL Albumin (3.5-5.0) g/dL Globulin (2.2-3.9) gm/dL Albumin/Globulin Ratio (1.0-2.1) Laboratory Results - last 24 hr 05/29/17 05/29/17 05/30/17 11:28 17:32 00:09 WBC RBC Hgb Hct MCV MCH MCHC RDW Plt Count MPV Neut % (Auto) Lymph % (Auto) Pickett % (Auto) Eos % (Auto) Baso % (Auto) Neut # Lymph # Pickett # Eos # Baso # Neutrophils % (Manual) Band Neutrophils % Lymphocytes % (Manual) Monocytes % (Manual) Platelet Estimate Polychromasia Hypochromasia (manual) Anisocytosis (manual) Target Cells Tear Drop Cells Ovalocytes Rodrigue Cells Schistocytes Puncture Site pCO2 pO2 HCO3 ABG pH ABG Total CO2 ABG O2 Saturation ABG Base Excess ABG Hemoglobin ABG Carboxyhemoglobin POC ABG HHb (Measured) ABG Methemoglobin Lucho Test A-a O2 Difference Respiratory Index Hgb O2 Saturation Vent Mode Mechanical Rate FiO2 Tidal Volume PEEP Sodium Potassium Chloride Carbon Dioxide Anion Gap BUN Creatinine Est GFR ( Amer) Est GFR (Non-Af Amer) POC Glucose (mg/dL) 151 H 172 H 163 H Random Glucose Calcium Phosphorus Magnesium Total Bilirubin Direct Bilirubin AST ALT Alkaline Phosphatase Total Protein Albumin Globulin Albumin/Globulin Ratio 05/30/17 05/30/17 05/30/17 05:21 05:25 05:59 WBC RBC Hgb Hct MCV MCH MCHC RDW Plt Count MPV Neut % (Auto) Lymph % (Auto) Pickett % (Auto) Eos % (Auto) Baso % (Auto) Neut # Lymph # Pickett # Eos # Baso # Neutrophils % (Manual) Band Neutrophils % Lymphocytes % (Manual) Monocytes % (Manual) Platelet Estimate Polychromasia Hypochromasia (manual) Anisocytosis (manual) Target Cells Tear Drop Cells Ovalocytes Rodrigue Cells Schistocytes Puncture Site Lb pCO2 26 L pO2 244 H HCO3 21.4 ABG pH 7.46 H ABG Total CO2 19.3 L ABG O2 Saturation 100.4 H ABG Base Excess -4.5 L ABG Hemoglobin 8.5 L ABG Carboxyhemoglobin 1.8 H POC ABG HHb (Measured) -0.4 L ABG Methemoglobin 1.0 Lucho Test Na A-a O2 Difference 437.0 Respiratory Index 1.8 Hgb O2 Saturation 97.6 Vent Mode Prvc Mechanical Rate 24 FiO2 100.0 Tidal Volume 550 PEEP 5 Sodium 146 Potassium 3.2 L Chloride 109 H Carbon Dioxide 21 L Anion Gap 19 BUN 125 H* Creatinine 3.3 H Est GFR ( Amer) 22 Est GFR (Non-Af Amer) 18 POC Glucose (mg/dL) 169 H Random Glucose 136 H Calcium 7.9 L Phosphorus 4.4 Magnesium 2.3 Total Bilirubin 7.7 H Direct Bilirubin 5.6 H AST 75 H ALT 78 H Alkaline Phosphatase 89 Total Protein 3.7 L Albumin 1.8 L Globulin 2.0 L Albumin/Globulin Ratio 0.9 L 05/30/17 05/30/17 05:59 12:06 WBC 14.3 H RBC 3.24 L Hgb 8.6 L Hct 26.7 L MCV 82.4 MCH 26.6 L MCHC 32.3 L RDW 20.1 H Plt Count 34 L MPV 9.0 Neut % (Auto) 90.6 H Lymph % (Auto) 2.3 L Pickett % (Auto) 6.8 Eos % (Auto) 0.0 Baso % (Auto) 0.3 Neut # 12.9 H Lymph # 0.3 L Pickett # 1.0 H Eos # 0.0 Baso # 0.0 Neutrophils % (Manual) 96 H Band Neutrophils % 2 Lymphocytes % (Manual) 1 L Monocytes % (Manual) 1 Platelet Estimate Decreased L Polychromasia Slight Hypochromasia (manual) Slight Anisocytosis (manual) Slight Target Cells Slight Tear Drop Cells Slight Ovalocytes Slight Rodeo Cells Slight Schistocytes Slight Puncture Site pCO2 pO2 HCO3 ABG pH ABG Total CO2 ABG O2 Saturation ABG Base Excess ABG Hemoglobin ABG Carboxyhemoglobin POC ABG HHb (Measured) ABG Methemoglobin Lucho Test A-a O2 Difference Respiratory Index Hgb O2 Saturation Vent Mode Mechanical Rate FiO2 Tidal Volume PEEP Sodium Potassium Chloride Carbon Dioxide Anion Gap BUN Creatinine Est GFR ( Amer) Est GFR (Non-Af Amer) POC Glucose (mg/dL) 164 H Random Glucose Calcium Phosphorus Magnesium Total Bilirubin Direct Bilirubin AST ALT Alkaline Phosphatase Total Protein Albumin Globulin Albumin/Globulin Ratio Fingerstick Blood Sugar Results: 122 Review of Systems - Review of Systems Systems not reviewed;Unavailable: Intubated Assessment/Plan - Assessment and Plan (Free Text) Plan: 87yo M. PMHx CHF,HTN, atrial fibrillation, ischemic cardiomyopathy, severe chronic systolic dysfunction, severe mitral regurgitation. Presented with change in mental status, and dyspnea. Patient was transferred to the ICU because the patient was experiencing agonal breathing. At the time as per the son the patient was intubated. Today the ICU attending spoke with the family and they consented the patient be DNR. Palliative care will be discussed today with the family Neuro: Intubated - Neuro Consult: Dr. Jimenez --> help appreciated Pulm: Intubated CV: Patient has history of CHF with severely decreased Ef to 20%, HTN, Afib, ischemic cardiomyopathy, and severe chronic mitral regurgitation Dopamine 400mg - Cardiology Consult: Dr. Saha --> help appreciated - CT of abdmomen & Pelvis (05/18): Massive cardiomegaly, small pericardial effusion and small bilateral pleural effusions. - Patient's family is not agreeable to having AICD placed Hem: Thrombocytopenia likely due to severe sepsis. Will continue to monitor. Renal: Chronic kidney disease, Will monitor urine output. - Nephrology Consult: Dr. Ortiz --> help appreciated - Patient is not a candidate for dialysis due to hypoperfusion secondary to poor cardiac ejection fraction. Endo: History of DM, continue ISS GI: Likely that the direct bilirubin is increasing due to decreased clearance by the kidneys. Transaminitis and jaundice present. Elevated LFTs likely due to poor perfusion for cardiac dysfunction. LFTs trending down. GI: Dr. Barroso is consulted--> Recommendations for elevated LFTs is to optimize cardiac function for better perfusion. Sepsis may be 2/2 ischemic bowel or some other infection in abdomen. Unfortunately, due to poor kidney function, CT of abd with IV contrast is unable to be Currently on peripheral feeding with Liposen ID: Blood cultures negative after 4 days Elevated lactic acid. Sepsis source 2/2 ischemic bowel vs. UTI Currently on Aztreonam, tigecycline, and meropenem - blood culture 05/18 & 05/22: no growth - urine culture: no growth - nose culture neg for MRSA - ID Consult: Dr. Hutton --> help appreciated DVT proph - Contraindication due to decreased platelet count GI proph - 40mg Protonix daily whitehead for strict I/O's during acute illness Code status - DNR Case discussed with Dr. Erasmo Graves PGY-1 <Milan Zimmerman - Last Filed: 05/30/17 15:05> CCU Objective - Vital Signs / Intake & Output Vital Signs (Last 4 hours): Vital Signs Temp Pulse Resp BP Pulse Ox 05/30/17 14:00 151 H 26 H 100 05/30/17 13:58 144 H 27 H 95/39 L 100 05/30/17 13:50 134 H 25 H 79/50 L 100 05/30/17 13:21 146 H 27 H 89/60 L 100 05/30/17 13:00 144 H 26 H 100 05/30/17 12:51 139 H 25 H 93/51 L 99 05/30/17 12:21 151 H 26 H 98/56 L 100 05/30/17 12:16 139 H 25 H 92/60 L 100 05/30/17 12:00 98.5 F 145 H 25 H 100 05/30/17 11:51 147 H 22 92/60 L 100 05/30/17 11:21 142 H 26 H 94/48 L 100 05/30/17 11:00 144 H 25 H 100 05/30/17 10:51 136 H 25 H 98/47 L 100 Intake and Output (Last 8hrs): Intake & Output 05/29/17 05/30/17 05/30/17 22:59 06:59 14:59 Intake Total 1082.5 1370.0 1112.5 Output Total 780 265 35 Balance 302.5 1105.0 1077.5 Weight 163 lb 6.4 oz Intake: IV 254 159 Intake, IV Amount 942.5 956.0 793.5 Right Distal Port 22.5 36.0 36.0 Internal Jugular Right Medial Port 800 800 600 Internal Jugular Right Proximal Port 120 120 157.5 Internal Jugular Tube Feeding 140 160 160 Output: Urine 680 265 35 Urethral (White[place]) 680 265 35 Stool 100 Other: # Bowel Movements 1 100 1 - Medications Active Medications: Active Medications Generic Name Dose Route Start Last Admin Trade Name Freq PRN Reason Stop Dose Admin Albuterol Sulfate 2.5 mg 05/21/17 07:51 05/30/17 08:09 Albuterol 0.083% Inhal Judy (2.5 Mg/3 Ml) Ud INH 2.5 mg RQ6 PRN Administration Wheezing Amiodarone HCl 200 mg 05/19/17 14:00 05/25/17 10:51 Cordarone NG 200 mg DAILY HILL Administration Artificial Tears 0 ml 05/25/17 12:30 05/30/17 12:23 Artificial Tears OU 1 drop Q3H HILL Administration Aspirin 81 mg 05/19/17 10:00 05/19/17 11:05 Aspirin Chewable PO 81 mg DAILY HILL Administration Aztreonam 1 gm/ Sodium 100 mls @ 200 mls/hr 05/22/17 17:00 05/29/17 16:32 Chloride IVPB 200 mls/hr Q24H HILL Administration Meropenem 500 mg/ Sodium 100 mls @ 100 mls/hr 05/22/17 18:00 05/30/17 05:00 Chloride IVPB 100 mls/hr Q12H HILL Administration Tigecycline 50 mg/ Sodium 100 mls @ 100 mls/hr 05/24/17 11:30 05/30/17 10:37 Chloride IVPB 100 mls/hr Q12H HILL Administration Diltiazem HCl 125 mg/ Sodium 125 mls @ 5 mls/hr 05/26/17 17:16 05/27/17 16:36 Chloride IV 5 mg/hr .Q24H HILL 5 mls/hr Protocol Administration 5 MG/HR Sodium Chloride 1,000 mls @ 100 mls/hr 05/28/17 10:15 05/30/17 12:26 Sodium Chloride 0.45% IV Not Given .Q10H HILL Norepinephrine Bitartrate 4 mg 254 mls @ 15.24 mls/hr 05/29/17 10:13 11:30 / Sodium Chloride IV 8 mcg/min .[id number] PRN 30.48 mls/hr TITRATE PER MD ORDER Titration Protocol 4 MCG/MIN Milrinone Lactate/Dextrose 20 100 mls @ 4.46 mls/hr 05/29/17 15:45 05/30/17 14:42 mg/ Dextrose IV Not Given .[id number] HILL Protocol 0.2 MCG/KG/MIN Morphine Sulfate 250 mg/ 250 mls @ 5 mls/hr 05/30/17 14:16 05/30/17 14:43 Sodium Chloride IV 05/31/17 14:15 5 mg/hr .Q24H ONE 5 mls/hr Protocol Administration 5 MG/HR Insulin Aspart 0 unit 05/22/17 18:00 05/30/17 12:12 Novolog SC 1 unit Q6H HILL Administration Protocol Lorazepam 0.5 mg 05/18/17 15:32 05/30/17 13:18 Ativan IVP 0.5 mg Q4H PRN Administration Agitation Pantoprazole Sodium 40 mg 05/19/17 10:00 05/30/17 09:39 Protonix Inj IVP 40 mg DAILY HILL Administration - Patient Studies Lab Studies: Microbiology Studies 05/28/17 Unknown Gram Stain - Preliminary Trachasp 05/28/17 08:00 MRSA Culture (Admit) - Final Naris MRSA NOT DETECTED Lab Studies 05/30/17 05/30/17 05/30/17 Range/Units 12:06 05:59 05:59 WBC 14.3 H (4.8-10.8) K/uL RBC 3.24 L (4.40-5.90) Mil/uL Hgb 8.6 L (12.0-18.0) g/dL Hct 26.7 L (35.0-51.0) % MCV 82.4 (80.0-94.0) fL MCH 26.6 L (27.0-31.0) pg MCHC 32.3 L (33.0-37.0) g/dL RDW 20.1 H (11.5-14.5) % Plt Count 34 L (130-400) K/uL MPV 9.0 (7.2-11.7) fL Neut % (Auto) 90.6 H (50.0-75.0) % Lymph % (Auto) 2.3 L (20.0-40.0) % Pickett % (Auto) 6.8 (0.0-10.0) % Eos % (Auto) 0.0 (0.0-4.0) % Baso % (Auto) 0.3 (0.0-2.0) % Neut # 12.9 H (1.8-7.0) K/uL Lymph # 0.3 L (1.0-4.3) K/uL Pickett # 1.0 H (0.0-0.8) K/uL Eos # 0.0 (0.0-0.7) K/uL Baso # 0.0 (0.0-0.2) K/uL Neutrophils % (Manual) 96 H (50-75) % Band Neutrophils % 2 (0-2) % Lymphocytes % (Manual) 1 L (20-40) % Monocytes % (Manual) 1 (0-10) % Platelet Estimate Decreased L (NORMAL) Polychromasia Slight Hypochromasia (manual) Slight Anisocytosis (manual) Slight Target Cells Slight Tear Drop Cells Slight Ovalocytes Slight Rodeo Cells Slight Schistocytes Slight Puncture Site pCO2 (35-45) mm/Hg pO2 (80-100) mm/Hg HCO3 (21-28) mmol/L ABG pH (7.35-7.45) ABG Total CO2 (22-28) mmol/L ABG O2 Saturation (95-98) % ABG Base Excess (-2.0-3.0) mmol/L ABG Hemoglobin (11.7-17.4) g/dL ABG Carboxyhemoglobin (0.5-1.5) % POC ABG HHb (Measured) (0.0-5.0) % ABG Methemoglobin (0.0-3.0) % Lucho Test A-a O2 Difference mm/Hg Respiratory Index Hgb O2 Saturation (95.0-98.0) % Vent Mode Mechanical Rate FiO2 % Tidal Volume PEEP Sodium 146 (132-148) mmol/L Potassium 3.2 L (3.6-5.2) mmol/L Chloride 109 H (98-107) mmol/L Carbon Dioxide 21 L (22-30) mmol/L Anion Gap 19 (10-20) BUN 125 H* (9-20) mg/dL Creatinine 3.3 H (0.8-1.5) MG/DL Est GFR ( Amer) 22 Est GFR (Non-Af Amer) 18 POC Glucose (mg/dL) 164 H (65-110) mg/dL Random Glucose 136 H (75-110) mg/dL Calcium 7.9 L (8.6-10.4) mg/dl Phosphorus 4.4 (2.5-4.5) mg/dL Magnesium 2.3 (1.6-2.3) mg/dL Total Bilirubin 7.7 H (0.2-1.3) mg/dL Direct Bilirubin 5.6 H (0.0-0.4) mg/dL AST 75 H (17-59) U/L ALT 78 H (21-72) U/L Alkaline Phosphatase 89 (38-126) U/L Total Protein 3.7 L (6.3-8.3) g/dL Albumin 1.8 L (3.5-5.0) g/dL Globulin 2.0 L (2.2-3.9) gm/dL Albumin/Globulin Ratio 0.9 L (1.0-2.1) 05/30/17 05/30/17 05/30/17 Range/Units 05:25 05:21 00:09 WBC (4.8-10.8) K/uL RBC (4.40-5.90) Mil/uL Hgb (12.0-18.0) g/dL Hct (35.0-51.0) % MCV (80.0-94.0) fL MCH (27.0-31.0) pg MCHC (33.0-37.0) g/dL RDW (11.5-14.5) % Plt Count (130-400) K/uL MPV (7.2-11.7) fL Neut % (Auto) (50.0-75.0) % Lymph % (Auto) (20.0-40.0) % Pickett % (Auto) (0.0-10.0) % Eos % (Auto) (0.0-4.0) % Baso % (Auto) (0.0-2.0) % Neut # (1.8-7.0) K/uL Lymph # (1.0-4.3) K/uL Pickett # (0.0-0.8) K/uL Eos # (0.0-0.7) K/uL Baso # (0.0-0.2) K/uL Neutrophils % (Manual) (50-75) % Band Neutrophils % (0-2) % Lymphocytes % (Manual) (20-40) % Monocytes % (Manual) (0-10) % Platelet Estimate (NORMAL) Polychromasia Hypochromasia (manual) Anisocytosis (manual) Target Cells Tear Drop Cells Ovalocytes Rodrigue Cells Schistocytes Puncture Site Lb pCO2 26 L (35-45) mm/Hg pO2 244 H (80-100) mm/Hg HCO3 21.4 (21-28) mmol/L ABG pH 7.46 H (7.35-7.45) ABG Total CO2 19.3 L (22-28) mmol/L ABG O2 Saturation 100.4 H (95-98) % ABG Base Excess -4.5 L (-2.0-3.0) mmol/L ABG Hemoglobin 8.5 L (11.7-17.4) g/dL ABG Carboxyhemoglobin 1.8 H (0.5-1.5) % POC ABG HHb (Measured) -0.4 L (0.0-5.0) % ABG Methemoglobin 1.0 (0.0-3.0) % Lucho Test Na A-a O2 Difference 437.0 mm/Hg Respiratory Index 1.8 Hgb O2 Saturation 97.6 (95.0-98.0) % Vent Mode Prvc Mechanical Rate 24 FiO2 100.0 % Tidal Volume 550 PEEP 5 Sodium (132-148) mmol/L Potassium (3.6-5.2) mmol/L Chloride (98-107) mmol/L Carbon Dioxide (22-30) mmol/L Anion Gap (10-20) BUN (9-20) mg/dL Creatinine (0.8-1.5) MG/DL Est GFR ( Amer) Est GFR (Non-Af Amer) POC Glucose (mg/dL) 169 H 163 H (65-110) mg/dL Random Glucose (75-110) mg/dL Calcium (8.6-10.4) mg/dl Phosphorus (2.5-4.5) mg/dL Magnesium (1.6-2.3) mg/dL Total Bilirubin (0.2-1.3) mg/dL Direct Bilirubin (0.0-0.4) mg/dL AST (17-59) U/L ALT (21-72) U/L Alkaline Phosphatase (38-126) U/L Total Protein (6.3-8.3) g/dL Albumin (3.5-5.0) g/dL Globulin (2.2-3.9) gm/dL Albumin/Globulin Ratio (1.0-2.1) 05/29/17 Range/Units 17:32 WBC (4.8-10.8) K/uL RBC (4.40-5.90) Mil/uL Hgb (12.0-18.0) g/dL Hct (35.0-51.0) % MCV (80.0-94.0) fL MCH (27.0-31.0) pg MCHC (33.0-37.0) g/dL RDW (11.5-14.5) % Plt Count (130-400) K/uL MPV (7.2-11.7) fL Neut % (Auto) (50.0-75.0) % Lymph % (Auto) (20.0-40.0) % Pickett % (Auto) (0.0-10.0) % Eos % (Auto) (0.0-4.0) % Baso % (Auto) (0.0-2.0) % Neut # (1.8-7.0) K/uL Lymph # (1.0-4.3) K/uL Pickett # (0.0-0.8) K/uL Eos # (0.0-0.7) K/uL Baso # (0.0-0.2) K/uL Neutrophils % (Manual) (50-75) % Band Neutrophils % (0-2) % Lymphocytes % (Manual) (20-40) % Monocytes % (Manual) (0-10) % Platelet Estimate (NORMAL) Polychromasia Hypochromasia (manual) Anisocytosis (manual) Target Cells Tear Drop Cells Ovalocytes [place] Cells Schistocytes Puncture Site pCO2 (35-45) mm/Hg pO2 (80-100) mm/Hg HCO3 (21-28) mmol/L ABG pH (7.35-7.45) ABG Total CO2 (22-28) mmol/L ABG O2 Saturation (95-98) % ABG Base Excess (-2.0-3.0) mmol/L ABG Hemoglobin (11.7-17.4) g/dL ABG Carboxyhemoglobin (0.5-1.5) % POC ABG HHb (Measured) (0.0-5.0) % ABG Methemoglobin (0.0-3.0) % Lucho Test A-a O2 Difference mm/Hg Respiratory Index Hgb O2 Saturation (95.0-98.0) % Vent Mode Mechanical Rate FiO2 % Tidal Volume PEEP Sodium (132-148) mmol/L Potassium (3.6-5.2) mmol/L Chloride (98-107) mmol/L Carbon Dioxide (22-30) mmol/L Anion Gap (10-20) BUN (9-20) mg/dL Creatinine (0.8-1.5) MG/DL Est GFR ( Amer) Est GFR (Non-Af Amer) POC Glucose (mg/dL) 172 H (65-110) mg/dL Random Glucose (75-110) mg/dL Calcium (8.6-10.4) mg/dl Phosphorus (2.5-4.5) mg/dL Magnesium (1.6-2.3) mg/dL Total Bilirubin (0.2-1.3) mg/dL Direct Bilirubin (0.0-0.4) mg/dL AST (17-59) U/L ALT (21-72) U/L Alkaline Phosphatase (38-126) U/L Total Protein (6.3-8.3) g/dL Albumin (3.5-5.0) g/dL Globulin (2.2-3.9) gm/dL Albumin/Globulin Ratio (1.0-2.1) Laboratory Results - last 24 hr 05/29/17 05/30/17 05/30/17 17:32 00:09 05:21 WBC RBC Hgb Hct MCV MCH MCHC RDW Plt Count MPV Neut % (Auto) Lymph % (Auto) [place] % (Auto) Eos % (Auto) Baso % (Auto) Neut # Lymph # [place] # Eos # Baso # Neutrophils % (Manual) Band Neutrophils % Lymphocytes % (Manual) Monocytes % (Manual) Platelet Estimate Polychromasia Hypochromasia (manual) Anisocytosis (manual) Target Cells Tear Drop Cells Ovalocytes [place] Cells Schistocytes Puncture Site pCO2 pO2 HCO3 ABG pH ABG Total CO2 ABG O2 Saturation ABG Base Excess ABG Hemoglobin ABG Carboxyhemoglobin POC ABG HHb (Measured) ABG Methemoglobin [place]ucho Test A-a O2 Difference Respiratory Index Hgb O2 Saturation Vent Mode Mechanical Rate FiO2 Tidal Volume PEEP Sodium Potassium Chloride Carbon Dioxide Anion Gap BUN Creatinine Est GFR ( Amer) Est GFR (Non-Af Amer) POC Glucose (mg/dL) 172 H 163 H 169 H Random Glucose Calcium Phosphorus Magnesium Total Bilirubin Direct Bilirubin AST ALT Alkaline Phosphatase Total Protein Albumin Globulin Albumin/Globulin Ratio 05/30/17 05/30/17 05/30/17 05:25 05:59 05:59 WBC 14.3 H RBC 3.24 L Hgb 8.6 L Hct 26.7 L MCV 82.4 MCH 26.6 L MCHC 32.3 L RDW 20.1 H Plt Count 34 L MPV 9.0 Neut % (Auto) 90.6 H Lymph % (Auto) 2.3 L [place] % (Auto) 6.8 Eos % (Auto) 0.0 Baso % (Auto) 0.3 Neut # 12.9 H Lymph # 0.3 L [place] # 1.0 H Eos # 0.0 Baso # 0.0 Neutrophils % (Manual) 96 H Band Neutrophils % 2 Lymphocytes % (Manual) 1 L Monocytes % (Manual) 1 Platelet Estimate Decreased L Polychromasia Slight Hypochromasia (manual) Slight Anisocytosis (manual) Slight Target Cells Slight Tear Drop Cells Slight Ovalocytes Slight [place] Cells Slight Schistocytes Slight Puncture Site Lb pCO2 26 L pO2 244 H HCO3 21.4 ABG pH 7.46 H ABG Total CO2 19.3 L ABG O2 Saturation 100.4 H ABG Base Excess -4.5 L ABG Hemoglobin 8.5 L ABG Carboxyhemoglobin 1.8 H POC ABG HHb (Measured) -0.4 L ABG Methemoglobin 1.0 Lucho Test Na A-a O2 Difference 437.0 Respiratory Index 1.8 Hgb O2 Saturation 97.6 Vent Mode Prvc Mechanical Rate 24 FiO2 100.0 Tidal Volume 550 PEEP 5 Sodium 146 Potassium 3.2 L Chloride 109 H Carbon Dioxide 21 L Anion Gap 19 BUN 125 H* Creatinine 3.3 H Est GFR ( Amer) 22 Est GFR (Non-Af Amer) 18 POC Glucose (mg/dL) Random Glucose 136 H Calcium 7.9 L Phosphorus 4.4 Magnesium 2.3 Total Bilirubin 7.7 H Direct Bilirubin 5.6 H AST 75 H ALT 78 H Alkaline Phosphatase 89 Total Protein 3.7 L Albumin 1.8 L Globulin 2.0 L Albumin/Globulin Ratio 0.9 L 05/30/17 12:06 WBC RBC Hgb Hct MCV MCH MCHC RDW Plt Count MPV Neut % (Auto) Lymph % (Auto) [place] % (Auto) Eos % (Auto) Baso % (Auto) Neut # Lymph # [place] # Eos # Baso # Neutrophils % (Manual) Band Neutrophils % Lymphocytes % (Manual) Monocytes % (Manual) Platelet Estimate Polychromasia Hypochromasia (manual) Anisocytosis (manual) Target Cells Tear Drop Cells Ovalocytes [place] Cells Schistocytes Puncture Site pCO2 pO2 HCO3 ABG pH ABG Total CO2 ABG O2 Saturation ABG Base Excess ABG Hemoglobin ABG Carboxyhemoglobin POC ABG HHb (Measured) ABG Methemoglobin [place] Test A-a O2 Difference Respiratory Index Hgb O2 Saturation Vent Mode Mechanical Rate FiO2 Tidal Volume PEEP Sodium Potassium Chloride Carbon Dioxide Anion Gap BUN Creatinine Est GFR ( Amer) Est GFR (Non-Af Amer) POC Glucose (mg/dL) 164 H Random Glucose Calcium Phosphorus Magnesium Total Bilirubin Direct Bilirubin AST ALT Alkaline Phosphatase Total Protein Albumin Globulin Albumin/Globulin Ratio Attending/Attestation - Attestation I have personally seen and examined this patient.: Yes I have fully participated in the care of the patient.: Yes I have reviewed all pertinent clinical information: Yes Notes (Text): 05/30/17 14:45 I have seen and examined the patient. Medical records, lab studies, and imaging were reviewed by me and a management plan was formulated on multidisciplinary rounds with resident Dr. Graves. I agree with their above documented assessment and plan. After multiple conversations with the patient's with the family and patient's , patient will be terminally extubated and made comfort care. Critical Care Time 35 minutes. Multi-disciplinary rounds were performed with house staff, nursing, speech therapy, respiratory therapy, pharmacy and nutrition with integrated input from the primary team/attending and other consulting services. The documented time is cumulative and includes review of patient data/exams/labs/chart review and examination of the patient on rounds and throughout the day; time is exclusive of any procedures or teaching time.
--- NOTE | 2017-05-30 13:39 | CP.CCUPN ---
CCU Subjective - Physician Review Subjective (Free Text): Patient was seen and examined at bedside in the AM. Patient is not alert or oriented. Patient is intubated 05/29/17 16:21 CCU Objective - Vital Signs / Intake & Output Vital Signs (Last 4 hours): Vital Signs Pulse Resp BP Pulse Ox 05/30/17 13:00 144 H 26 H 100 05/30/17 12:51 139 H 25 H 93/51 L 99 05/30/17 12:21 151 H 26 H 98/56 L 100 05/30/17 12:16 139 H 25 H 92/60 L 100 05/30/17 12:00 145 H 25 H 100 05/30/17 11:51 147 H 22 92/60 L 100 05/30/17 11:21 142 H 26 H 94/48 L 100 05/30/17 11:00 144 H 25 H 100 05/30/17 10:51 136 H 25 H 98/47 L 100 05/30/17 10:34 143 H 28 H 120/59 L 100 05/30/17 10:20 132 H 22 79/46 L 100 05/30/17 10:00 136 H 28 H 100 05/30/17 09:52 136 H 25 H 100/54 L 100 05/30/17 09:39 132 H 25 H 76/45 L 99 Intake and Output (Last 8hrs): Intake & Output 05/29/17 05/30/17 05/30/17 22:59 06:59 14:59 Intake Total 1082.5 1370.0 649.0 Output Total 780 265 35 Balance 302.5 1105.0 614.0 Weight 163 lb 6.4 oz Intake: IV 254 159 Intake, IV Amount 942.5 956.0 390.0 Right Distal Port 22.5 36.0 22.5 Internal Jugular Right Medial Port 800 800 300 Internal Jugular Right Proximal Port 120 120 67.5 Internal Jugular Tube Feeding 140 160 100 Output: Urine 680 265 35 Urethral ([place]) 680 265 35 Stool 100 Other: # Bowel Movements 1 100 0 - Physical Exam Head: Positive for: Atraumatic, Normocephalic Mouth: Positive for: Dry Nose (Internal): Negative for: No Active Bleeding (Patient is bleeding slighly from left nostril with NG tube ) Respiratory/Chest: Positive for: Decreased Breath Sounds, Other (patient is intubated). Negative for: Respiratory Distress, Accessory Muscle Use Abdomen: Negative for: Distention, Normal Bowel Sounds (hypo bowel sounds) Upper Extremity: Negative for: Edema Lower Extremity: Negative for: Edema Neurological: Negative for: GCS=15, Speech Normal Psychiatric: Negative for: Alert, Oriented x 3 - Medications Active Medications: Active Medications Generic Name Dose Route Start Last Admin Trade Name Freq PRN Reason Stop Dose Admin Albuterol Sulfate 2.5 mg 05/21/17 07:51 05/30/17 08:09 Albuterol 0.083% Inhal Judy (2.5 Mg/3 Ml) Ud INH 2.5 mg RQ6 PRN Administration Wheezing Amiodarone HCl 200 mg 05/19/17 14:00 05/25/17 10:51 Cordarone NG 200 mg DAILY HILL Administration Artificial Tears 0 ml 05/25/17 12:30 05/30/17 12:23 Artificial Tears OU 1 drop Q3H HILL Administration Aspirin 81 mg 05/19/17 10:00 05/19/17 11:05 Aspirin Chewable PO 81 mg DAILY HILL Administration Aztreonam 1 gm/ Sodium 100 mls @ 200 mls/hr 05/22/17 17:00 05/29/17 16:32 Chloride IVPB 200 mls/hr Q24H H[facility] Administration Meropenem 500 mg/ Sodium 100 mls @ 100 mls/hr 05/22/17 18:00 05/30/17 05:00 Chloride IVPB 100 mls/hr Q12H H[place] Administration Tigecycline 50 mg/ Sodium 100 mls @ 100 mls/hr 05/24/17 11:30 05/30/17 10:37 Chloride IVPB 100 mls/hr Q12H [place] Administration Diltiazem HCl 125 mg/ Sodium 125 mls @ 5 mls/hr 05/26/17 17:16 05/27/17 16:36 Chloride IV 5 mg/hr .Q24H H[facility] 5 mls/hr Protocol Administration 5 MG/HR Sodium Chloride 1,000 mls @ 100 mls/hr 05/28/17 10:15 05/30/17 12:26 Sodium Chloride 0.45% IV Not Given .Q10H H[facility] Norepinephrine Bitartrate 4 mg 254 mls @ 15.24 mls/hr 05/29/17 10:13 11:30 / Sodium Chloride IV 8 mcg/min .[id number] PRN 30.48 mls/hr TITRATE PER MD ORDER Titration Protocol 4 MCG/MIN Milrinone Lactate/Dextrose 20 100 mls @ 4.46 mls/hr 05/29/17 15:45 05/30/17 12:16 mg/ Dextrose IV 0.2 mcg/kg/min .[id number] HILL 4.46 mls/hr Protocol Administration 0.2 MCG/KG/MIN Insulin Aspart 0 unit 05/22/17 18:00 05/30/17 12:12 Novolog SC 1 unit Q6H HILL Administration Protocol Lorazepam 0.5 mg 05/18/17 15:32 05/30/17 13:18 Ativan IVP 0.5 mg Q4H PRN Administration Agitation Pantoprazole Sodium 40 mg 05/19/17 10:00 05/30/17 09:39 Protonix Inj IVP 40 mg DAILY HILL Administration - Patient Studies Lab Studies: Microbiology Studies 05/28/17 Unknown Gram Stain - Preliminary Trachasp 05/28/17 08:00 MRSA Culture (Admit) - Final Naris MRSA NOT DETECTED Lab Studies 05/30/17 05/30/17 05/30/17 Range/Units 12:06 05:59 05:59 WBC 14.3 H (4.8-10.8) K/uL RBC 3.24 L (4.40-5.90) Mil/uL Hgb 8.6 L (12.0-18.0) g/dL Hct 26.7 L (35.0-51.0) % MCV 82.4 (80.0-94.0) fL MCH 26.6 L (27.0-31.0) pg MCHC 32.3 L (33.0-37.0) g/dL RDW 20.1 H (11.5-14.5) % Plt Count 34 L (130-400) K/uL MPV 9.0 (7.2-11.7) fL Neut % (Auto) 90.6 H (50.0-75.0) % Lymph % (Auto) 2.3 L (20.0-40.0) % [place] % (Auto) 6.8 (0.0-10.0) % Eos % (Auto) 0.0 (0.0-4.0) % Baso % (Auto) 0.3 (0.0-2.0) % Neut # 12.9 H (1.8-7.0) K/uL Lymph # 0.3 L (1.0-4.3) K/uL [place] # 1.0 H (0.0-0.8) K/uL Eos # 0.0 (0.0-0.7) K/uL Baso # 0.0 (0.0-0.2) K/uL Neutrophils % (Manual) 96 H (50-75) % Band Neutrophils % 2 (0-2) % Lymphocytes % (Manual) 1 L (20-40) % Monocytes % (Manual) 1 (0-10) % Platelet Estimate Decreased L (NORMAL) Polychromasia Slight Hypochromasia (manual) Slight Anisocytosis (manual) Slight Target Cells Slight Tear Drop Cells Slight Ovalocytes Slight [place] Cells Slight Schistocytes Slight Puncture Site pCO2 (35-45) mm/Hg pO2 (80-100) mm/Hg HCO3 (21-28) mmol/L ABG pH (7.35-7.45) ABG Total CO2 (22-28) mmol/L ABG O2 Saturation (95-98) % ABG Base Excess (-2.0-3.0) mmol/L ABG Hemoglobin (11.7-17.4) g/dL ABG Carboxyhemoglobin (0.5-1.5) % POC ABG HHb (Measured) (0.0-5.0) % ABG Methemoglobin (0.0-3.0) % Lucho Test A-a O2 Difference mm/Hg Respiratory Index Hgb O2 Saturation (95.0-98.0) % Vent Mode Mechanical Rate FiO2 % Tidal Volume PEEP Sodium 146 (132-148) mmol/L Potassium 3.2 L (3.6-5.2) mmol/L Chloride 109 H (98-107) mmol/L Carbon Dioxide 21 L (22-30) mmol/L Anion Gap 19 (10-20) BUN 125 H* (9-20) mg/dL Creatinine 3.3 H (0.8-1.5) MG/DL Est GFR ( Amer) 22 Est GFR (Non-Af Amer) 18 POC Glucose (mg/dL) 164 H (65-110) mg/dL Random Glucose 136 H (75-110) mg/dL Calcium 7.9 L (8.6-10.4) mg/dl Phosphorus 4.4 (2.5-4.5) mg/dL Magnesium 2.3 (1.6-2.3) mg/dL Total Bilirubin 7.7 H (0.2-1.3) mg/dL Direct Bilirubin 5.6 H (0.0-0.4) mg/dL AST 75 H (17-59) U/L ALT 78 H (21-72) U/L Alkaline Phosphatase 89 (38-126) U/L Total Protein 3.7 L (6.3-8.3) g/dL Albumin 1.8 L (3.5-5.0) g/dL Globulin 2.0 L (2.2-3.9) gm/dL Albumin/Globulin Ratio 0.9 L (1.0-2.1) 05/30/17 05/30/17 05/30/17 Range/Units 05:25 05:21 00:09 WBC (4.8-10.8) K/uL RBC (4.40-5.90) Mil/uL Hgb (12.0-18.0) g/dL Hct (35.0-51.0) % MCV (80.0-94.0) fL MCH (27.0-31.0) pg MCHC (33.0-37.0) g/dL RDW (11.5-14.5) % Plt Count (130-400) K/uL MPV (7.2-11.7) fL Neut % (Auto) (50.0-75.0) % Lymph % (Auto) (20.0-40.0) % [place] % (Auto) (0.0-10.0) % Eos % (Auto) (0.0-4.0) % Baso % (Auto) (0.0-2.0) % Neut # (1.8-7.0) K/uL Lymph # (1.0-4.3) K/uL [place] # (0.0-0.8) K/uL Eos # (0.0-0.7) K/uL Baso # (0.0-0.2) K/uL Neutrophils % (Manual) (50-75) % Band Neutrophils % (0-2) % Lymphocytes % (Manual) (20-40) % Monocytes % (Manual) (0-10) % Platelet Estimate (NORMAL) Polychromasia Hypochromasia (manual) Anisocytosis (manual) Target Cells Tear Drop Cells Ovalocytes [place] Cells Schistocytes Puncture Site Lb pCO2 26 L (35-45) mm/Hg pO2 244 H (80-100) mm/Hg HCO3 21.4 (21-28) mmol/L ABG pH 7.46 H (7.35-7.45) ABG Total CO2 19.3 L (22-28) mmol/L ABG O2 Saturation 100.4 H (95-98) % ABG Base Excess -4.5 L (-2.0-3.0) mmol/L ABG Hemoglobin 8.5 L (11.7-17.4) g/dL ABG Carboxyhemoglobin 1.8 H (0.5-1.5) % POC ABG HHb (Measured) -0.4 L (0.0-5.0) % ABG Methemoglobin 1.0 (0.0-3.0) % Lucho Test Na A-a O2 Difference 437.0 mm/Hg Respiratory Index 1.8 Hgb O2 Saturation 97.6 (95.0-98.0) % Vent Mode Prvc Mechanical Rate 24 FiO2 100.0 % Tidal Volume 550 PEEP 5 Sodium (132-148) mmol/L Potassium (3.6-5.2) mmol/L Chloride (98-107) mmol/L Carbon Dioxide (22-30) mmol/L Anion Gap (10-20) BUN (9-20) mg/dL Creatinine (0.8-1.5) MG/DL Est GFR ( Amer) Est GFR (Non-Af Amer) POC Glucose (mg/dL) 169 H 163 H (65-110) mg/dL Random Glucose (75-110) mg/dL Calcium (8.6-10.4) mg/dl Phosphorus (2.5-4.5) mg/dL Magnesium (1.6-2.3) mg/dL Total Bilirubin (0.2-1.3) mg/dL Direct Bilirubin (0.0-0.4) mg/dL AST (17-59) U/L ALT (21-72) U/L Alkaline Phosphatase (38-126) U/L Total Protein (6.3-8.3) g/dL Albumin (3.5-5.0) g/dL Globulin (2.2-3.9) gm/dL Albumin/Globulin Ratio (1.0-2.1) 05/29/17 Range/Units 17:32 WBC (4.8-10.8) K/uL RBC (4.40-5.90) Mil/uL Hgb (12.0-18.0) g/dL Hct (35.0-51.0) % MCV (80.0-94.0) fL MCH (27.0-31.0) pg MCHC (33.0-37.0) g/dL RDW (11.5-14.5) % Plt Count (130-400) K/uL MPV (7.2-11.7) fL Neut % (Auto) (50.0-75.0) % Lymph % (Auto) (20.0-40.0) % [place] % (Auto) (0.0-10.0) % Eos % (Auto) (0.0-4.0) % Baso % (Auto) (0.0-2.0) % Neut # (1.8-7.0) K/uL Lymph # (1.0-4.3) K/uL [place] # (0.0-0.8) K/uL Eos # (0.0-0.7) K/uL Baso # (0.0-0.2) K/uL Neutrophils % (Manual) (50-75) % Band Neutrophils % (0-2) % Lymphocytes % (Manual) (20-40) % Monocytes % (Manual) (0-10) % Platelet Estimate (NORMAL) Polychromasia Hypochromasia (manual) Anisocytosis (manual) Target Cells Tear Drop Cells Ovalocytes [place] Cells Schistocytes Puncture Site pCO2 (35-45) mm/Hg pO2 (80-100) mm/Hg HCO3 (21-28) mmol/L ABG pH (7.35-7.45) ABG Total CO2 (22-28) mmol/L ABG O2 Saturation (95-98) % ABG Base Excess (-2.0-3.0) mmol/L ABG Hemoglobin (11.7-17.4) g/dL ABG Carboxyhemoglobin (0.5-1.5) % POC ABG HHb (Measured) (0.0-5.0) % ABG Methemoglobin (0.0-3.0) % Lucho Test A-a O2 Difference mm/Hg Respiratory Index Hgb O2 Saturation (95.0-98.0) % Vent Mode Mechanical Rate FiO2 % Tidal Volume PEEP Sodium (132-148) mmol/L Potassium (3.6-5.2) mmol/L Chloride (98-107) mmol/L Carbon Dioxide (22-30) mmol/L Anion Gap (10-20) BUN (9-20) mg/dL Creatinine (0.8-1.5) MG/DL Est GFR ( Amer) Est GFR (Non-Af Amer) POC Glucose (mg/dL) 172 H (65-110) mg/dL Random Glucose (75-110) mg/dL Calcium (8.6-10.4) mg/dl Phosphorus (2.5-4.5) mg/dL Magnesium (1.6-2.3) mg/dL Total Bilirubin (0.2-1.3) mg/dL Direct Bilirubin (0.0-0.4) mg/dL AST (17-59) U/L ALT (21-72) U/L Alkaline Phosphatase (38-126) U/L Total Protein (6.3-8.3) g/dL Albumin (3.5-5.0) g/dL Globulin (2.2-3.9) gm/dL Albumin/Globulin Ratio (1.0-2.1) Laboratory Results - last 24 hr 05/29/17 05/30/17 05/30/17 17:32 00:09 05:21 WBC RBC Hgb Hct MCV MCH MCHC RDW Plt Count MPV Neut % (Auto) Lymph % (Auto) [place] % (Auto) Eos % (Auto) Baso % (Auto) Neut # Lymph # [place] # Eos # Baso # Neutrophils % (Manual) Band Neutrophils % Lymphocytes % (Manual) Monocytes % (Manual) Platelet Estimate Polychromasia Hypochromasia (manual) Anisocytosis (manual) Target Cells Tear Drop Cells Ovalocytes [place] Cells Schistocytes Puncture Site pCO2 pO2 HCO3 ABG pH ABG Total CO2 ABG O2 Saturation ABG Base Excess ABG Hemoglobin ABG Carboxyhemoglobin POC ABG HHb (Measured) ABG Methemoglobin Lucho Test A-a O2 Difference Respiratory Index Hgb O2 Saturation Vent Mode Mechanical Rate FiO2 Tidal Volume PEEP Sodium Potassium Chloride Carbon Dioxide Anion Gap BUN Creatinine Est GFR ( Amer) Est GFR (Non-Af Amer) POC Glucose (mg/dL) 172 H 163 H 169 H Random Glucose Calcium Phosphorus Magnesium Total Bilirubin Direct Bilirubin AST ALT Alkaline Phosphatase Total Protein Albumin Globulin Albumin/Globulin Ratio 05/30/17 05/30/17 05/30/17 05:25 05:59 05:59 WBC 14.3 H RBC 3.24 L Hgb 8.6 L Hct 26.7 L MCV 82.4 MCH 26.6 L MCHC 32.3 L RDW 20.1 H Plt Count 34 L MPV 9.0 Neut % (Auto) 90.6 H Lymph % (Auto) 2.3 L [place] % (Auto) 6.8 Eos % (Auto) 0.0 Baso % (Auto) 0.3 Neut # 12.9 H Lymph # 0.3 L [place] # 1.0 H Eos # 0.0 Baso # 0.0 Neutrophils % (Manual) 96 H Band Neutrophils % 2 Lymphocytes % (Manual) 1 L Monocytes % (Manual) 1 Platelet Estimate Decreased L Polychromasia Slight Hypochromasia (manual) Slight Anisocytosis (manual) Slight Target Cells Slight Tear Drop Cells Slight Ovalocytes Slight [place] Cells Slight Schistocytes Slight Puncture Site Lb pCO2 26 L pO2 244 H HCO3 21.4 ABG pH 7.46 H ABG Total CO2 19.3 L ABG O2 Saturation 100.4 H ABG Base Excess -4.5 L ABG Hemoglobin 8.5 L ABG Carboxyhemoglobin 1.8 H POC ABG HHb (Measured) -0.4 L ABG Methemoglobin 1.0 Lucho Test Na A-a O2 Difference 437.0 Respiratory Index 1.8 Hgb O2 Saturation 97.6 Vent Mode Prvc Mechanical Rate 24 FiO2 100.0 Tidal Volume 550 PEEP 5 Sodium 146 Potassium 3.2 L Chloride 109 H Carbon Dioxide 21 L Anion Gap 19 BUN 125 H* Creatinine 3.3 H Est GFR ( Amer) 22 Est GFR (Non-Af Amer) 18 POC Glucose (mg/dL) Random Glucose 136 H Calcium 7.9 L Phosphorus 4.4 Magnesium 2.3 Total Bilirubin 7.7 H Direct Bilirubin 5.6 H AST 75 H ALT 78 H Alkaline Phosphatase 89 Total Protein 3.7 L Albumin 1.8 L Globulin 2.0 L Albumin/Globulin Ratio 0.9 L 05/30/17 12:06 WBC RBC Hgb Hct MCV MCH MCHC RDW Plt Count MPV Neut % (Auto) Lymph % (Auto) [place] % (Auto) Eos % (Auto) Baso % (Auto) Neut # Lymph # [place] # Eos # Baso # Neutrophils % (Manual) Band Neutrophils % Lymphocytes % (Manual) Monocytes % (Manual) Platelet Estimate Polychromasia Hypochromasia (manual) Anisocytosis (manual) Target Cells Tear Drop Cells Ovalocytes [place] Cells Schistocytes Puncture Site pCO2 pO2 HCO3 ABG pH ABG Total CO2 ABG O2 Saturation ABG Base Excess ABG Hemoglobin ABG Carboxyhemoglobin POC ABG HHb (Measured) ABG Methemoglobin Lucho Test A-a O2 Difference Respiratory Index Hgb O2 Saturation Vent Mode Mechanical Rate FiO2 Tidal Volume PEEP Sodium Potassium Chloride Carbon Dioxide Anion Gap BUN Creatinine Est GFR ( Amer) Est GFR (Non-Af Amer) POC Glucose (mg/dL) 164 H Random Glucose Calcium Phosphorus Magnesium Total Bilirubin Direct Bilirubin AST ALT Alkaline Phosphatase Total Protein Albumin Globulin Albumin/Globulin Ratio Fingerstick Blood Sugar Results: 122
[2017-05-30] MEDS: Aztreonam 1 GM in Sodium Chloride 0.9% 100 ML IVPB SCH (16:37)
--- NOTE | 2017-05-30 17:30 | CP.PCM.PN ---
Subjective - Date & Time of Evaluation Date of Evaluation: 05/30/17 - Subjective Subjective: Patient intubated; Objective - Vital Signs/Intake and Output Vital Signs (last 24 hours): Temp Pulse Resp BP Pulse Ox 98.4 F 144 H 26 H 92/39 L 94 L 05/30/17 16:00 05/30/17 17:00 05/30/17 17:00 05/30/17 16:53 05/30/17 17:00 Intake and Output: 05/30/17 05/30/17 06:59 18:59 Intake Total 1928.0 1541.0 Output Total 595 45 Balance 1333.0 1496.0 - Medications Medications: Current Medications Albuterol Sulfate (Albuterol 0.083% Inhal Judy (2.5 Mg/3 Ml) Ud) 2.5 mg INH RQ6 PRN PRN Reason: Wheezing Last Admin: 05/30/17 08:09 Dose: 2.5 mg Amiodarone HCl (Cordarone) 200 mg NG DAILY HILL Last Admin: 05/25/17 10:51 Dose: 200 mg Artificial Tears (Artificial Tears) 0 ml OU Q3H H[facility] Last Admin: 05/30/17 15:55 Dose: 1 drop Aspirin (Aspirin Chewable) 81 mg PO DAILY HILL Last Admin: 05/19/17 11:05 Dose: 81 mg Aztreonam 1 gm/ Sodium (Chloride) 100 mls @ 200 mls/hr IVPB Q24H H[facility] Last Admin: 05/30/17 16:37 Dose: 200 mls/hr Meropenem 500 mg/ Sodium (Chloride) 100 mls @ 100 mls/hr IVPB Q12H [place] Last Admin: 05/30/17 17:20 Dose: 100 mls/hr Tigecycline 50 mg/ Sodium (Chloride) 100 mls @ 100 mls/hr IVPB Q12H [facility] Last Admin: 05/30/17 10:37 Dose: 100 mls/hr Diltiazem HCl 125 mg/ Sodium (Chloride) 125 mls @ 5 mls/hr IV .Q24H HILL; 5 MG/ HR PRN Reason: Protocol Last Admin: 05/27/17 16:36 Dose: 5 mg/hr, 5 mls/hr Sodium Chloride (Sodium Chloride 0.45%) 1,000 mls @ 100 mls/hr IV .Q10H [facility] Last Admin: 05/30/17 12:26 Dose: Not Given Norepinephrine Bitartrate 4 mg (/ Sodium Chloride) 254 mls @ 15.24 mls/hr IV .[id number] PRN; Protocol; 4 MCG/MIN PRN Reason: TITRATE PER MD ORDER Last Admin: 05/30/17 16:48 Dose: 8 mcg/min, 30.48 mls/hr Milrinone Lactate/Dextrose 20 (mg/ Dextrose) 100 mls @ 4.46 mls/hr IV .[id number] [place]; 0.2 MCG/KG/MIN PRN Reason: Protocol Last Admin: 05/30/17 14:42 Dose: Not Given Morphine Sulfate 250 mg/ (Sodium Chloride) 250 mls @ 5 mls/hr IV .Q24H ONE; 5 MG/HR PRN Reason: Protocol Stop: 05/31/17 14:15 Last Titration: 05/30/17 15:26 Dose: 10 mg/hr, 10 mls/hr Insulin Aspart (Novolog) 0 unit SC Q6H [place] PRN Reason: Protocol Last Admin: 05/30/17 12:12 Dose: 1 unit Lorazepam (Ativan) 0.5 mg IVP Q4H PRN PRN Reason: Agitation Last Admin: 05/30/17 13:18 Dose: 0.5 mg Pantoprazole Sodium (Protonix Inj) 40 mg IVP DAILY [facility] Last Admin: 05/30/17 09:39 Dose: 40 mg - Labs Labs: 05/30/17 05:59 05/30/17 05:59 PT > 320.0 SECONDS (9.7-12.2) H* D 05/28/17 16:43 INR > 10.0 D 05/28/17 16:43 APTT > 400 SECONDS (21-34) H* D 05/28/17 16:43 - Constitutional Appears: No Acute Distress - Head Exam Head Exam: NORMAL INSPECTION - Eye Exam Eye Exam: Scleral icterus - ENT Exam ENT Exam: Mucous Membranes Moist - Respiratory Exam Respiratory Exam: absent: Respiratory Distress - Cardiovascular Exam Cardiovascular Exam: Irregular Rhythm - GI/Abdominal Exam GI & Abdominal Exam: Distended, Tenderness - Exam Additional comments: whitehead in place; - Extremities Exam Additional comments: Moderately edematous ext; - Skin Skin Exam: Warm. absent: Cyanosis Assessment and Plan (1) CHF (congestive heart failure) Assessment & Plan: Severely decompensated systolic CHF; started on inotropic support yesterday, however, no improvement with patient oligo-anuric; family opting now for comfort care; Status: Acute (2) Acute renal failure (ARF) Assessment & Plan: Cardiorenal etiology, now oligo-anuric; no improvement with inotropic support as clinical status has deteriorated with MODS; family opting for comfort care; Status: Acute (3) Hypertensive CKD (chronic kidney disease) Assessment & Plan: Hypotensive, on vasopressor support, continue; Status: Chronic (4) Altered mental status Status: Acute (5) SIRS (systemic inflammatory response syndrome) Assessment & Plan: On multiple abx, dosed adjusted for renal failure; change meropenem to q24h; Status: Acute (6) Hyperbilirubinemia Status: Acute
[2017-05-31 00:24] VITALS: TEMP 97.8
--- NOTE | 2017-05-31 01:05 | CP.PCM.PRO ---
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 [id number] Additional Comments: The Patient was a DNR/DNI
[2017-05-31 02:14] VITALS: BP 60/24; PULSE 87; RESP 0
[2017-05-31 02:15] VITALS: O2SAT 93
--- NOTE | 2017-05-31 18:14 | CP.PCM.DIS ---
Provider - Provider Date of Admission: 05/18/17 13:34 Attending physician: Gregory Norman MD Time Spent in preparation of Discharge (in minutes): 40 Hospital Course - Lab Results Lab Results: Micro Results 05/28/17 Unknown Trachasp Gram Stain - Preliminary 05/28/17 Unknown Trachasp Sputum Culture - Preliminary Yeast Species 05/28/17 08:00 Naris MRSA Culture (Admit) - Final MRSA NOT DETECTED 05/22/17 21:30 Blood-Venous Blood Culture - Final NO GROWTH AFTER 5 DAYS 05/22/17 21:30 Blood-Venous Gram Stain - Final TEST NOT PERFORMED 05/22/17 21:00 Blood-Venous Blood Culture - Final NO GROWTH AFTER 5 DAYS 05/22/17 21:00 Blood-Venous Gram Stain - Final TEST NOT PERFORMED 05/24/17 07:00 Nose MRSA Culture - Final MRSA NOT DETECTED 05/20/17 11:40 Urine,[place]head Urine Culture - Final No Growth (<1,000 CFU/ML) 05/18/17 20:00 Naris MRSA Culture (Admit) - Final MRSA NOT DETECTED Most Recent Lab Values WBC 14.3 K/uL (4.8-10.8) H 05/30/17 05:59 RBC 3.24 Mil/uL (4.40-5.90) L 05/30/17 05:59 Hgb 8.6 g/dL (12.0-18.0) L 05/30/17 05:59 Hct 26.7 % (35.0-51.0) L 05/30/17 05:59 MCV 82.4 fL (80.0-94.0) 05/30/17 05:59 MCH 26.6 pg (27.0-31.0) L 05/30/17 05:59 MCHC 32.3 g/dL (33.0-37.0) L 05/30/17 05:59 RDW 20.1 % (11.5-14.5) H 05/30/17 05:59 Plt Count 34 K/uL (130-400) L 05/30/17 05:59 Manual Plt Count 112 K/uL (130-400) L 05/25/17 17:36 MPV 9.0 fL (7.2-11.7) 05/30/17 05:59 Neut % (Auto) 90.6 % (50.0-75.0) H 05/30/17 05:59 Lymph % (Auto) 2.3 % (20.0-40.0) L 05/30/17 05:59 Coal % (Auto) 6.8 % (0.0-10.0) 05/30/17 05:59 Eos % (Auto) 0.0 % (0.0-4.0) 05/30/17 05:59 Baso % (Auto) 0.3 % (0.0-2.0) 05/30/17 05:59 Neut # 12.9 K/uL (1.8-7.0) H 05/30/17 05:59 Lymph # 0.3 K/uL (1.0-4.3) L 05/30/17 05:59 Coal # 1.0 K/uL (0.0-0.8) H 05/30/17 05:59 Eos # 0.0 K/uL (0.0-0.7) 05/30/17 05:59 Baso # 0.0 K/uL (0.0-0.2) 05/30/17 05:59 Neutrophils % (Manual) 96 % (50-75) H 05/30/17 05:59 Band Neutrophils % 2 % (0-2) 05/30/17 05:59 Lymphocytes % (Manual) 1 % (20-40) L 05/30/17 05:59 Reactive Lymphs % 2 % (0-0) H 05/28/17 09:08 Monocytes % (Manual) 1 % (0-10) 05/30/17 05:59 Eosinophils % (Manual) 1 % (0-4) 05/26/17 11:31 Basophils % (Manual) 1 % (0-2) 05/19/17 06:11 Nucleated RBC % 6 % (0-0) H 05/29/17 06:22 Differential Comment 05/18/17 11:54 Platelet Estimate Decreased (NORMAL) L 05/30/17 05:59 Large Platelets Present 05/25/17 17:36 Polychromasia Slight 05/30/17 05:59 Hypochromasia (manual) Slight 05/30/17 05:59 Poikilocytosis (manual Moderate 05/29/17 06:22 Basophilic Stippling Slight 05/29/17 06:22 Anisocytosis (manual) Slight 05/30/17 05:59 Microcytosis (manual) Slight 05/25/17 17:36 Macrocytosis (manual) Slight 05/25/17 17:36 Target Cells Slight 05/30/17 05:59 Tear Drop Cells Slight 05/30/17 05:59 Ovalocytes Slight 05/30/17 05:59 Winifred Cells Slight 05/30/17 05:59 Acanthocytes (Spur) Slight 05/28/17 16:43 Schistocytes Slight 05/30/17 05:59 PT > 320.0 SECONDS (9.7-12.2) H* D 05/28/17 16:43 INR > 10.0 D 05/28/17 16:43 APTT > 400 SECONDS (21-34) H* D 05/28/17 16:43 D-Dimer, Quantitative 1097 ng/mlDDU (0-243) H 05/18/17 11:54 Puncture Site Lb 05/30/17 05:25 pCO2 26 mm/Hg (35-45) L 05/30/17 05:25 pO2 244 mm/Hg (80-100) H 05/30/17 05:25 HCO3 21.4 mmol/L (21-28) 05/30/17 05:25 ABG pH 7.46 (7.35-7.45) H 05/30/17 05:25 ABG Total CO2 19.3 mmol/L (22-28) L 05/30/17 05:25 ABG O2 Saturation 100.4 % (95-98) H 05/30/17 05:25 ABG Base Excess -4.5 mmol/L (-2.0-3.0) L 05/30/17 05:25 ABG Hemoglobin 8.5 g/dL (11.7-17.4) L 05/30/17 05:25 ABG Carboxyhemoglobin 1.8 % (0.5-1.5) H 05/30/17 05:25 POC ABG HHb (Measured) -0.4 % (0.0-5.0) L 05/30/17 05:25 ABG Methemoglobin 1.0 % (0.0-3.0) 05/30/17 05:25 Lucho Test Na 05/30/17 05:25 ABG Potassium 4.0 mmol/L (3.6-5.2) 05/28/17 09:00 VBG pH 7.25 (7.32-7.43) L 05/18/17 14:30 VBG pCO2 39 mmHg (40-60) L 05/18/17 14:30 VBG HCO3 15.8 mmol/L 05/18/17 14:30 VBG Total CO2 18.3 mmol/L (22-28) L 05/18/17 14:30 VBG O2 Sat (Calc) 41.5 % (40-65) 05/18/17 14:30 VBG Base Excess -9.5 mmol/L (0.0-2.0) L 05/18/17 14:30 VBG Potassium 3.5 mmol/L (3.6-5.2) L 05/18/17 14:30 A-a O2 Difference 437.0 mm/Hg 05/30/17 05:25 Respiratory Index 1.8 05/30/17 05:25 Hgb O2 Saturation 97.6 % (95.0-98.0) 05/30/17 05:25 Sodium 148.0 mmol/l (132-148) 05/28/17 09:00 Chloride 120.0 mmol/L (98-107) H 05/28/17 09:00 Glucose 139 mg/dl (75-110) H 05/28/17 09:00 Lactate 1.4 mmol/L (0.7-2.1) 05/28/17 09:00 Liter Flow 3.0 05/22/17 10:47 Vent Mode Prvc 05/30/17 05:25 Mechanical Rate 24 05/30/17 05:25 FiO2 100.0 % 05/30/17 05:25 Tidal Volume 550 05/30/17 05:25 PEEP 5 05/30/17 05:25 Inspiratory BiPAP 12 05/18/17 12:10 Expiratory BiPAP 6 05/18/17 12:10 Crit Value Called To Dr kelsey 05/28/17 09:00 Crit Value Called By Joseph jones crt 05/28/17 09:00 Crit Value Read Back Y 05/28/17 09:00 Blood Gas Notified Time 900 05/28/17 09:00 Sodium 146 mmol/L (132-148) 05/30/17 05:59 Potassium 3.2 mmol/L (3.6-5.2) L 05/30/17 05:59 Chloride 109 mmol/L (98-107) H 05/30/17 05:59 Carbon Dioxide 21 mmol/L (22-30) L 05/30/17 05:59 Anion Gap 19 (10-20) 05/30/17 05:59 BUN 125 mg/dL (9-20) H* 05/30/17 05:59 Creatinine 3.3 MG/DL (0.8-1.5) H 05/30/17 05:59 Est GFR ( Amer) 22 05/30/17 05:59 Est GFR (Non-Af Amer) 18 05/30/17 05:59 POC Glucose (mg/dL) 164 mg/dL (65-110) H 05/30/17 12:06 Random Glucose 136 mg/dL (75-110) H 05/30/17 05:59 Hemoglobin A1c 7.5 % (4.2-6.5) H 05/19/17 06:11 Lactic Acid 1.5 mmol/L (0.7-2.1) 05/26/17 11:37 Calcium 7.9 mg/dl (8.6-10.4) L 05/30/17 05:59 Phosphorus 4.4 mg/dL (2.5-4.5) 05/30/17 05:59 Magnesium 2.3 mg/dL (1.6-2.3) 05/30/17 05:59 Iron 94 ug/dL (49-181) 05/27/17 08:19 TIBC 343 ug/dL (250-450) 05/27/17 08:19 % Saturation 27 (20-55) 05/27/17 08:19 Ferritin 45.5 ng/mL 05/27/17 08:19 Total Bilirubin 7.7 mg/dL (0.2-1.3) H 05/30/17 05:59 Direct Bilirubin 5.6 mg/dL (0.0-0.4) H 05/30/17 05:59 AST 75 U/L (17-59) H 05/30/17 05:59 ALT 78 U/L (21-72) H 05/30/17 05:59 Alkaline Phosphatase 89 U/L (38-126) 05/30/17 05:59 Ammonia 18 umol/L (9-33) 05/24/17 08:50 Total Creatine Kinase 62 U/L (55-170) 05/18/17 23:56 CK-MB (Mass) 2.88 ng/mL (0.0-3.38) 05/18/17 23:56 Troponin I 0.0440 ng/mL (0.00-0.120) 05/18/17 11:54 Troponin I, Quant 0.0660 ng/mL (0.00-0.120) 05/18/17 23:56 NT-Pro-B Natriuret Pep 7710 pg/mL (0-900) H 05/18/17 11:54 Total Protein 3.7 g/dL (6.3-8.3) L 05/30/17 05:59 Albumin 1.8 g/dL (3.5-5.0) L 05/30/17 05:59 Globulin 2.0 gm/dL (2.2-3.9) L 05/30/17 05:59 Albumin/Globulin Ratio 0.9 (1.0-2.1) L 05/30/17 05:59 Triglycerides 106 mg/dL (0-149) 05/19/17 06:11 Cholesterol 101 mg/dL (0-199) 05/19/17 06:11 LDL Cholesterol Direct 48 mg/dL (0-129) 05/19/17 06:11 HDL Cholesterol 33 mg/dL (30-70) 05/19/17 06:11 Prostate Specific Ag 1.81 ng/mL (0.00-4.0) 05/26/17 19:33 Procalcitonin 0.55 NG/ML (0.19-0.49) H 05/22/17 10:50 Free T4 2.83 ng/dL (0.78-2.19) H 05/19/17 06:11 TSH 3rd Generation 2.09 mIU/L (0.46-4.68) 05/19/17 06:11 Arterial Blood Potassium 4.0 mmol/L (3.6-5.2) 05/28/17 09:00 Venous Blood Potassium 3.5 mmol/L (3.6-5.2) L 05/18/17 14:30 Urine Color Yellow (YELLOW) 05/26/17 11:25 Urine Clarity Hazy (Clear) 05/26/17 11:25 Urine pH 5.0 (5.0-8.0) 05/26/17 11:25 Ur Specific [place] 1.015 (1.003-1.030) 05/26/17 11:25 Urine Protein Negative mg/dL (NEGATIVE) 05/26/17 11:25 Urine Glucose (UA) Normal mg/dL (Normal) 05/26/17 11:25 Urine Ketones Negative mg/dL (NEGATIVE) 05/26/17 11:25 Urine Blood 3+ (NEGATIVE) H 05/26/17 11:25 Urine Nitrate Negative (NEGATIVE) 05/26/17 11:25 Urine Bilirubin Negative (NEGATIVE) 05/26/17 11:25 Urine Urobilinogen Normal mg/dL (0.2-1.0) 05/26/17 11:25 Ur Leukocyte Esterase 3+ [place]/uL (Negative) H 05/26/17 11:25 Urine WBC (Auto) 246 /hpf (0-5) H 05/26/17 11:25 Urine RBC (Auto) 25 /hpf (0-3) H 05/26/17 11:25 Ur Squamous Epith Cells < 1 /hpf (0-5) 05/26/17 11:25 Urine Bacteria Occ (<OCC) H 05/26/17 11:25 Hyaline Casts 6-10 /lpf (0-2) H 05/26/17 11:25 Urine Yeast (Budding) Occ /hpf (NEGATIVE) H 05/26/17 11:25 Ur Random Creatinine 46.8 mg/dL 05/26/17 11:25 U Random Total Protein 85.0 mg/dL (0.0-12.0) H 05/18/17 22:06 Ur Random Sodium 42 mmol/L 05/26/17 11:25 Ur Random Urea Nitrogn 965 mg/dL 05/26/17 11:25 Urine Microalbumin 467.6 mg/L (0.0-16.6) H 05/18/17 22:00 Random Vancomycin 21.75 ug/mL 05/20/17 06:35 ZECHARIAH 6 Profile Negative (NEGATIVE) 05/27/17 08:19 Anti-Mitochondrial Ab Negative (Negative) 05/27/17 08:19 Anti-Smooth Muscle Ab Negative (Negative) 05/27/17 08:19 Hepatitis A IgM Ab Negative (NEGATIVE) 05/25/17 17:36 Hep Bs Antigen Negative (NEGATIVE) 05/25/17 17:36 Hep B Core IgM Ab Negative (NEGATIVE) 05/25/17 17:36 Hepatitis C Antibody Negative (NEGATIVE) 05/25/17 17:36 - Hospital Course Hospital Course: 87 year old male who was admitted on 05/18/17 with multiple medical problems (as documented below) with multiple organ failure. Extensive conversation on with Son Suhas and Lily on 05/29/17 with the help of [employer] Interpretor Carolina Gilliam [id number] (with [employer] present) . Re-expressed to family that the patient was dying (secondary to HF, Liver Failure, Renal Failure, Respiratory Failure) and that I did not believe that further intervention would bring back the patient to the level that the family was expecting. Both Lily and Suhas wanted more time for consideration but wanted to continue current management. Then on family decided on terminal extubation and this was performed at 3 PM and rest of care was discontinued as per family request. Patient was pronounced at 12:47 AM 05/31/17. Assessments: SIRS:Tigecycline, Merapenam, Aztreonam Metabolic Acidosis Change in Mental Status Secondary to likely Metabolic Encephalopathy CHF Dilated Cardiomyopathy: Milrinone Hx HTN currently Hypotensive: Norepinephrine Hx HLD CKD IV Bilateral Leg Edema Elevated LFTs Chronic A-fib: Diltiazam, ASA, Amiodarone A brief summary of his care is below. Please refer to the complete medical record for full details. Neuro: Altered mental status secondary to metabolic encephalopathy. Son stated that he does not want a lumbar puncture to be done - Head CT 05/22: Nonspecific white matter changes. - Head CT (05/18): No evidence of acute intracranial hemorrhage territorial infarct mass effect or midline shift. Moderate atrophy and moderate white matter changes likely due to microvascular ischemic disease. - Neuro Consult: Dr. Jimenez --> help appreciated Pulm: 05/28: Pt's code status was changed this morning per his son Suhas, a code blue was called and intubation was performed. - Lung VQ scan: low probability of PE - Chest X-ray (05/19): No infiltrate. Cardiomegaly. Nasogastric tube in appropriate. - Chest X-ray (05/21): No significant interval change - Albuterol RQ6 PRN CV: Patient has history of CHF with severely decreased Ef to 20%, HTN, Afib, ischemic cardiomyopathy, and severe chronic mitral regurgitation Blood pressure labile, ranging from normotensive to hypotensive. - Atrial fibrillation - Cardizem drip 5mg/hr iv - Continue Aspirin 81 mg po qd - Will consider adding metoprolol IVP if HR continues to remain elevated - Cardiology Consult: Dr. Saha --> help appreciated - CT of abdmomen & Pelvis (05/18): Massive cardiomegaly, small pericardial effusion and small bilateral pleural effusions. - Patient's family is not agreeable to having AICD placed - Patient to be transferred to tele floor today for cardiac monitoring Hem: Thrombocytopenia likely due to severe sepsis. Will continue to monitor. Will check INR and manual platelet count Renal: Dextrose 5% increased from 100mls/hr to currently at a rate of 200mls/hr. Lasix currently at 40mg iv q8. Managing fluid overload with diuriesis and dextrose infusion to correct hypernatremia. UA 05/26 shows 3+ blood, 3+ leuk esterase, 246 wbc, 25 rbc Chronic kidney disease, Will monitor urine output. - Nephrology Consult: Dr. Ortiz --> help appreciated - Continue D5NS at 75cc/hr - Cr trending back up Endo: History of DM Continue ISS GI: Likely that the direct bilirubin is increasing due to decreased clearance by the kidneys. Hep panel negative Transaminitis and jaundice present. Elevated LFTs likely due to poor perfusion for cardiac dysfunction. LFTs trending down. GI, Dr. Barroso is consulted. Recommendations for elevated LFTs is to optimize cardiac function for better perfusion. Sepsis may be 2/2 ischemic bowel or some other infection in abdomen. Unfortunately, due to poor kidney function, CT of abd with IV contrast is unable to be done. CT with PO contrast 05-18 showed massive cardiomegaly; small pericardial effusion and small B/L pleural effusions, possible cystitis, enlarged prostate. Abd US from 05/22 showed echogenic liver, mild steatosis, hepatic cyst, simple right kidney cyst, small right pleural effusion, dilated hepatic vein suggests heart failure Abd duplex US 05/24 showed fatty infiltration or other infiltrative hepatocellular process not excluded. See full report Currently on peripheral feeding with Liposen ID: Blood cultures negative after 4 days Elevated lactic acid. Sepsis source 2/2 ischemic bowel vs. UTI Currently on Aztreonam, tigecycline, and meropenem - blood culture 05/18 & 05/22: no growth - urine culture: no growth - nose culture neg for MRSA : PSA wnl 1.81 CT shows enlarged prostate DVT proph - Contraindication due to decreased platelet count GI proph - 40mg Protonix daily whitehead for strict I/O's during acute illness SCDs Gregory Norman D.O. Discharge Exam - Head Exam Head Exam: NORMAL INSPECTION Discharge Plan - Follow Up Plan Condition: GUARDED Disposition: WITH WITHOUT AUTOPSY
== END 2017-05-31 00:47 | DRG 871 ==
LOC: C.ER 11:22 → C.9E 13:34 → C.9I 14:25 → C.3T 05-24 01:28 → C.6T 05-25 14:25 → C.9I 05-28 07:52
PROVIDERS: ADMIT Family Medicine; ATTEND Family Medicine
PROC: 5A1945Z Respiratory Ventilation, 24-96 Consecutive Hours (ICD-10-PCS; principal; 2017-05-28)
PROC: 0BH17EZ Insertion of Endotracheal Airway into Trachea, Via Natural or Artificial Opening (ICD-10-PCS; 2017-05-28)
DX: A41.9 Sepsis, unspecified organism (principal); G93.41 Metabolic encephalopathy; K72.00 Acute and subacute hepatic failure without coma; J96.00 Acute respiratory failure, unspecified whether with hypoxia or hypercapnia; N17.9 Acute kidney failure, unspecified; I50.23 Acute on chronic systolic (congestive) heart failure; D69.6 Thrombocytopenia, unspecified; N18.3 Chronic kidney disease, stage 3 (moderate); E87.2 Acidosis; I13.0 Hypertensive heart and chronic kidney disease with heart failure and stage 1 through stage 4 chronic kidney disease, or unspecified chronic kidney disease; I42.0 Dilated cardiomyopathy; N30.00 Acute cystitis without hematuria; R65.20 Severe sepsis without septic shock; I25.5 Ischemic cardiomyopathy; I34.0 Nonrheumatic mitral (valve) insufficiency; E78.00 Pure hypercholesterolemia, unspecified; I48.2 Chronic atrial fibrillation; E78.5 Hyperlipidemia, unspecified; N40.0 Benign prostatic hyperplasia without lower urinary tract symptoms; Z66 Do not resuscitate; Z95.810 Presence of automatic (implantable) cardiac defibrillator